=== PATIENT | female | born 1945 | race Caucasian/White ===

== ENCOUNTER 2018-08-03 12:54 | Inpatient (IN) | payer OTHER ==
[2018-08-03] MEDS ORDERED: ACETAMINOPHEN TAB 650MG DOSE (2X325MG) PO (14:30)
[2018-08-03] MEDS ORDERED: VANCOMYCIN HCL 1,000 MG, VIAL MATE ADAPTER 1 EACH in D5W 250 ML IV (14:45)
[2018-08-03] MEDS: PIPERACILLIN/TAZOBACTAM SOD 2.25 GM in D5W MINI-BAG PLUS 50 ML IV ×2 (15:19→20:50)
[2018-08-03] MEDS: methylPREDNISolone INJ 125 MG/2 ML VIAL (J2930) IV (15:19)
[2018-08-03] MEDS: DIGOXIN 0.125 MG TAB PO (15:19)
[2018-08-03 15:32] LABS: BASO % 0.4 % (0.0-1.0); EOS # 0.3 10^3/uL (0.0-0.50); EOS % 2.3 % (0.0-3.0); HEMATOCRIT 28.8 % (36.0-47.0); HEMOGLOBIN 9.1 g/dl (12.0-15.5); IMMATURE GRANULOCYTE % 0.5 % (0-3.0); LYMPH # 1.5 10^3/uL (1.5-4.5); LYMPH % 13.3 % (24.0-44.0); MEAN CORPUSCULAR HEMOGLOBIN 29.9 pg (27.0-33.0); MEAN CORPUSCULAR HGB CONC 31.6 g/dl (32.0-36.5); MEAN CORPUSCULAR VOLUME 94.7 fl (80.0-96.0); MONO # 0.6 10^3/uL (0.0-0.8); MONO % 5.2 % (0.0-5.0); NEUTROPHILS # 8.7 10^3/uL (1.8-7.7); NEUTROPHILS % 78.3 % (36.0-66.0); PLATELET COUNT, AUTOMATED 370 10^3/uL (150-450); RED BLOOD COUNT 3.04 10^6/uL (4.00-5.40); RED CELL DISTRIBUTION WIDTH 16.2 % (11.5-14.5); WHITE BLOOD COUNT 11.1 10^3/uL (4.0-10.0)
[2018-08-03 16:10] LABS: LACTIC ACID SEPSIS PROTOCOL 1.1 MMOL/L (0.4-2.0)
[2018-08-03 16:21] LABS: ANION GAP 7 MEQ/L (8-16); BLOOD UREA NITROGEN 12 MG/DL (7-18); CALCIUM LEVEL 8.3 MG/DL (8.8-10.2); CARBON DIOXIDE LEVEL 24 MEQ/L (21-32); CHLORIDE LEVEL 112 MEQ/L (98-107); CHOLESTEROL LEVEL 218 MG/DL (<200); CPK CREATINE PHOSPHOKINASE 45 U/L (26-192); CREATININE FOR GFR 1.26 MG/DL (0.55-1.30); DIGOXIN LEVEL 0.4 NG/ML (0.5-2.0); GLOMERULAR FILTRATION RATE 44.1 (>39); GLUCOSE, FASTING 100 MG/DL (70-100); HDL CHOLESTEROL 63 MG/DL (>40); LDL CHOLESTEROL 132 MG/DL (<100); MAGNESIUM LEVEL 2.1 MG/DL (1.8-2.4); MB/CK RELATIVE INDEX 8.89 (< OR =4); NON-HDL-C 155 MG/DL; POTASSIUM SERUM 4.7 MEQ/L (3.5-5.1); SODIUM LEVEL 143 MEQ/L (136-145); TRIGLYCERIDES LEVEL 114 MG/DL (<150); TROPONIN I 0.16 NG/ML (< 0.10)
[2018-08-03] MEDS: LEVALBUTEROL 1.25 MG/0.5 ML CONCENTRATE NEB INH ×3 (16:45→20:00)
[2018-08-03 16:59] LABS: ERYTHROCYTE SEDIMENTATION RATE 85 mm/hr (0-30)
[2018-08-03] MEDS: VANCOMYCIN HCL 750 MG, VIAL MATE ADAPTER 1 EACH in D5W 250 ML IV (17:12)
[2018-08-03] MEDS: LACTOBACILLUS ACIDOPHILUS CAP (BACID) PO (18:00)
[2018-08-03] MEDS: FUROSEMIDE 40 MG/4 ML VIAL (J1940) IV (18:04)
[2018-08-03 18:20] LABS: NT-PRO BNP 2499 PG/ML (<450)
[2018-08-03 18:30] LABS: ABG BASE EXCESS -7.6 (-2.0-2.0); ABG HCO3 19.5 MEQ/L (22.0-26.0); ABG O2 SATURATION 99.2 % (95.0-99.0); ABG PARTIAL PRESSURE CO2 45.9 mmHg (35.0-45.0); ABG PARTIAL PRESSURE O2 160.3 mmHg (75.0-100.0); ABG STANDARD HCO3 18.3 MEQ/L (22.0-26.0); ABG TOTAL CO2 20.9 MEQ/L (23.0-31.0)
[2018-08-03 18:34] LABS: ABG pH (ARTERIAL) 7.245 UNITS (7.350-7.450)
[2018-08-03] MEDS ORDERED: diltiaZEM 125 MG in NS 100 ML IV (19:00)
[2018-08-03] MEDS: VANCOMYCIN HCL 500 MG in D5W MINI-BAG PLUS 100 ML IV (19:33)
[2018-08-03] MEDS: ADVAIR HFA 230/21MCG INHALER INH (20:00)
[2018-08-03] MEDS: APIXABAN 5 MG TAB (ELIQUIS) PO (20:50)
[2018-08-03] MEDS: SENNA 8.6 MG TAB (SENOKOT) PO (20:58)
[2018-08-03] MEDS: guaiFENesin ER 600 MG TAB PO (20:58)
[2018-08-03] MEDS: AMIODARONE 200 MG TAB (PACERONE) PO (20:58)
[2018-08-03] MEDS: SERTRALINE HCL 25 MG TABLET PO (21:06)
[2018-08-03 23:28] LABS: AMORPHOUS SEDIMENT RFX SMALL (NEGATIVE); KETONE, URINE AUTO RFX NEGATIVE (NEGATIVE); LEUKOCYTE ESTERASE UR AUTO RFX TRACE (NEGATIVE); MUCUS, URINE RFX SMALL (NEGATIVE); NITRITE, URINE AUTO RFX NEGATIVE (NEGATIVE); RBC, URINE AUTO RFX 99 /HPF (0-3); SPECIFIC GRAVITY UR AUTO RFX 1.006 (1.002-1.035); SQUAM EPITHELIAL CELL UR AURFX 0 /HPF (0-6); TRANSITIONAL EPITHELIAL AU RFX <1 /HPF; WBC, URINE AUTO RFX 5 /HPF (0-3)
[2018-08-04] MEDS ORDERED: FUROSEMIDE 40 MG/4 ML VIAL (J1940) IV
[2018-08-04] MEDS: methylPREDNISolone INJ 125 MG/2 ML VIAL (J2930) IV ×4 (00:53→21:56)
[2018-08-04] MEDS: LEVALBUTEROL 1.25 MG/0.5 ML CONCENTRATE NEB INH ×4 (02:24→20:00)
[2018-08-04] MEDS: PIPERACILLIN/TAZOBACTAM SOD 2.25 GM in D5W MINI-BAG PLUS 50 ML IV ×4 (03:56→21:15)
[2018-08-04 04:25] LABS: HEMATOCRIT 27.4 % (36.0-47.0); HEMOGLOBIN 8.9 g/dl (12.0-15.5); MEAN CORPUSCULAR HEMOGLOBIN 29.9 pg (27.0-33.0); MEAN CORPUSCULAR HGB CONC 32.5 g/dl (32.0-36.5); MEAN CORPUSCULAR VOLUME 91.9 fl (80.0-96.0); PLATELET COUNT, AUTOMATED 375 10^3/uL (150-450); RED BLOOD COUNT 2.98 10^6/uL (4.00-5.40); RED CELL DISTRIBUTION WIDTH 15.9 % (11.5-14.5)
[2018-08-04 04:50] LABS: ANION GAP 9 MEQ/L (8-16); BLOOD UREA NITROGEN 13 MG/DL (7-18); CALCIUM LEVEL 8.3 MG/DL (8.8-10.2); CARBON DIOXIDE LEVEL 23 MEQ/L (21-32); CHLORIDE LEVEL 109 MEQ/L (98-107); CREATININE FOR GFR 1.35 MG/DL (0.55-1.30); GLOMERULAR FILTRATION RATE 40.7 (>39); GLUCOSE, FASTING 173 MG/DL (70-100); MAGNESIUM LEVEL 1.6 MG/DL (1.8-2.4); POTASSIUM SERUM 4.3 MEQ/L (3.5-5.1); SODIUM LEVEL 141 MEQ/L (136-145)
[2018-08-04] MEDS: ADVAIR HFA 230/21MCG INHALER INH ×2 (08:28→20:58)
[2018-08-04] MEDS: CHLORTHALIDONE 25 MG TAB PO (08:33)
[2018-08-04] MEDS: LACTOBACILLUS ACIDOPHILUS CAP (BACID) PO ×3 (08:33→17:21)
[2018-08-04] MEDS: APIXABAN 5 MG TAB (ELIQUIS) PO ×2 (08:33→21:15)
[2018-08-04] MEDS: guaiFENesin ER 600 MG TAB PO ×2 (08:33→21:15)
[2018-08-04] MEDS: AMIODARONE 200 MG TAB (PACERONE) PO ×3 (08:33→21:15)
[2018-08-04] MEDS: ASPIRIN 81 MG ENTERIC TAB PO (08:33)
[2018-08-04] MEDS ORDERED: PILL CRUSHER/CUTTER 1 EACH XX (08:45)
[2018-08-04] MEDS ORDERED: FUROSEMIDE 40 MG TAB PO (09:00)
[2018-08-04] MEDS: DOCUSATE SODIUM 100 MG CAP PO (09:00)
[2018-08-04] MEDS: PANTOPRAZOLE 40MG TAB (PROTONIX) PO (10:03)
[2018-08-04] MEDS: MAGNESIUM GLUCONATE 500 MG TAB PO ×2 (10:03→21:16)
[2018-08-04] MEDS: VANCOMYCIN HCL 750 MG, VIAL MATE ADAPTER 1 EACH in D5W 250 ML IV (15:32)
[2018-08-04] MEDS: SENNA 8.6 MG TAB (SENOKOT) PO ×2 (21:00→21:15)
[2018-08-04] MEDS ORDERED: DIGOXIN 0.125 MG TAB PO (21:00)
[2018-08-04] MEDS: SERTRALINE HCL 25 MG TABLET PO (21:15)
[2018-08-05] MEDS: LEVALBUTEROL 1.25 MG/0.5 ML CONCENTRATE NEB INH ×5 (01:32→20:44)
[2018-08-05] MEDS ORDERED: SLF 3 ML SYR IV (03:00)
[2018-08-05] MEDS: PIPERACILLIN/TAZOBACTAM SOD 2.25 GM in D5W MINI-BAG PLUS 50 ML IV ×2 (03:20→08:00)
[2018-08-05] MEDS: SLF 3 ML SYR IV ×3 (05:33→22:00)
[2018-08-05 06:01] LABS: HEMATOCRIT 24.9 % (36.0-47.0); HEMOGLOBIN 7.9 g/dl (12.0-15.5); MEAN CORPUSCULAR HEMOGLOBIN 29.4 pg (27.0-33.0); MEAN CORPUSCULAR HGB CONC 31.7 g/dl (32.0-36.5); MEAN CORPUSCULAR VOLUME 92.6 fl (80.0-96.0); PLATELET COUNT, AUTOMATED 348 10^3/uL (150-450); RED BLOOD COUNT 2.69 10^6/uL (4.00-5.40); RED CELL DISTRIBUTION WIDTH 16.2 % (11.5-14.5); WHITE BLOOD COUNT 16.3 10^3/uL (4.0-10.0)
[2018-08-05] MEDS: methylPREDNISolone INJ 125 MG/2 ML VIAL (J2930) IV ×2 (06:03→18:45)
[2018-08-05 06:38] LABS: ANION GAP 8 MEQ/L (8-16); BLOOD UREA NITROGEN 20 MG/DL (7-18); CALCIUM LEVEL 8.6 MG/DL (8.8-10.2); CARBON DIOXIDE LEVEL 26 MEQ/L (21-32); CHLORIDE LEVEL 106 MEQ/L (98-107); CREATININE FOR GFR 1.46 MG/DL (0.55-1.30); GLOMERULAR FILTRATION RATE 37.2 (>39); GLUCOSE, FASTING 175 MG/DL (70-100); IRON (FE) 16 UG/DL (50-170); MAGNESIUM LEVEL 1.9 MG/DL (1.8-2.4); PERCENT SATURATION 5.4 % (13.2-45.0); POTASSIUM SERUM 4.2 MEQ/L (3.5-5.1); SODIUM LEVEL 140 MEQ/L (136-145); TOTAL IRON BINDING CAPACITY 297 UG/DL (250-450)
[2018-08-05] MEDS: ADVAIR HFA 230/21MCG INHALER INH ×2 (07:20→20:41)
[2018-08-05] MEDS: LACTOBACILLUS ACIDOPHILUS CAP (BACID) PO ×3 (07:56→18:45)
[2018-08-05] MEDS: guaiFENesin ER 600 MG TAB PO ×2 (07:56→20:48)
[2018-08-05] MEDS: ASPIRIN 81 MG ENTERIC TAB PO (07:56)
[2018-08-05] MEDS: PANTOPRAZOLE 40MG TAB (PROTONIX) PO (07:56)
[2018-08-05] MEDS: MAGNESIUM GLUCONATE 500 MG TAB PO ×2 (07:56→20:49)
[2018-08-05] MEDS: CHLORTHALIDONE 25 MG TAB PO (07:57)
[2018-08-05] MEDS: APIXABAN 5 MG TAB (ELIQUIS) PO ×2 (07:57→20:48)
[2018-08-05] MEDS: DOCUSATE SODIUM 100 MG CAP PO (07:57)
[2018-08-05] MEDS: AMIODARONE 200 MG TAB (PACERONE) PO ×3 (08:00→20:48)
[2018-08-05 09:13] LABS: HEMATOCRIT 25.3 % (36.0-47.0); HEMOGLOBIN 8.2 g/dl (12.0-15.5)
[2018-08-05 09:14] LABS: RETIC HEMOGLOBIN EQUIVALENT 29.1 pg (24-36); RETICULOCYTE % 2.8 % (0.5-1.5)
[2018-08-05 09:18] LABS: REASON FOR REVIEW RBC MORPHOLOGY; SLIDE REVIEW Report; SOURCE PERIPHERAL SMEAR
[2018-08-05] MEDS: IRON POLYSAC (NIFEREX) 150 MG CAP PO ×2 (09:31→20:48)
[2018-08-05 09:36] LABS: IRON (FE) 16 UG/DL (50-170); TOTAL IRON BINDING CAPACITY 319 UG/DL (250-450)
[2018-08-05 09:42] LABS: CPK CREATINE PHOSPHOKINASE 32 U/L (26-192); NT-PRO BNP 3619 PG/ML (<450); TROPONIN I 0.08 NG/ML (< 0.10)
[2018-08-05 12:39] LABS: ANION GAP 13 MEQ/L (8-16); BLOOD UREA NITROGEN 21 MG/DL (7-18); CALCIUM LEVEL 8.4 MG/DL (8.8-10.2); CARBON DIOXIDE LEVEL 24 MEQ/L (21-32); CHLORIDE LEVEL 104 MEQ/L (98-107); CREATININE FOR GFR 1.74 MG/DL (0.55-1.30); GLOMERULAR FILTRATION RATE 30.4 (>39); GLUCOSE, FASTING 133 MG/DL (70-100); POTASSIUM SERUM 3.8 MEQ/L (3.5-5.1); SODIUM LEVEL 141 MEQ/L (136-145)
[2018-08-05] MEDS: PREVNAR 13 VACCINE SYRINGE (CPT CODE:90670) IM (16:11)
[2018-08-05] MEDS: SERTRALINE HCL 25 MG TABLET PO (20:48)
[2018-08-05] MEDS: SENNA 8.6 MG TAB (SENOKOT) PO (20:49)
[2018-08-06] MEDS: LEVALBUTEROL 1.25 MG/0.5 ML CONCENTRATE NEB INH ×4 (01:52→20:00)
[2018-08-06 05:37] LABS: HEMOGLOBIN 7.7 g/dl (12.0-15.5); MEAN CORPUSCULAR HGB CONC 32.1 g/dl (32.0-36.5); MEAN CORPUSCULAR VOLUME 93.4 fl (80.0-96.0); PLATELET COUNT, AUTOMATED 345 10^3/uL (150-450); RED BLOOD COUNT 2.57 10^6/uL (4.00-5.40); RED CELL DISTRIBUTION WIDTH 16.5 % (11.5-14.5)
[2018-08-06 05:56] LABS: ANION GAP 8 MEQ/L (8-16); BLOOD UREA NITROGEN 28 MG/DL (7-18); CALCIUM LEVEL 8.4 MG/DL (8.8-10.2); CARBON DIOXIDE LEVEL 27 MEQ/L (21-32); CHLORIDE LEVEL 107 MEQ/L (98-107); CREATININE FOR GFR 1.45 MG/DL (0.55-1.30); GLOMERULAR FILTRATION RATE 37.5 (>39); GLUCOSE, FASTING 168 MG/DL (70-100); POTASSIUM SERUM 3.6 MEQ/L (3.5-5.1); SODIUM LEVEL 142 MEQ/L (136-145)
[2018-08-06] MEDS: SLF 3 ML SYR IV ×3 (06:11→21:19)
[2018-08-06] MEDS: methylPREDNISolone INJ 125 MG/2 ML VIAL (J2930) IV ×2 (06:11→17:27)
[2018-08-06] MEDS: ADVAIR HFA 230/21MCG INHALER INH ×2 (07:22→20:57)
[2018-08-06] MEDS: IRON POLYSAC (NIFEREX) 150 MG CAP PO ×2 (08:45→21:16)
[2018-08-06] MEDS: PANTOPRAZOLE 40MG TAB (PROTONIX) PO (08:45)
[2018-08-06] MEDS: MAGNESIUM GLUCONATE 500 MG TAB PO ×2 (08:45→21:17)
[2018-08-06] MEDS: guaiFENesin ER 600 MG TAB PO ×2 (08:45→21:17)
[2018-08-06] MEDS: AMIODARONE 200 MG TAB (PACERONE) PO ×3 (08:45→21:17)
[2018-08-06] MEDS: LACTOBACILLUS ACIDOPHILUS CAP (BACID) PO ×3 (08:46→16:56)
[2018-08-06] MEDS: ASCORBIC ACID 500 MG TAB PO ×2 (08:46→16:55)
[2018-08-06] MEDS: DOCUSATE SODIUM 100 MG CAP PO (08:48)
[2018-08-06 15:20] LABS: IMMEDIATE SPIN CROSSMATCH 1 2
[2018-08-06 18:07] LABS: HEMOGLOBIN 11.9 g/dl (12.0-15.5)
[2018-08-06] MEDS: SENNA 8.6 MG TAB (SENOKOT) PO ×2 (21:00→21:17)
[2018-08-06] MEDS: SERTRALINE HCL 25 MG TABLET PO (21:17)
[2018-08-07 00:31] LABS: HEMOGLOBIN 11.7 g/dl (12.0-15.5)
[2018-08-07] MEDS: LEVALBUTEROL 1.25 MG/0.5 ML CONCENTRATE NEB INH ×4 (00:31→20:00)
[2018-08-07 05:21] LABS: HEMATOCRIT 34.8 % (36.0-47.0); HEMOGLOBIN 11.3 g/dl (12.0-15.5); MEAN CORPUSCULAR HEMOGLOBIN 29.4 pg (27.0-33.0); MEAN CORPUSCULAR HGB CONC 32.5 g/dl (32.0-36.5); MEAN CORPUSCULAR VOLUME 90.6 fl (80.0-96.0); PLATELET COUNT, AUTOMATED 318 10^3/uL (150-450); RED BLOOD COUNT 3.84 10^6/uL (4.00-5.40); RED CELL DISTRIBUTION WIDTH 16.6 % (11.5-14.5); WHITE BLOOD COUNT 12.5 10^3/uL (4.0-10.0)
[2018-08-07 05:42] LABS: ANION GAP 12 MEQ/L (8-16); BLOOD UREA NITROGEN 29 MG/DL (7-18); CALCIUM LEVEL 8.4 MG/DL (8.8-10.2); CARBON DIOXIDE LEVEL 25 MEQ/L (21-32); CHLORIDE LEVEL 104 MEQ/L (98-107); GLOMERULAR FILTRATION RATE 33.5 (>39); GLUCOSE, FASTING 241 MG/DL (70-100); MAGNESIUM LEVEL 1.9 MG/DL (1.8-2.4); POTASSIUM SERUM 3.5 MEQ/L (3.5-5.1); SODIUM LEVEL 141 MEQ/L (136-145)
[2018-08-07] MEDS: SLF 3 ML SYR IV ×3 (06:00→21:04)
[2018-08-07] MEDS: methylPREDNISolone INJ 125 MG/2 ML VIAL (J2930) IV (06:17)
[2018-08-07] MEDS: ADVAIR HFA 230/21MCG INHALER INH ×2 (08:22→20:10)
[2018-08-07] MEDS: DOCUSATE SODIUM 100 MG CAP PO (08:32)
[2018-08-07] MEDS: ASCORBIC ACID 500 MG TAB PO ×2 (08:32→17:45)
[2018-08-07] MEDS: guaiFENesin ER 600 MG TAB PO ×2 (08:32→21:03)
[2018-08-07] MEDS: predniSONE 20 MG TAB PO (08:32)
[2018-08-07] MEDS: LACTOBACILLUS ACIDOPHILUS CAP (BACID) PO ×3 (08:32→17:45)
[2018-08-07] MEDS: PANTOPRAZOLE 40MG TAB (PROTONIX) PO (08:32)
[2018-08-07] MEDS: IRON POLYSAC (NIFEREX) 150 MG CAP PO ×2 (08:33→21:03)
[2018-08-07] MEDS: MAGNESIUM GLUCONATE 500 MG TAB PO ×2 (08:33→21:04)
[2018-08-07] MEDS: AMIODARONE 200 MG TAB (PACERONE) PO ×3 (08:33→21:03)
[2018-08-07 10:43] LABS: HEMATOCRIT 37.3 % (36.0-47.0); HEMOGLOBIN 12.1 g/dl (12.0-15.5)
[2018-08-07 17:13] LABS: HEMATOCRIT 35.5 % (36.0-47.0); HEMOGLOBIN 11.9 g/dl (12.0-15.5)
[2018-08-07] MEDS: SERTRALINE HCL 25 MG TABLET PO (21:03)
[2018-08-07] MEDS: SENNA 8.6 MG TAB (SENOKOT) PO (21:03)
[2018-08-07 23:12] LABS: HEMATOCRIT 33.6 % (36.0-47.0); HEMOGLOBIN 10.9 g/dl (12.0-15.5)
[2018-08-08] MEDS: LEVALBUTEROL 1.25 MG/0.5 ML CONCENTRATE NEB INH ×4 (03:58→20:00)
[2018-08-08] MEDS: SLF 3 ML SYR IV ×3 (05:16→22:00)
[2018-08-08 05:41] LABS: HEMATOCRIT 33.1 % (36.0-47.0); MEAN CORPUSCULAR HEMOGLOBIN 29.6 pg (27.0-33.0); MEAN CORPUSCULAR HGB CONC 33.2 g/dl (32.0-36.5); MEAN CORPUSCULAR VOLUME 89.2 fl (80.0-96.0); PLATELET COUNT, AUTOMATED 304 10^3/uL (150-450); RED BLOOD COUNT 3.71 10^6/uL (4.00-5.40); RED CELL DISTRIBUTION WIDTH 16.4 % (11.5-14.5); WHITE BLOOD COUNT 11.8 10^3/uL (4.0-10.0)
[2018-08-08 06:06] LABS: ANION GAP 10 MEQ/L (8-16); BLOOD UREA NITROGEN 35 MG/DL (7-18); CALCIUM LEVEL 8.5 MG/DL (8.8-10.2); CARBON DIOXIDE LEVEL 28 MEQ/L (21-32); CHLORIDE LEVEL 108 MEQ/L (98-107); CREATININE FOR GFR 1.43 MG/DL (0.55-1.30); GLOMERULAR FILTRATION RATE 38.1 (>39); GLUCOSE, FASTING 134 MG/DL (70-100); MAGNESIUM LEVEL 2.1 MG/DL (1.8-2.4); POTASSIUM SERUM 3.5 MEQ/L (3.5-5.1); SODIUM LEVEL 146 MEQ/L (136-145)
[2018-08-08] MEDS: ADVAIR HFA 230/21MCG INHALER INH ×2 (07:58→20:57)
[2018-08-08] MEDS: PANTOPRAZOLE 40MG TAB (PROTONIX) PO (09:35)
[2018-08-08] MEDS: FUROSEMIDE 100 MG/10 ML VIAL (J1940) IV (09:35)
[2018-08-08] MEDS: LACTOBACILLUS ACIDOPHILUS CAP (BACID) PO ×3 (09:36→17:55)
[2018-08-08] MEDS: POTASSIUM CHLORIDE 10 MEQ SR TABLET PO (09:36)
[2018-08-08] MEDS: ASPIRIN 81 MG ENTERIC TAB PO (09:36)
[2018-08-08] MEDS: guaiFENesin ER 600 MG TAB PO ×2 (09:36→20:11)
[2018-08-08] MEDS: DOCUSATE SODIUM 100 MG CAP PO (09:36)
[2018-08-08] MEDS: ASCORBIC ACID 500 MG TAB PO ×2 (09:36→17:55)
[2018-08-08] MEDS: AMIODARONE 200 MG TAB (PACERONE) PO ×3 (09:37→20:12)
[2018-08-08] MEDS: MAGNESIUM GLUCONATE 500 MG TAB PO ×2 (09:37→20:11)
[2018-08-08] MEDS: predniSONE 20 MG TAB PO (09:37)
[2018-08-08] MEDS: IRON POLYSAC (NIFEREX) 150 MG CAP PO ×2 (09:37→20:11)
[2018-08-08 15:13] LABS: HEMATOCRIT 37.3 % (36.0-47.0); HEMOGLOBIN 12.3 g/dl (12.0-15.5)
[2018-08-08] MEDS: MOM 30ML SUSPENSION UDC PO ×2 (17:54→20:09)
[2018-08-08] MEDS: MAGNESIUM CITRATE 300 ML BTL PO ×2 (17:54→20:10)
[2018-08-08] MEDS: SERTRALINE HCL 25 MG TABLET PO (20:10)
[2018-08-08] MEDS: SENNA 8.6 MG TAB (SENOKOT) PO (20:11)
[2018-08-09] MEDS: LEVALBUTEROL 1.25 MG/0.5 ML CONCENTRATE NEB INH ×3 (01:30→15:33)
[2018-08-09 05:55] LABS: HEMATOCRIT 33.5 % (36.0-47.0); HEMOGLOBIN 11.2 g/dl (12.0-15.5); MEAN CORPUSCULAR HEMOGLOBIN 29.9 pg (27.0-33.0); MEAN CORPUSCULAR HGB CONC 33.4 g/dl (32.0-36.5); MEAN CORPUSCULAR VOLUME 89.3 fl (80.0-96.0); PLATELET COUNT, AUTOMATED 306 10^3/uL (150-450); RED BLOOD COUNT 3.75 10^6/uL (4.00-5.40); RED CELL DISTRIBUTION WIDTH 16.3 % (11.5-14.5); WHITE BLOOD COUNT 13.7 10^3/uL (4.0-10.0)
[2018-08-09] MEDS: SLF 3 ML SYR IV ×3 (06:00→20:35)
[2018-08-09 06:27] LABS: ANION GAP 6 MEQ/L (8-16); BLOOD UREA NITROGEN 33 MG/DL (7-18); CALCIUM LEVEL 8.7 MG/DL (8.8-10.2); CARBON DIOXIDE LEVEL 34 MEQ/L (21-32); CHLORIDE LEVEL 107 MEQ/L (98-107); CREATININE FOR GFR 1.31 MG/DL (0.55-1.30); GLOMERULAR FILTRATION RATE 42.1 (>39); GLUCOSE, FASTING 112 MG/DL (70-100); MAGNESIUM LEVEL 2.4 MG/DL (1.8-2.4); POTASSIUM SERUM 3.7 MEQ/L (3.5-5.1); SODIUM LEVEL 147 MEQ/L (136-145)
[2018-08-09] MEDS: ADVAIR HFA 230/21MCG INHALER INH ×2 (07:13→20:25)
[2018-08-09] MEDS: DOCUSATE SODIUM 100 MG CAP PO (09:00)
[2018-08-09] MEDS: LACTOBACILLUS ACIDOPHILUS CAP (BACID) PO ×3 (09:03→16:34)
[2018-08-09] MEDS: predniSONE 20 MG TAB PO (09:03)
[2018-08-09] MEDS: PANTOPRAZOLE 40MG TAB (PROTONIX) PO (09:03)
[2018-08-09] MEDS: ASCORBIC ACID 500 MG TAB PO ×2 (09:03→16:34)
[2018-08-09] MEDS: AMIODARONE 200 MG TAB (PACERONE) PO ×3 (09:04→20:31)
[2018-08-09] MEDS: ASPIRIN 81 MG ENTERIC TAB PO (09:04)
[2018-08-09] MEDS: guaiFENesin ER 600 MG TAB PO ×2 (09:04→20:32)
[2018-08-09] MEDS: IRON POLYSAC (NIFEREX) 150 MG CAP PO ×2 (09:04→20:33)
[2018-08-09] MEDS: MAGNESIUM GLUCONATE 500 MG TAB PO ×2 (09:04→20:35)
[2018-08-09] MEDS ORDERED: PROPOFOL 200 MG/20 ML VIAL As Ordered ×3 (11:10→12:47)
[2018-08-09] MEDS: LR 1,000 ML IV (13:30)
[2018-08-09] MEDS ORDERED: ONDANSETRON 4MG/2ML VIAL (J2405) IV (13:30)
[2018-08-09] MEDS: BISOPROLOL FUM 2.5 MG PER 1/2TAB PO (18:11)
[2018-08-09] MEDS: TORSEMIDE 20 MG TAB PO (18:12)
[2018-08-09] MEDS: SPIRONOLACTONE 12.5MG PER 1/2 TABLET PO (18:12)
[2018-08-09] MEDS: POTASSIUM CHLORIDE 10 MEQ SR TABLET PO ×2 (18:13→20:33)
[2018-08-09] MEDS: IPRATROPIUM 0.5MG/ALBUTEROL 2.5MG INH SOL UD 3ML (DUONEB)(J7620) NEB ×2 (20:00→23:25)
[2018-08-09] MEDS: SENNA 8.6 MG TAB (SENOKOT) PO (20:32)
[2018-08-09] MEDS: SERTRALINE HCL 25 MG TABLET PO (20:32)
[2018-08-10] MEDS: BISOPROLOL FUM 2.5 MG PER 1/2TAB PO ×5 (00:12→23:32)
[2018-08-10] MEDS: IPRATROPIUM 0.5MG/ALBUTEROL 2.5MG INH SOL UD 3ML (DUONEB)(J7620) NEB ×6 (03:47→23:48)
[2018-08-10 05:39] LABS: HEMATOCRIT 36.1 % (36.0-47.0); HEMOGLOBIN 11.7 g/dl (12.0-15.5); MEAN CORPUSCULAR HEMOGLOBIN 29.6 pg (27.0-33.0); MEAN CORPUSCULAR HGB CONC 32.4 g/dl (32.0-36.5); MEAN CORPUSCULAR VOLUME 91.4 fl (80.0-96.0); PLATELET COUNT, AUTOMATED 293 10^3/uL (150-450); RED BLOOD COUNT 3.95 10^6/uL (4.00-5.40); RED CELL DISTRIBUTION WIDTH 15.9 % (11.5-14.5); WHITE BLOOD COUNT 12.4 10^3/uL (4.0-10.0)
[2018-08-10] MEDS: SLF 3 ML SYR IV ×3 (05:51→20:54)
[2018-08-10 06:02] LABS: MAGNESIUM LEVEL 2.1 MG/DL (1.8-2.4)
[2018-08-10] MEDS: ADVAIR HFA 230/21MCG INHALER INH ×2 (08:19→20:09)
[2018-08-10] MEDS: ASPIRIN 81 MG ENTERIC TAB PO (08:26)
[2018-08-10] MEDS: PANTOPRAZOLE 40MG TAB (PROTONIX) PO (08:26)
[2018-08-10] MEDS: guaiFENesin ER 600 MG TAB PO ×2 (08:26→20:52)
[2018-08-10] MEDS: AMIODARONE 200 MG TAB (PACERONE) PO ×4 (08:26→20:53)
[2018-08-10] MEDS: LACTOBACILLUS ACIDOPHILUS CAP (BACID) PO ×3 (08:26→17:00)
[2018-08-10] MEDS: ASCORBIC ACID 500 MG TAB PO ×2 (08:26→17:00)
[2018-08-10] MEDS: DOCUSATE SODIUM 100 MG CAP PO (08:26)
[2018-08-10] MEDS: IRON POLYSAC (NIFEREX) 150 MG CAP PO ×2 (08:27→20:53)
[2018-08-10] MEDS: predniSONE 20 MG TAB PO (08:27)
[2018-08-10] MEDS: MAGNESIUM GLUCONATE 500 MG TAB PO ×2 (08:27→20:53)
[2018-08-10] MEDS: SPIRONOLACTONE 12.5MG PER 1/2 TABLET PO (08:27)
[2018-08-10 09:50] LABS: ALBUMIN 2.7 GM/DL (3.2-5.2); ALKALINE PHOSPHATASE 102 U/L (45-117); ALT/SGPT 40 U/L (12-78); ANION GAP 4 MEQ/L (8-16); AST/SGOT 28 U/L (7-37); BILIRUBIN,TOTAL 0.3 MG/DL (0.2-1.0); BLOOD UREA NITROGEN 29 MG/DL (7-18); CALCIUM LEVEL 8.5 MG/DL (8.8-10.2); CARBON DIOXIDE LEVEL 39 MEQ/L (21-32); CHLORIDE LEVEL 102 MEQ/L (98-107); CREATININE FOR GFR 1.26 MG/DL (0.55-1.30); GLOMERULAR FILTRATION RATE 44.1 (>39); GLUCOSE, FASTING 94 MG/DL (70-100); POTASSIUM SERUM 3.5 MEQ/L (3.5-5.1); SODIUM LEVEL 145 MEQ/L (136-145); TOTAL PROTEIN 5.4 GM/DL (6.4-8.2)
[2018-08-10] MEDS: TORSEMIDE 20 MG TAB PO (19:30)
[2018-08-10] MEDS: POTASSIUM CHLORIDE 10 MEQ SR TABLET PO ×3 (19:31→23:32)
[2018-08-10] MEDS: SENNA 8.6 MG TAB (SENOKOT) PO (20:53)
[2018-08-10] MEDS: SERTRALINE HCL 25 MG TABLET PO (20:53)
[2018-08-11] MEDS: IPRATROPIUM 0.5MG/ALBUTEROL 2.5MG INH SOL UD 3ML (DUONEB)(J7620) NEB ×5 (04:23→20:00)
[2018-08-11] MEDS: SLF 3 ML SYR IV ×3 (06:00→21:01)
[2018-08-11] MEDS: BISOPROLOL FUM 2.5 MG PER 1/2TAB PO ×3 (06:00→17:39)
[2018-08-11 06:01] LABS: ALBUMIN 2.6 GM/DL (3.2-5.2); ANION GAP 4 MEQ/L (8-16); BLOOD UREA NITROGEN 31 MG/DL (7-18); CALCIUM LEVEL 8.4 MG/DL (8.8-10.2); CARBON DIOXIDE LEVEL 36 MEQ/L (21-32); CHLORIDE LEVEL 102 MEQ/L (98-107); GLUCOSE, FASTING 85 MG/DL (70-100); PHOSPHORUS LEVEL 2.3 MG/DL (2.5-4.9); POTASSIUM SERUM 4.5 MEQ/L (3.5-5.1); SODIUM LEVEL 142 MEQ/L (136-145)
[2018-08-11] MEDS: ADVAIR HFA 230/21MCG INHALER INH ×2 (08:16→21:08)
[2018-08-11] MEDS: PANTOPRAZOLE 40MG TAB (PROTONIX) PO (08:41)
[2018-08-11] MEDS: DOCUSATE SODIUM 100 MG CAP PO (08:41)
[2018-08-11] MEDS: guaiFENesin ER 600 MG TAB PO ×2 (08:41→21:00)
[2018-08-11] MEDS: predniSONE 20 MG TAB PO (08:42)
[2018-08-11] MEDS: ASCORBIC ACID 500 MG TAB PO ×2 (08:42→17:38)
[2018-08-11] MEDS: MAGNESIUM GLUCONATE 500 MG TAB PO ×2 (08:42→21:01)
[2018-08-11] MEDS: IRON POLYSAC (NIFEREX) 150 MG CAP PO ×2 (08:42→21:01)
[2018-08-11] MEDS: LACTOBACILLUS ACIDOPHILUS CAP (BACID) PO ×3 (08:42→17:38)
[2018-08-11] MEDS: ASPIRIN 81 MG ENTERIC TAB PO (08:42)
[2018-08-11] MEDS: AMIODARONE 200 MG TAB (PACERONE) PO ×4 (08:42→21:01)
[2018-08-11] MEDS: TORSEMIDE 10 MG TABLET PO (08:45)
[2018-08-11] MEDS: SPIRONOLACTONE 12.5MG PER 1/2 TABLET PO (08:45)
[2018-08-11] MEDS: SERTRALINE HCL 25 MG TABLET PO (21:01)
[2018-08-11] MEDS: SENNA 8.6 MG TAB (SENOKOT) PO (21:01)
[2018-08-12] MEDS: IPRATROPIUM 0.5MG/ALBUTEROL 2.5MG INH SOL UD 3ML (DUONEB)(J7620) NEB ×2 (00:48→04:00)
[2018-08-12] MEDS: SLF 3 ML SYR IV ×3 (06:00→20:46)
[2018-08-12] MEDS: BISOPROLOL FUM 2.5 MG PER 1/2TAB PO ×4 (06:00→17:42)
[2018-08-12 06:18] LABS: ALBUMIN 2.5 GM/DL (3.2-5.2); ANION GAP 6 MEQ/L (8-16); BLOOD UREA NITROGEN 34 MG/DL (7-18); CALCIUM LEVEL 8.6 MG/DL (8.8-10.2); CARBON DIOXIDE LEVEL 35 MEQ/L (21-32); CHLORIDE LEVEL 100 MEQ/L (98-107); CREATININE FOR GFR 1.31 MG/DL (0.55-1.30); GLOMERULAR FILTRATION RATE 42.1 (>39); GLUCOSE, FASTING 92 MG/DL (70-100); PHOSPHORUS LEVEL 3.1 MG/DL (2.5-4.9); POTASSIUM SERUM 3.7 MEQ/L (3.5-5.1); SODIUM LEVEL 141 MEQ/L (136-145)
[2018-08-12] MEDS: ALBUTEROL SULFATE 2.5 MG/0.5 ML INH NEB SOLN NEB ×2 (08:00→15:03)
[2018-08-12] MEDS: ADVAIR HFA 230/21MCG INHALER INH ×2 (08:46→20:48)
[2018-08-12] MEDS: TIOTROPIUM INHALER/CAPSULE (SPIRIVA) INH (08:46)
[2018-08-12] MEDS: IRON POLYSAC (NIFEREX) 150 MG CAP PO ×2 (08:59→21:38)
[2018-08-12] MEDS: AMIODARONE 200 MG TAB (PACERONE) PO ×4 (08:59→20:39)
[2018-08-12] MEDS: guaiFENesin ER 600 MG TAB PO ×2 (08:59→20:40)
[2018-08-12] MEDS: SPIRONOLACTONE 12.5MG PER 1/2 TABLET PO (08:59)
[2018-08-12] MEDS: LACTOBACILLUS ACIDOPHILUS CAP (BACID) PO ×3 (08:59→17:43)
[2018-08-12] MEDS: ASPIRIN 81 MG ENTERIC TAB PO (08:59)
[2018-08-12] MEDS: TORSEMIDE 10 MG TABLET PO (09:00)
[2018-08-12] MEDS: DOCUSATE SODIUM 100 MG CAP PO (09:00)
[2018-08-12] MEDS: ASCORBIC ACID 500 MG TAB PO ×2 (09:00→17:42)
[2018-08-12] MEDS: PANTOPRAZOLE 40MG TAB (PROTONIX) PO (09:00)
[2018-08-12] MEDS: predniSONE 20 MG TAB PO (09:00)
[2018-08-12] MEDS: MAGNESIUM GLUCONATE 500 MG TAB PO ×2 (09:00→21:40)
[2018-08-12] MEDS: SENNA 8.6 MG TAB (SENOKOT) PO (20:39)
[2018-08-12] MEDS: SERTRALINE HCL 25 MG TABLET PO (20:39)
[2018-08-13] MEDS: ALBUTEROL SULFATE 2.5 MG/0.5 ML INH NEB SOLN NEB ×3 (00:42→15:32)
[2018-08-13 06:18] LABS: ALBUMIN 2.7 GM/DL (3.2-5.2); ANION GAP 9 MEQ/L (8-16); BLOOD UREA NITROGEN 37 MG/DL (7-18); CALCIUM LEVEL 8.6 MG/DL (8.8-10.2); CARBON DIOXIDE LEVEL 35 MEQ/L (21-32); CHLORIDE LEVEL 99 MEQ/L (98-107); CREATININE FOR GFR 1.39 MG/DL (0.55-1.30); GLOMERULAR FILTRATION RATE 39.3 (>39); GLUCOSE, FASTING 102 MG/DL (70-100); PHOSPHORUS LEVEL 3.3 MG/DL (2.5-4.9); POTASSIUM SERUM 3.8 MEQ/L (3.5-5.1); SODIUM LEVEL 143 MEQ/L (136-145)
[2018-08-13 06:26] LABS: BASO # 0.1 10^3/uL (0.0-0.2); BASO % 0.4 % (0.0-1.0); EOS # 0.2 10^3/uL (0.0-0.50); EOS % 1.3 % (0.0-3.0); HEMATOCRIT 38.1 % (36.0-47.0); HEMOGLOBIN 12.2 g/dl (12.0-15.5); LYMPH % 24.6 % (24.0-44.0); MEAN CORPUSCULAR HEMOGLOBIN 29.8 pg (27.0-33.0); MEAN CORPUSCULAR VOLUME 93.2 fl (80.0-96.0); MONO # 0.9 10^3/uL (0.0-0.8); MONO % 7.2 % (0.0-5.0); NEUTROPHILS # 7.7 10^3/uL (1.8-7.7); NEUTROPHILS % 62.5 % (36.0-66.0); PLATELET COUNT, AUTOMATED 300 10^3/uL (150-450); RED BLOOD COUNT 4.09 10^6/uL (4.00-5.40); RED CELL DISTRIBUTION WIDTH 15.6 % (11.5-14.5); WHITE BLOOD COUNT 12.3 10^3/uL (4.0-10.0)
[2018-08-13] MEDS: BISOPROLOL FUM 2.5 MG PER 1/2TAB PO ×4 (06:56→17:18)
[2018-08-13] MEDS: SLF 3 ML SYR IV ×3 (06:57→21:27)
[2018-08-13] MEDS: ASCORBIC ACID 500 MG TAB PO ×2 (08:00→17:17)
[2018-08-13] MEDS: LACTOBACILLUS ACIDOPHILUS CAP (BACID) PO ×3 (08:00→17:19)
[2018-08-13] MEDS: ADVAIR HFA 230/21MCG INHALER INH ×2 (08:20→20:00)
[2018-08-13] MEDS: TIOTROPIUM INHALER/CAPSULE (SPIRIVA) INH (08:20)
[2018-08-13] MEDS: guaiFENesin ER 600 MG TAB PO ×2 (08:25→21:26)
[2018-08-13] MEDS: ASPIRIN 81 MG ENTERIC TAB PO (08:25)
[2018-08-13] MEDS: TORSEMIDE 10 MG TABLET PO (08:25)
[2018-08-13] MEDS: AMIODARONE 200 MG TAB (PACERONE) PO ×4 (08:26→21:26)
[2018-08-13] MEDS: predniSONE 20 MG TAB PO (08:26)
[2018-08-13] MEDS: PANTOPRAZOLE 40MG TAB (PROTONIX) PO (08:26)
[2018-08-13] MEDS: DOCUSATE SODIUM 100 MG CAP PO (08:26)
[2018-08-13] MEDS: MAGNESIUM GLUCONATE 500 MG TAB PO ×2 (08:27→21:26)
[2018-08-13] MEDS: IRON POLYSAC (NIFEREX) 150 MG CAP PO ×2 (08:27→21:26)
[2018-08-13] MEDS: SPIRONOLACTONE 12.5MG PER 1/2 TABLET PO (10:11)
[2018-08-13] MEDS: MAGNESIUM CITRATE 300 ML BTL PO (14:24)
[2018-08-13] MEDS: MOM 30ML SUSPENSION UDC PO (14:24)
[2018-08-13] MEDS: IPRATROPIUM 0.5MG/ALBUTEROL 2.5MG INH SOL UD 3ML (DUONEB)(J7620) NEB (15:32)
[2018-08-13] MEDS: SERTRALINE HCL 25 MG TABLET PO (21:26)
[2018-08-13] MEDS: SENNA 8.6 MG TAB (SENOKOT) PO (21:26)
[2018-08-14] MEDS: BISOPROLOL FUM 2.5 MG PER 1/2TAB PO ×3 (00:06→12:00)
[2018-08-14] MEDS: SLF 3 ML SYR IV ×3 (05:38→21:10)
[2018-08-14 06:36] LABS: BASO % 0.2 % (0.0-1.0); EOS # 0.2 10^3/uL (0.0-0.50); EOS % 1.6 % (0.0-3.0); HEMATOCRIT 37.6 % (36.0-47.0); HEMOGLOBIN 11.8 g/dl (12.0-15.5); IMMATURE GRANULOCYTE % 2.6 % (0-3.0); LYMPH % 24.8 % (24.0-44.0); MEAN CORPUSCULAR HEMOGLOBIN 28.9 pg (27.0-33.0); MEAN CORPUSCULAR HGB CONC 31.4 g/dl (32.0-36.5); MEAN CORPUSCULAR VOLUME 91.9 fl (80.0-96.0); MONO # 0.9 10^3/uL (0.0-0.8); MONO % 7.4 % (0.0-5.0); NEUTROPHILS # 7.6 10^3/uL (1.8-7.7); NEUTROPHILS % 63.4 % (36.0-66.0); PLATELET COUNT, AUTOMATED 283 10^3/uL (150-450); RED BLOOD COUNT 4.09 10^6/uL (4.00-5.40); RED CELL DISTRIBUTION WIDTH 15.6 % (11.5-14.5)
[2018-08-14 06:51] LABS: ANION GAP 6 MEQ/L (8-16); BLOOD UREA NITROGEN 35 MG/DL (7-18); CALCIUM LEVEL 8.3 MG/DL (8.8-10.2); CARBON DIOXIDE LEVEL 38 MEQ/L (21-32); CHLORIDE LEVEL 98 MEQ/L (98-107); CREATININE FOR GFR 1.36 MG/DL (0.55-1.30); GLOMERULAR FILTRATION RATE 40.4 (>39); GLUCOSE, FASTING 88 MG/DL (70-100); POTASSIUM SERUM 3.3 MEQ/L (3.5-5.1); SODIUM LEVEL 142 MEQ/L (136-145)
[2018-08-14] MEDS: ALBUTEROL SULFATE 2.5 MG/0.5 ML INH NEB SOLN NEB ×4 (08:00→23:23)
[2018-08-14] MEDS: DOCUSATE SODIUM 100 MG CAP PO (08:26)
[2018-08-14] MEDS: ADVAIR HFA 230/21MCG INHALER INH ×2 (08:46→20:26)
[2018-08-14] MEDS: TIOTROPIUM INHALER/CAPSULE (SPIRIVA) INH (08:47)
[2018-08-14] MEDS: MAGNESIUM GLUCONATE 500 MG TAB PO ×2 (08:52→21:09)
[2018-08-14] MEDS: ASCORBIC ACID 500 MG TAB PO ×2 (08:52→17:19)
[2018-08-14] MEDS: LACTOBACILLUS ACIDOPHILUS CAP (BACID) PO ×3 (08:52→17:19)
[2018-08-14] MEDS: IRON POLYSAC (NIFEREX) 150 MG CAP PO ×2 (08:53→21:09)
[2018-08-14] MEDS: PANTOPRAZOLE 40MG TAB (PROTONIX) PO (08:53)
[2018-08-14] MEDS: SPIRONOLACTONE 12.5MG PER 1/2 TABLET PO (08:53)
[2018-08-14] MEDS: guaiFENesin ER 600 MG TAB PO ×2 (08:53→21:09)
[2018-08-14] MEDS: predniSONE 20 MG TAB PO (08:53)
[2018-08-14] MEDS: ASPIRIN 81 MG ENTERIC TAB PO (08:53)
[2018-08-14] MEDS: TORSEMIDE 10 MG TABLET PO (08:53)
[2018-08-14] MEDS: AMIODARONE 200 MG TAB (PACERONE) PO ×2 (09:00→21:09)
[2018-08-14] MEDS: FLEET ENEMA PR (09:57)
[2018-08-14] MEDS ORDERED: LIDOCAINE 2% INJ 100 MG/5 ML SDV (FOR ANES.) As Ordered (14:06)
[2018-08-14] MEDS ORDERED: PROPOFOL 200 MG/20 ML VIAL As Ordered (14:06)
[2018-08-14] MEDS: NS 1,000 ML IV (15:04)
[2018-08-14] MEDS: SENNA 8.6 MG TAB (SENOKOT) PO (21:09)
[2018-08-14] MEDS: SERTRALINE HCL 25 MG TABLET PO (21:09)
[2018-08-15] MEDS: SLF 3 ML SYR IV (05:18)
[2018-08-15 06:31] LABS: BASO % 0.3 % (0.0-1.0); EOS # 0.2 10^3/uL (0.0-0.50); EOS % 1.2 % (0.0-3.0); HEMATOCRIT 35.9 % (36.0-47.0); HEMOGLOBIN 11.3 g/dl (12.0-15.5); IMMATURE GRANULOCYTE % 2.9 % (0-3.0); LYMPH # 2.4 10^3/uL (1.5-4.5); LYMPH % 19.8 % (24.0-44.0); MEAN CORPUSCULAR HEMOGLOBIN 29.5 pg (27.0-33.0); MEAN CORPUSCULAR HGB CONC 31.5 g/dl (32.0-36.5); MEAN CORPUSCULAR VOLUME 93.7 fl (80.0-96.0); MONO # 0.9 10^3/uL (0.0-0.8); MONO % 7.1 % (0.0-5.0); NEUTROPHILS # 8.4 10^3/uL (1.8-7.7); NEUTROPHILS % 68.7 % (36.0-66.0); PLATELET COUNT, AUTOMATED 237 10^3/uL (150-450); RED BLOOD COUNT 3.83 10^6/uL (4.00-5.40); RED CELL DISTRIBUTION WIDTH 15.6 % (11.5-14.5); WHITE BLOOD COUNT 12.2 10^3/uL (4.0-10.0)
[2018-08-15 06:45] LABS: ANION GAP 7 MEQ/L (8-16); BLOOD UREA NITROGEN 36 MG/DL (7-18); CALCIUM LEVEL 8.3 MG/DL (8.8-10.2); CARBON DIOXIDE LEVEL 36 MEQ/L (21-32); CHLORIDE LEVEL 101 MEQ/L (98-107); CREATININE FOR GFR 1.65 MG/DL (0.55-1.30); GLOMERULAR FILTRATION RATE 32.3 (>39); GLUCOSE, FASTING 97 MG/DL (70-100); POTASSIUM SERUM 3.1 MEQ/L (3.5-5.1); SODIUM LEVEL 144 MEQ/L (136-145)
[2018-08-15] MEDS: ALBUTEROL SULFATE 2.5 MG/0.5 ML INH NEB SOLN NEB ×2 (08:00→15:43)
[2018-08-15] MEDS: TIOTROPIUM INHALER/CAPSULE (SPIRIVA) INH (08:28)
[2018-08-15] MEDS: ADVAIR HFA 230/21MCG INHALER INH ×2 (08:29→20:31)
[2018-08-15] MEDS: AMIODARONE 200 MG TAB (PACERONE) PO ×2 (08:49→20:34)
[2018-08-15] MEDS: LACTOBACILLUS ACIDOPHILUS CAP (BACID) PO ×3 (08:49→17:44)
[2018-08-15] MEDS: ASCORBIC ACID 500 MG TAB PO ×2 (08:49→17:44)
[2018-08-15] MEDS: ASPIRIN 81 MG ENTERIC TAB PO (08:49)
[2018-08-15] MEDS: POTASSIUM CHLORIDE 10 MEQ SR TABLET PO (08:49)
[2018-08-15] MEDS: DOCUSATE SODIUM 100 MG CAP PO (08:49)
[2018-08-15] MEDS: guaiFENesin ER 600 MG TAB PO ×2 (08:49→20:34)
[2018-08-15] MEDS: SPIRONOLACTONE 12.5MG PER 1/2 TABLET PO (08:50)
[2018-08-15] MEDS: MAGNESIUM GLUCONATE 500 MG TAB PO ×2 (08:50→20:34)
[2018-08-15] MEDS: PANTOPRAZOLE 40MG TAB (PROTONIX) PO (08:50)
[2018-08-15] MEDS: IRON POLYSAC (NIFEREX) 150 MG CAP PO ×2 (08:50→20:34)
[2018-08-15] MEDS: predniSONE 20 MG TAB PO (08:50)
[2018-08-15] MEDS: SENNA 8.6 MG TAB (SENOKOT) PO (20:34)
[2018-08-15] MEDS: SERTRALINE HCL 25 MG TABLET PO (20:34)
[2018-08-16] MEDS: ALBUTEROL SULFATE 2.5 MG/0.5 ML INH NEB SOLN NEB
[2018-08-16 06:19] LABS: BASO % 0.1 % (0.0-1.0); EOS # 0.2 10^3/uL (0.0-0.50); EOS % 1.1 % (0.0-3.0); HEMATOCRIT 34.1 % (36.0-47.0); IMMATURE GRANULOCYTE % 2.5 % (0-3.0); LYMPH # 3.1 10^3/uL (1.5-4.5); LYMPH % 21.8 % (24.0-44.0); MEAN CORPUSCULAR HEMOGLOBIN 30.3 pg (27.0-33.0); MEAN CORPUSCULAR HGB CONC 32.3 g/dl (32.0-36.5); MEAN CORPUSCULAR VOLUME 93.9 fl (80.0-96.0); MONO # 0.9 10^3/uL (0.0-0.8); MONO % 5.9 % (0.0-5.0); NEUTROPHILS # 9.9 10^3/uL (1.8-7.7); NEUTROPHILS % 68.6 % (36.0-66.0); PLATELET COUNT, AUTOMATED 228 10^3/uL (150-450); RED BLOOD COUNT 3.63 10^6/uL (4.00-5.40); RED CELL DISTRIBUTION WIDTH 15.9 % (11.5-14.5); WHITE BLOOD COUNT 14.4 10^3/uL (4.0-10.0)
[2018-08-16 06:55] LABS: ANION GAP 5 MEQ/L (8-16); BLOOD UREA NITROGEN 32 MG/DL (7-18); CALCIUM LEVEL 8.3 MG/DL (8.8-10.2); CARBON DIOXIDE LEVEL 33 MEQ/L (21-32); CHLORIDE LEVEL 105 MEQ/L (98-107); CREATININE FOR GFR 1.36 MG/DL (0.55-1.30); GLOMERULAR FILTRATION RATE 40.4 (>39); GLUCOSE, FASTING 87 MG/DL (70-100); POTASSIUM SERUM 4.1 MEQ/L (3.5-5.1); SODIUM LEVEL 143 MEQ/L (136-145)
[2018-08-16] MEDS: ADVAIR HFA 230/21MCG INHALER INH (07:34)
[2018-08-16] MEDS: guaiFENesin ER 600 MG TAB PO (08:38)
[2018-08-16] MEDS: LACTOBACILLUS ACIDOPHILUS CAP (BACID) PO (08:38)
[2018-08-16] MEDS: AMIODARONE 200 MG TAB (PACERONE) PO (08:38)
[2018-08-16] MEDS: SPIRONOLACTONE 12.5MG PER 1/2 TABLET PO (08:38)
[2018-08-16] MEDS: DOCUSATE SODIUM 100 MG CAP PO (08:38)
[2018-08-16] MEDS: PANTOPRAZOLE 40MG TAB (PROTONIX) PO (08:38)
[2018-08-16] MEDS: predniSONE 5 MG TAB PO (08:38)
[2018-08-16] MEDS: ASCORBIC ACID 500 MG TAB PO (08:39)
[2018-08-16] MEDS: ASPIRIN 81 MG ENTERIC TAB PO (08:39)
[2018-08-16] MEDS: IRON POLYSAC (NIFEREX) 150 MG CAP PO (08:39)
[2018-08-16] MEDS: MAGNESIUM GLUCONATE 500 MG TAB PO (08:39)
== END 2018-08-16 11:55 | disposition home or self-care (01) | DRG 308 ==
LOC: M MSPAV 08-12 16:50 → M PCU 12:54 → M ICU 18:30 → M PCU 08-04 19:22
PROVIDERS: Internal Medicine
PROC: 0DBC8ZX Excision of Ileocecal Valve, Via Natural or Artificial Opening Endoscopic, Diagnostic (ICD-10-PCS; principal; 2018-08-09 10:30)
PROC: 0DJD8ZZ Inspection of Lower Intestinal Tract, Via Natural or Artificial Opening Endoscopic (ICD-10-PCS; 2018-08-09 11:57)
PROC: 30233N1 Transfusion of Nonautologous Red Blood Cells into Peripheral Vein, Percutaneous Approach (ICD-10-PCS; 2018-08-09 11:57)
DX: I48.0 Paroxysmal atrial fibrillation (principal); I50.33 Acute on chronic diastolic (congestive) heart failure; N17.9 Acute kidney failure, unspecified; D62 Acute posthemorrhagic anemia; K62.5 Hemorrhage of anus and rectum; D68.32 Hemorrhagic disorder due to extrinsic circulating anticoagulants; J96.11 Chronic respiratory failure with hypoxia; J44.1 Chronic obstructive pulmonary disease with (acute) exacerbation; I13.0 Hypertensive heart and chronic kidney disease with heart failure and stage 1 through stage 4 chronic kidney disease, or unspecified chronic kidney disease; N18.9 Chronic kidney disease, unspecified; K64.8 Other hemorrhoids; K57.30 Diverticulosis of large intestine without perforation or abscess without bleeding; J00 Acute nasopharyngitis [common cold]; D12.2 Benign neoplasm of ascending colon; I25.10 Atherosclerotic heart disease of native coronary artery without angina pectoris; E78.5 Hyperlipidemia, unspecified; K64.4 Residual hemorrhoidal skin tags; I25.5 Ischemic cardiomyopathy; I73.9 Peripheral vascular disease, unspecified; Z95.9 Presence of cardiac and vascular implant and graft, unspecified; Z87.891 Personal history of nicotine dependence; Z79.51 Long term (current) use of inhaled steroids; Z79.01 Long term (current) use of anticoagulants; Z99.81 Dependence on supplemental oxygen; Z88.8 Allergy status to other drugs, medicaments and biological substances; I25.2 Old myocardial infarction; Z79.899 Other long term (current) drug therapy

== ENCOUNTER 2019-03-25 10:25 | Day surgery (SDC) | payer MEDICARE ==
[~2019-03-25] VITALS: Ht 154.9 cm; Wt 1043.3 kg
[~2019-03-25 10:25] MED LIST: ACET1TAB55 PO; ACETAMINOPHEN 325 MG TAB PO PRN; ADV500INH INH; ALDA25TA2 PO; AMIO200T PO; ANOR1AER INH; ASCO500T PO; ASPI81TA85 PO; ASPI81TAEC PO; AUGM875T27 PO; BACITAB PO; BACT400T PO; BISO5TAB5 PO; BSS with VANC/TOB/EPI for EYE CASES IR ONE; BUDE0.5S6 INH; BUPR100T6 PO; CARD120C3 PO; COLA50CA3 PO; CYCLOPENTOLATE 2% OPHTH SOLN 2ML BTL OS ONE; DIGO0.12 PO; DILT30TA PO; DOCU100C16 PO; DOCU5LIQ PO; ELIQ5TAB PO; EQ M1TAB4 PO; EZET10TA21 PO; FURO10IN17 IM; FURO40TA2 PO; HEALON DUET PRO(HEALON 10MG/ML 0.55ML & HEALON ENDOCOAT 30MG/ML 0.85ML) As Ordered ONE; IPRA0.00 INH; IPRA2IN INH; IPRASOL12 INH; K-TA10TA PO; LEVA12INH INH; LIDOCAINE 1% SDV 5 ML VIAL As Ordered ONE; LIDOCAINE 3.5 % 1ML OPHTH TOPICAL GEL OU ONE; LISI5TAB PO; LORA0.5T11 PO; MAGN50TA PO; METO1TAB33 PO; MIDAZOLAM INJ 2 MG/2 ML VIAL (J2250) As Ordered ONE; MOXIFLOXACIN IN BSS 0.25MG/0.25ML INTRACAMERAL INJ (OR EYE ONLY)(J2280) As Ordered ONE; MULTTAB4 PO; MYLA1SUS PO; NIFE1TAB62 PO; OMEG10006 PO; PHENYLEPHRINE 2.5% OPHTH SOL 2ML OS ONE; PHENYLEPHRINE HCL 10 % OPHTH. SOL 5ML OS PRN; POVIDONE-IODINE 5% OPHTH PREP SOL 30ML As Ordered ONE; PRED10TA2 PO; PRED20TA PO; PRED5PAK PO; PROC2.5C PR; SENN8.6T28 PO; SERT25TA88 PO; TORS20TA2 PO; TRIAMCINOLONE PRES FR 40 MG/ML 1ML(TRIESENCE)(OR EYE ONLY)(J3300 PER 1MG) As Ordered ONE; TROPICAMIDE 1% OPHTH SOLN 2ML OS ONE; VALI2TAB PO; VENTAER INH; VITA500T PO; ZOCO20TA PO; fentaNYL 100 MCG/2 ML INJECTION (J3010) As Ordered ONE; plavix PO
[2019-03-25] MEDS ORDERED: OFLOXACIN 0.3 % (OCUFLOX) OPTH SOL 5ML OS ONE (11:30)
[2019-03-25] MEDS ORDERED: AcetaZOLAMIDE 500 MG ER CAP As Ordered ONE (13:20)
[2019-03-25 13:35] VITALS: BP 102/51
[2019-03-25] MEDS ORDERED: TRIMETHOBENZAMIDE 300 MG CAP PO PRN (14:00)
[2019-03-25] MEDS ORDERED: AcetaZOLAMIDE 500 MG ER CAP PO ONE (14:00)
--- NOTE | 2019-03-26 15:04 | RO ---
DATE OF PROCEDURE: 03/25/2019 PREPROCEDURE DIAGNOSIS: Cataract of left eye. POSTPROCEDURE DIAGNOSIS: Cataract of left eye. PROCEDURE: Femtosecond laser and phacoemulsification of the intraocular lens with lens implantation left eye. Intraocular lens power used was [id number], 19.5 diopter with Optiwave refractory analysis (ORA). SURGEON: Betina Edwards MD PAPER INSERTER: None. ANESTHESIA: Local IV standby. FINDINGS: Cataract of left eye. COMPLICATIONS: None. DESCRIPTION OF PROCEDURE: The patient was brought to the operating room and laid in supine position. A lid speculum was placed, and patient was brought under the femtosecond laser. After the satisfactory placement of the patient interface, primary incision, secondary incision, and arcuate incisions with lens fragmentation was done without any complication per plan. The patients interface was then removed and lid speculum removed. Patient was placed under the microscope. The eye was prepped and draped in a sterile fashion for ophthalmic surgery. Lid speculum was placed. The secondary incision was opened, and EndoCoat was injected into the anterior chamber. The temporal clear corneal incision was then opened and capsulorrhexis removed, followed by hydrodissection. This was followed by phacoemulsification of the lens within the capsular bag. Cortical material was then aspirated. After the cortical cleanup Healon was placed in capsular bag anterior chamber. Intraocular pressure (IOP) was checked and was noted to be adequate. Multiple ORA calculations were taken before choosing the lens power. Intraocular lens was then placed. Excess Healon was aspirated. Wound was hydrated. The lid speculum was removed, and patient was returned to the recovery room in stable condition.
== END 2019-03-25 13:45 | disposition home or self-care (01) ==
LOC: M SDC 10:25
PROVIDERS: ATTEND Ophthalmology
DX: H26.9 Unspecified cataract (principal); I25.10 Atherosclerotic heart disease of native coronary artery without angina pectoris; I25.2 Old myocardial infarction; I50.22 Chronic systolic (congestive) heart failure; I10 Essential (primary) hypertension; E78.00 Pure hypercholesterolemia, unspecified; K62.5 Hemorrhage of anus and rectum; M12.9 Arthropathy, unspecified; F41.9 Anxiety disorder, unspecified; J45.909 Unspecified asthma, uncomplicated; J44.9 Chronic obstructive pulmonary disease, unspecified; R06.02 Shortness of breath; R05 Cough; Z88.8 Allergy status to other drugs, medicaments and biological substances; Z79.899 Other long term (current) drug therapy; Z79.01 Long term (current) use of anticoagulants; Z78.0 Asymptomatic menopausal state; Z87.891 Personal history of nicotine dependence; Z99.81 Dependence on supplemental oxygen
CPT/HCPCS: 66984; 92015; J2250; J2280; J3010; J3300; V2632

== ENCOUNTER 2019-04-01 10:12 | Day surgery (SDC) | payer MEDICARE ==
[~2019-04-01] VITALS: Ht 154.9 cm; Wt 56.4 kg
[~2019-04-01 10:12] MED LIST changes: +CYCLOPENTOLATE 2% OPHTH SOLN 2ML BTL OD ONE; -CYCLOPENTOLATE 2% OPHTH SOLN 2ML BTL OS ONE; -MOXIFLOXACIN IN BSS 0.25MG/0.25ML INTRACAMERAL INJ (OR EYE ONLY)(J2280) As Ordered ONE; +OFLOXACIN 0.3 % (OCUFLOX) OPTH SOL 5ML OD ONE; +PHENYLEPHRINE 2.5% OPHTH SOL 2ML OD ONE; -PHENYLEPHRINE 2.5% OPHTH SOL 2ML OS ONE; +PHENYLEPHRINE HCL 10 % OPHTH. SOL 5ML OD PRN; -PHENYLEPHRINE HCL 10 % OPHTH. SOL 5ML OS PRN; +TROPICAMIDE 1% OPHTH SOLN 2ML OD ONE; -TROPICAMIDE 1% OPHTH SOLN 2ML OS ONE
[2019-04-01] MEDS ORDERED: CEFUROXIME 1MG/0.1ML INTRACAMERAL INJ As Ordered ONE (12:25)
[2019-04-01] MEDS ORDERED: TRIMETHOBENZAMIDE 300 MG CAP PO PRN (13:45)
[2019-04-01] MEDS ORDERED: AcetaZOLAMIDE 500 MG ER CAP PO ONE (13:45)
[2019-04-01 14:00] VITALS: BP 101/53
== END 2019-04-01 14:05 | disposition home or self-care (01) ==
LOC: M SDC 10:12
PROVIDERS: ATTEND Ophthalmology
DX: H25.9 Unspecified age-related cataract (principal); I25.10 Atherosclerotic heart disease of native coronary artery without angina pectoris; I25.2 Old myocardial infarction; I10 Essential (primary) hypertension; E78.5 Hyperlipidemia, unspecified; J44.9 Chronic obstructive pulmonary disease, unspecified; F41.9 Anxiety disorder, unspecified; Z79.51 Long term (current) use of inhaled steroids; Z79.899 Other long term (current) drug therapy
CPT/HCPCS: 66984; 92015; J2250; J3010; J3300; V2632

== ENCOUNTER → 2019-10-22 | Outpatient (REF) | payer MEDICARE ==
[~2019-10-22] MED LIST changes: -ACETAMINOPHEN 325 MG TAB PO PRN; +BISO5TAB14 PO; -BISO5TAB5 PO; -BSS with VANC/TOB/EPI for EYE CASES IR ONE; -CYCLOPENTOLATE 2% OPHTH SOLN 2ML BTL OD ONE; -DIGO0.12 PO; +DIGO0.123 PO; +FAMO1TAB11 PO; -HEALON DUET PRO(HEALON 10MG/ML 0.55ML & HEALON ENDOCOAT 30MG/ML 0.85ML) As Ordered ONE; -LIDOCAINE 1% SDV 5 ML VIAL As Ordered ONE; -LIDOCAINE 3.5 % 1ML OPHTH TOPICAL GEL OU ONE; -LORA0.5T11 PO; +LORA0.5T5 PO; -MIDAZOLAM INJ 2 MG/2 ML VIAL (J2250) As Ordered ONE; +MIDO10TA14 PO; -OFLOXACIN 0.3 % (OCUFLOX) OPTH SOL 5ML OD ONE; +PACE200T PO; -PHENYLEPHRINE 2.5% OPHTH SOL 2ML OD ONE; -PHENYLEPHRINE HCL 10 % OPHTH. SOL 5ML OD PRN; -POVIDONE-IODINE 5% OPHTH PREP SOL 30ML As Ordered ONE; +SERT25TA21 PO; -SERT25TA88 PO; -TRIAMCINOLONE PRES FR 40 MG/ML 1ML(TRIESENCE)(OR EYE ONLY)(J3300 PER 1MG) As Ordered ONE; -TROPICAMIDE 1% OPHTH SOLN 2ML OD ONE; +VITA500C24 PO; -fentaNYL 100 MCG/2 ML INJECTION (J3010) As Ordered ONE
[2019-10-22 13:24] LABS: HEMATOCRIT 33.3 % (36.0-47.0); HEMOGLOBIN 10.8 g/dl (12.0-15.5); MEAN CORPUSCULAR HEMOGLOBIN 30.8 pg (27.0-33.0); MEAN CORPUSCULAR HGB CONC 32.4 g/dl (32.0-36.5); MEAN CORPUSCULAR VOLUME 94.9 fl (80.0-96.0); PLATELET COUNT, AUTOMATED 545 10^3/uL (150-450); RED BLOOD COUNT 3.51 10^6/uL (4.00-5.40)
[2019-10-22 13:58] LABS: CALCIUM LEVEL 8.7 MG/DL (8.8-10.2); CREATININE FOR GFR 3.11 MG/DL (0.55-1.30); GLOMERULAR FILTRATION RATE 15.5 (>39); POTASSIUM SERUM 4.8 MEQ/L (3.5-5.1)
== END ==
LOC: M SHH 12:50
PROVIDERS: ATTEND Internal Medicine Cardiovascular Disease
DX: I10 Essential (primary) hypertension (principal); I25.10 Atherosclerotic heart disease of native coronary artery without angina pectoris; K92.2 Gastrointestinal hemorrhage, unspecified

== ENCOUNTER 2019-10-23 12:47 | Inpatient (IN) | payer MEDICARE ==
[2019-10-23] VITALS (18 sets, daily range): BP systolic 80–125; BP diastolic 44–62
[~2019-10-23] VITALS: Ht 154.9 cm; Wt 54.1 kg
[~2019-10-23 12:47] MED LIST changes: -FAMO1TAB11 PO; -MIDO10TA14 PO; -PACE200T PO; -VITA500C24 PO
[2019-10-23 13:35] LABS: BASO # 0.1 10^3/uL (0.0-0.2); BASO % 0.4 % (0.0-1.0); EOS # 0.1 10^3/uL (0.0-0.5); EOS % 0.4 % (0.0-3.0); HEMATOCRIT 34.2 % (36.0-47.0); HEMOGLOBIN 10.5 g/dl (12.0-15.5); LYMPH # 1.6 10^3/uL (1.5-5.0); LYMPH % 12.3 % (24.0-44.0); MEAN CORPUSCULAR HEMOGLOBIN 29.1 pg (27.0-33.0); MEAN CORPUSCULAR HGB CONC 30.7 g/dl (32.0-36.5); MEAN CORPUSCULAR VOLUME 94.7 fl (80.0-96.0); MONO # 1.6 10^3/uL (0.0-0.8); MONO % 11.6 % (0.0-5.0); NEUTROPHILS # 9.9 10^3/uL (1.5-8.5); PLATELET COUNT, AUTOMATED 547 10^3/uL (150-450); RED BLOOD COUNT 3.61 10^6/uL (4.00-5.40); WHITE BLOOD COUNT 13.4 10^3/uL (4.0-10.0)
[2019-10-23] MEDS ORDERED: TORS20TA2 PO (13:36)
[2019-10-23] MEDS ORDERED: FAMO1TAB11 PO (13:36)
[2019-10-23] MEDS ORDERED: EQ M1TAB4 PO (13:36)
[2019-10-23] MEDS ORDERED: MIDO10TA14 PO (13:36)
[2019-10-23] MEDS ORDERED: PACE200T PO (13:39)
--- NOTE | 2019-10-23 13:48 | REP ---
PORTABLE CHEST X-RAY: Sitting AP view. HISTORY: Dyspnea and cough. COMPARISON CHEST X-RAY: August 10, 2018. FINDINGS: The lungs are somewhat hyperinflated. Interstitial markings are slightly prominent in the bases unchanged. These findings are compatible with COPD. There is an infiltrate in the left lower lobe however overlying the left hemidiaphragm suggesting pneumonia. This appears to be a new finding. Pulmonary vasculature is cephalized. Heart size is not felt to be increased. Monitoring electrodes are seen. No bony abnormalities seen. IMPRESSION: Subtle infiltrate left lower lobe overlying the left hemidiaphragm suggesting pneumonia. COPD changes. Electronically Signed by iJn Mcdermott MD 10/23/2019 08:47 P
[2019-10-23 14:02] LABS: CALCIUM LEVEL 9.3 MG/DL (8.8-10.2); CREATININE FOR GFR 3.03 MG/DL (0.55-1.30); POTASSIUM SERUM 4.6 MEQ/L (3.5-5.1)
[2019-10-23] MEDS ORDERED: NS 500 ML IV ONE (14:15)
--- NOTE | 2019-10-23 15:07 | REP ---
CT CHEST WITHOUT IV CONTRAST: CT chest performed without IV contrast. Bilateral lower lobe infiltrates are present, left more so than right. In the superior segment of the left lower lobe, there is a 1 cm nodular density. Recommend followup. There is mild subcarinal adenopathy, which may be reactive in nature. No axillary adenopathy is seen. The heart is not enlarged. No pleural or pericardial effusion is seen. There are a couple of small calcifications in the liver. Diffuse moderate atherosclerotic calcifications are seen of the thoracic and abdominal aorta. On the most inferior image, there is evidence of dilatation of the abdominal aorta, aneurysmal at 3.4 cm in AP dimension at that level. This is incompletely seen. IMPRESSION: Bilateral lower lobe infiltrates left greater than right. Followup recommended. Mild subcarinal adenopathy 1.3 cm in short access may be reactive. Abdominal aortic aneurysm is partially seen on most inferior image, 3.4 cm in AP dimension. Electronically Signed by Jimmy Mack MD 10/28/2019 09:44 A
[2019-10-23] MEDS ORDERED: DIGOXIN INJ 0.5 MG/2 ML AMP (J1160) IV STA (15:19)
[2019-10-23] MEDS ORDERED: NS 1,000 ML IV ONE (15:30)
[2019-10-23] MEDS ORDERED: PIPERACILLIN/TAZOBACTAM SOD 3.375 GM in D5W MINI-BAG PLUS 50 ML IV ONE (15:30)
[2019-10-23] MEDS ORDERED: VITA500C24 PO (16:30)
[2019-10-23 16:38] LABS: ALBUMIN 2.6 GM/DL (3.2-5.2); BILIRUBIN,DIRECT 0.3 MG/DL (0.0-0.2); BILIRUBIN,TOTAL 0.6 MG/DL (0.2-1.0)
[2019-10-23] MEDS ORDERED: AMIODARONE HCL 150 MG in IV 1 EA IV STA (17:16)
[2019-10-23] MEDS ORDERED: LEVALBUTEROL 1.25 MG/0.5 ML CONCENTRATE NEB INH PRN (18:15)
[2019-10-23] MEDS ORDERED: IPRATROPIUM 0.02% SOLN 0.5MG/2.5 ML NEB INH PRN (18:15)
--- NOTE | 2019-10-23 18:53 | HPEPDOC ---
General Date of Admission Oct 23, 2019 at 18:01 Date of Service: Oct 23, 2019 Chief Complaint The patient is a 74-year-old female admitted with a reason for visit of Niko;Afib W/Rvr;Pneumonia. 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 Upon discharge as per son she was all swollen and her breathing was still bad so they resumed their home diuretics and she lost her fluids her breathing improved a little but for the past 3 days she has been feeling bad again with increased cough and phlegm, increased SOB , poor appetite, extreme weakness and unable to even stand up. Yesterday she had blood work prior to her visit with Dr Villa today. She was seen by Dr Villa and was sent to the ED for NIKO. Her creatinine had gone up from a 1.5 baseline to 3.0. In ED on arrival she was in sinus rhythm normotensive No fevers. She was started on fluids for her NIKO. She then went into Afib with RVR with drop in blood pressure. ED physician spoke with Dr Soto and she was give digoxin for rate control along with fluids. She was then given amiodarone 150 mg IVP to further control the heart rate. A CT scan was done and showed Bilateral lower lobe infiltrates left greater than right. Followup recommended . Mild subcarinal adenopathy 1.3 cm in short access may be reactive. Abdominal aortic aneurysm is partially seen on most inferior image, 3.4 cm in AP dimension. Patient normally has orthopnea and uses about 4 pillows to sleep. She sits in the recliner most of the day. Minimal exertion makes her extremely SOB even at baseline. At baseline she has chronic cough with thick sputum production. She was admitted for Pneumonia possible sepsis, NIKO on ckd and Afib with RVR. Home Medications Scheduled Amiodarone Hcl (Pacerone) 200 Mg Tablet, 200 MG PO 2XW, (Reported) MONDAYS AND THURSDAYS Apixaban (Eliquis) 5 Mg Tablet, 5 MG PO BID, (Reported) Ascorbic Acid (Vitamin C) 500 Mg Capsule, 500 MG PO DAILY, (Reported) Bisoprolol Fumarate (Bisoprolol Fumarate) 5 Mg Tablet, 2.5 MG PO DAILY, (Reported) Docusate Sodium (Docusate Sodium) 100 Mg Cap, 100 MG PO DAILY, (Reported) Ezetimibe (Ezetimibe) 10 Mg Tablet, 10 MG PO DAILY, (Reported) Famotidine (Famotidine) 20 Mg Tablet, 20 MG PO BID, (Reported) Midodrine HCl (Midodrine HCl) 10 Mg Tablet, 10 MG PO BID, (Reported) Salmeterol/Fluticasone (Advair 500-50 Diskus) 28 Puff/Inhaler Aerp, 1 PUFF INH BID, (Reported) Umeclidinium Brm/Vilanterol Tr (Anoro Ellipta 62.5-25 Mcg INH) 1 Aer Aer, 1 PUFF INH DAILY, (Reported) Scheduled PRN Acetaminophen (Acetaminophen) 325 Mg Tab, 650 MG PO Q4H PRN for PAIN, (Reported) Albuterol Sulfate (Ventolin Hfa) 108 Mcg/Act Aer, 2 PUFFS INH Q4H PRN for SHORTNESS OF BREATH, (Reported) Guaifenesin (Mucus ER) 600 Mg Tab.er.12h, 600 MG PO BID PRN for CONGESTION, (Reported) Hydrocortisone (Proctosol-Hc) 2.5 % Cre, 1 DOSE TN QID PRN for HEMORRHOIDS, (Reported) APPLY AFTER EACH BOWEL MOVEMENT Ipratropium/Albuterol Sulfate (Iprat-Albut 0.5-3(2.5) mg/3 ml) 1 Santy Santy, 1 SANTY INH QID PRN for SHORTNESS OF BREATH, (Reported) Allergies Coded Allergies: Quinolones (Verified Adverse Reaction, Severe, palpitations, 03/25/19) Llamith-Sqq-Zwk Reductase Inhibitor (Verified Adverse Reaction, Intermediate, upset stomach, 03/25/19) varenicline (Verified Adverse Reaction, Intermediate, hallucinations, 03/25/19) Past Medical History Medical History 1. Paroxysmal afib with rvr 2. H/o intermittent lower GIB due to hemorrhoids stopped spontaneously 3. COPD with emphysema and chronic bronchitis 4. chronic hypoxic respiratory failure 5, Diastolic CHF 6. CAD with h/o stents. 7. PAD 8.CKD stage 3 9.Dyslipidemia 10.Rheumatoid arthiritis, osteoarthritis 11. Chronic hypotension on Midodrine Surgical History c section bilateral cataract surgery cardiac stents. Family History Significant Family History: Cancer (sister), Heart disease (in father and 2 brothers all ) Social History * Smoker: former Smoker (quit 9 years ago) Alcohol: Denies Drugs: denies A-FIB/CHADSVASC A-FIB History Current/History of A-Fib/PAF?: Yes Current PO Anticoag Therapy: Yes Review of Systems Constitutional: Reports: Weakness, Fatigue; Denies: Chills, Fever, Night Sweats Eyes: Denies: Pain, Vision change ENT: Denies: Head Aches, Ear Pain, Dysphagia Skin: Denies: Rash, Lesions, Breakdown Pulmonary: Reports: Dyspnea, Cough Cardiovascular: Reports: Palpitations, Orthopnea Gastrointestinal: Denies: Nausea, Vomiting, Abdominal Pain, Diarrhea Genitourinary: Denies: Dysuria, Frequency, Incontinence, Retention Musculoskeletal: Reports: Back Pain, Joint Pain, Muscle Pain; Denies: Neck Pain, Spasms Neurological: Denies: Weakness, Numbness, Change in speech, Confusion Physical Examination General Exam: Positive: Alert, Moderate Distress Eye Exam: Positive: PERRLA, Conjunctiva & lids normal, EOMI; Negative: Sclera icteric ENT Exam: Positive: Atraumatic, Mucous membr. moist/pink, Pharynx Normal Neck Exam: Positive: Supple; Negative: JVD, thyromegaly Chest Exam: Positive: Rales, Diminished, Other (bilateral crackles coarse more on the left with accesory muscle use.) Heart Exam: Positive: Tachycardic, Irregular Rhythm, Normal S1, Normal S2; Negative: Murmurs, Rubs Telemetry: Positive: Atrial fibrillation Abdomen Exam: Positive: Normal bowel sounds, Soft; Negative: Tenderness, Hepatospenomegaly Extremity Exam: Negative: Clubbing, Cyanosis, Edema Skin Exam: Positive: Nl turgor and temperature, Breakdown (sacral area); Negative: Lesion Neuro Exam: Positive: Normal Speech, Strength at 5/5 X4 ext, Normal Tone Psych Exam: Positive: Anxiety Vital Signs Vital Signs Date Time Temp Pulse Resp B/P (MAP) Pulse Ox O2 Delivery O2 Flow Rate FiO2 10/23/19 17:03 150 95 10/23/19 17:00 36 87/46 (60) Nasal Cannula 5.0 10/23/19 12:48 97.2 Laboratory Data Labs 24H Laboratory Tests 2 10/23/19 13:16: Immature Granulocyte % (Auto) 1.3, Neutrophils (%) (Auto) 74.0H, Lymphocytes (%) (Auto) 12.3L, Monocytes (%) (Auto) 11.6H, Eosinophils (%) (Auto) 0.4, Basophils (%) (Auto) 0.4, Neutrophils # (Auto) 9.9H, Lymphocytes # (Auto) 1.6, Monocytes # (Auto) 1.6H, Eosinophils # (Auto) 0.1, Basophils # (Auto) 0.1, Nucleated Red Blood Cells % (auto) 0.0, Anion Gap 16, Glomerular Filtration Rate 16.0L, Calcium Level 9.3, Total Bilirubin 0.6, Direct Bilirubin 0.3H, Aspartate Amino Transf (AST/SGOT) 21, Alanine Aminotransferase (ALT/SGPT) 13, Alkaline Phosphatase 160H, Total Protein 7.0, Albumin 2.6L, Albumin/Globulin Ratio 0.59L 10/23/19 16:59: POC pH (Misc Panel) 7.294L, POC Base Excess (Misc Panel) -7.0L, POC Saturated Percent O2 (Misc) 93L, POC pO2 (Misc Panel) 76.0L, POC pCO2 (Misc Panel) 39.4, POC HCO3 (Misc Panel) 19.1L, POC Total CO2 (Misc Panel) 20.0L CBC/BMP Laboratory Tests 10/23/19 13:16 Microbiology Microbiology 10/23/19 Blood Culture, Received Pending 10/23/19 Blood Culture, Received Pending 10/23/19 Gram Stain, Received Pending 10/23/19 Sputum Culture, Received Pending Assessment/Plan Hypotension Seems like patient has chronic hypotension. She is on midodrine at home Now lower due to dehydration, with intravascular volume depletion and Afib with RVR. Improving with fluids and heart rate control. will get lactate and procalcitonin in view of her pneumonia and elevated WBC to evaluate for sepsis. NIKO on CKD 3 probably due to overdiuresis with poor oral intake received 1.5 liters of fluid in ED, Had about 200 cc urine output will place holder renal US. Hold all diuretics for Now Multifocal pneumonia with possible sepsis. aspiration pneumonia/ HCAP I am not sure if this is the residual from the recent pneumonia last month or a new one. will need to rule out chronic aspiration will get swallow evaluation on saturday will give Meropenem Her MRSA sceen from other hospital was negative in september. send procalcitonin and if low will deescalate antibiotics. sent sputum and blood cultures. Acapella. Paroxysmal atrial fibrillation with rapid ventricular response rate better controlled now with digoxin and received 1 dose of amiodarone. will give another dose of dig if needed will continue with amiodarone daily for now. Her betablocker is held due to hypotension continue Eliquis Lacticacidosis due to hypotension, hypovolemia, chronic hypoxia with increased work of brathing underlying sepsis. End-stage chronic obstructive pulmonary disease (COPD) exacerbation with chronic hypoxic respiratory failure. Emphysema and chronic bronchitis used 3 to 4 liters of oxygen at home. Patient is currently on Xopenex nebulizer, advair, spiriva, Patient stopped seeing her needle maker, Dr. Tejeda, as no other intervention or medications will be able to get her endstage lung disease better. Recent Viral Respiratory tract infection , COPD exacerbation and Multifocal pneumonia this probably caused her copd exacerbation treated in [facility] from 09/07/19 to 10/08/19 Diastolic congestive heart failure hypovolemic will hold all diuretics for now Peripheral artery disease. on ASA, Eliquis CAD s/p stents in the past. continue statin, eliquis will hold betablocker at present Abdominal Aortic aneusysm. stable. Plan / VTE VTE Prophylaxis Ordered?: Yes SANIYA DE JESUS MD Oct 23, 2019 18:53
[2019-10-23] MEDS ORDERED: DIGOXIN INJ 0.5 MG/2 ML AMP (J1160) IV ONE (19:00)
[2019-10-23] MEDS: LEVALBUTEROL 1.25 MG/0.5 ML CONCENTRATE NEB INH SCH (20:00)
[2019-10-23] MEDS: ADVAIR HFA 230/21MCG INHALER INH SCH (21:00)
[2019-10-23] MEDS: FAMOTIDINE 20 MG TAB PO SCH (21:39)
[2019-10-23] MEDS: guaiFENesin ER 600 MG TAB PO SCH (21:40)
[2019-10-23] MEDS: APIXABAN 5 MG TAB (ELIQUIS) PO SCH (21:40)
--- NOTE | 2019-10-23 21:56 | ROOPDOC ---
[facility] Report Of Operation Report of Operation DATE OF PROCEDURE: 10/23/2019 PREPROCEDURE DIAGNOSES: Hypotension and poor peripheral access POSTPROCEDURE DIAGNOSES: Hypotension and poor peripheral access PROCEDURE: Right IJ central line placement Performed by: Dr. Ernestina Dorado Attending: Dr. Karol Mosquera ANESTHESIA: Local ESTIMATED BLOOD LOSS: <2 ml COMPLICATIONS: None PROCEDURE NOTE: Consent was obtained prior to the procedure. Indications, risks and benefits were explained to the patient. Procedure was performed at beside in the ER. DESCRIPTION OF PROCEDURE: The patient was placed in the supine position, was placed in Trendelenburg. The right chest region and neck was prepped with chlorhexidine scrub. The patient was draped in the typical sterile fashion using a full drape. Ultrasonography was employed at bedside. A sterile probe cover was placed over the ultrasound. The medial and lateral head of the sternocleidomastoid were identified, as was the carotid pulse. The internal jugular vein was identified using ultrasound. Anesthesia was achieved over the internal jugular vein on the right using a 1% lidocaine solution. Once anesthetized, an introducer needle was inserted into the internal jugular vein under direct ultrasound visualization. Venous blood was withdrawn, syringe was removed and a guidewire was advanced on to the introducer needle. The guidewire was visualized in the internal jugular vein by ultrasound. A small incision was made in the skin surface with a scalpel, and the introducer needle was exchanged for a dilator over the guidewire. After appropriate dilation was obtained, the dilator was exchanged over the wire for a central venous catheter. The wire was removed, and the catheter was sutured in place. A sterile bandage was placed over the catheter site. The patient tolerated the procedure well without any hemodynamic compromise. At the time of procedure completion, all ports were aspirated and flushed properly. Post-procedure x-ray was performed, which demonstrated adequate positioning of the central venous catheter in the right superior vena cava. ERNESTINA DORADO DO Oct 23, 2019 21:56 KAROL MOSQUERA MD Oct 24, 2019 12:57
[2019-10-23] MEDS: AZITHROMYCIN INJ 500 MG, VIAL MATE ADAPTER 1 EACH in D5W 250 ML IV SCH (22:10)
[2019-10-23] MEDS: NOREPINEPHRINE BITARTRATE 8 MG in D5W 492 ML IV SCH (22:34)
--- NOTE | 2019-10-23 22:54 | REPVR ---
PROCEDURE INFORMATION: Exam: US Retroperitoneal Limited, Kidneys Exam date and time: 10/23/2019 8:42 PM Age: 74 years old Clinical indication: Abnormal findings; Abnormal lab test; Abnormal kidney function lab tests; Additional info: Ryan TECHNIQUE: Imaging protocol: Real-time ultrasound of the retroperitoneum with image documentation. Examination was focused on the kidneys. COMPARISON: No relevant prior studies available. FINDINGS: Right kidney: Mild atrophy. No stones. No hydronephrosis. Left kidney: Mild atrophy. No stones. No hydronephrosis. Bladder: Urinary bladder is unremarkable. IMPRESSION: Mild renal atrophy. No acute findings. Electronically signed by: Alan Schmid On 10/23/2019 22:54:31 PM
[2019-10-23] MEDS: MEROPENEM INJ 500 MG in IV 1 EA IV SCH (23:37)
[2019-10-24] VITALS (63 sets, daily range): BP systolic 75–135; BP diastolic 40–61
[2019-10-24] MEDS: LEVALBUTEROL 1.25 MG/0.5 ML CONCENTRATE NEB INH SCH ×4 (01:55→19:36)
[2019-10-24 05:50] LABS: BASO % 0.4 % (0.0-1.0); EOS # 0.3 10^3/uL (0.0-0.5); EOS % 2.4 % (0.0-3.0); HEMATOCRIT 26.7 % (36.0-47.0); MEAN CORPUSCULAR HEMOGLOBIN 28.5 pg (27.0-33.0); MEAN CORPUSCULAR HGB CONC 30.3 g/dl (32.0-36.5); MONO # 1.6 10^3/uL (0.0-0.8); MONO % 13.8 % (0.0-5.0); NEUTROPHILS # 7.2 10^3/uL (1.5-8.5); PLATELET COUNT, AUTOMATED 484 10^3/uL (150-450); RED BLOOD COUNT 2.84 10^6/uL (4.00-5.40); WHITE BLOOD COUNT 11.2 10^3/uL (4.0-10.0)
[2019-10-24 06:05] LABS: HEMOGLOBIN 8.1 g/dl (12.0-15.5)
[2019-10-24 06:22] LABS: ABG BASE EXCESS -2.7 (-2.0-2.0); ABG O2 SATURATION 96.5 % (95.0-99.0); ABG PARTIAL PRESSURE CO2 37.2 mmHg (35.0-45.0); ABG PARTIAL PRESSURE O2 92.1 mmHg (75.0-100.0); ABG STANDARD HCO3 22.2 MEQ/L (22.0-26.0); ABG TOTAL CO2 23.1 MEQ/L (23.0-31.0); ABG pH (ARTERIAL) 7.389 UNITS (7.350-7.450)
[2019-10-24 06:25] LABS: CALCIUM LEVEL 8.2 MG/DL (8.8-10.2); CREATININE FOR GFR 2.44 MG/DL (0.55-1.30); GLOMERULAR FILTRATION RATE 20.5 (>39); MAGNESIUM LEVEL 2.3 MG/DL (1.8-2.4); POTASSIUM SERUM 3.9 MEQ/L (3.5-5.1)
[2019-10-24] MEDS: ADVAIR HFA 230/21MCG INHALER INH SCH ×2 (07:37→19:36)
[2019-10-24] MEDS: TIOTROPIUM INHALER/CAPSULE (SPIRIVA) INH SCH (07:37)
[2019-10-24] MEDS: MIDODRINE 5 MG TAB PO SCH ×3 (07:54→15:53)
[2019-10-24] MEDS: DOCUSATE SODIUM 100 MG CAP PO SCH (08:25)
[2019-10-24] MEDS: FAMOTIDINE 20 MG TAB PO SCH ×2 (08:25→21:30)
[2019-10-24] MEDS: AMIODARONE 200 MG TAB (PACERONE) PO SCH (08:26)
[2019-10-24] MEDS: guaiFENesin ER 600 MG TAB PO SCH ×2 (08:26→21:30)
[2019-10-24] MEDS: APIXABAN 5 MG TAB (ELIQUIS) PO SCH ×2 (08:26→21:30)
[2019-10-24] MEDS: EZETIMIBE 10 MG TAB (ZETIA) PO SCH (08:26)
--- NOTE | 2019-10-24 09:56 | ECGEPIP ---
[facility] - ED Test Date: 2019-10-23 Pat Name: JONN KIMBALL Department: Room: - Gender: Female Handbag Frames Inspector: : 1945 Requested By: VIKY Barrios Order Number: [id number] Reading MD: Adia Shore Measurements Intervals [place] Rate: 92 P: 80 VA: 163 QRS: 88 QRSD: 95 T: 81 QT: 364 QTc: 452 Interpretive Statements SINUS RHYTHM WITH OCCASIONAL SUPRAVENTRICULAR PREMATURE COMPLEXES INDETERMINATE AXIS PATTERN CONSISTENT WITH PULMONARY DISEASE PROBABLE INFERIOR MYOCARDIAL INFARCTION, OF INDETERMINATE AGE WITH POSTERIOR E EXTENSION INCREASED RATE 08/11/18 Electronically Signed on 10-24-2019 9:55:56 EST by Adia Shore
--- NOTE | 2019-10-24 10:00 | ECGEPIP ---
[facility] - ED Test Date: 2019-10-23 Pat Name: JONN KIMBALL Department: Room: - Gender: Female Provider Network Analyst: : 1945 Requested By: VIKY Barrios Order Number: [id number] Reading MD: Adia Shore Measurements Intervals [place] Rate: 155 P: IA: 0 QRS: 160 QRSD: 110 T: 74 QT: 306 QTc: 491 Interpretive Statements ATRIAL FIBRILLATION WITH RAPID VENTRICULAR RESPONSE MARKED RIGHT AXIS DEVIATION LOW QRS VOLTAGE IN EXTREMITY LEADS LATERAL MYOCARDIAL INFARCTION, PROBABLY OLD INFERIOR MYOCARDIAL INFARCTION, PROBABLY OLD ST DEPRESSION, CONSIDER SUBENDOCARDIAL INJURY, NEW RHYTHM CHANGE 10/23/19 13:06 Electronically Signed on 10-24-2019 10:00:05 EST by Adia Shore
[2019-10-24] MEDS: NOREPINEPHRINE BITARTRATE 8 MG in D5W 492 ML IV SCH ×2 (10:20→23:40)
[2019-10-24] MEDS: MEROPENEM INJ 500 MG in IV 1 EA IV SCH ×2 (10:31→22:55)
--- NOTE | 2019-10-24 10:52 | REP ---
Portable chest x-ray: Single view. History: Central line placement. Comparison study: October 23, 2019. Findings: Oxygen delivery tubing and EKG monitoring electrodes are seen. A right internal jugular central venous line has been inserted with its tip projecting in the expected location of the superior vena cava. The lungs are hyperinflated. There is no evidence of pneumothorax. Interstitial markings are prominent in the bases left more so than right. Heart is mildly prominent. Electronically Signed by Jin Mcdermott MD 10/24/2019 08:14 A
--- NOTE | 2019-10-24 11:32 | IPNPDOC ---
Subjective Date Seen The patient was seen on 10/24/19. Subjective Chief Complaint/HPI feels a little better this morning. however evening turning from side to side in bed is making her extremely short of breath. Continues to have hacking cough . No fever or chills. Objective Physical Examination General Exam: Positive: Alert, Moderate Distress Eye Exam: Positive: PERRLA, Conjunctiva & lids normal, EOMI; Negative: Sclera icteric ENT Exam: Positive: Atraumatic, Mucous membr. moist/pink, Pharynx Normal Neck Exam: Positive: Supple; Negative: JVD, thyromegaly Chest Exam: Positive: Rales, Diminished, Other (bilateral crackles coarse more on the left with accesory muscle use.) Heart Exam: Positive: Rate Normal, Regular Rhythm, Normal S1, Normal S2; Negative: Murmurs, Rubs Telemetry: Positive: Atrial fibrillation Abdomen Exam: Positive: Normal bowel sounds, Soft; Negative: Tenderness, Hepatospenomegaly Extremity Exam: Negative: Clubbing, Cyanosis, Edema Skin Exam: Positive: Nl turgor and temperature, Breakdown (sacral area); Negative: Lesion Neuro Exam: Positive: Normal Speech, Strength at 5/5 X4 ext, Normal Tone Psych Exam: Positive: Anxiety Assessment /Plan Assessment 74 year old female with PMH of 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 Upon discharge as per son she was all swollen and her breathing was still bad so they resumed their home diuretics and she lost her fluids her breathing improved a little but for the past 3 days she has been feeling bad again with increased cough and phlegm, increased SOB , poor appetite, extreme weakness and unable to even stand up. Yesterday she had blood work prior to her visit with Dr Villa today. She was seen by Dr Villa and was sent to the ED for NIKO. Her creatinine had gone up from a 1.5 baseline to 3.0. In ED She then went into Afib with RVR with drop in blood pressure. A CT scan was done and showed Bilateral lower lobe infiltrates left greater than right. Mild subcarinal adenopathy 1.3 cm in short access may be reactive. She was admitted for Pneumonia possible sepsis, NIKO on ckd and Afib with RVR. Shock hypovolemic vs septic Seems she has chronic hypotension at baseline. She is on midodrine at home Now lower due to dehydration, with intravascular volume depletion and Afib with RVR and infection started on Levophed overnight remains on 1 mcg. NIKO on CKD 3 improving probably due to overdiuresis with poor oral intake Will give IVF if CVP is low. renal US. Hold all diuretics for Now Multifocal pneumonia with possible sepsis. aspiration pneumonia/ HCAP I am not sure if this is the residual from the recent pneumonia last month or a new one. will need to rule out chronic aspiration will get swallow evaluation on saturday On Meropenem and azithromycin Her MRSA screen from other hospital was negative in september. send procalcitonin and if low will deescalate antibiotics. sent sputum and blood cultures. Acapella. Recent Viral Respiratory tract infection , COPD exacerbation and Multifocal pneumonia treated in [facility] from 09/07/19 to 10/08/19 received meropenem and levofloxacin. Paroxysmal atrial fibrillation with rapid ventricular response Now in sinus rhythm. rate better controlled now with digoxin and received 1 dose of amiodarone. will continue with amiodarone daily for now. Her betablocker is held due to hypotension continue Eliqucasey Lacticacidosis improved due to hypotension, hypovolemia, chronic hypoxia with increased work of brathing underlying sepsis. End-stage chronic obstructive pulmonary disease (COPD) exacerbation with chronic hypoxic respiratory failure. Emphysema and chronic bronchitis used 3 to 4 liters of oxygen at home. Patient is currently on Xopenex nebulizer, advair, spiriva, Patient stopped seeing her clip riveter, Dr. Tejeda, as no other intervention or medications will be able to get her endstage lung disease better. Diastolic congestive heart failure Euvolemic will hold all diuretics for now Anemia Has diverticulosis and internal and ext hemorrhoids in flex sigmoidoscopy from 2018 normocytic will get iron profile probably from chronic sickness and recent prolong hospitalization. Will transfuse if HH below 8.0 She does have intermittent hemorroidal bleeds . Did have a bleeding for 2 days earlier this week Currently no overt bleeding. Peripheral artery disease. on ASA, Eliquis CAD s/p stents in the past. continue statin, pj will hold betablocker at present Abdominal Aortic aneurysm 3.4 cm. stable. Plan/VTE VTE Prophylaxis Ordered?: Yes VS, I&O, 24H, Fishbone Vital Signs/I&O Vital Signs Date Time Temp Pulse Resp B/P (MAP) Pulse Ox O2 Delivery O2 Flow Rate FiO2 10/24/19 09:05 69 75/40 (52) 94 High Flow Cannula 4.0 10/24/19 08:01 98.2 20 I&O- Last 24 Hours up to 6 AM 10/24/19 06:00 Intake Total 2175 ml Output Total 410 ml Balance 1765 ml Laboratory Data 24H LABS Laboratory Tests 2 10/23/19 13:16: Immature Granulocyte % (Auto) 1.3, Neutrophils (%) (Auto) 74.0H, Lymphocytes (%) (Auto) 12.3L, Monocytes (%) (Auto) 11.6H, Eosinophils (%) (Auto) 0.4, Basophils (%) (Auto) 0.4, Neutrophils # (Auto) 9.9H, Lymphocytes # (Auto) 1.6, Monocytes # (Auto) 1.6H, Eosinophils # (Auto) 0.1, Basophils # (Auto) 0.1, Nucleated Red Blood Cells % (auto) 0.0, Anion Gap 16, Glomerular Filtration Rate 16.0L, Lactic Acid Level 4.3*H, Calcium Level 9.3, Total Bilirubin 0.6, Direct Bilirubin 0.3H, Aspartate Amino Transf (AST/SGOT) 21, Alanine Aminotransferase (ALT/SGPT) 13, Alkaline Phosphatase 160H, Total Protein 7.0, Albumin 2.6L, Albumin/Globulin Ratio 0.59L 10/23/19 16:59: POC pH (Misc Panel) 7.294L, POC Base Excess (Misc Panel) -7.0L, POC Saturated P ercent O2 (Misc) 93L, POC pO2 (Misc Panel) 76.0L, POC pCO2 (Misc Panel) 39.4, POC HCO3 (Misc Panel) 19.1L, POC Total CO2 (Misc Panel) 20.0L 10/23/19 23:41: Lactic Acid Followup at 4 Hours 1.1 10/24/19 05:21: Immature Granulocyte % (Auto) 1.4, Neutrophils (%) (Auto) 64.0, Lymphocytes (%) (Auto) 18.0L, Monocytes (%) (Auto) 13.8H, Eosinophils (%) (Auto) 2.4, Basophils (%) (Auto) 0.4, Neutrophils # (Auto) 7.2, Lymphocytes # (Auto) 2.0, Monocytes # (Auto) 1.6H, Eosinophils # (Auto) 0.3, Basophils # (Auto) 0.0, Nucleated Red Blood Cells % (auto) 0.0, Anion Gap 11, Glomerular Filtration Rate 20.5L, Calcium Level 8.2L, Magnesium Level 2.3 10/24/19 06:08: Blood Gas Bicarbonate Standard 22.2, Arterial Blood pH 7.389, Arterial Blood Partial Pressure CO2 37.2, Arterial Blood Partial Pressure O2 92.1, Arterial Blood Total CO2 23.1, Arterial Blood HCO3 22.0, Arterial Blood Base Excess - 2.7L, Arterial Blood Oxygen Saturation 96.5 CBC/BMP Laboratory Tests 10/23/19 13:16 10/24/19 05:21 Microbiology Microbiology 10/23/19 Blood Culture, Received Pending 10/23/19 Blood Culture, Received Pending 10/23/19 Gram Stain - Final, Resulted 10/23/19 Sputum Culture, Resulted Pending SANIYA DE JESUS MD Oct 24, 2019 11:25
[2019-10-24 13:18] LABS: PERCENT SATURATION 11.4 % (13.2-45.0)
[2019-10-24] MEDS ORDERED: NS 250 ML IV ONE (21:00)
[2019-10-24] MEDS: AZITHROMYCIN INJ 500 MG, VIAL MATE ADAPTER 1 EACH in D5W 250 ML IV SCH (21:31)
[2019-10-25] VITALS (38 sets, daily range): BP systolic 100–156; BP diastolic 50–71
[2019-10-25] MEDS ORDERED: NS 250 ML IV ONE (02:00)
[2019-10-25] MEDS: LEVALBUTEROL 1.25 MG/0.5 ML CONCENTRATE NEB INH SCH ×4 (02:08→21:25)
[2019-10-25 06:00] LABS: BASO % 0.3 % (0.0-1.0); EOS # 0.3 10^3/uL (0.0-0.5); EOS % 2.8 % (0.0-3.0); HEMATOCRIT 27.9 % (36.0-47.0); HEMOGLOBIN 8.6 g/dl (12.0-15.5); LYMPH # 0.9 10^3/uL (1.5-5.0); LYMPH % 9.3 % (24.0-44.0); MEAN CORPUSCULAR HGB CONC 30.8 g/dl (32.0-36.5); MEAN CORPUSCULAR VOLUME 93.9 fl (80.0-96.0); MONO # 0.9 10^3/uL (0.0-0.8); MONO % 9.2 % (0.0-5.0); NEUTROPHILS # 7.7 10^3/uL (1.5-8.5); NEUTROPHILS % 76.9 % (36.0-66.0); PLATELET COUNT, AUTOMATED 499 10^3/uL (150-450); RED BLOOD COUNT 2.97 10^6/uL (4.00-5.40)
[2019-10-25 06:16] LABS: CALCIUM LEVEL 7.7 MG/DL (8.8-10.2); CREATININE FOR GFR 1.7 MG/DL (0.55-1.30); GLOMERULAR FILTRATION RATE 31.1 (>39); MAGNESIUM LEVEL 2.2 MG/DL (1.8-2.4)
[2019-10-25] MEDS: ADVAIR HFA 230/21MCG INHALER INH SCH ×2 (07:36→21:00)
[2019-10-25] MEDS: TIOTROPIUM INHALER/CAPSULE (SPIRIVA) INH SCH (07:36)
[2019-10-25] MEDS: MIDODRINE 5 MG TAB PO SCH ×3 (07:41→16:18)
[2019-10-25] MEDS: EZETIMIBE 10 MG TAB (ZETIA) PO SCH (08:24)
[2019-10-25] MEDS: FAMOTIDINE 20 MG TAB PO SCH ×2 (08:24→20:01)
[2019-10-25] MEDS: guaiFENesin ER 600 MG TAB PO SCH ×2 (08:24→20:01)
[2019-10-25] MEDS: APIXABAN 5 MG TAB (ELIQUIS) PO SCH ×2 (08:24→20:01)
[2019-10-25] MEDS: AMIODARONE 200 MG TAB (PACERONE) PO SCH (08:24)
[2019-10-25] MEDS: DOCUSATE SODIUM 100 MG CAP PO SCH (08:24)
[2019-10-25] MEDS: MEROPENEM INJ 1 GM in IV 1 EA IV SCH ×2 (09:09→20:01)
[2019-10-25] MEDS: LevoFLOXacin IV 250 MG in IV 1 EA IV SCH (11:02)
[2019-10-25] MEDS: LORazepam 0.5 MG TAB PO PRN ×2 (11:53→20:01)
[2019-10-25] MEDS: NOREPINEPHRINE BITARTRATE 8 MG in D5W 492 ML IV SCH (12:20)
--- NOTE | 2019-10-25 14:15 | IPNPDOC ---
Subjective Date Seen The patient was seen on 10/25/19. Subjective Chief Complaint/HPI continues to be extremely short of breath. Even sitting up in bed is making her short of breath. Coughing up good amounts of phlegm. Very anxious, says has not slept for several days. Objective Physical Examination General Exam: Positive: Alert, Moderate Distress Eye Exam: Positive: PERRLA, Conjunctiva & lids normal, EOMI; Negative: Sclera icteric ENT Exam: Positive: Atraumatic, Mucous membr. moist/pink, Pharynx Normal Neck Exam: Positive: Supple; Negative: JVD, thyromegaly Chest Exam: Positive: Rales, Diminished, Other (bilateral crackles coarse more on the left with accesory muscle use.) Heart Exam: Positive: Rate Normal, Regular Rhythm, Normal S1, Normal S2; Negative: Murmurs, Rubs Telemetry: Positive: Atrial fibrillation Abdomen Exam: Positive: Normal bowel sounds, Soft; Negative: Tenderness, Hepatospenomegaly Extremity Exam: Negative: Clubbing, Cyanosis, Edema Skin Exam: Positive: Nl turgor and temperature, Breakdown (sacral area); Negative: Lesion Neuro Exam: Positive: Normal Speech, Strength at 5/5 X4 ext, Normal Tone Psych Exam: Positive: Anxiety Assessment /Plan Assessment 74 year old female with PMH of 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 Upon discharge as per son she was all swollen and her breathing was still bad so they resumed their home diuretics and she lost her fluids her breathing improved a little but for the past 3 days she has been feeling bad again with increased cough and phlegm, increased SOB , poor appetite, extreme weakness and unable to even stand up. Yesterday she had blood work prior to her visit with Dr Villa today. She was seen by Dr Villa and was sent to the ED for NIKO. Her creatinine had gone up from a 1.5 baseline to 3.0. In ED She then went into Afib with RVR with drop in blood pressure. A CT scan was done and showed Bilateral lower lobe infiltrates left greater than right. Mild subcarinal adenopathy 1.3 cm in short access may be reactive. She was admitted for Pneumonia possible sepsis, NIKO on ckd and Afib with RVR. Shock hypovolemic vs septic Seems she has chronic hypotension at baseline. She is on midodrine at home Now lower due to dehydration, with intravascular volume depletion and Afib with RVR and infection started on Levophed overnight remains on 1 mcg. NIKO on CKD 3 improved. Creatinine to baseline. probably due to overdiuresis with poor oral intake renal US no obs. Hold all diuretics for Now Multifocal pneumonia with sepsis. aspiration pneumonia/ HCAP I am not sure if this is the residual from the recent pneumonia last month or a new one. will need to rule out chronic aspiration will get swallow evaluation on saturday On Meropenem and azithromycin Her MRSA screen from other hospital was negative in september. send procalcitonin and if low will deescalate antibiotics. sent sputum and blood cultures. Acapella. Recent Viral Respiratory tract infection , COPD exacerbation and Multifocal pneumonia treated in [facility] from 09/07/19 to 10/08/19 received meropenem and levofloxacin. Paroxysmal atrial fibrillation with rapid ventricular response Now in sinus rhythm. rate better controlled now with digoxin and received 1 dose of amiodarone. will continue with amiodarone daily for now. Her betablocker is held due to hypotension continue Eliquis Lacticacidosis improved due to hypotension, hypovolemia, chronic hypoxia with increased work of brathing underlying sepsis. End-stage chronic obstructive pulmonary disease (COPD) exacerbation with chronic hypoxic respiratory failure. Emphysema and chronic bronchitis used 3 to 4 liters of oxygen at home. Patient is currently on Xopenex nebulizer, advair, spiriva, Patient stopped seeing her field secretary, Dr. Tejeda, as no other intervention or medications will be able to get her endstage lung disease better. extremely anxious . Will give some ativan prn. Diastolic congestive heart failure Euvolemic will hold all diuretics for now Anemia Has diverticulosis and internal and ext hemorrhoids in flex sigmoidoscopy from 2018 normocytic will get iron profile probably from chronic sickness and recent prolong hospitalization. Will transfuse if HH below 8.0 She does have intermittent hemorroidal bleeds . Did have a bleeding for 2 days earlier this week Currently no overt bleeding. Peripheral artery disease. on ASA, Eliquis CAD s/p stents in the past. continue statin, eliquis will hold betablocker at present Abdominal Aortic aneurysm 3.4 cm. stable. Plan/VTE VTE Prophylaxis Ordered?: Yes VS, I&O, 24H, Fishbone Vital Signs/I&O Vital Signs Date Time Temp Pulse Resp B/P (MAP) Pulse Ox O2 Delivery O2 Flow Rate FiO2 10/25/19 12:00 5.0 10/25/19 12:00 99.4 98 24 128/59 (82) 91 High Flow Cannula I&O- Last 24 Hours up to 6 AM 10/25/19 06:00 Intake Total 1282.2 ml Output Total 775 ml Balance 507.2 ml Laboratory Data 24H LABS Laboratory Tests 2 10/25/19 05:36: Immature Granulocyte % (Auto) 1.5, Neutrophils (%) (Auto) 76.9H, Lymphocytes (%) (Auto) 9.3L, Monocytes (%) (Auto) 9.2H, Eosinophils (%) (Auto) 2.8, Basophils (%) (Auto) 0.3, Neutrophils # (Auto) 7.7, Lymphocytes # (Auto) 0.9L, Monocytes # (Auto) 0.9H, Eosinophils # (Auto) 0.3, Basophils # (Auto) 0.0, Nucleated Red Blood Cells % (auto) 0.0, Anion Gap 7L, Glomerular Filtration Rate 31.1L, Calcium Level 7.7L, Magnesium Level 2.2 CBC/BMP Laboratory Tests 10/25/19 05:36 Microbiology Microbiology 10/23/19 Blood Culture - Preliminary, Resulted No growth after 24 hours . All specim... 10/23/19 Blood Culture - Preliminary, Resulted No growth after 24 hours . All specim... 10/23/19 Gram Stain - Final, Complete 10/23/19 Sputum Culture - Final, Complete Pseudomonas Aeruginosa SANIYA DE JESUS MD Oct 25, 2019 14:15
[2019-10-26] VITALS (24 sets, daily range): BP systolic 100–176; BP diastolic 51–81
[2019-10-26] MEDS: LORazepam 0.5 MG TAB PO PRN (03:09)
[2019-10-26] MEDS: LEVALBUTEROL 1.25 MG/0.5 ML CONCENTRATE NEB INH SCH ×4 (03:10→18:23)
[2019-10-26 05:33] LABS: BASO # 0.1 10^3/uL (0.0-0.2); BASO % 0.4 % (0.0-1.0); EOS # 0.2 10^3/uL (0.0-0.5); EOS % 1.7 % (0.0-3.0); HEMATOCRIT 29.3 % (36.0-47.0); HEMOGLOBIN 8.9 g/dl (12.0-15.5); LYMPH % 8.3 % (24.0-44.0); MEAN CORPUSCULAR HEMOGLOBIN 29.1 pg (27.0-33.0); MEAN CORPUSCULAR HGB CONC 30.4 g/dl (32.0-36.5); MEAN CORPUSCULAR VOLUME 95.8 fl (80.0-96.0); MONO # 1.2 10^3/uL (0.0-0.8); NEUTROPHILS # 9.3 10^3/uL (1.5-8.5); NEUTROPHILS % 76.9 % (36.0-66.0); PLATELET COUNT, AUTOMATED 481 10^3/uL (150-450); RED BLOOD COUNT 3.06 10^6/uL (4.00-5.40); WHITE BLOOD COUNT 12.1 10^3/uL (4.0-10.0)
[2019-10-26 06:07] LABS: CALCIUM LEVEL 8.1 MG/DL (8.8-10.2); CREATININE FOR GFR 1.54 MG/DL (0.55-1.30); GLOMERULAR FILTRATION RATE 34.9 (>39); MAGNESIUM LEVEL 2.3 MG/DL (1.8-2.4); POTASSIUM SERUM 4.3 MEQ/L (3.5-5.1)
[2019-10-26] MEDS: TIOTROPIUM INHALER/CAPSULE (SPIRIVA) INH SCH (07:20)
[2019-10-26] MEDS: ADVAIR HFA 230/21MCG INHALER INH SCH ×2 (07:20→18:23)
[2019-10-26] MEDS: SPIRONOLACTONE 25 MG TAB PO SCH (08:16)
[2019-10-26] MEDS: MIDODRINE 5 MG TAB PO SCH ×3 (08:16→16:00)
[2019-10-26] MEDS: FAMOTIDINE 20 MG TAB PO SCH ×2 (08:16→20:11)
[2019-10-26] MEDS: MEROPENEM INJ 1 GM in IV 1 EA IV SCH ×2 (08:17→20:12)
[2019-10-26] MEDS: DOCUSATE SODIUM 100 MG CAP PO SCH (08:17)
[2019-10-26] MEDS: guaiFENesin ER 600 MG TAB PO SCH ×2 (08:17→20:11)
[2019-10-26] MEDS: AMIODARONE 200 MG TAB (PACERONE) PO SCH (08:17)
[2019-10-26] MEDS: APIXABAN 5 MG TAB (ELIQUIS) PO SCH ×2 (08:17→20:12)
[2019-10-26] MEDS: EZETIMIBE 10 MG TAB (ZETIA) PO SCH (08:17)
[2019-10-26] MEDS: bisoproloL fumarate 5 MG TAB PO SCH (08:18)
[2019-10-26] MEDS: LevoFLOXacin IV 250 MG in IV 1 EA IV SCH (10:01)
[2019-10-26 10:40] LABS: FOLATE 14.5 NG/ML (>5.4)
--- NOTE | 2019-10-26 11:02 | IPNPDOC ---
Subjective Date Seen The patient was seen on 10/26/19. Subjective Chief Complaint/HPI Remains extremely weak and SOB, minor movements in the bed are making her very SOB. Ativan did not help. No fever no chills, continues to have a bad cough. Objective Physical Examination General Exam: Positive: Alert, Moderate Distress Eye Exam: Positive: PERRLA, Conjunctiva & lids normal, EOMI; Negative: Sclera icteric ENT Exam: Positive: Atraumatic, Mucous membr. moist/pink, Pharynx Normal Neck Exam: Positive: Supple; Negative: JVD, thyromegaly Chest Exam: Positive: Rales, Diminished, Other (bilateral crackles coarse more on the left with accesory muscle use.) Heart Exam: Positive: Rate Normal, Regular Rhythm, Normal S1, Normal S2; Negative: Murmurs, Rubs Telemetry: Positive: Atrial fibrillation Abdomen Exam: Positive: Normal bowel sounds, Soft; Negative: Tenderness, Hepatospenomegaly Extremity Exam: Negative: Clubbing, Cyanosis, Edema Skin Exam: Positive: Nl turgor and temperature, Breakdown (sacral area); Negative: Lesion Neuro Exam: Positive: Normal Speech, Strength at 5/5 X4 ext, Normal Tone Psych Exam: Positive: Anxiety Assessment /Plan Assessment 74 year old female with PMH of 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 Upon discharge as per son she was all swollen and her breathing was still bad so they resumed their home diuretics and she lost her fluids her breathing improved a little but for the past 3 days she has been feeling bad again with increased cough and phlegm, increased SOB , poor appetite, extreme weakness and unable to even stand up. Yesterday she had blood work prior to her visit with Dr Villa today. She was seen by Dr Villa and was sent to the ED for NIKO. Her creatinine had gone up from a 1.5 baseline to 3.0. In ED She then went into Afib with RVR with drop in blood pressure. A CT scan was done and showed Bilateral lower lobe infiltrates left greater than right. Mild subcarinal adenopathy 1.3 cm in short access may be reactive. She was admitted for Pneumonia possible sepsis, NIKO on ckd and Afib with RVR. Shock combination of hypovolemic and septic Seems she has chronic hypotension at baseline. She is on midodrine at home Was lower due to dehydration, with intravascular volume depletion and Afib with RVR and infection Now off levophed. NIKO on CKD 3 improved. Creatinine to baseline. probably due to overdiuresis with poor oral intake renal US no obs. Hold all diuretics for Now Multifocal pneumonia with sepsis. aspiration pneumonia/ HCAP Psedomonas pneumonia I am not sure if this is the residual from the recent pneumonia last month or a new one. will need to rule out chronic aspiration will get swallow evaluation on saturday On Meropenem and azithromycin Her MRSA screen from other hospital was negative in September. send procalcitonin and if low will deescalate antibiotics. sent sputum and blood cultures. Acapella. will consult Pulmonary. Recent Viral Respiratory tract infection , COPD exacerbation and Multifocal pneumonia treated in [facility] from 09/07/19 to 10/08/19 received meropenem and levofloxacin. Paroxysmal atrial fibrillation with rapid ventricular response Now in sinus rhythm. rate better controlled now with digoxin and received 1 dose of amiodarone. will continue with amiodarone daily for now then reduce to home dose on discharge jarad restart bisoprolol continue Eliquis Lacticacidosis improved due to hypotension, hypovolemia, chronic hypoxia with increased work of brathing underlying sepsis. End-stage chronic obstructive pulmonary disease (COPD) exacerbation with chronic hypoxic respiratory failure. Emphysema and chronic bronchitis uses 3 to 4 liters of oxygen at home. Patient is currently on Xopenex nebulizer, advair, spiriva, Patient stopped seeing her railroad mechanic, Dr. Tejeda, as no other intervention or medications will be able to get her endstage lung disease better. Last seen her in 2012 extremely anxious. tried ativan did not help will discontinues. Making her too sleepy. Diastolic congestive heart failure Euvolemic will restart spironolactone. Anemia Has diverticulosis and internal and ext hemorrhoids in flex sigmoidoscopy from 2018 normocytic will get iron profile probably from chronic sickness and recent prolong hospitalization. Will transfuse if HH below 8.0 She does have intermittent hemorroidal bleeds . Did have a bleeding for 2 days earlier this week Currently no overt bleeding. Peripheral artery disease. on ASA, Eliquis CAD s/p stents in the past. continue statin, eliquis will hold betablocker at present Abdominal Aortic aneurysm 3.4 cm. stable. Plan/VTE VTE Prophylaxis Ordered?: Yes VS, I&O, 24H, Fishbone Vital Signs/I&O Vital Signs Date Time Temp Pulse Resp B/P (MAP) Pulse Ox O2 Delivery O2 Flow Rate FiO2 10/26/19 08:18 88 116/60 10/26/19 08:00 5.0 10/26/19 08:00 98.3 30 96 High Flow Cannula I&O- Last 24 Hours up to 6 AM 10/26/19 06:00 Intake Total 920 ml Output Total 695 ml Balance 225 ml Laboratory Data 24H LABS Laboratory Tests 2 10/26/19 05:17: Immature Granulocyte % (Auto) 2.7, Neutrophils (%) (Auto) 76.9H, Lymphocytes (%) (Auto) 8.3L, Monocytes (%) (Auto) 10.0H, Eosinophils (%) (Auto) 1.7, Basophils (%) (Auto) 0.4, Neutrophils # (Auto) 9.3H, Lymphocytes # (Auto) 1.0L, Monocytes # (Auto) 1.2H, Eosinophils # (Auto) 0.2, Basophils # (Auto) 0.1, Nucleated Red Blood Cells % (auto) 0.0, Anion Gap 5L, Glomerular Filtration Rate 34.9L, Calcium Level 8.1L, Magnesium Level 2.3 CBC/BMP Laboratory Tests 10/26/19 05:17 Microbiology Microbiology 10/23/19 Blood Culture - Preliminary, Resulted No Growth after 48 hours. All Specime... 10/23/19 Blood Culture - Preliminary, Resulted No Growth after 48 hours. All Specime... 10/23/19 Gram Stain - Final, Complete 10/23/19 Sputum Culture - Final, Complete Pseudomonas Aeruginosa SANIYA DE JESUS MD Oct 26, 2019 11:02
[2019-10-26 11:25] LABS: ABG BASE EXCESS -2.9 (-2.0-2.0); ABG O2 SATURATION 96.7 % (95.0-99.0); ABG PARTIAL PRESSURE CO2 44.7 mmHg (35.0-45.0); ABG TOTAL CO2 24.4 MEQ/L (23.0-31.0); ABG pH (ARTERIAL) 7.329 UNITS (7.350-7.450)
[2019-10-26] MEDS: methylPREDNISolone INJ 40 MG/1 ML VIAL (J2920) IV SCH ×2 (11:37→20:11)
--- NOTE | 2019-10-26 11:58 | CR ---
DATE OF CONSULTATION: 10/26/2019 I was asked by Dr. Murcia to evaluate Christine Evans. Patient has been examined and chart reviewed and I have spoken at length with the nurse at the bedside as well. In essence, this is a 74-year-old female with advanced obstructive lung disease who had an FEV1 last checked in 2012 of 29% of predicted or less than 1.5 liters. She quite smoking about 9 years ago. She is known to have advanced obstructive lung disease, emphysema, chronic hypoxic respiratory failure oxygen requiring, kidney disease, stage III significant coronary artery disease with stents in place. She recently was hospitalized at [facility] for several weeks for chronic obstructive pulmonary disease (COPD) exacerbation due to pneumonia and rhinovirus. There is some question in there I believe regarding pseudomonas. She was sent here from the [facility] office for admission due to worsening creatinine from 1.5 to 3.0. She was initially treated with IV fluids and went into atrial fibrillation with rapid ventricular response (RVR) and became hypotensive. She has remained quite weak and debilitated. Short of breath with even moving in bed and I am asked to evaluate her further. ALLERGIES: Listed as QUINOLONES, STATINS AND VARENICLINE. CURRENT MEDICATIONS HERE IN THE HOSPITAL: - Tylenol - Zetia - Pepcid - Advair HFA 230/21 - Spiriva - milrinone - Xopenex Nebs - Eliquis - Colace - amiodarone - briefly was on Levophed, now that has been weaned. - currently on meropenem with Levofloxacin - Zebeta - aldactone - guaifenesin PAST MEDICAL HISTORY: Significant for Atrial fibrillation. Advanced obstructive lung disease Emphysema. Chronic hypoxic respiratory failure, oxygen requiring. Diastolic congestive heart failure. Coronary artery disease with stents. Peripheral artery disease. Chronic kidney disease stage III. Underlying osteoarthritis/rheumatoid arthritis. Significant difficulties with intermittent hypotension at home on milrinone. SOCIAL HISTORY: Reformed tobacco abuser quit 9 or 10 years ago. No alcohol. Lives with family nearby. FAMILY HISTORY: Noncontributory to her pulmonary status. REVIEW OF SYSTEMS: As per the history of present illness (HPI). Otherwise Constitution: Negative for any recent fever or chills. HEENT: Unremarkable. HEENT: Unremarkable for blurred or double vision. Pulmonary: As per HPI. Cardiac: As per the HPI. Gastrointestinal (GI): Significant for some decreased appetite but no nausea or vomiting. Genitourinary (): Unremarkable for any dysuria or urgency. Neurological: Unremarkable for seizures or strokes. Endocrine: Unremarkable for diabetes or thyroid disease. Hematological: Significant for chronic anticoagulation. Psychiatric: Unremarkable. PHYSICAL EXAMINATION: Currently reveals a weak frail elderly female who appears at least her stated age. Temperature 98.3, blood pressure 122 systolic, respiratory rate 22-24 without obvious accessory muscle use, heart rate 94 and irregular. Pulse oximetry currently 96% on 5 liters nasal cannula. HEENT: Is otherwise normocephalic, atraumatic. Pupils are reactive. Neck with some diminished mobility. Mucous membranes are moist. Nasal cannula oxygen in place. Chest: Shows a kyphosis with globally decreased breath sound intensity. There is moist inspiratory squeak with crackles and rhonchi much greater at the left base than the right. No convincing rub. Cardiac examination: Distant generally irregular. Peripheral pulses diminished but palpable. Trace edema. Abdomen: Soft, nontender with active bowel sounds. No convincing organomegaly or masses. Extremities: No cyanosis or clubbing. Neurologic: She s awake, alert, and appropriate. Psychiatric: Normal mood and affect. Sputum culture from 10/23/2019 does show moderate pseudomonas sensitive to her current antimicrobials. White blood cell count this morning 12.1, hemoglobin 8.9, platelet count 481,000, 76.9% segs, no bands. Sodium 141, potassium 4.3, chloride 108, CO2 20, BUN 25, creatinine 1.54. No recent blood gas other than 10/24/2019 done on an unknown oxygen flow which is a pH 7.389, pCO2 37.2, pO2 92. CT scan done on 10/23/2019 shows a 1 cm nodule in the superior segment of the left lower lobe new from her scan in 2018 and a significant left lower lobe infiltrate. IMPRESSION: 1. Pneumonia likely pseudomonas currently on appropriate antibiotics. 2. Advanced obstructive lung disease. 3. Mal clearance of secretions. 4. Chronic hypoxic respiratory failure. 5. Lung nodule. 6. Chronic kidney disease. 7. Atrial fibrillation with RVR. 8. Chronic anticoagulation. RECOMMENDATION: At this point, we will add IV steroids. We will increase her regimen to aid with secretion clearance. Currently, she wishes to be in full code. I would agree with her current antimicrobials. Certainly, my hopes is that her lung nodule is related to her infectious etiology but given its appearance I find it much more concerning and this will need to be followed. At this point, we will continue the above interventions. Ulcer and deep venous thrombosis (DVT) prophylaxis in place. We will continue as outlined above. Further recommendations will be made in the progress record as new information becomes available. VALERIO
[2019-10-26] MEDS: NOREPINEPHRINE BITARTRATE 8 MG in D5W 492 ML IV SCH (15:40)
[2019-10-26] MEDS ORDERED: NS 500 ML IV ONE (17:45)
[2019-10-26] MEDS ORDERED: NS 1,000 ML IV SCH (21:30)
[2019-10-26] MEDS ORDERED: CEPACOL LOZENGE PO PRN (21:30)
[2019-10-27] VITALS (13 sets, daily range): BP systolic 110–147; BP diastolic 53–68
[2019-10-27] MEDS: CEPACOL LOZENGE PO PRN ×3 (00:09→20:33)
[2019-10-27] MEDS: LEVALBUTEROL 1.25 MG/0.5 ML CONCENTRATE NEB INH SCH ×4 (02:10→18:18)
[2019-10-27] MEDS: methylPREDNISolone INJ 40 MG/1 ML VIAL (J2920) IV SCH ×3 (04:08→21:26)
[2019-10-27 04:49] LABS: BASO % 0.2 % (0.0-1.0); HEMATOCRIT 28.9 % (36.0-47.0); HEMOGLOBIN 8.7 g/dl (12.0-15.5); LYMPH # 0.7 10^3/uL (1.5-5.0); LYMPH % 8.4 % (24.0-44.0); MEAN CORPUSCULAR HEMOGLOBIN 28.8 pg (27.0-33.0); MEAN CORPUSCULAR HGB CONC 30.1 g/dl (32.0-36.5); MEAN CORPUSCULAR VOLUME 95.7 fl (80.0-96.0); MONO # 0.2 10^3/uL (0.0-0.8); MONO % 2.1 % (0.0-5.0); NEUTROPHILS # 7.5 10^3/uL (1.5-8.5); NEUTROPHILS % 85.8 % (36.0-66.0); PLATELET COUNT, AUTOMATED 460 10^3/uL (150-450); RED BLOOD COUNT 3.02 10^6/uL (4.00-5.40); WHITE BLOOD COUNT 8.8 10^3/uL (4.0-10.0)
[2019-10-27 05:24] LABS: CALCIUM LEVEL 8.2 MG/DL (8.8-10.2); CREATININE FOR GFR 1.32 MG/DL (0.55-1.30); GLOMERULAR FILTRATION RATE 41.7 (>39); MAGNESIUM LEVEL 2.1 MG/DL (1.8-2.4); POTASSIUM SERUM 4.9 MEQ/L (3.5-5.1)
[2019-10-27] MEDS: ADVAIR HFA 230/21MCG INHALER INH SCH ×2 (07:38→18:18)
[2019-10-27] MEDS: TIOTROPIUM INHALER/CAPSULE (SPIRIVA) INH SCH (07:38)
[2019-10-27] MEDS: bisoproloL fumarate 5 MG TAB PO SCH (08:31)
[2019-10-27] MEDS: MEROPENEM INJ 1 GM in IV 1 EA IV SCH ×2 (08:32→21:25)
[2019-10-27] MEDS: AMIODARONE 200 MG TAB (PACERONE) PO SCH (08:32)
[2019-10-27] MEDS: EZETIMIBE 10 MG TAB (ZETIA) PO SCH (08:32)
[2019-10-27] MEDS: SPIRONOLACTONE 25 MG TAB PO SCH (08:32)
[2019-10-27] MEDS: MIDODRINE 5 MG TAB PO SCH ×3 (08:32→16:00)
[2019-10-27] MEDS: APIXABAN 5 MG TAB (ELIQUIS) PO SCH ×2 (08:32→21:25)
[2019-10-27] MEDS: DOCUSATE SODIUM 100 MG CAP PO SCH (08:32)
[2019-10-27] MEDS: FAMOTIDINE 20 MG TAB PO SCH ×2 (08:32→21:25)
[2019-10-27] MEDS: guaiFENesin ER 600 MG TAB PO SCH ×2 (08:32→21:25)
--- NOTE | 2019-10-27 10:01 | IPN ---
DATE: 10/27/2019 I again attended Christine Evans here in the intensive care unit. Patient examined and chart reviewed. I spoke with the primary service as well as the bedside nurse. The patient is feeling better today. T-max overnight 97.4, blood pressure 110-140 systolic, heart rate 70s-80s, respiratory rate generally in the 20s without accessory muscle use. Intake and output midnight to midnight 1180 mL in with 550 mL out. On exam, she is in the bedside chair. She is awake, alert and appropriate. Says she is breathing more comfortably today. HEENT otherwise normocephalic, atraumatic. Pupils are reactive, sclera clear. Trachea is midline. Chest shows diminished but symmetric expansion. Better air entry today. There is only some minimal crackles bilaterally, left mildly greater than right. No wheeze or rhonchus today. Cardiac examination is distant. No gallop or rub. Peripheral pulses palpable. Trace edema. Abdomen soft, nontender with active bowel sounds. No convincing organomegaly or masses. Extremities no cyanosis or clubbing. Neurologically, she is awake, alert, and appropriate. No new imaging today. White blood cell count 8.8, hemoglobin 8.7, platelet count 460,000, 85.8% segs, no bands. Sodium 142, K 4.9, chloride 109, CO2 27, BUN 27, creatinine 1.32. IMPRESSION: Obstructive lung disease with exacerbation. Sputum with Pseudomonas on meropenem and Levaquin. Exacerbation of lung disease requiring steroids. Chronic hypoxic respiratory failure. At this point, we will slowly taper steroids. Will increase out of bed. I would continue her current double coverage for Pseudomonas in view of her recent issues and her hospitalization as well as her debilitated state and steroids. I have spoken at length with Dr. Murcia who is in charge of her care. At this point, will proceed as outlined above. Further recommendations will be made in the progress record as new information becomes available.
--- NOTE | 2019-10-27 11:00 | IPNPDOC ---
Subjective Date Seen The patient was seen on 10/27/19. Subjective Chief Complaint/HPI Looking much better today. Pateint says she feels much better and able to breathe much easier. Slept comfortably overnight as epr the nurses. Having poor output probably due to poor intake. Started on gentel hydration. Off levophed now. No fever, continues to have cough with malclearance of secretions. Got out of bed to commode today. Objective Physical Examination General Exam: Positive: Alert, Cooperative, No Acute Distress Eye Exam: Positive: PERRLA, Conjunctiva & lids normal, EOMI; Negative: Sclera icteric ENT Exam: Positive: Atraumatic, Mucous membr. moist/pink, Pharynx Normal Neck Exam: Positive: Supple; Negative: JVD, thyromegaly Chest Exam: Positive: Rales, Diminished, Other (bilateral crackles coarse more on the left with accesory muscle use.) Heart Exam: Positive: Rate Normal, Regular Rhythm, Normal S1, Normal S2; Negative: Murmurs, Rubs Telemetry: Positive: Atrial fibrillation Abdomen Exam: Positive: Normal bowel sounds, Soft; Negative: Tenderness, Hepatospenomegaly Extremity Exam: Negative: Clubbing, Cyanosis, Edema Skin Exam: Positive: Nl turgor and temperature, Breakdown (sacral area.); Negative: Lesion Neuro Exam: Positive: Normal Speech, Strength at 5/5 X4 ext, Normal Tone Psych Exam: Positive: Anxiety Assessment /Plan Assessment 74 year old female with PMH of End stage COPD on home oxygen, Chronic bronchitis and emphysema, Paroxysmal Afib, CKD stage 3, CAD s/p stents, PAD , diastolic CHF was admitted to [facility] from 09/07/19 to 10/08/19 treated there for COPD exacerbation due to human rhinovirus infection and multifocal pneumonia. Upon discharge as per son she was all swollen and her breathing was still bad so they resumed their home diuretics and she lost her fluids her breathing improved a little but for the past 3 days she has been feeling bad again with increased cough and phlegm, increased SOB , poor appetite, extreme weakness and unable to even stand up. Yesterday she had blood work prior to her visit with Dr Villa today. She was seen by Dr Villa and was sent to the ED for NIKO. Her creatinine had gone up from a 1.5 baseline to 3.0. In ED She then went into Afib with RVR with drop in blood pressure. A CT scan was done and showed Bilateral lower lobe infiltrates left greater than right. Mild subcarinal adenopathy 1.3 cm in short access may be reactive. She was admitted for Pneumonia possible sepsis, NIKO on ckd and Afib with RVR. Shock combination of hypovolemic and septic Seems she has chronic hypotension at baseline. She is on midodrine at home Was lower due to dehydration, with intravascular volume depletion and Afib with RVR and infection Now off levophed. NIKO on CKD 3 improved. Creatinine to baseline. probably due to overdiuresis with poor oral intake renal US no obs. Hold all diuretics for Now Multifocal pneumonia with sepsis. aspiration pneumonia/ HCAP Psedomonas pneumonia I am not sure if this is the residual from the recent pneumonia last month or a new one. will need to rule out chronic aspiration will get swallow evaluation On Meropenem and Levofloxacin Her MRSA screen from other hospital was negative in September. Procalcitonin 6.8 Acapella. consulted Pulmonary. Recent Viral Respiratory tract infection , COPD exacerbation and Multifocal pneumonia treated in [facility] from 09/07/19 to 10/08/19 received meropenem and levofloxacin. Paroxysmal atrial fibrillation with rapid ventricular response on admission Now in sinus rhythm. rate better controlled now with digoxin and received 1 dose of amiodarone. will continue with amiodarone daily for now then reduce to home dose on discharge on bisoprolol continue Eliquis Lacticacidosis improved due to hypotension, hypovolemia, chronic hypoxia with increased work of brathing underlying sepsis. End-stage chronic obstructive pulmonary disease (COPD) exacerbation with chronic hypoxic respiratory failure. Emphysema and chronic bronchitis Now in exacerbation. uses 3 to 4 liters of oxygen at home. 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 Appreciate pulmonary evaluation. Malclearance of secretions EZ pap added and acapella Diastolic congestive heart failure Euvolemic to hypovolemic, poor oral intake will hold off on diuretics. Anemia Has diverticulosis and internal and ext hemorrhoids in flex sigmoidoscopy from 2017 normocytic will get iron profile probably from chronic sickness and recent prolong hospitalization. Will transfuse if HH below 8.0 She does have intermittent hemorroidal bleeds . Did have a bleeding for 2 days earlier this week Currently no overt bleeding. Peripheral artery disease. on ASA, Eliquis CAD s/p stents in the past. continue statin, eliquis will hold betablocker at present Abdominal Aortic aneurysm 3.4 cm. stable. Plan/VTE VTE Prophylaxis Ordered?: Yes VS, I&O, 24H, Fishbone Vital Signs/I&O Vital Signs Date Time Temp Pulse Resp B/P (MAP) Pulse Ox O2 Delivery O2 Flow Rate FiO2 10/27/19 05:00 74 22 127/63 (84) 98 High Flow Cannula 5.0 10/27/19 04:00 97.4 I&O- Last 24 Hours up to 6 AM 10/27/19 06:00 Intake Total 1460 ml Output Total 405 ml Balance 1055 ml Laboratory Data 24H LABS Laboratory Tests 2 10/26/19 11:16: Blood Gas Bicarbonate Standard 22.0, Arterial Blood pH 7.329L, Arterial Blood Partial Pressure CO2 44.7, Arterial Blood Partial Pressure O2 96.0, Arterial Blood Total CO2 24.4, Arterial Blood HCO3 23.0, Arterial Blood Base Excess - 2.9L, Arterial Blood Oxygen Saturation 96.7 10/27/19 04:36: Immature Granulocyte % (Auto) 3.5H, Neutrophils (%) (Auto) 85.8H, Lymphocytes (%) (Auto) 8.4L, Monocytes (%) (Auto) 2.1, Eosinophils (%) (Auto) 0.0, Basophils (%) (Auto) 0.2, Neutrophils # (Auto) 7.5, Lymphocytes # (Auto) 0.7L, Monocytes # (Auto) 0.2, Eosinophils # (Auto) 0.0, Basophils # (Auto) 0.0, Nucleated Red Blood Cells % (auto) 0.0, Anion Gap 6L, Glomerular Filtration Rate 41.7, Calcium Level 8.2L, Magnesium Level 2.1 CBC/BMP Laboratory Tests 10/27/19 04:36 Microbiology Microbiology 10/23/19 Blood Culture - Preliminary, Resulted No Growth after 72 hours. All specime... 10/23/19 Blood Culture - Preliminary, Resulted No Growth after 72 hours. All specime... 10/23/19 Gram Stain - Final, Complete 10/23/19 Sputum Culture - Final, Complete Pseudomonas Aeruginosa SANIYA DE JESUS MD Oct 27, 2019 05:47
[2019-10-27] MEDS: LevoFLOXacin IV 250 MG in IV 1 EA IV SCH (12:04)
[2019-10-28] VITALS (15 sets, daily range): BP systolic 138–156; BP diastolic 64–69; O2SAT 88–99
[2019-10-28] MEDS: CEPACOL LOZENGE PO PRN ×2 (00:44→01:43)
[2019-10-28] MEDS: LEVALBUTEROL 1.25 MG/0.5 ML CONCENTRATE NEB INH SCH ×4 (03:24→21:04)
[2019-10-28] MEDS: methylPREDNISolone INJ 40 MG/1 ML VIAL (J2920) IV SCH (05:08)
[2019-10-28 05:17] LABS: BASO % 0.1 % (0.0-1.0); HEMATOCRIT 28.9 % (36.0-47.0); HEMOGLOBIN 8.6 g/dl (12.0-15.5); LYMPH % 6.6 % (24.0-44.0); MEAN CORPUSCULAR HEMOGLOBIN 28.5 pg (27.0-33.0); MEAN CORPUSCULAR HGB CONC 29.8 g/dl (32.0-36.5); MEAN CORPUSCULAR VOLUME 95.7 fl (80.0-96.0); MONO # 0.4 10^3/uL (0.0-0.8); MONO % 2.4 % (0.0-5.0); NEUTROPHILS # 12.9 10^3/uL (1.5-8.5); NEUTROPHILS % 88.3 % (36.0-66.0); PLATELET COUNT, AUTOMATED 495 10^3/uL (150-450); RED BLOOD COUNT 3.02 10^6/uL (4.00-5.40); WHITE BLOOD COUNT 14.6 10^3/uL (4.0-10.0)
[2019-10-28 05:42] LABS: CREATININE FOR GFR 1.43 MG/DL (0.55-1.30); MAGNESIUM LEVEL 2.4 MG/DL (1.8-2.4); POTASSIUM SERUM 4.9 MEQ/L (3.5-5.1)
[2019-10-28] MEDS: TIOTROPIUM INHALER/CAPSULE (SPIRIVA) INH SCH (08:23)
[2019-10-28] MEDS: ADVAIR HFA 230/21MCG INHALER INH SCH ×2 (08:23→21:04)
[2019-10-28] MEDS: MEROPENEM INJ 1 GM in IV 1 EA IV SCH ×2 (08:58→19:56)
[2019-10-28] MEDS: NYSTATIN 500,000 U/5 ML SUSP UDC SS SCH ×3 (08:58→18:34)
[2019-10-28] MEDS: bisoproloL fumarate 5 MG TAB PO SCH (08:58)
[2019-10-28] MEDS: MIDODRINE 5 MG TAB PO SCH ×3 (08:58→16:00)
--- NOTE | 2019-10-28 08:58 | IPNPDOC ---
Subjective Date Seen The patient was seen on 10/28/19. Subjective Chief Complaint/HPI Complains of sore throat . Says breathing remains ok. She is able to take in more air. However still has a hacking cough. No fever or chills. Says producing quite a bit of phlegm Objective Physical Examination General Exam: Positive: Alert, Cooperative, No Acute Distress Eye Exam: Positive: PERRLA, Conjunctiva & lids normal, EOMI; Negative: Sclera icteric ENT Exam: Positive: Atraumatic, Mucous membr. moist/pink, Pharynx Normal Neck Exam: Positive: Supple; Negative: JVD, thyromegaly Chest Exam: Positive: Rales, Diminished, Other (bilateral crackles coarse more on the left with accesory muscle use.) Heart Exam: Positive: Rate Normal, Regular Rhythm, Normal S1, Normal S2; Negative: Murmurs, Rubs Telemetry: Positive: Atrial fibrillation Abdomen Exam: Positive: Normal bowel sounds, Soft; Negative: Tenderness, Hepatospenomegaly Extremity Exam: Negative: Clubbing, Cyanosis, Edema Skin Exam: Positive: Nl turgor and temperature, Breakdown (sacral area.); Negative: Lesion Neuro Exam: Positive: Normal Speech, Strength at 5/5 X4 ext, Normal Tone Psych Exam: Positive: Anxiety Assessment /Plan Assessment 74 year old female with PMH of End stage COPD on home oxygen, Chronic bronchitis and emphysema, Paroxysmal Afib, CKD stage 3, CAD s/p stents, PAD , diastolic CHF was admitted to [facility] from 09/07/19 to 10/08/19 treated there for COPD exacerbation due to human rhinovirus infection and multifocal pneumonia. Upon discharge as per son she was all swollen and her breathing was still bad so they resumed their home diuretics and she lost her fluids her breathing improved a little but for the past 3 days she has been feeling bad again with increased cough and phlegm, increased SOB , poor appetite, extreme weakness and unable to even stand up. Yesterday she had blood work prior to her visit with Dr Villa today. She was seen by Dr Villa and was sent to the ED for NIKO. Her creatinine had gone up from a 1.5 baseline to 3.0. In ED She then went into Afib with RVR with drop in blood pressure. A CT scan was done and showed Bilateral lower lobe infiltrates left greater than right. Mild subcarinal adenopathy 1.3 cm in short access may be reactive. She was admitted for Pneumonia possible sepsis, NIKO on ckd and Afib with RVR. Shock combination of hypovolemic and septic Seems she has chronic hypotension at baseline. She is on midodrine at home Was lower due to dehydration, with intravascular volume depletion and Afib with RVR and infection Now off levophed. End-stage chronic obstructive pulmonary disease (COPD) exacerbation with chronic hypoxic respiratory failure. Emphysema and chronic bronchitis Now in exacerbation. uses 3 to 4 liters of oxygen at home. 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 Appreciate pulmonary evaluation. Multifocal pneumonia with sepsis. aspiration pneumonia/ HCAP Psedomonas pneumonia I am not sure if this is the residual from the recent pneumonia last month or a new one. will need to rule out chronic aspiration will get swallow evaluation On Meropenem and Levofloxacin Her MRSA screen from other hospital was negative in September. Procalcitonin 6.8 Acapella. consulted Pulmonary. NIKO on CKD 3 improved. Creatinine to baseline. probably due to overdiuresis with poor oral intake renal US no obs. Hold all diuretics for Now Oral thrush nystatin swish and swallow Paroxysmal atrial fibrillation with rapid ventricular response on admission Now in sinus rhythm. rate better controlled now with digoxin and received 1 dose of amiodarone. will continue with amiodarone daily for now then reduce to home dose on discharge on bisoprolol continue Eliquis Recent Viral Respiratory tract infection , COPD exacerbation and Multifocal pneumonia treated in [facility] from 09/07/19 to 10/08/19 received meropenem and levofloxacin. Lacticacidosis improved due to hypotension, hypovolemia, chronic hypoxia with increased work of brathing underlying sepsis. Malclearance of secretions EZ pap added and acapella Diastolic congestive heart failure Euvolemic to hypovolemic, poor oral intake will hold off on diuretics. Anemia Has diverticulosis and internal and ext hemorrhoids in flex sigmoidoscopy from 2017 normocytic will get iron profile probably from chronic sickness and recent prolong hospitalization. Will transfuse if HH below 8.0 She does have intermittent hemorroidal bleeds . Did have a bleeding for 2 days earlier this week Currently no overt bleeding. Peripheral artery disease. on ASA, Eliquis CAD s/p stents in the past. continue statin, eliquis will hold betablocker at present Abdominal Aortic aneurysm 3.4 cm. stable. Plan/VTE VTE Prophylaxis Ordered?: Yes VS, I&O, 24H, Fishbone Vital Signs/I&O Vital Signs Date Time Temp Pulse Resp B/P (MAP) Pulse Ox O2 Delivery O2 Flow Rate FiO2 10/28/19 08:24 82 10/28/19 08:05 22 90 Nasal Cannula 4.0 10/28/19 07:41 149/67 (94) 10/28/19 04:30 97.9 I&O- Last 24 Hours up to 6 AM 10/28/19 06:00 Intake Total 770 ml Output Total 405 ml Balance 365 ml Laboratory Data 24H LABS Laboratory Tests 2 10/28/19 05:09: Immature Granulocyte % (Auto) 2.6, Neutrophils (%) (Auto) 88.3H, Lymphocytes (%) (Auto) 6.6L, Monocytes (%) (Auto) 2.4, Eosinophils (%) (Auto) 0.0, Basophils (%) (Auto) 0.1, Neutrophils # (Auto) 12.9H, Lymphocytes # (Auto) 1.0L, Monocytes # (Auto) 0.4, Eosinophils # (Auto) 0.0, Basophils # (Auto) 0.0, Nucleated Red Blood Cells % (auto) 0.3H, Anion Gap 5L, Glomerular Filtration Rate 38.0L, Calcium Level 9.0, Magnesium Level 2.4 CBC/BMP Laboratory Tests 10/28/19 05:09 Microbiology Microbiology 10/23/19 Blood Culture - Preliminary, Resulted No Growth after 72 hours. All specime... 10/23/19 Blood Culture - Preliminary, Resulted No Growth after 72 hours. All specime... 10/23/19 Gram Stain - Final, Complete 10/23/19 Sputum Culture - Final, Complete Pseudomonas Aeruginosa SANIYA DE JESUS MD Oct 28, 2019 08:58
[2019-10-28] MEDS: APIXABAN 5 MG TAB (ELIQUIS) PO SCH ×2 (08:59→19:55)
[2019-10-28] MEDS: EZETIMIBE 10 MG TAB (ZETIA) PO SCH (08:59)
[2019-10-28] MEDS: FAMOTIDINE 20 MG TAB PO SCH ×2 (08:59→19:55)
[2019-10-28] MEDS: DOCUSATE SODIUM 100 MG CAP PO SCH (08:59)
[2019-10-28] MEDS: AMIODARONE 200 MG TAB (PACERONE) PO SCH (08:59)
[2019-10-28] MEDS: guaiFENesin ER 600 MG TAB PO SCH ×2 (08:59→19:55)
[2019-10-28] MEDS: SPIRONOLACTONE 25 MG TAB PO SCH (09:03)
[2019-10-28] MEDS ORDERED: PILL CUTTER 1 EACH XX PRN (09:15)
--- NOTE | 2019-10-28 10:11 | IPN ---
PULMONARY CRITICAL CARE PROGRESS NOTE: DATE OF VISIT: 10/28/2019 I again attended Christine Evans here in the intensive care unit. The patient has been examined and chart reviewed. A little stronger today. Oxygen requirement is between 2-4 liters nasal cannula depending. Maximum temperature (Tmax) overnight 98 degrees, blood pressure 130-150 with occasional ectopy. Respiratory rate 18-24 without accessory muscle use. Intake and output midnight to midnight 1190 mL in with 465 mL out. White blood cell count 14.6, hemoglobin 8.6, platelet count 495,000, 80% segs, no bands. Sodium 144, potassium 4.9, chloride 112, CO2 27, BUN 33, and creatinine 1.43. On exam, she is awake, alert and appropriate, generally weak appearing. Seated at the bedside. HEENT otherwise, generally normocephalic, atraumatic. Pupils reactive. Neck is reasonably supple. Trachea is in the midline. Chest shows diminished but symmetric expansion. There is a kyphosis. Globally decreased breath sound intensity. There are some crackles at the bases. No focal adventitious breath sounds. Cardiac exam is distant, generally regular. Peripheral pulses palpable. No obvious edema. Abdomen soft, nontender with active bowel sounds. No convincing organomegaly or masses. Extremities without cyanosis or clubbing. Neurologically, she is awake, alert and appropriate. Psychiatric shows normal mood and affect. IMPRESSION: 1. Chronic obstructive lung disease with exacerbation. 2. Chronic emphysema with respiratory failure. 3. Global deconditioning. 4. Mal clearance of secretions. At this point, we will continue to wean her steroids. Physical therapy is working with her and will increase her mobility as best we can. We should discontinue her central venous access and her [place]. She certainly can be moved out of the ICU from a pulmonary standpoint. Her baseline state is one of significant debilitation and will do the best we can about trying to rally her back from that, but my optimism is guarded at best in that regard. We will proceed as outlined above. Further recommendations will be made in the progress record as new information becomes available.
[2019-10-28] MEDS: ACETAMINOPHEN 325 MG TAB PO PRN (10:47)
[2019-10-28] MEDS: LevoFLOXacin IV 250 MG in IV 1 EA IV SCH (10:47)
[2019-10-29] VITALS (11 sets, daily range): BP systolic 131–187; BP diastolic 58–83; O2SAT 96–100
[2019-10-29] MEDS: NYSTATIN 500,000 U/5 ML SUSP UDC SS SCH ×5 (00:41→23:44)
[2019-10-29] MEDS: CEPACOL LOZENGE PO PRN (03:02)
[2019-10-29] MEDS ORDERED: hydrOXYzine 25 MG TAB PO ONE (03:30)
[2019-10-29] MEDS: LEVALBUTEROL 1.25 MG/0.5 ML CONCENTRATE NEB INH SCH ×4 (03:41→19:36)
[2019-10-29 05:13] LABS: HEMATOCRIT 30.3 % (36.0-47.0); HEMOGLOBIN 9.1 g/dl (12.0-15.5); MEAN CORPUSCULAR HEMOGLOBIN 28.8 pg (27.0-33.0); MEAN CORPUSCULAR VOLUME 95.9 fl (80.0-96.0); PLATELET COUNT, AUTOMATED 513 10^3/uL (150-450); RED BLOOD COUNT 3.16 10^6/uL (4.00-5.40); WHITE BLOOD COUNT 12.8 10^3/uL (4.0-10.0)
[2019-10-29 05:35] LABS: CALCIUM LEVEL 8.5 MG/DL (8.8-10.2); CREATININE FOR GFR 1.54 MG/DL (0.55-1.30); GLOMERULAR FILTRATION RATE 34.9 (>39); MAGNESIUM LEVEL 2.6 MG/DL (1.8-2.4); POTASSIUM SERUM 4.9 MEQ/L (3.5-5.1)
[2019-10-29 05:48] LABS: LYMPHOCYTES 7 % (16-44); METAMYELOCYTES 1 % (0-0); MONOCYTES 6 % (0-5); NEUTROPHILS 86 % (28-66); PLATELET ESTIMATE INCREASED (NORMAL)
[2019-10-29 05:49] LABS: ANISOCYTOSIS 1+; HYPOCHROMASIA 1+
[2019-10-29] MEDS: bisoproloL fumarate 5 MG TAB PO SCH (08:08)
[2019-10-29] MEDS: guaiFENesin ER 600 MG TAB PO SCH ×2 (08:08→20:06)
[2019-10-29] MEDS: SPIRONOLACTONE 25 MG TAB PO SCH (08:08)
[2019-10-29] MEDS: APIXABAN 5 MG TAB (ELIQUIS) PO SCH ×2 (08:09→20:06)
[2019-10-29] MEDS: MEROPENEM INJ 1 GM in IV 1 EA IV SCH (08:09)
[2019-10-29] MEDS: FAMOTIDINE 20 MG TAB PO SCH ×2 (08:09→20:06)
[2019-10-29] MEDS: AMIODARONE 200 MG TAB (PACERONE) PO SCH (08:09)
[2019-10-29] MEDS: EZETIMIBE 10 MG TAB (ZETIA) PO SCH (08:09)
[2019-10-29] MEDS: DOCUSATE SODIUM 100 MG CAP PO SCH (08:09)
[2019-10-29] MEDS: predniSONE 20 MG TAB PO SCH (08:09)
--- NOTE | 2019-10-29 11:02 | IPN ---
PULMONARY CRITICAL CARE PROGRESS NOTE: DATE OF VISIT: 10/29/2019 I again attended Christine Evans. The patient has been examined, chart reviewed, and I spoke at length with the primary service. The patient reports a difficult night. Said she did not sleep well. On and off maybe a little short of breath, intermittent cough. Denies pleuritic pain. Maximum temperature (Tmax) 97.4, blood pressure 140-150 systolic, respiratory rate 18-22, heart rate 70-90s, and she has required anywhere from 2-5 liters nasal cannula flow. White blood cell count 12.8, hemoglobin 9.1, and platelet count 513,000. Sodium 145, potassium 4.9, chloride 114, CO2 26, BUN 36, creatinine 1.54. On exam, she is weak appearing, arms on the bedside table. HEENT otherwise normocephalic, atraumatic. Pupils do react. Neck with diminished mobility consistent with age. Chest shows diminished but symmetric expansion. There is some moist inspiratory squeaks. I cannot rule out the faintest of a pleural based rub posteriorly on the left. There is some occasional rhonchi that do not clear completely with cough. No other focal adventitious breath sounds are identified. Cardiac exam distant, generally regular. Peripheral pulses palpable. No edema. Abdomen soft with active bowel sounds. Extremities without cyanosis or clubbing. Neurologically, she is awake, alert and appropriate. IMPRESSION: 1. Obstructive lung disease with exacerbation. 2. Sputum with ongoing pseudomonas, currently on meropenem and Levaquin. 3. Chronic hypoxemic respiratory failure. She is oxygen required. 5. Mal clearance of secretions. At this point, she is on oral steroids. She remains dual coverage antimicrobials for her pseudomonas. I have spoken at length with Dr. Murcia and would agree with involving infectious disease given the difficulties with pseudomonas as this is the predominant organisms that she grew from more than a month at [facility]. We will continue to try to help her mobilize secretions as best we can. Given her advanced obstructive lung disease, chronic debilitated state, and quite likely underlying bronchiectasis this may be a difficult problem. We will proceed as outlined above. Further recommendations will be made in the progress record as new information becomes available.
--- NOTE | 2019-10-29 11:32 | IPNPDOC ---
Subjective Date Seen The patient was seen on 10/29/19. Subjective Chief Complaint/HPI Feeling better, SOB is at baseline. continues to have hacking cough, no fever or chills, becomes sob on minimal exertion but ok when at rest. Tc could not sleep last night feeling very antsy and could not settle down feeling anxious. I explained that this is probably due to the high dose of steroids that she is getting. Objective Physical Examination General Exam: Positive: Alert, Cooperative, No Acute Distress Eye Exam: Positive: PERRLA, Conjunctiva & lids normal, EOMI; Negative: Sclera icteric ENT Exam: Positive: Atraumatic, Mucous membr. moist/pink, Pharynx Normal Neck Exam: Positive: Supple; Negative: JVD, thyromegaly Chest Exam: Positive: Rales, Diminished, Other (bilateral crackles coarse more on the left with accesory muscle use.) Heart Exam: Positive: Rate Normal, Regular Rhythm, Normal S1, Normal S2; Negative: Murmurs, Rubs Telemetry: Positive: Atrial fibrillation Abdomen Exam: Positive: Normal bowel sounds, Soft; Negative: Tenderness, Hepatospenomegaly Extremity Exam: Negative: Clubbing, Cyanosis, Edema Skin Exam: Positive: Nl turgor and temperature, Breakdown (sacral area.); Negative: Lesion Neuro Exam: Positive: Normal Speech, Strength at 5/5 X4 ext, Normal Tone Psych Exam: Positive: Anxiety Assessment /Plan Assessment 74 year old female with PMH of 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 Upon discharge as per son she was all swollen and her breathing was still bad so they resumed their home diuretics and she lost her fluids her breathing improved a little but for the past 3 days she has been feeling bad again with increased cough and phlegm, increased SOB , poor appetite, extreme weakness and unable to even stand up. Yesterday she had blood work prior to her visit with Dr Villa today. She was seen by Dr Villa and was sent to the ED for NIKO. Her creatinine had gone up from a 1.5 baseline to 3.0. In ED She then went into Afib with RVR with drop in blood pressure. A CT scan was done and showed Bilateral lower lobe infiltrates left greater than right. Mild subcarinal adenopathy 1.3 cm in short access may be reactive. She was admitted for Pneumonia possible sepsis, NIKO on ckd and Afib with RVR. Shock combination of hypovolemic and septic Seems she has chronic hypotension at baseline. She is on midodrine at home Was lower due to dehydration, with intravascular volume depletion and Afib with RVR and infection Now off levophed. End-stage chronic obstructive pulmonary disease (COPD) exacerbation with chronic hypoxic respiratory failure. Emphysema and chronic bronchitis Now in exacerbation. uses 3 to 4 liters of oxygen at home. 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 Appreciate pulmonary evaluation. Multifocal pneumonia with sepsis. aspiration pneumonia/ HCAP Psedomonas pneumonia I am not sure if this is the residual from the recent pneumonia last month or a new one. On Meropenem and Levofloxacin Her MRSA screen from other hospital was negative in September. Procalcitonin 6.8 Acapella. consulted Pulmonary. will consult ID. Malclearance of secretions EZ pap added and acapella Global deconditioning PT and OT. NIKO on CKD 3 improved. Creatinine to baseline. probably due to overdiuresis with poor oral intake renal US no obs. Hold all diuretics for Now very poor oral intake Oral thrush nystatin swish and swallow Paroxysmal atrial fibrillation with rapid ventricular response on admission Now in sinus rhythm. rate better controlled now with digoxin and received 1 dose of amiodarone. will continue with amiodarone daily for now then reduce to home dose on discharge on bisoprolol continue Eliquis Recent Viral Respiratory tract infection , COPD exacerbation and Multifocal pneumonia treated in [facility] from 09/07/19 to 10/08/19 received meropenem and levofloxacin. Lacticacidosis improved due to hypotension, hypovolemia, chronic hypoxia with increased work of brathing underlying sepsis. Diastolic congestive heart failure Euvolemic to hypovolemic, poor oral intake will hold off on diuretics. Anemia Has diverticulosis and internal and ext hemorrhoids in flex sigmoidoscopy from 2018 normocytic No iron deficiency or vit b12 or folate def. probably from chronic sickness and recent prolong hospitalization. Will transfuse if HH below 8.0 She does have intermittent hemorroidal bleeds . Did have a bleeding just prior to admission Currently no overt bleeding. Peripheral artery disease. on ASA, Eliquis CAD s/p stents in the past. continue statin, eliquis will hold betablocker at present Abdominal Aortic aneurysm 3.4 cm. stable. Plan/VTE VTE Prophylaxis Ordered?: Yes VS, I&O, 24H, Fishbone Vital Signs/I&O Vital Signs Date Time Temp Pulse Resp B/P (MAP) Pulse Ox O2 Delivery O2 Flow Rate FiO2 10/29/19 04:00 96.7 73 20 157/71 (99) 96 Nasal Cannula 2.0 I&O- Last 24 Hours up to 6 AM 10/29/19 05:59 Intake Total 580 ml Output Total 650 ml Balance -70 ml Laboratory Data 24H LABS Laboratory Tests 2 10/29/19 04:58: Immature Granulocyte % (Auto) , Nucleated Red Blood Cells % (auto) 0.5H, Neutrophils 86H, Lymphocytes (Manual) 7L, Monocytes (Manual) 6H, Metamyelocytes 1H, Hypochromasia 1+, Anisocytosis 1+, Platelet Estimate INCREASED, Anion Gap 5L, Glomerular Filtration Rate 34.9L, Calcium Level 8.5L, Magnesium Level 2.6H CBC/BMP Laboratory Tests 10/29/19 04:58 Microbiology Microbiology 10/23/19 Blood Culture - Final, Complete NO GROWTH AFTER 5 DAYS 10/23/19 Blood Culture - Final, Complete NO GROWTH AFTER 5 DAYS 10/23/19 Gram Stain - Final, Complete 10/23/19 Sputum Culture - Final, Complete Pseudomonas Aeruginosa SANIYA DE JESUS MD Oct 29, 2019 07:01
[2019-10-29] MEDS: TIOTROPIUM INHALER/CAPSULE (SPIRIVA) INH SCH (12:19)
[2019-10-29] MEDS: ADVAIR HFA 230/21MCG INHALER INH SCH ×2 (12:19→19:31)
[2019-10-29] MEDS: LevoFLOXacin IV 250 MG in IV 1 EA IV SCH (13:29)
--- NOTE | 2019-10-29 15:34 | CR.PDOC ---
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 Patient was recently hospitalized at [facility] for several weeks secondary to COPD exacerbation attributed to Pseudomonas pneumonia and rhinovirus. Patient's son reported that following discharge on 10/07/19, patient continued to have dyspnea, which improved once reinitiating her outpatient home diuretics. She reports improvement for a total of 3 days. After which, she reports returning malaise, productive cough, decreased appetite and SOB. In the ED, patient was initially treated with IV fluid resuscitation and subsequently developed atrial fibrillation with RVR and hypotension. A CT scan was performed and demonstrate bilateral lower lobe infiltrates, left greater than the right. Some subcarinal adenopathy thought to be reactive. Patient has now received meropenem and levofloxacin since admission. PAST MEDICAL HISTORY: Advanced COPD with emphysema and chronic bronchitis Chronic hypoxic respiratory failure, requiring oxygen CKD stage III Diastolic CHF Peripheral arterial disease Significant coronary artery disease, status post stent placement Paroxysmal fibrillation with RVR History of intermittent lower GI bleed secondary to hemorrhoids Dyslipidemia Rheumatoid and osteoarthritis Chronic hypotension, on midodrine PAST SURGICAL HISTORY: Bilateral cataract surgery Cardiac stents FAMILY HISTORY: Patient reports unknown cancer in sister Patient's father and 2 brothers, all secondary to unknown heart disease. SOCIAL HISTORY: Employment: Retired Tobacco use: Patient is a former smoker, she states that she quit approximately 9 years ago ETOH: Any alcohol use or recent intoxication Illicit drug use: Patient denies any illicit drug use IV drug use: No IV drug use REVIEW OF SYSTEMS: CONSTITUTIONAL: Patient reports general malaise, decreased decreased appetite. denies any recent fever, chills, night sweats, changes in weight HEENT: No headaches, ear pain, trouble swallowing, changes in vision, changes in hearing CARDIOVASCULAR: Denies any chest pain, palpitations, dyspnea or lightheadedness. RESPIRATORY: No recent cough or trouble breathing GENITOURINARY: No dysuria, increased urinary frequency, hesitancy, urgency. No i ncontinence or retention MUSCULOSKELETAL: Patient is reporting chronic right knee pain, denies any neck pain, back pain, myalgias or muscle spasms GASTROINTESTINAL: Denies any nausea or vomiting. No abdominal pain or diarrhea/constipation SKIN: No new rashes or skin lesions NEUROLOGICAL: Denies weakness, numbness, changes in speech changes in mentation PSYCHIATRIC: Denies any depression or changes in her mood. HEMATOLOGIC/LYMPHATIC: No easy or unexplained bruising PHYSICAL EXAMINATION: VITAL SIGNS: Please see below. GENERAL APPEARANCE: Patient is interviewed and examined in her hospital room. She was found to be alert and oriented and in no acute distress. Patient is able to answer questions regarding her medical history adequate pressures. Her care. HEENT: Normocephalic, atraumatic, EOMI, sclera nonicteric, mucous membranes moist. No appreciable JVD. Central line catheter noted on the right. RESPIRATORY: Bilateral crackles noted at lung bases, left greater than right. Fair air movement. CARDIOVASCULAR: Irregular rate and rhythm, no murmurs auscultated. ABDOMEN: Soft, nontender, nondistended, no hepatosplenomegaly. EXTREMITIES: Trace pitting edema in lower extremities. NEUROLOGICAL: No focal deficits noted. Alert and oriented 3 LABORATORY DATA: Please see below. ASSESSMENT/PLAN: # Pseudomonas pneumonia -Pro-calcitonin found to be 6.8 on 10/23/19. -Sputum stain positive for Pseudomonas with broad sensitivity. Unclear as to whether this is related to previous infection at [place] or a separate instance altogether. -Aspiration versus HCAP. -Patient initially treated with meropenem 1 g every 12 hours and levofloxacin 250 g every 24 hours. -Discontinue meropenem, continue levofloxacin and start tobramycin 300 mg INH BID nebulizers. Vital Signs/I&O Vital Signs Date Time Temp Pulse Resp B/P (MAP) Pulse Ox O2 Delivery O2 Flow Rate FiO2 10/29/19 11:16 97.3 72 22 187/83 (117) 91 Nasal Cannula 3.0 I&O- Last 24 Hours up to 6 AM 10/29/19 06:00 Intake Total 580 ml Output Total 625 ml Balance -45 ml Laboratory Data Labs 24H Laboratory Tests 2 10/29/19 04:58: Immature Granulocyte % (Auto) , Nucleated Red Blood Cells % (auto) 0.5H, Neutrophils 86H, Lymphocytes (Manual) 7L, Monocytes (Manual) 6H, Metamyelocytes 1H, Hypochromasia 1+, Anisocytosis 1+, Platelet Estimate INCREASED, Anion Gap 5L, Glomerular Filtration Rate 34.9L, Calcium Level 8.5L, Magnesium Level 2.6H CBC/BMP Laboratory Tests 10/29/19 04:58 Microbiology Microbiology 10/23/19 Blood Culture - Final, Complete NO GROWTH AFTER 5 DAYS 10/23/19 Blood Culture - Final, Complete NO GROWTH AFTER 5 DAYS 10/23/19 Gram Stain - Final, Complete 10/23/19 Sputum Culture - Final, Complete Pseudomonas Aeruginosa Allergies Coded Allergies: Vrpjxfu-Dqr-Smf Reductase Inhibitor (Verified Adverse Reaction, Intermediate, upset stomach, 03/25/19) varenicline (Verified Adverse Reaction, Intermediate, hallucinations, 03/25/19) Quinolones (Verified Adverse Reaction, Mild, palpitations, 10/29/19) patient tolerated levaquin in oct 2019 admission. Home Medications Scheduled Amiodarone Hcl (Pacerone) 200 Mg Tablet, 200 MG PO 2XW, (Reported) MONDAYS AND THURSDAYS Apixaban (Eliquis) 5 Mg Tablet, 5 MG PO BID, (Reported) Ascorbic Acid (Vitamin C) 500 Mg Capsule, 500 MG PO DAILY, (Reported) Bisoprolol Fumarate (Bisoprolol Fumarate) 5 Mg Tablet, 2.5 MG PO DAILY, (Reported) Docusate Sodium (Docusate Sodium) 100 Mg Cap, 100 MG PO DAILY, (Reported) Ezetimibe (Ezetimibe) 10 Mg Tablet, 10 MG PO DAILY, (Reported) Famotidine (Famotidine) 20 Mg Tablet, 20 MG PO BID, (Reported) Midodrine HCl (Midodrine HCl) 10 Mg Tablet, 10 MG PO BID, (Reported) Salmeterol/Fluticasone (Advair 500-50 Diskus) 28 Puff/Inhaler Aerp, 1 PUFF INH BID, (Reported) Umeclidinium Brm/Vilanterol Tr (Anoro Ellipta 62.5-25 Mcg INH) 1 Aer Aer, 1 PUFF INH DAILY, (Reported) Scheduled PRN Acetaminophen (Acetaminophen) 325 Mg Tab, 650 MG PO Q4H PRN for PAIN, (Reported) Albuterol Sulfate (Ventolin Hfa) 108 Mcg/Act Aer, 2 PUFFS INH Q4H PRN for SHORTNESS OF BREATH, (Reported) Guaifenesin (Mucus ER) 600 Mg Tab.er.12h, 600 MG PO BID PRN for CONGESTION, (Reported) Hydrocortisone (Proctosol-Hc) 2.5 % Cre, 1 DOSE UT QID PRN for HEMORRHOIDS, (Reported) APPLY AFTER EACH BOWEL MOVEMENT Ipratropium/Albuterol Sulfate (Iprat-Albut 0.5-3(2.5) mg/3 ml) 1 Anne Anne, 1 ANNE INH QID PRN for SHORTNESS OF BREATH, (Reported) MELINDA ROSS DO Oct 29, 2019 13:34
[2019-10-29] MEDS: TOBRAMYCIN INHAL 300 MG/5 ML SOLN INH SCH (19:31)
[2019-10-30] VITALS (12 sets, daily range): BP systolic 127–164; BP diastolic 65–95; O2SAT 91–96
[2019-10-30] MEDS: LEVALBUTEROL 1.25 MG/0.5 ML CONCENTRATE NEB INH SCH ×4 (01:36→20:00)
[2019-10-30 04:43] LABS: HEMATOCRIT 31.2 % (36.0-47.0); HEMOGLOBIN 9.3 g/dl (12.0-15.5); MEAN CORPUSCULAR HGB CONC 29.8 g/dl (32.0-36.5); MEAN CORPUSCULAR VOLUME 97.2 fl (80.0-96.0); PLATELET COUNT, AUTOMATED 461 10^3/uL (150-450); RED BLOOD COUNT 3.21 10^6/uL (4.00-5.40); WHITE BLOOD COUNT 11.9 10^3/uL (4.0-10.0)
[2019-10-30 05:00] LABS: CALCIUM LEVEL 8.9 MG/DL (8.8-10.2); CREATININE FOR GFR 1.49 MG/DL (0.55-1.30); GLOMERULAR FILTRATION RATE 36.2 (>39); MAGNESIUM LEVEL 2.5 MG/DL (1.8-2.4); POTASSIUM SERUM 5.1 MEQ/L (3.5-5.1)
[2019-10-30 05:45] LABS: LYMPHOCYTES 11 % (16-44); METAMYELOCYTES 1 % (0-0); MONOCYTES 8 % (0-5); MYELOCYTES 1 % (0-0); NEUTROPHILS 78 % (28-66)
[2019-10-30 05:46] LABS: ANISOCYTOSIS 1+; HYPOCHROMASIA 1+; PLATELET ESTIMATE INCREASED (NORMAL)
[2019-10-30] MEDS: NYSTATIN 500,000 U/5 ML SUSP UDC SS SCH ×4 (06:00→23:41)
[2019-10-30] MEDS: TOBRAMYCIN INHAL 300 MG/5 ML SOLN INH SCH ×2 (07:10→20:00)
[2019-10-30] MEDS: TIOTROPIUM INHALER/CAPSULE (SPIRIVA) INH SCH (07:10)
[2019-10-30] MEDS: ADVAIR HFA 230/21MCG INHALER INH SCH ×2 (07:10→19:55)
--- NOTE | 2019-10-30 09:18 | REP ---
Portable chest x-ray: Single view. History: Pneumonia. Comparison chest x-ray: October 23, 2019. Findings: Oxygen delivery tubing and monitoring electrodes are seen. There is a right internal jugular central venous line with its tip in the expected location of the superior vena cava. Mild cardiomegaly is observed. There are some increased markings in the left base. No new infiltrate is seen. Impression: Increased markings left base just above the left hemidiaphragm unchanged. No new infiltrate seen. Mild cardiomegaly. Electronically Signed by Jin Mcdermott MD 10/30/2019 09:11 A
[2019-10-30] MEDS: DOCUSATE SODIUM 100 MG CAP PO SCH (09:29)
[2019-10-30] MEDS: predniSONE 20 MG TAB PO SCH (09:30)
[2019-10-30] MEDS: APIXABAN 5 MG TAB (ELIQUIS) PO SCH ×2 (09:30→21:10)
[2019-10-30] MEDS: EZETIMIBE 10 MG TAB (ZETIA) PO SCH (09:30)
[2019-10-30] MEDS: ALPRAZolam 0.25 MG TAB PO PRN ×2 (09:30→21:10)
[2019-10-30] MEDS: FAMOTIDINE 20 MG TAB PO SCH ×2 (09:30→21:10)
[2019-10-30] MEDS: AMIODARONE 200 MG TAB (PACERONE) PO SCH (09:30)
[2019-10-30] MEDS: guaiFENesin ER 600 MG TAB PO SCH ×2 (09:30→21:10)
[2019-10-30] MEDS: SPIRONOLACTONE 25 MG TAB PO SCH (09:31)
[2019-10-30] MEDS: bisoproloL fumarate 5 MG TAB PO SCH (09:31)
[2019-10-30] MEDS ORDERED: SODIUM CHLORIDE 0.9% INJ 10 ML SYR IV PRN (10:15)
--- NOTE | 2019-10-30 10:54 | IPNPDOC ---
Subjective Date Seen The patient was seen on 10/30/19. Subjective Chief Complaint/HPI No new complaints. Feeling ok. Gets very anxious when she gets up and starts moving and that increases her SOB. will try some xanax. Objective Physical Examination General Exam: Positive: Alert, Cooperative, No Acute Distress Eye Exam: Positive: PERRLA, Conjunctiva & lids normal, EOMI; Negative: Sclera icteric ENT Exam: Positive: Atraumatic, Mucous membr. moist/pink, Pharynx Normal Neck Exam: Positive: Supple; Negative: JVD, thyromegaly Chest Exam: Positive: Rales, Diminished, Other (bilateral crackles coarse more on the left with accesory muscle use.) Heart Exam: Positive: Rate Normal, Regular Rhythm, Normal S1, Normal S2; Negative: Murmurs, Rubs Telemetry: Positive: Atrial fibrillation Abdomen Exam: Positive: Normal bowel sounds, Soft; Negative: Tenderness, Hepatospenomegaly Extremity Exam: Negative: Clubbing, Cyanosis, Edema Skin Exam: Positive: Nl turgor and temperature, Breakdown (sacral area.); Negative: Lesion Neuro Exam: Positive: Normal Speech, Strength at 5/5 X4 ext, Normal Tone Psych Exam: Positive: Anxiety Assessment /Plan Assessment 74 year old female with PMH of 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 from 09/07/19 to 10/08/19 treated there for COPD exacerbation due to human rhinovirus infection and multifocal pneumonia. Upon discharge as per son she was all swollen and her breathing was still bad so they resumed their home diuretics and she lost her fluids her breathing improved a little but for the past 3 days she has been feeling bad again with increased cough and phlegm, increased SOB , poor appetite, extreme weakness and unable to even stand up. Yesterday she had blood work prior to her visit with Dr Villa today. She was seen by Dr Villa and was sent to the ED for NIKO. Her creatinine had gone up from a 1.5 baseline to 3.0. In ED She then went into Afib with RVR with drop in blood pressure. A CT scan was done and showed Bilateral lower lobe infiltrates left greater than right. Mild subcarinal adenopathy 1.3 cm in short access may be reactive. She was admitted for Pneumonia possible sepsis, NIKO on ckd and Afib with RVR. Shock combination of hypovolemic and septic now resolved. Bp on higher side Midodrine which was her home medication was stopped. End-stage chronic obstructive pulmonary disease (COPD) exacerbation with chronic hypoxic respiratory failure. Emphysema and chronic bronchitis Now in exacerbation. uses 3 to 4 liters of oxygen at home. 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 Appreciate pulmonary evaluation. Multifocal pneumonia with sepsis. aspiration pneumonia/ HCAP Psedomonas pneumonia I am not sure if this is the residual from the recent pneumonia last month or a new one. On Meropenem and Levofloxacin Her MRSA screen from other hospital was negative in September. Procalcitonin 6.8 Acapella. Appreciate ID evaluation. Malclearance of secretions EZ pap added and acapella Global deconditioning PT and OT. NIKO on CKD 3 improved. Creatinine to baseline. probably due to overdiuresis with poor oral intake renal US no obs. Hold all diuretics for Now very poor oral intake Oral thrush nystatin swish and swallow Paroxysmal atrial fibrillation with rapid ventricular response on admission Now in sinus rhythm. rate better controlled now with digoxin and received 1 dose of amiodarone. will continue with amiodarone daily for now then reduce to home dose on discharge on bisoprolol continue Eliquis Recent Viral Respiratory tract infection , COPD exacerbation and Multifocal pneumonia treated in [facility] from 09/07/19 to 10/08/19 received meropenem and levofloxacin. Currently only on Lvofloxacin and tobramycin NEbs. Lacticacidosis improved due to hypotension, hypovolemia, chronic hypoxia with increased work of breathing underlying sepsis. Diastolic congestive heart failure Euvolemic to hypovolemic, poor oral intake continue only aldactone. Anemia Has diverticulosis and internal and ext hemorrhoids in flex sigmoidoscopy from 2018 normocytic No iron deficiency or vit b12 or folate def. probably from chronic sickness and recent prolong hospitalization. Will transfuse if HH below 8.0 She does have intermittent hemorroidal bleeds . Did have a bleeding just prior to admission Currently no overt bleeding. Peripheral artery disease. on ASA, Eliquis CAD s/p stents in the past. continue statin, eliquis , bisoprolol Abdominal Aortic aneurysm 3.4 cm. stable. Plan/VTE VTE Prophylaxis Ordered?: Yes VS, I&O, 24H, Fishbone Vital Signs/I&O Vital Signs Date Time Temp Pulse Resp B/P (MAP) Pulse Ox O2 Delivery O2 Flow Rate FiO2 10/30/19 08:18 92 Nasal Cannula 2.5 10/30/19 08:00 96.4 77 22 127/95 (106) I&O- Last 24 Hours up to 6 AM 10/30/19 06:00 Intake Total 590 ml Output Total 901 ml Balance -311 ml Laboratory Data 24H LABS Laboratory Tests 2 10/30/19 04:27: Immature Granulocyte % (Auto) , Nucleated Red Blood Cells % (auto) 0.4H, Neutrophils 78H, Band Neutrophils 1, Lymphocytes (Manual) 11L, Monocytes (Manual) 8H, Metamyelocytes 1H, Myelocytes 1H, Hypochromasia 1+, Anisocytosis 1+, Platelet Estimate INCREASED, Anion Gap 4L, Glomerular Filtration Rate 36.2L, Calcium Level 8.9, Magnesium Level 2.5H CBC/BMP Laboratory Tests 10/30/19 04:27 Microbiology Microbiology 10/23/19 Blood Culture - Final, Complete NO GROWTH AFTER 5 DAYS 10/23/19 Blood Culture - Final, Complete NO GROWTH AFTER 5 DAYS 10/23/19 Gram Stain - Final, Complete 10/23/19 Sputum Culture - Final, Complete Pseudomonas Aeruginosa SANIYA DE JESUS MD Oct 30, 2019 10:46
--- NOTE | 2019-10-30 12:32 | IPN ---
DATE: 10/30/2019 Christine seems to be doing better today. She states she tolerated well her Jim nebs, and she thinks it is making a difference with decreasing her cough and shortness of breath. She denies any nausea, vomiting, or diarrhea. No fever or chills. 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 On physical exam; Heart: Normal S1, S2, no murmurs appreciated. Lungs: Diminished breath sounds bilaterally at the bases, but fair air entry. No crackles appreciated. Temperature is 96.4, pulse 77, respirations 22, blood pressure 127/95, oxygen sat 95% on 2.5 liters nasal cannula. Abdomen: Soft, nontender. No hepatosplenomegaly. Extremities: +1 ankle edema bilaterally. No rashes, clubbing, or cyanosis. She has had a chest x-ray, showed increased markings left base just above the left hemidiaphragm, unchanged. No new infiltrates. Sputum culture on 10/23/2019 had moderate growth of Pseudomonas aeruginosa. IMPRESSION: 1. Pseudomonas pneumonia. Doing better with Jim nebs and intravenous (IV) Levaquin. Patient's meropenem was discontinued. 2. History of advanced obstructive lung disease on chronic oxygen. PLAN: Patient tolerating oral medication well. Since quinolones are 95% available, will switch to by mouth Levaquin 250 mg every 24 hours. Continue Jim nebs 300 mg twice a day. Try to obtain prior authorization from insurance to see if we can get her the medication at home.
[2019-10-30] MEDS: ACETAMINOPHEN 325 MG TAB PO PRN (12:42)
--- NOTE | 2019-10-30 12:49 | IPN ---
DATE: 10/30/2019 SUBJECTIVE: The patient reports that she is not feeling quite well today. She is frustrated as she is not quite back to her baseline in terms of her breathing. She is coughing a lot and having trouble producing sputum, as she is having trouble clearing her secretions. She is unable to get out of the bed to the chair without getting significantly short of breath and reportedly before she was hospitalized she was able to climb one flight of stairs and she was able to get around her house and walk a block or two without getting any shortness of breath. At this time, she feels the need to lean forward as she is having trouble catching her breath and when she coughs she completely becomes air hungry. There were no changes overnight. She did not have any fevers, chills, nausea, vomiting, diarrhea. OBJECTIVE: Vital signs: Temperature 96.4, pulse 77 and regular, respiratory rate of 22, blood pressure 127/95, pulse oximetry 95% on 3 liters nasal cannula. GENERAL: She is sitting up in a chair by her bedside. She is leaning forward. She is using accessory muscles of respiration. She appears uncomfortable, very pale but cooperative and calm. HEENT: Extraocular movements are intact. Her pupils are equal, round and reactive to light. Mucous membranes are somewhat dry. NECK: Soft, supple with no lymphadenopathy and no thyromegaly. RESPIRATORY: She has decreased breath sounds bilaterally, worse in her left lower and left middle lobe. She has some rhonchi in her left lower and middle lobe. Otherwise, no adventitious breath sounds. She is using some accessory muscles, and she is frequently coughing but not producing any sputum. CARDIAC: Regular rate and rhythm with no murmurs, rubs or gallops. Her jugular venous distention (JVD) is not elevated. ABDOMEN: Soft, nontender. Positive bowel sounds with no organomegaly. No lymphadenopathy. No masses. EXTREMITIES: Lower extremities with trace edema bilaterally. Otherwise, no clubbing or cyanosis noted. LYMPHATICS: She has no inflamed lymph nodes in her cervical region or inguinal region. SKIN: She has no new rashes. PSYCHIATRIC: She is awake, alert, oriented times three. Her affect is somewhat flat. Otherwise, her moods are stable. LABORATORY DATA: Today: CBC: White blood cell count is 11.9, down from 12.8 yesterday. Hemoglobin is 9.3, hematocrit 31.2, platelet count 461. Metabolic panel: Sodium 146, potassium 5.1, chloride 115, BUN 35, creatinine 1.49. GFR is measured at 36.2%. Magnesium is 2.5 and calcium 8.9. Her most recent blood gas, her last one that was done was on 10/26/2019 at 11:00 a.m. and it showed a pH of 7.329, pO2 of 44.7, O2 of 96, with a base excess of -2.9. She did have a chest x-ray done this morning, which demonstrated increased markings in the left base just above the left hemidiaphragm, unchanged. No new infiltrates were seen. There was mild cardiomegaly. ASSESSMENT AND PLAN: 1. Obstructive lung disease with acute exacerbation. 2. Acute Pseudomonal infection in right lower and middle lobe pneumonia. 3. Chronic hypoxemic respiratory failure with oxygen requirement. 4. Malclearance of secretions. This patient was seen by infectious disease yesterday for her Pseudomonas infection and was put on inhaled tobramycin 300 mg twice a day. We agree with this plan as it has better penetration for her Pseudomonas pneumonia. We will continue to treat her with prednisone and different pulmonary toilet measures to clear her secretions. She currently has an Acapella and we encourage her to use it every 30 to 40 minutes or so to clear her secretions. In addition, she has been given Mucinex. She is on Xopenex nebulizers every 6 hours and as needed. She will likely improve with the antibiotics and has already been on steroids. She most ultimately will need to clear her secretions in order to recover from this pneumonia. In terms of her deconditioning, she will need to work with physical therapy (PT) to get back to her normal state of activity. We will continue her Advair inhaler, as well as her ipratropium for her chronic obstructive disease. We will continue to follow how she does in terms of her mucolytics. The patient continues to improve and will likely improve with the current regimen. I (Dr. Flynn) have evaluated the patient and participated in the schwartz components of the history, physical and decision making. She is very debilitated and will be slow to recover. Pulmonary toilet is a challenge as she is very weak, mucolytics will continue. The pseudomonas may be collinization. MTDD
[2019-10-30] MEDS: SODIUM CHLORIDE 0.9% INJ 10 ML SYR IV SCH ×2 (16:53→21:10)
[2019-10-30] MEDS: LevoFLOXacin 250 MG TABLET PO SCH (16:53)
[2019-10-31] VITALS (24 sets, daily range): BP systolic 134–160; BP diastolic 62–82; O2SAT 86–100
[2019-10-31] MEDS: LEVALBUTEROL 1.25 MG/0.5 ML CONCENTRATE NEB INH SCH ×4 (01:57→20:36)
[2019-10-31] MEDS: LevoFLOXacin 250 MG TABLET PO SCH ×2 (05:47→06:18)
[2019-10-31] MEDS: NYSTATIN 500,000 U/5 ML SUSP UDC SS SCH ×5 (05:47→23:17)
[2019-10-31] MEDS: SODIUM CHLORIDE 0.9% INJ 10 ML SYR IV SCH ×3 (06:19→21:37)
[2019-10-31] MEDS: TIOTROPIUM INHALER/CAPSULE (SPIRIVA) INH SCH (07:58)
[2019-10-31] MEDS: ADVAIR HFA 230/21MCG INHALER INH SCH ×2 (07:58→20:36)
[2019-10-31] MEDS: TOBRAMYCIN INHAL 300 MG/5 ML SOLN INH SCH ×2 (07:58→20:35)
[2019-10-31 08:22] LABS: CALCIUM LEVEL 8.4 MG/DL (8.8-10.2); CREATININE FOR GFR 1.22 MG/DL (0.55-1.30); GLOMERULAR FILTRATION RATE 45.6 (>39); POTASSIUM SERUM 5.8 MEQ/L (3.5-5.1)
[2019-10-31] MEDS: bisoproloL fumarate 5 MG TAB PO SCH (09:53)
[2019-10-31] MEDS: predniSONE 20 MG TAB PO SCH (09:53)
[2019-10-31] MEDS: APIXABAN 5 MG TAB (ELIQUIS) PO SCH ×2 (09:53→21:37)
[2019-10-31] MEDS: FAMOTIDINE 20 MG TAB PO SCH ×2 (09:53→21:37)
[2019-10-31] MEDS: DOCUSATE SODIUM 100 MG CAP PO SCH (09:54)
[2019-10-31] MEDS: guaiFENesin ER 600 MG TAB PO SCH ×2 (09:54→21:37)
[2019-10-31] MEDS: EZETIMIBE 10 MG TAB (ZETIA) PO SCH (09:54)
--- NOTE | 2019-10-31 10:05 | IPNPDOC ---
Subjective Date Seen The patient was seen on 10/31/19. Subjective Chief Complaint/HPI Very weak. Says she slept better last night and has been able to lay down almost flat which she hasnt peyton able to do in a long while. COntinues to have cough but difficult to bring up an phlegm. No fever or chills, Working with PT. Objective Physical Examination General Exam: Positive: Alert, Cooperative, No Acute Distress Eye Exam: Positive: PERRLA, Conjunctiva & lids normal, EOMI; Negative: Sclera icteric ENT Exam: Positive: Atraumatic, Mucous membr. moist/pink, Pharynx Normal Neck Exam: Positive: Supple; Negative: JVD, thyromegaly Chest Exam: Positive: Rales, Diminished, Other (bilateral crackles coarse more on the left with accesory muscle use.) Heart Exam: Positive: Rate Normal, Regular Rhythm, Normal S1, Normal S2; Negative: Murmurs, Rubs Telemetry: Positive: Atrial fibrillation Abdomen Exam: Positive: Normal bowel sounds, Soft; Negative: Tenderness, Hepatospenomegaly Extremity Exam: Negative: Clubbing, Cyanosis, Edema Skin Exam: Positive: Nl turgor and temperature, Breakdown (sacral area.); Negative: Lesion Neuro Exam: Positive: Normal Speech, Strength at 5/5 X4 ext, Normal Tone Psych Exam: Positive: Anxiety Assessment /Plan Assessment 74 year old female with PMH of 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 Upon discharge as per son she was all swollen and her breathing was still bad so they resumed their home diuretics and she lost her fluids her breathing improved a little but for the past 3 days she has been feeling bad again with increased cough and phlegm, increased SOB , poor appetite, extreme weakness and unable to even stand up. Yesterday she had blood work prior to her visit with Dr Villa today. She was seen by Dr Villa and was sent to the ED for NIKO. Her creatinine had gone up from a 1.5 baseline to 3.0. In ED She then went into Afib with RVR with drop in blood pressure. A CT scan was done and showed Bilateral lower lobe infiltrates left greater than right. Mild subcarinal adenopathy 1.3 cm in short access may be reactive. She was admitted for Pneumonia possible sepsis, NIKO on ckd and Afib with RVR. Multifocal pneumonia with sepsis. aspiration pneumonia/ HCAP Psedomonas pneumonia could be colonization. On Meropenem and Levofloxacin Her MRSA screen from other hospital was negative in September. Acapella. Appreciate ID evaluation. On levofloxacin and tobramycin nebs. PFS has to work on getting authorisations. Shock combination of hypovolemic and septic now resolved. Bp on higher side Midodrine which was her home medication was stopped. End-stage chronic obstructive pulmonary disease (COPD) exacerbation with chronic hypoxic respiratory failure. Emphysema and chronic bronchitis Now in exacerbation. uses 3 to 4 liters of oxygen at home. Patient is currently on Xopenex nebulizer, advair, spiriva, Patient stopped seeing her clinical trial head in 2012 started on steroids seems to be working patient feeling much better, SOb much less today. Appreciate pulmonary evaluation. Malclearance of secretions EZ pap added and acapella Global deconditioning PT and OT. NIOK on CKD 3 improved. Creatinine to baseline. probably due to overdiuresis with poor oral intake renal US no obs. Hold all diuretics for Now very poor oral intake Hyperkalemia will stop aldactone Hypernatremia very poor oral intake and pateintin negative balance will dc aldactone. encourage oral free water intake. Oral thrush nystatin swish and swallow Paroxysmal atrial fibrillation with rapid ventricular response on admission Now in sinus rhythm. on bisoprolol continue Eliquis will decrease Amiodarone to home dosage of twice a week. Recent Viral Respiratory tract infection , COPD exacerbation and Multifocal pneu monia treated in [facility] from 09/07/19 to 10/08/19 received meropenem and levofloxacin. Lacticacidosis improved due to hypotension, hypovolemia, chronic hypoxia with increased work of breathin g underlying sepsis. Diastolic congestive heart failure hypovolemic, poor oral intake, mild pedal edema probably due to hypoalbuminemia. stop diuretics. Anemia Has diverticulosis and internal and ext hemorrhoids in flex sigmoidoscopy from 2018 normocytic No iron deficiency or vit b12 or folate def. probably from chronic sickness and recent prolong hospitalization. Will transfuse if HH below 8.0 She does have intermittent hemorroidal bleeds . Did have a bleeding just prior to admission Currently no overt bleeding. Peripheral artery disease. on ASA, Eliquis CAD s/p stents in the past. continue statin, eliquis , bisoprolol Abdominal Aortic aneurysm 3.4 cm. stable. Dispo: PT/ OT reccomendations Plan/VTE VTE Prophylaxis Ordered?: Yes VS, I&O, 24H, Fishbone Vital Signs/I&O Vital Signs Date Time Temp Pulse Resp B/P (MAP) Pulse Ox O2 Delivery O2 Flow Rate FiO2 10/31/19 08:00 95 Nasal Cannula 3.0 10/31/19 08:00 96.3 80 18 143/68 (93) I&O- Last 24 Hours up to 6 AM 10/31/19 06:00 Intake Total 600 ml Output Total 800 ml Balance -200 ml Laboratory Data 24H LABS Laboratory Tests 2 10/31/19 05:09: Anion Gap 5L, Glomerular Filtration Rate 45.6, Calcium Level 8.4L 10/31/19 05:13: C-Reactive Protein, Quantitative 1.06H CBC/BMP Laboratory Tests 10/31/19 05:09 Microbiology Microbiology 10/23/19 Blood Culture - Final, Complete NO GROWTH AFTER 5 DAYS 10/23/19 Blood Culture - Final, Complete NO GROWTH AFTER 5 DAYS 10/23/19 Gram Stain - Final, Complete 10/23/19 Sputum Culture - Final, Complete Pseudomonas Aeruginosa SANIYA DE JESUS MD Oct 31, 2019 10:05
--- NOTE | 2019-10-31 18:23 | IPN ---
DATE: 10/31/2019 PULMONARY CRITICAL CARE SERVICE: The patient is seen in the progressive care unit. This is hospital day number eight. Her vital signs are temperature 97.2, pulse rate 77, respirations 20, blood pressure 134/82. Intake and output for the past 24 hours: 600 in and 1100 out. At bedside, she is ill-appearing and cachectic. Oral mucosa is pink. Dentition is fair. Neck is supple. There is no obvious jugular venous distension. Heart sounds are irregularly irregular. Breath sounds are diminished. I hear no focal adventitial breath sounds appreciated. Abdomen is soft and sunken. Extremities show muscle wasting. DIAGNOSTIC STUDIES: Sodium is 148, potassium 5.8, chloride 116, CO2 of 27, BUN 37, creatinine 1.2. This is day number one of levofloxacin, day number two of Jim nebulized treatments, and she is on prednisone 40 mg a day. Inhaled therapy includes Advair 230/21 HFA twice a day, Spiriva 18 mcg once a day and Xopenex scheduled every six hours and every two hours as needed. IMPRESSION: 1. Exacerbation of chronic obstructive pulmonary disease (COPD). I will change her Xopenex to as-needed dosing. 2. Mal clearance of secretions. The patient is responding to nebulized Jim. 3. Pseudomonas. I would expect her to be more ill if this were an overt Pseudomonas pneumonia. It is possible that this Pseudomonas is a colonization based on structural lung disease. 4. Hyperkaliemia. We will recheck the laboratory value in the morning. 5. Nutritional support. I have encouraged increased intake. The nurse does indicate that she is taking most of her meals.
[2019-10-31] MEDS: ALPRAZolam 0.25 MG TAB PO PRN (21:36)
[2019-11-01] VITALS (13 sets, daily range): BP systolic 112–155; BP diastolic 57–84; O2SAT 92–99
[2019-11-01] MEDS: LEVALBUTEROL 1.25 MG/0.5 ML CONCENTRATE NEB INH SCH ×4 (02:44→21:26)
[2019-11-01] MEDS: NYSTATIN 500,000 U/5 ML SUSP UDC SS SCH ×3 (05:14→17:21)
[2019-11-01] MEDS: LevoFLOXacin 250 MG TABLET PO SCH (05:55)
[2019-11-01] MEDS: SODIUM CHLORIDE 0.9% INJ 10 ML SYR IV SCH ×3 (05:57→22:01)
[2019-11-01 07:08] LABS: ALBUMIN 2.4 GM/DL (3.2-5.2); BILIRUBIN,TOTAL 0.2 MG/DL (0.2-1.0); CALCIUM LEVEL 8.5 MG/DL (8.8-10.2); CREATININE FOR GFR 1.21 MG/DL (0.55-1.30); GLOMERULAR FILTRATION RATE 46.1 (>39); POTASSIUM SERUM 5.6 MEQ/L (3.5-5.1); TOTAL PROTEIN 5.4 GM/DL (6.4-8.2)
[2019-11-01] MEDS: TIOTROPIUM INHALER/CAPSULE (SPIRIVA) INH SCH (07:32)
[2019-11-01] MEDS: TOBRAMYCIN INHAL 300 MG/5 ML SOLN INH SCH ×2 (07:33→21:26)
[2019-11-01] MEDS: ADVAIR HFA 230/21MCG INHALER INH SCH ×2 (07:33→21:50)
[2019-11-01] MEDS: FAMOTIDINE 20 MG TAB PO SCH ×2 (08:23→22:01)
[2019-11-01] MEDS: DOCUSATE SODIUM 100 MG CAP PO SCH (08:23)
[2019-11-01] MEDS: bisoproloL fumarate 5 MG TAB PO SCH (08:23)
[2019-11-01] MEDS: EZETIMIBE 10 MG TAB (ZETIA) PO SCH (08:24)
[2019-11-01] MEDS: APIXABAN 5 MG TAB (ELIQUIS) PO SCH ×2 (08:24→22:01)
[2019-11-01] MEDS: guaiFENesin ER 600 MG TAB PO SCH ×2 (08:24→22:01)
[2019-11-01] MEDS ORDERED: predniSONE 20 MG TAB PO SCH (09:00)
--- NOTE | 2019-11-01 22:00 | IPNPDOC ---
Text Note Date of Service The patient was seen on 11/01/19. NOTE Subjective: No any acute events overnight, patient states that she feels better, her breathing improved Objective: VITAL SIGNS: Please see below. GENERAL APPEARANCE: not in apparent distress HEENT: Normocephalic, atraumatic. Mucous members moist and pink CARDIOVASCULAR: S1-S2, irregularly irregular LUNGS: Bilateral mild crackles with mild coarse lung sounds ABDOMEN: Abdomen is soft and nontender. MUSCULOSKELETAL: Range of motion is intact in all 4 extremities NEUROLOGICAL: Cranial nerves II-12 are grossly intact. Speech is not dysarthric Assessment and plan: Patient is 74 years old female with past history of COPD on home oxygen, emphysema, atrial fibrillation, CKD, diastolic CHF presented hospital with multifocal pneumonia. Patient was found to have sepsis secondary to multifocal pneumonia due to Pseudomonas aeruginosa infection. Sepsis Resolved Secondary to multifocal pneumonia due to Pseudomonas aeruginosa infection Patient received treatment with meropenem and levofloxacin Currently she received levofloxacin by mouth and tobramycin inhalation Continue Acapella Septic shock Resolved COPD Patient was diagnosed with emphysema and chronic bronchitis Oxygen dependent, baseline 3-4 L at home Continue inhalers Deconditioning PT/OT NIKO Improved Oral thrush nystatin swish and swallow Paroxysmal atrial fibrillation with rapid ventricular response on admission Rate is under control Continue oral targeted anticoagulation Continue home meds Anemia Most likely secondary to chronic diseases Hemoglobin is stable Abdominal aortic aneurysm 3.4 cm Follow-up with ultrasound every 6 months in the outpatient settings VS,Bonita, I+O VS, Bonita, I+O Laboratory Tests 11/01/19 06:17 Vital Signs Date Time Temp Pulse Resp B/P (MAP) Pulse Ox O2 Delivery O2 Flow Rate FiO2 11/01/19 21:26 79 20 11/01/19 20:00 96.6 155/80 (105) 94 Nasal Cannula 3.0 10/31/19 20:35 32 I&O- Last 24 Hours up to 6 AM 11/01/19 06:00 Intake Total 480 ml Output Total 1200 ml Balance -720 ml TRAVON HERMOSILLO DO Nov 01, 2019 22:00
[2019-11-02] VITALS (24 sets, daily range): BP systolic 118–168; BP diastolic 58–77; O2SAT 91–100
[2019-11-02] MEDS: NYSTATIN 500,000 U/5 ML SUSP UDC SS SCH ×4 (00:08→18:01)
[2019-11-02] MEDS: LEVALBUTEROL 1.25 MG/0.5 ML CONCENTRATE NEB INH SCH ×4 (02:26→20:00)
[2019-11-02] MEDS: SODIUM CHLORIDE 0.9% INJ 10 ML SYR IV SCH ×3 (05:35→21:02)
[2019-11-02] MEDS: LevoFLOXacin 250 MG TABLET PO SCH (05:35)
[2019-11-02 05:51] LABS: HEMATOCRIT 30.8 % (36.0-47.0); HEMOGLOBIN 9.3 g/dl (12.0-15.5); MEAN CORPUSCULAR HEMOGLOBIN 29.2 pg (27.0-33.0); MEAN CORPUSCULAR HGB CONC 30.2 g/dl (32.0-36.5); MEAN CORPUSCULAR VOLUME 96.9 fl (80.0-96.0); PLATELET COUNT, AUTOMATED 381 10^3/uL (150-450); RED BLOOD COUNT 3.18 10^6/uL (4.00-5.40); WHITE BLOOD COUNT 17.7 10^3/uL (4.0-10.0)
[2019-11-02 06:29] LABS: CALCIUM LEVEL 8.3 MG/DL (8.8-10.2); CREATININE FOR GFR 1.24 MG/DL (0.55-1.30); GLOMERULAR FILTRATION RATE 44.8 (>39); POTASSIUM SERUM 5.4 MEQ/L (3.5-5.1)
[2019-11-02] MEDS: TOBRAMYCIN INHAL 300 MG/5 ML SOLN INH SCH ×2 (08:00→20:30)
--- NOTE | 2019-11-02 08:04 | REP ---
Portable chest, 07:41 a.m., single AP view with the patient upright: Comparisons are 06/20/2012, 10/23/2019 and 10/30/2019. There is chronic interstitial coarsening compatible with chronic lung disease. The inferior left lung is obscured by superimposed monitor wires. The remainder the lung ashton are clear. Mild cardiomegaly is again identified, unchanged. There is a right IJ central venous catheter with the tip at the confluence of the superior vena cava and innominate vein, unchanged from 10/23/2019 and 10/30/2019. Impression: No acute cardiopulmonary findings. The inferior left lung is obscured by superimposed monitor wires. Electronically Signed by Jimmy Melendez MD 11/02/2019 07:55 A
[2019-11-02] MEDS: ADVAIR HFA 230/21MCG INHALER INH SCH ×2 (08:06→20:31)
[2019-11-02] MEDS: TIOTROPIUM INHALER/CAPSULE (SPIRIVA) INH SCH (08:06)
[2019-11-02] MEDS: FAMOTIDINE 20 MG TAB PO SCH ×2 (09:39→21:01)
[2019-11-02] MEDS: EZETIMIBE 10 MG TAB (ZETIA) PO SCH (09:40)
[2019-11-02] MEDS: guaiFENesin ER 600 MG TAB PO SCH ×2 (09:40→21:02)
[2019-11-02] MEDS: APIXABAN 5 MG TAB (ELIQUIS) PO SCH ×2 (09:41→21:02)
[2019-11-02] MEDS: ACETAMINOPHEN 325 MG TAB PO PRN (09:41)
[2019-11-02] MEDS: bisoproloL fumarate 5 MG TAB PO SCH (09:41)
[2019-11-02] MEDS: DOCUSATE SODIUM 100 MG CAP PO SCH (09:42)
[2019-11-02] MEDS: AMIODARONE 200 MG TAB (PACERONE) PO SCH (09:42)
[2019-11-02] MEDS: predniSONE 10 MG TAB PO SCH (09:42)
--- NOTE | 2019-11-02 13:58 | IPNPDOC ---
Text Note Date of Service The patient was seen on 11/02/19. NOTE Subjective: No any acute events overnight. No no fever, no chills, no palpita tions, no chest pain Objective: VITAL SIGNS: Please see below. GENERAL APPEARANCE: not in apparent distress HEENT: Normocephalic, atraumatic. Mucous members moist and pink CARDIOVASCULAR: S1-S2, irregularly irregular LUNGS: Bilateral mild crackles with mild coarse lung sounds ABDOMEN: Abdomen is soft and nontender. MUSCULOSKELETAL: Range of motion is intact in all 4 extremities NEUROLOGICAL: Cranial nerves II-12 are grossly intact. Speech is not dysarthric Assessment and plan: Patient is 74 years old female with past history of COPD on home oxygen, emphysema, atrial fibrillation, CKD, diastolic CHF presented hospital with multifocal pneumonia. Patient was found to have sepsis secondary to multifocal pneumonia due to Pseudomonas aeruginosa infection. Sepsis Resolved Secondary to multifocal pneumonia due to Pseudomonas aeruginosa infection Patient received treatment with meropenem and levofloxacin Currently she received levofloxacin by mouth and tobramycin inhalation Continue Acapella Leukocytosis Today patient has increased leukocytosis, patient does not have fever, chills, patient is normotensive Continue current antibiotic regimen Septic shock Resolved COPD Patient was diagnosed with emphysema and chronic bronchitis Oxygen dependent, baseline 3-4 L at home Continue inhalers Deconditioning PT/OT NIKO Improved Oral thrush nystatin swish and swallow Paroxysmal atrial fibrillation with rapid ventricular response on admission Rate is under control Continue oral targeted anticoagulation Continue home meds Anemia Most likely secondary to chronic diseases Hemoglobin is stable Abdominal aortic aneurysm 3.4 cm Follow-up with ultrasound every 6 months in the outpatient settings Hyperkalemia Mild Kayexalate Will check EKG Calcium gluconate VS,Fishbone, I+O VS, Fishbone, I+O Laboratory Tests 11/02/19 05:35 Vital Signs Date Time Temp Pulse Resp B/P (MAP) Pulse Ox O2 Delivery O2 Flow Rate FiO2 11/02/19 12:00 97 Nasal Cannula 3.0 11/02/19 11:28 97.2 66 18 118/58 (78) 10/31/19 20:35 32 I&O- Last 24 Hours up to 6 AM 11/02/19 05:59 Intake Total 500 ml Output Total 625 ml Balance -125 ml TRAVON HERMOSILLO DO Nov 02, 2019 13:58
[2019-11-02] MEDS ORDERED: SOD POLYSTYRENE SULFONATE SUSP 15 GM/60 ML UD PO ONE (14:00)
[2019-11-02] MEDS ORDERED: CALCIUM GLUCONATE 1,000 MG in D5W MINI-BAG PLUS 100 ML IV ONE (14:00)
[2019-11-02] MEDS ORDERED: TOBR1NEB INH (17:04)
[2019-11-02] MEDS ORDERED: PREPARATION H OINTMENT (HEMORRHOID) PR PRN (17:30)
--- NOTE | 2019-11-02 19:03 | CCN ---
DATE: 11/01/2019 PULMONARY CRITICAL CARE PROGRESS NOTE: The patient is seen in the progressive care unit. This is hospital day #6. She is resting well, less dyspneic, still very weak. Temperature is 97, pulse rate 85, respirations 18, blood pressure 152/84, oxygen saturation 97% on 3 liters. Intake and output for the past 24 hours: 480 in 1000 out. At bedside, she is ill-appearing and cachectic. Oral and nasal mucosa are pink. Dentures are in place. Oral mucosa is dry. Neck is supple. No meningismus. Heart sounds are regular. Breath sounds diminished bilaterally. Expiratory phase is prolonged. There are some scattered rhonchi. Abdomen is soft, sunken with intact bowel sounds. Extremities are weak. DIAGNOSTIC STUDIES: Sodium is 141, potassium 5.6, chloride 115, CO2 28, BUN 34, creatinine 1.21, glucose 89, white cell count is down to 11.9, hemoglobin 93, hematocrit 31.2, platelet count 461,000, AST 49, ALT 44, albumin 2.4. Sputum studies on 10/23/2019 showed Pseudomonas with normal td. IMPRESSION: 1. Acute exacerbation of obstructive lung disease. I will reduce her dose of steroids. She is currently receiving prednisone 20 mg a day. 2. Mal clearance of secretions. She is responding to nebulized therapy. 3. Pseudomonas infection. She is not displaying a toxic picture and this could be colonization. Nonetheless, she is responding to nebulized Jim. 4. Deconditioning. I anticipate slow progress.
--- NOTE | 2019-11-02 19:53 | IPNPDOC ---
Date Seen The patient was seen on 11/02/19. Progress Note SUBJECTIVE: Patient is a 74 yo F with a past history of COPD on home oxygen, emphysema, atrial fibrillation, CKD, diastolic CHF who presented to the hospital with cough, shortness of breath, and weakness. Patient was found to have sepsis secondary to multifocal pneumonia due to Pseudomonas aeruginosa infection. Overnight patient did not have any acute physical complaints. She did state that she did not receive her morning dose of Tobramycin inhaled. Pt denies fever, nausea, vomiting, abdominal pain, hematuria, and any problems defecating. OBJECTIVE PHYSICAL EXAMINATION: VITAL SIGNS: Please see below. Heart: Normal S1, S2, no murmurs appreciated. Lungs: Diminished breath sounds bilaterally at the bases, but fair air entry. No crackles appreciated. Abdomen: Soft, nontender. No hepatosplenomegaly. Extremities: +1 ankle edema bilaterally. No rashes, clubbing, or cyanosis. LABORATORY DATA, IMAGING STUDIES, MICROBIOLOGY: Please see below. ASSESSMENT: This is a 74 yo F with a past history of COPD on home oxygen, emphysema, atrial fibrillation, CKD, diastolic CHF who presented to the hospital with cough, shortness of breath, and weakness. PLAN: 1. Pseudomonas pneumonia: Continue Tobramycin inhaled 300 mg twice a day and Levaquin 250 mg once daily for Pseudomonas infection. Continue encouraging Acapella usage. Responded well to Tobramycin inhaled. Follow up with pharmacy to ensure that Tobramycin is available, pt did not receive two scheduled doses within the past four days. DISPOSITION: Try to obtain prior authorization from insurance for continuing Tobramycin and other medications at home. Patient was seen and discussed with Dr Breanne Craig, infectious disease preceptor. Patient seen AND EXAMINED AGREE WITH ABOVE NOTE VS, I&O, 24H, Fishbone Vital Signs/I&O Vital Signs Date Time Temp Pulse Resp B/P (MAP) Pulse Ox O2 Delivery O2 Flow Rate FiO2 11/02/19 16:00 3.0 11/02/19 16:00 93 Nasal Cannula 11/02/19 15:57 97.3 74 18 128/68 (88) 10/31/19 20:35 32 I&O- Last 24 Hours up to 6 AM 11/02/19 05:59 Intake Total 500 ml Output Total 625 ml Balance -125 ml Laboratory Data 24H LABS Laboratory Tests 2 11/02/19 05:35: Nucleated Red Blood Cells % (auto) 0.0, Anion Gap 5L, Glomerular Filtration Rate 44.8, Calcium Level 8.3L CBC/BMP Laboratory Tests 11/02/19 05:35 Microbiology Microbiology 10/23/19 Blood Culture - Final, Complete NO GROWTH AFTER 5 DAYS 10/23/19 Blood Culture - Final, Complete NO GROWTH AFTER 5 DAYS 10/23/19 Gram Stain - Final, Complete 10/23/19 Sputum Culture - Final, Complete Pseudomonas Aeruginosa SARA MARION S-IV Nov 02, 2019 19:53 Breanne Craig MD Nov 02, 2019 20:10
[2019-11-03] VITALS (11 sets, daily range): BP systolic 118–154; BP diastolic 57–72; O2SAT 97–100
[2019-11-03] MEDS: NYSTATIN 500,000 U/5 ML SUSP UDC SS SCH ×4 (00:08→17:45)
[2019-11-03] MEDS: LEVALBUTEROL 1.25 MG/0.5 ML CONCENTRATE NEB INH SCH ×4 (02:42→20:00)
[2019-11-03] MEDS: SODIUM CHLORIDE 0.9% INJ 10 ML SYR IV SCH ×2 (05:48→14:43)
[2019-11-03] MEDS: LevoFLOXacin 250 MG TABLET PO SCH (05:48)
[2019-11-03] MEDS: TIOTROPIUM INHALER/CAPSULE (SPIRIVA) INH SCH (07:28)
[2019-11-03] MEDS: ADVAIR HFA 230/21MCG INHALER INH SCH ×2 (07:28→20:25)
[2019-11-03] MEDS: TOBRAMYCIN INHAL 300 MG/5 ML SOLN INH SCH ×2 (07:28→20:25)
[2019-11-03 09:30] LABS: BASO # 0.1 10^3/uL (0.0-0.2); BASO % 0.3 % (0.0-1.0); EOS # 0.1 10^3/uL (0.0-0.5); EOS % 0.6 % (0.0-3.0); HEMATOCRIT 31.9 % (36.0-47.0); HEMOGLOBIN 9.3 g/dl (12.0-15.5); LYMPH # 2.6 10^3/uL (1.5-5.0); LYMPH % 16.4 % (24.0-44.0); MEAN CORPUSCULAR HEMOGLOBIN 29.1 pg (27.0-33.0); MEAN CORPUSCULAR HGB CONC 29.2 g/dl (32.0-36.5); MEAN CORPUSCULAR VOLUME 99.7 fl (80.0-96.0); MONO # 0.9 10^3/uL (0.0-0.8); MONO % 5.7 % (0.0-5.0); NEUTROPHILS # 11.7 10^3/uL (1.5-8.5); NEUTROPHILS % 73.8 % (36.0-66.0); PLATELET COUNT, AUTOMATED 331 10^3/uL (150-450); WHITE BLOOD COUNT 15.8 10^3/uL (4.0-10.0)
[2019-11-03] MEDS: guaiFENesin ER 600 MG TAB PO SCH ×2 (09:41→20:06)
[2019-11-03] MEDS: DOCUSATE SODIUM 100 MG CAP PO SCH (09:41)
[2019-11-03] MEDS: EZETIMIBE 10 MG TAB (ZETIA) PO SCH (09:41)
[2019-11-03] MEDS: FAMOTIDINE 20 MG TAB PO SCH ×2 (09:41→20:06)
[2019-11-03] MEDS: predniSONE 10 MG TAB PO SCH (09:41)
[2019-11-03] MEDS: ACETAMINOPHEN 325 MG TAB PO PRN ×2 (09:42→18:01)
[2019-11-03] MEDS: APIXABAN 5 MG TAB (ELIQUIS) PO SCH ×2 (09:42→20:06)
[2019-11-03] MEDS: bisoproloL fumarate 5 MG TAB PO SCH (09:43)
[2019-11-03 09:46] LABS: CALCIUM LEVEL 8.2 MG/DL (8.8-10.2); CREATININE FOR GFR 1.29 MG/DL (0.55-1.30); GLOMERULAR FILTRATION RATE 42.8 (>39)
--- NOTE | 2019-11-03 10:26 | IPN ---
DATE: 11/02/2019 Today, the patient reports she is feeling much better than she was last week. She was able to get out of bed twice to go to the bathroom with very minimal shortness of breath. She also feels better sitting up and is less short of breath. She is still coughing and unable to clear secretions as well as she would like to. Otherwise, she denies any worsening shortness of breath or dyspnea at this time. OBJECTIVE: Her vitals are temperature 97.2, pulse 66, respiratory rate of 18, blood pressure 118/58, pulse oximetry 97% on 3 liters nasal cannula. She has a net negative balance 380 mL. PHYSICAL EXAMINATION: Generally she is calm, cooperative, pleasant. Looks comfortable in a chair. No acute distress. HEENT: Extraocular movements are intact. Her pupils equally round and reactive to light. Mucous membranes are somewhat dry. NECK: Soft and supple with no lymphadenopathy and no thyromegaly. RESPIRATORY: She has somewhat decreased breath sounds bilaterally although she is clear to auscultation otherwise, with no adventitious breath sounds. She is not using accessory muscles for respirations. She is speaking in full sentences. She is coughing but unable to produce any sputum. She has upper airway congestion. CARDIAC EXAM: Regular rate and rhythm with no murmurs, rubs or gallops. Her jugular venous distention (JVD) is not elevated. ABDOMEN: Soft and nontender. Positive bowel sounds and no organomegaly. No lymphadenopathy. No masses. EXTREMITIES: Lower extremities with trace edema bilaterally. Otherwise, no clubbing or cyanosis noted. LYMPHATICS: She has no inflamed lymph nodes in her cervical region or inguinal region. SKIN: She has no new rashes. PSYCH: She is awake, alert, and oriented times three. Normal mood and normal affect. LABS: White blood cell count 17.7, hemoglobin 9.3, hematocrit 30.8, platelet count of 381. Chemistries: Sodium 147, potassium 5.4, chloride 113, BUN 33 and creatinine of 1.24. She has not got any other recent blood gases. She got a chest x-ray the morning of 11/02/2019 and was reviewed by me and includes no major findings with some mild cardiomegaly. The internal jugular (IJ) central venous catheter tip at the very edge of the superior vena cava. Otherwise, there is chronic interstitial coarsening compatible with chronic lung disease. ASSESSMENT: This is a 74-year-old female with: 1. Chronic obstructive lung disease with acute exacerbation. 2. Acute pseudomonal infection of the right lower and middle lobe pneumonia. 3. Chronic hypoxemic respiratory failure with an oxygen requirement. 4. Mal clearance of secretions. PLAN: The patient appears to be doing well today much better than she was last week. She is continuing to use acapella and other means of airway clearance as well. She is still on 3 liters of oxygen; I believer her home dose is 2.5. We will continue her Mucinex and inhaled tobramycin as well as Xopenex treatments and inhaled Spiriva and her oral prednisone 10 mg daily. She appears to be doing well from the pulmonology standpoint so at this point, we will sign off unless there is any untoward event in which case, we would not mind being called. She will need to followup outpatient with pulmonology for her chronic obstructive pulmonary disease (COPD) but at this time, I think she would benefit most from mucous clearance and working with physical therapy (PT) for her deconditioning. ADDENDUM: I, Dr. Marshall Tejeda, have conducted an independent examination and history of the patient and agree with the documentation. I discussed the assessment and plan with the resident and agree with the above documentation. VALERIO
--- NOTE | 2019-11-03 12:35 | IPNPDOC ---
Text Note Date of Service The patient was seen on 11/03/19. NOTE Subjective: No any acute events overnight. Patient continues doing physical t herapy. Patient noticed yesterday small hemorrhage in her right eye, no any visual changes No no fever, no chills, no palpitations, no chest pain Objective: VITAL SIGNS: Please see below. GENERAL APPEARANCE: not in apparent distress HEENT: Normocephalic, atraumatic. Mucous members moist and pink, small hemorrhage of the right eye CARDIOVASCULAR: S1-S2, irregularly irregular LUNGS: Bilateral mild crackles with mild coarse lung sounds ABDOMEN: Abdomen is soft and nontender. MUSCULOSKELETAL: Range of motion is intact in all 4 extremities NEUROLOGICAL: Cranial nerves II-12 are grossly intact. Speech is not dysarthric Assessment and plan: Patient is 74 years old female with past history of COPD on home oxygen, emphysema, atrial fibrillation, CKD, diastolic CHF presented hospital with mult ifocal pneumonia. Patient was found to have sepsis secondary to multifocal pneumonia due to Pseudomonas aeruginosa infection. Sepsis Resolved Secondary to multifocal pneumonia due to Pseudomonas aeruginosa infection Patient received treatment with meropenem and levofloxacin Currently she received levofloxacin by mouth and tobramycin inhalation Continue Acapella Leukocytosis Improved Today patient has leukocytosis, patient does not have fever, chills, patient is normotensive Continue current antibiotic regimen Septic shock Resolved COPD Patient was diagnosed with emphysema and chronic bronchitis Oxygen dependent, baseline 3-4 L at home Continue inhalers Deconditioning PT/OT NIKO Improved Oral thrush nystatin swish and swallow Paroxysmal atrial fibrillation with rapid ventricular response on admission Rate is under control Continue oral targeted anticoagulation Continue home meds Anemia Most likely secondary to chronic diseases Hemoglobin is stable Abdominal aortic aneurysm 3.4 cm Follow-up with ultrasound every 6 months in the outpatient settings Hyperkalemia Resolved Hemorrhage in the right eye Most likely secondary to oral anticoagulation therapy No any visual changes No any acute bleeding currently VS,Fishbone, I+O VS, Fishbone, I+O Laboratory Tests 11/03/19 08:45 Vital Signs Date Time Temp Pulse Resp B/P (MAP) Pulse Ox O2 Delivery O2 Flow Rate FiO2 11/03/19 11:41 96.9 62 18 132/59 (83) 98 Nasal Cannula 3.0 10/31/19 20:35 32 I&O- Last 24 Hours up to 6 AM 11/03/19 05:59 Intake Total 720 ml Output Total 900 ml Balance -180 ml TRAVON HERMOSILLO DO Nov 03, 2019 12:35
[2019-11-04] MEDS: NYSTATIN 500,000 U/5 ML SUSP UDC SS SCH ×4 (00:06→18:39)
[2019-11-04 00:17] VITALS: BP 140/57
[2019-11-04] MEDS: LEVALBUTEROL 1.25 MG/0.5 ML CONCENTRATE NEB INH SCH ×4 (01:22→20:00)
[2019-11-04 06:00] VITALS: BP 138/57
[2019-11-04] MEDS: LevoFLOXacin 250 MG TABLET PO SCH (06:02)
[2019-11-04] MEDS: TIOTROPIUM INHALER/CAPSULE (SPIRIVA) INH SCH (07:39)
[2019-11-04] MEDS: ADVAIR HFA 230/21MCG INHALER INH SCH ×2 (07:39→20:00)
[2019-11-04] MEDS: TOBRAMYCIN INHAL 300 MG/5 ML SOLN INH SCH ×2 (07:40→20:00)
[2019-11-04 08:37] LABS: HEMATOCRIT 32.9 % (36.0-47.0); HEMOGLOBIN 9.6 g/dl (12.0-15.5); MEAN CORPUSCULAR HEMOGLOBIN 28.7 pg (27.0-33.0); MEAN CORPUSCULAR HGB CONC 29.2 g/dl (32.0-36.5); MEAN CORPUSCULAR VOLUME 98.5 fl (80.0-96.0); PLATELET COUNT, AUTOMATED 293 10^3/uL (150-450); RED BLOOD COUNT 3.34 10^6/uL (4.00-5.40); WHITE BLOOD COUNT 12.8 10^3/uL (4.0-10.0)
[2019-11-04] MEDS: EZETIMIBE 10 MG TAB (ZETIA) PO SCH (08:44)
[2019-11-04] MEDS: APIXABAN 5 MG TAB (ELIQUIS) PO SCH ×2 (08:44→20:35)
[2019-11-04] MEDS: ALPRAZolam 0.25 MG TAB PO PRN (08:44)
[2019-11-04] MEDS: guaiFENesin ER 600 MG TAB PO SCH ×2 (08:44→20:35)
[2019-11-04] MEDS: DOCUSATE SODIUM 100 MG CAP PO SCH (08:44)
[2019-11-04] MEDS: FAMOTIDINE 20 MG TAB PO SCH ×2 (08:45→20:35)
[2019-11-04] MEDS: predniSONE 10 MG TAB PO SCH (08:46)
[2019-11-04] MEDS: bisoproloL fumarate 5 MG TAB PO SCH (08:46)
[2019-11-04 08:59] LABS: CALCIUM LEVEL 8.1 MG/DL (8.8-10.2); CREATININE FOR GFR 1.3 MG/DL (0.55-1.30); GLOMERULAR FILTRATION RATE 42.4 (>39); MAGNESIUM LEVEL 2.1 MG/DL (1.8-2.4); POTASSIUM SERUM 4.5 MEQ/L (3.5-5.1)
--- NOTE | 2019-11-04 13:11 | IPNPDOC ---
Text Note Date of Service The patient was seen on 11/04/19. NOTE Subjective: No any acute events overnight. Patient continues doing physical t herapy. No no fever, no chills, no palpitations, no chest pain Objective: VITAL SIGNS: Please see below. GENERAL APPEARANCE: not in apparent distress HEENT: Normocephalic, atraumatic. Mucous members moist and pink CARDIOVASCULAR: S1-S2, irregularly irregular LUNGS: Bilateral mild crackles with mild coarse lung sounds ABDOMEN: Abdomen is soft and nontender. MUSCULOSKELETAL: Range of motion is intact in all 4 extremities NEUROLOGICAL: Cranial nerves II-12 are grossly intact. Speech is not dysarthric Assessment and plan: Patient is 74 years old female with past history of COPD on home oxygen, emphysema, atrial fibrillation, CKD, diastolic CHF presented hospital with multifocal pneumonia. Patient was found to have sepsis secondary to multifocal pneumonia due to Pseudomonas aeruginosa infection. Sepsis Resolved Secondary to multifocal pneumonia due to Pseudomonas aeruginosa infection Patient received treatment with meropenem and levofloxacin Currently she received levofloxacin by mouth and tobramycin inhalation Continue Acapella Leukocytosis Improved Today patient has leukocytosis, patient does not have fever, chills, patient is normotensive Continue current antibiotic regimen Septic shock Resolved COPD Patient was diagnosed with emphysema and chronic bronchitis Oxygen dependent, baseline 3-4 L at home Continue inhalers Deconditioning PT/OT NIKO Improved Oral thrush nystatin swish and swallow Paroxysmal atrial fibrillation with rapid ventricular response on admission Rate is under control Continue oral targeted anticoagulation Continue home meds Anemia Most likely secondary to chronic diseases Hemoglobin is stable Abdominal aortic aneurysm 3.4 cm Follow-up with ultrasound every 6 months in the outpatient settings Hyperkalemia Resolved Hemorrhage in the right eye Resolved Most likely secondary to oral anticoagulation therapy No any visual changes No any acute bleeding currently VS,Fishbone, I+O VS, Fishbone, I+O Laboratory Tests 11/04/19 08:19 Vital Signs Date Time Temp Pulse Resp B/P (MAP) Pulse Ox O2 Delivery O2 Flow Rate FiO2 11/04/19 09:00 3.0 11/04/19 08:46 89 138/57 11/04/19 06:00 98.6 19 90 Nasal Cannula 10/31/19 20:35 32 I&O- Last 24 Hours up to 6 AM 11/04/19 06:00 Intake Total 1500 ml Output Total 600 ml Balance 900 ml TRAVON HERMOSILLO DO Nov 04, 2019 13:11
[2019-11-04 15:55] VITALS: BP 141/77
[2019-11-04 20:45] VITALS: BP 129/76
[2019-11-05] MEDS: NYSTATIN 500,000 U/5 ML SUSP UDC SS SCH ×5 (00:04→23:12)
[2019-11-05] MEDS: LEVALBUTEROL 1.25 MG/0.5 ML CONCENTRATE NEB INH SCH ×4 (02:51→19:58)
[2019-11-05] MEDS: LevoFLOXacin 250 MG TABLET PO SCH (05:36)
[2019-11-05 06:15] VITALS: BP 126/65
[2019-11-05 06:45] LABS: HEMATOCRIT 32.9 % (36.0-47.0); HEMOGLOBIN 9.7 g/dl (12.0-15.5); MEAN CORPUSCULAR HGB CONC 29.5 g/dl (32.0-36.5); MEAN CORPUSCULAR VOLUME 98.2 fl (80.0-96.0); PLATELET COUNT, AUTOMATED 288 10^3/uL (150-450); RED BLOOD COUNT 3.35 10^6/uL (4.00-5.40); WHITE BLOOD COUNT 13.5 10^3/uL (4.0-10.0)
[2019-11-05 07:14] LABS: CALCIUM LEVEL 8.4 MG/DL (8.8-10.2); CREATININE FOR GFR 1.22 MG/DL (0.55-1.30); GLOMERULAR FILTRATION RATE 45.6 (>39); MAGNESIUM LEVEL 2.2 MG/DL (1.8-2.4); POTASSIUM SERUM 4.5 MEQ/L (3.5-5.1)
[2019-11-05] MEDS: ADVAIR HFA 230/21MCG INHALER INH SCH ×2 (07:27→19:58)
[2019-11-05] MEDS: TIOTROPIUM INHALER/CAPSULE (SPIRIVA) INH SCH (07:27)
[2019-11-05] MEDS: TOBRAMYCIN INHAL 300 MG/5 ML SOLN INH SCH ×2 (07:29→19:58)
[2019-11-05] MEDS: FAMOTIDINE 20 MG TAB PO SCH ×2 (08:48→20:12)
[2019-11-05] MEDS: guaiFENesin ER 600 MG TAB PO SCH ×2 (08:49→20:12)
[2019-11-05] MEDS: bisoproloL fumarate 5 MG TAB PO SCH (08:50)
[2019-11-05] MEDS: DOCUSATE SODIUM 100 MG CAP PO SCH (08:51)
[2019-11-05] MEDS: EZETIMIBE 10 MG TAB (ZETIA) PO SCH (08:51)
[2019-11-05] MEDS: predniSONE 10 MG TAB PO SCH (08:52)
[2019-11-05] MEDS: AMIODARONE 200 MG TAB (PACERONE) PO SCH (08:52)
[2019-11-05] MEDS: APIXABAN 5 MG TAB (ELIQUIS) PO SCH ×2 (08:52→20:12)
[2019-11-05] MEDS ORDERED: LEVO250T12 PO (12:02)
[2019-11-05 14:00] VITALS: BP 147/80
[2019-11-05] MEDS ORDERED: VENLAFAXINE 37.5 MG TAB PO ONE (15:30)
--- NOTE | 2019-11-05 15:30 | IPNPDOC ---
Text Note Date of Service The patient was seen on 11/05/19. NOTE Subjective: No any acute events overnight. Patient complains of anxiety. No no fever, no chills, no palpitations, no chest pain Objective: VITAL SIGNS: Please see below. GENERAL APPEARANCE: not in apparent distress HEENT: Normocephalic, atraumatic. Mucous members moist and pink CARDIOVASCULAR: S1-S2, irregularly irregular LUNGS: Bilateral mild crackles with mild coarse lung sounds ABDOMEN: Abdomen is soft and nontender. MUSCULOSKELETAL: Range of motion is intact in all 4 extremities NEUROLOGICAL: Cranial nerves II-12 are grossly intact. Speech is not dysarthric Assessment and plan: Patient is 74 years old female with past history of COPD on home oxygen, emphysema, atrial fibrillation, CKD, diastolic CHF presented hospital with multifocal pneumonia. Patient was found to have sepsis secondary to multifocal pneumonia due to Pseudomonas aeruginosa infection. Sepsis Resolved Secondary to multifocal pneumonia due to Pseudomonas aeruginosa infection Patient received treatment with meropenem and levofloxacin Currently she received levofloxacin by mouth and tobramycin inhalation Continue Acapella Leukocytosis Improved patient does not have fever, chills, patient is normotensive Continue current antibiotic regimen Septic shock Resolved COPD Patient was diagnosed with emphysema and chronic bronchitis Oxygen dependent, baseline 3-4 L at home Continue inhalers Deconditioning PT/OT NIKO Improved Oral thrush nystatin swish and swallow Paroxysmal atrial fibrillation with rapid ventricular response on admission Rate is under control Continue oral targeted anticoagulation Continue home meds Anemia Most likely secondary to chronic diseases Hemoglobin is stable Abdominal aortic aneurysm 3.4 cm Follow-up with ultrasound every 6 months in the outpatient settings Hyperkalemia Resolved Hemorrhage in the right eye Resolved Most likely secondary to oral anticoagulation therapy No any visual changes No any acute bleeding currently Anxiety Venlafaxine VS,Fishbone, I+O VS, Fishbone, I+O Laboratory Tests 11/05/19 06:02 Vital Signs Date Time Temp Pulse Resp B/P (MAP) Pulse Ox O2 Delivery O2 Flow Rate FiO2 11/05/19 14:00 98.2 88 19 147/80 (102) 96 Nasal Cannula 3.0 10/31/19 20:35 32 I&O- Last 24 Hours up to 6 AM 11/05/19 06:00 Intake Total 1250 ml Output Total 150 ml Balance 1100 ml TRAVON HERMOSILLO DO Nov 05, 2019 15:30
--- NOTE | 2019-11-05 17:32 | IPNPDOC ---
Date Seen The patient was seen on 11/05/19. Progress Note SUBJECTIVE: Patient is a 74 yo F with a past history of COPD on home oxygen, emphysema, atrial fibrillation, CKD, diastolic CHF who presented to the hospital with cough, shortness of breath, and weakness. Patient was found to have sepsis secondary to multifocal pneumonia due to Pseudomonas aeruginosa infection. Overnight patient did not have any acute physical complaints. Pt is anxious about returning home tomorrow but was assured when she discussed her sons being home to take care of her. Pt denies fever, nausea, vomiting, abdominal pain, hematuria, and any problems defecating. OBJECTIVE PHYSICAL EXAMINATION: VITAL SIGNS: Please see below. General: No acute distress, anxious, AAOx3 Heart: Normal S1, S2, no murmurs appreciated. Lungs: Diminished breath sounds bilaterally at the bases, but fair air entry. No crackles appreciated. Abdomen: Soft, nontender. No hepatosplenomegaly. Extremities: +1 ankle edema bilaterally. No rashes, clubbing, or cyanosis. LABORATORY DATA, IMAGING STUDIES, MICROBIOLOGY: Please see below. ASSESSMENT: This is a 74 yo F with a past history of COPD on home oxygen, emphysema, atrial fibrillation, CKD, diastolic CHF who presented to the hospital with cough, shortness of breath, and weakness. PLAN: 1. Pseudomonas pneumonia: Continue Tobramycin inhaled 300 mg twice a day and Levaquin 250 mg once daily for Pseudomonas infection. Continue encouraging Acapella usage. Responded well to Tobramycin inhaled. DISPOSITION: Try to obtain prior authorization from insurance for continuing Tobramycin and other medications at home. Patient is ready for discharge, she can continue antibiotic regimen at home. Patient was seen and discussed with Dr Breanne Craig, infectious disease preceptor. GME ATTESTATION My faculty preceptor for this patient encounter was physically present during the encounter and was fully available. All aspects of the patient interview, examination, medical decision making process, and medical care plan development were reviewed and approved by the faculty preceptor. The faculty preceptor is aware and concurs with the plan as stated in the body of this note and will attest to such by his/her cosignature. VS, I&O, 24H, Fishbone Vital Signs/I&O Vital Signs Date Time Temp Pulse Resp B/P (MAP) Pulse Ox O2 Delivery O2 Flow Rate FiO2 11/05/19 08:54 3.0 11/05/19 08:50 73 126/65 11/05/19 06:15 97.2 19 97 Nasal Cannula 10/31/19 20:35 32 I&O- Last 24 Hours up to 6 AM 11/05/19 06:00 Intake Total 1250 ml Output Total 150 ml Balance 1100 ml Laboratory Data 24H LABS Laboratory Tests 2 11/05/19 06:02: Nucleated Red Blood Cells % (auto) 0.0, Anion Gap 5L, Glomerular Filtration Rate 45.6, Calcium Level 8.4L, Magnesium Level 2.2 CBC/BMP Laboratory Tests 11/05/19 06:02 FADUMOKATESARA OMS-IV Nov 05, 2019 14:05
[2019-11-05 21:13] VITALS: BP 145/71
[2019-11-06] MEDS: LEVALBUTEROL 1.25 MG/0.5 ML CONCENTRATE NEB INH SCH ×2 (02:00→08:21)
[2019-11-06] MEDS: LevoFLOXacin 250 MG TABLET PO SCH (05:37)
[2019-11-06] MEDS: NYSTATIN 500,000 U/5 ML SUSP UDC SS SCH ×2 (05:37→12:00)
[2019-11-06 05:40] VITALS: BP 143/70
[2019-11-06 06:13] LABS: HEMATOCRIT 29.7 % (36.0-47.0); HEMOGLOBIN 9.2 g/dl (12.0-15.5); MEAN CORPUSCULAR HEMOGLOBIN 29.9 pg (27.0-33.0); MEAN CORPUSCULAR VOLUME 96.4 fl (80.0-96.0); PLATELET COUNT, AUTOMATED 252 10^3/uL (150-450); RED BLOOD COUNT 3.08 10^6/uL (4.00-5.40); WHITE BLOOD COUNT 12.9 10^3/uL (4.0-10.0)
[2019-11-06 06:33] LABS: CALCIUM LEVEL 8.6 MG/DL (8.8-10.2); CREATININE FOR GFR 1.2 MG/DL (0.55-1.30); GLOMERULAR FILTRATION RATE 46.5 (>39); MAGNESIUM LEVEL 2.3 MG/DL (1.8-2.4); POTASSIUM SERUM 4.5 MEQ/L (3.5-5.1)
[2019-11-06 08:12] VITALS: BP 143/70
[2019-11-06] MEDS: FAMOTIDINE 20 MG TAB PO SCH (08:12)
[2019-11-06] MEDS: bisoproloL fumarate 5 MG TAB PO SCH (08:12)
[2019-11-06] MEDS: APIXABAN 5 MG TAB (ELIQUIS) PO SCH (08:13)
[2019-11-06] MEDS: predniSONE 10 MG TAB PO SCH (08:13)
[2019-11-06] MEDS: guaiFENesin ER 600 MG TAB PO SCH (08:13)
[2019-11-06] MEDS: DOCUSATE SODIUM 100 MG CAP PO SCH (08:13)
[2019-11-06] MEDS: EZETIMIBE 10 MG TAB (ZETIA) PO SCH (08:13)
[2019-11-06] MEDS: TOBRAMYCIN INHAL 300 MG/5 ML SOLN INH SCH (08:21)
[2019-11-06] MEDS: TIOTROPIUM INHALER/CAPSULE (SPIRIVA) INH SCH (08:21)
[2019-11-06] MEDS: ADVAIR HFA 230/21MCG INHALER INH SCH (08:21)
[2019-11-06] MEDS ORDERED: VENLAFAXINE 37.5 MG TAB PO SCH (09:00)
--- NOTE | 2019-11-06 15:57 | DS.PDOC ---
Discharge Summary General Date of Admission Oct 23, 2019 at 18:01 Date of Discharge 11/06/19 Discharge Summary PROCEDURES PERFORMED DURING STAY: [None]. ADMITTING DIAGNOSES: Sepsis Leukocytosis Septic shock COPD Deconditioning NIKO Oral thrush Paroxysmal atrial fibrillation with rapid ventricular response on admission Anemia Hyperkalemia Abdominal aortic aneurysm Hemorrhage in the right eye Anxiety DISCHARGE DIAGNOSES: Sepsis Leukocytosis Septic shock COPD Deconditioning NIKO Oral thrush Paroxysmal atrial fibrillation with rapid ventricular response on admission Anemia Hyperkalemia Abdominal aortic aneurysm Hemorrhage in the right eye Anxiety COMPLICATIONS/CHIEF COMPLAINT: Niko;Afib W/Rvr;Pneumonia. HISTORY OF PRESENT ILLNESS: Patient is a 74-year-old female with a history of advanced COPD who initially presented to emergency department at the behest of her winterizer due to worsening creatinine from 1.5-3.0. Patient was recently hospitalized at [facility] for several weeks secondary to COPD exacerbation attributed to Pseudomonas pneumonia and rhinovirus. Patient's son reported that following discharge on 10/07/19, patient continued to have dyspnea, which improved once reinitiating her outpatient home diuretics. She reports improvement for a total of 3 days. After which, she reports returning malaise, productive cough, decreased appetite and SOB. In the ED, patient was initially treated with IV fluid resuscitation and subsequently developed atrial fibrillation with RVR and hypotension. A CT scan was performed and demonstrate bilateral lower lobe infiltrates, left greater than the right. Some subcarinal adenopathy thought to be reactive. Patient has now received meropenem and levofloxacin since admission. HOSPITAL COURSE: During hospital stay following issues addressed Sepsis Resolved Secondary to multifocal pneumonia due to Pseudomonas aeruginosa infection Patient received treatment with meropenem and levofloxacin Currently she received levofloxacin by mouth and tobramycin inhalation Septic shock Resolved COPD Patient was diagnosed with emphysema and chronic bronchitis Oxygen dependent, baseline 3-4 L at home Continue inhalers Deconditioning PT/OT DISCHARGE MEDICATIONS: Please see below. ALLERGIES: Please see below. PHYSICAL EXAMINATION ON DISCHARGE: VITAL SIGNS: Please see below. GENERAL APPEARANCE: not in apparent distress HEENT: Normocephalic, atraumatic. Mucous members moist and pink CARDIOVASCULAR: S1-S2, irregularly irregular LUNGS: Bilateral mild crackles with mild coarse lung sounds ABDOMEN: Abdomen is soft and nontender. MUSCULOSKELETAL: Range of motion is intact in all 4 extremities NEUROLOGICAL: Cranial nerves II-12 are grossly intact. Speech is not dysarthric LABORATORY DATA: Please see below. IMAGING:Portable chest, 07:41 a.m., single AP view with the patient upright: Comparisons are 06/20/2012, 10/23/2019 and 10/30/2019. There is chronic interstitial coarsening compatible with chronic lung disease. The inferior left lung is obscured by superimposed monitor wires. The remainder the lung [place] are clear. Mild cardiomegaly is again identified, unchanged. There is a right IJ central venous catheter with the tip at the confluence of the superior vena cava and innominate vein, unchanged from 10/23/2019 and 10/30/2019. Impression: No acute cardiopulmonary findings. The inferior left lung is obscured by superimposed monitor wires. PROGNOSIS: Favorable ACTIVITY: [As tolerated]. DIET: Cardiac DISCHARGE PLAN: Home with home health DISPOSITION: Home Health Service. DISCHARGE INSTRUCTIONS: Take prescribed medications ITEMS TO FOLLOWUP ON ON OUTPATIENT: With ID specialist and PCP DISCHARGE CONDITION: [Stable]. TIME SPENT ON DISCHARGE: Greater than 20 minutes. Vital Signs/I&Os Vital Signs Date Time Temp Pulse Resp B/P (MAP) Pulse Ox O2 Delivery O2 Flow Rate FiO2 11/06/19 08:12 77 143/70 11/06/19 08:00 3.0 11/06/19 05:40 98.2 18 94 Nasal Cannula 10/31/19 20:35 32 I&O- Last 24 Hours up to 6 AM 11/06/19 06:00 Intake Total 900 ml Output Total 0 ml Balance 900 ml Laboratory Data Labs 24H Laboratory Tests 2 11/06/19 05:47: Nucleated Red Blood Cells % (auto) 0.0, Anion Gap 3L, Glomerular Filtration Rate 46.5, Calcium Level 8.6L, Magnesium Level 2.3 CBC/BMP Laboratory Tests 11/06/19 05:47 Discharge Medications Scheduled Amiodarone Hcl (Pacerone) 200 Mg Tablet, 200 MG PO 2XW, (Reported) MONDAYS AND THURSDAYS Apixaban (Eliquis) 5 Mg Tablet, 5 MG PO BID, (Reported) Ascorbic Acid (Vitamin C) 500 Mg Capsule, 500 MG PO DAILY, (Reported) Bisoprolol Fumarate (Bisoprolol Fumarate) 5 Mg Tablet, 2.5 MG PO DAILY, (Reported) Docusate Sodium (Docusate Sodium) 100 Mg Cap, 100 MG PO DAILY, (Reported) Ezetimibe (Ezetimibe) 10 Mg Tablet, 10 MG PO DAILY, (Reported) Famotidine (Famotidine) 20 Mg Tablet, 20 MG PO BID, (Reported) Levofloxacin (Levofloxacin) 250 Mg Tablet, 250 MG PO DAILY@06 Midodrine HCl (Midodrine HCl) 10 Mg Tablet, 10 MG PO BID, (Reported) Salmeterol/Fluticasone (Advair 500-50 Diskus) 28 Puff/Inhaler Aerp, 1 PUFF INH BID, (Reported) Tobramycin in 0.225% Sod Chlor (Tobramycin 300 mg/5 ml Ampule) 300 Mg/5 Ml Ampul.neb, 300 MG INH RBID Umeclidinium Brm/Vilanterol Tr (Anoro Ellipta 62.5-25 Mcg INH) 1 Aer Aer, 1 PUFF INH DAILY, (Reported) Scheduled PRN Acetaminophen (Acetaminophen) 325 Mg Tab, 650 MG PO Q4H PRN for PAIN, (Reported) Albuterol Sulfate (Ventolin Hfa) 108 Mcg/Act Aer, 2 PUFFS INH Q4H PRN for SHORTNESS OF BREATH, (Reported) Guaifenesin (Mucus ER) 600 Mg Tab.er.12h, 600 MG PO BID PRN for CONGESTION, (Reported) Hydrocortisone (Proctosol-Hc) 2.5 % Cre, 1 DOSE NM QID PRN for HEMORRHOIDS, (Reported) APPLY AFTER EACH BOWEL MOVEMENT Ipratropium/Albuterol Sulfate (Iprat-Albut 0.5-3(2.5) mg/3 ml) 1 Santy Santy, 1 SANTY INH QID PRN for SHORTNESS OF BREATH, (Reported) Allergies Coded Allergies: Wiymaqo-Jig-Ffh Reductase Inhibitor (Verified Adverse Reaction, Intermediate, upset stomach, 03/25/19) varenicline (Verified Adverse Reaction, Intermediate, hallucinations, 03/25/19) Quinolones (Verified Adverse Reaction, Mild, palpitations, 10/29/19) patient tolerated levaquin in oct 2019 admission. TRAVON HERMOSILLO DO Nov 06, 2019 15:57
--- NOTE | 2019-11-09 23:56 | IPN ---
DATE: 11/06/2019 Christine is a little anxious and worried that she is going to bounce back in the hospital. She thinks it is her anxiety. She went for a walk with her nurse, and her oxygen saturation was 94% on 3 liters; and when she walked around, even though she was short of breath, her oxygen saturation was 96-97%. She has no nausea, vomiting, or diarrhea. She has some cough, but it is less productive and the color is bellman captain yellow. LABS: White count 12.9, hemoglobin 9.2, hematocrit 29.7, platelets 252. Sodium 145, potassium 4.5, chloride 111, bicarbonate 31, BUN 25, creatinine 1.2, glucose 78, calcium 8.6, magnesium 2.3. PHYSICAL EXAMINATION: Temperature is 98.2, pulse 77, respirations 18, blood pressure 143/70. Heart: Normal S1, S2. No murmurs appreciated. Lungs: Diminished airway entry bilaterally with few expiratory rhonchi. Fine crackles at the right base. Abdomen: Soft, nontender. Extremities: Trace ankle edema. IMPRESSION: Pseudomonas pneumonia. Has been on antibiotic for 2 weeks, a combination initially of levofloxacin and meropenem for 2 weeks, followed by a combination of tobramycin, nebulizers, and levofloxacin. We tried to obtain Jim nebulizers for her to go home on discharge, but they have been denied by her insurance and, therefore, that could not be obtained. PLAN She will go home on levofloxacin for another week for chronic Pseudomonas pneumonia. A lot of her shortness of breath is related more to her anxiety, and patient has been started on Effexor. I have discussed with her the fact that that will take 2-3 weeks to start working. She needs to discuss the change of her dose if need be with her primary care provider and possibly increase to 75 mg. MTDD
== END 2019-11-06 13:31 | disposition home health service (06) | DRG 871 ==
LOC: M ED 12:47 → EDBEDREQSVC 15:56 → M ED INP 18:01 → ENRESERVDT 18:51 → ENRESERVTM 18:51 → M ICU 20:05 → M PCU 10-28 15:35 → M MS5PR 11-04 00:15
PROVIDERS: ADMIT Internal Medicine Nephrology; ATTEND Internal Medicine
PROC: 02HV33Z Insertion of Infusion Device into Superior Vena Cava, Percutaneous Approach (ICD-10-PCS; principal; 2019-10-23)
DX: A41.9 Sepsis, unspecified organism (principal); R65.21 Severe sepsis with septic shock; J15.1 Pneumonia due to Pseudomonas; J18.9 Pneumonia, unspecified organism; R57.1 Hypovolemic shock; N17.9 Acute kidney failure, unspecified; B37.0 Candidal stomatitis; J44.0 Chronic obstructive pulmonary disease with (acute) lower respiratory infection; I50.30 Unspecified diastolic (congestive) heart failure; J96.11 Chronic respiratory failure with hypoxia; E87.2 Acidosis; J44.1 Chronic obstructive pulmonary disease with (acute) exacerbation; I25.10 Atherosclerotic heart disease of native coronary artery without angina pectoris; D72.829 Elevated white blood cell count, unspecified; Z72.3 Lack of physical exercise; I48.0 Paroxysmal atrial fibrillation; D64.9 Anemia, unspecified; E87.5 Hyperkalemia; I71.4 Abdominal aortic aneurysm, without rupture; H57.89 Other specified disorders of eye and adnexa; F41.9 Anxiety disorder, unspecified; Z99.81 Dependence on supplemental oxygen; K64.9 Unspecified hemorrhoids; Z79.899 Other long term (current) drug therapy; Z88.8 Allergy status to other drugs, medicaments and biological substances; Z95.1 Presence of aortocoronary bypass graft; I73.9 Peripheral vascular disease, unspecified; N18.3 Chronic kidney disease, stage 3 (moderate); E78.5 Hyperlipidemia, unspecified; I95.9 Hypotension, unspecified; M06.9 Rheumatoid arthritis, unspecified; M18.9 Osteoarthritis of first carpometacarpal joint, unspecified; Z98.41 Cataract extraction status, right eye; Z98.42 Cataract extraction status, left eye; Z87.891 Personal history of nicotine dependence

== ENCOUNTER 2019-11-10 09:06 | Inpatient (IN) | payer MEDICARE ==
[~2019-11-10] VITALS: Ht 154.9 cm; Wt 53.3 kg
[2019-11-10] MEDS: APIXABAN 2.5 MG TAB (ELIQUIS) PO SCH ×4 (09:00→20:05)
[~2019-11-10 09:06] MED LIST changes: +FAMO1TAB11 PO; +LEVO250T12 PO; +MIDO10TA14 PO; +PACE200T PO; +TOBR1NEB INH; +VITA500C24 PO
[2019-11-10 10:25] VITALS: BP 98/47
[2019-11-10 10:45] LABS: BASO % 0.1 % (0.0-1.0); EOS # 0.3 10^3/uL (0.0-0.5); HEMATOCRIT 33.2 % (36.0-47.0); LYMPH # 1.1 10^3/uL (1.5-5.0); LYMPH % 6.7 % (24.0-44.0); MEAN CORPUSCULAR HGB CONC 30.1 g/dl (32.0-36.5); MEAN CORPUSCULAR VOLUME 96.2 fl (80.0-96.0); NEUTROPHILS # 14.2 10^3/uL (1.5-8.5); NEUTROPHILS % 84.3 % (36.0-66.0); PLATELET COUNT, AUTOMATED 252 10^3/uL (150-450); RED BLOOD COUNT 3.45 10^6/uL (4.00-5.40); WHITE BLOOD COUNT 16.8 10^3/uL (4.0-10.0)
[2019-11-10 11:03] LABS: ERYTHROCYTE SEDIMENTATION RATE 68 mm/hr (0-30)
[2019-11-10 11:07] LABS: ALBUMIN 2.8 GM/DL (3.2-5.2); BILIRUBIN,TOTAL 0.5 MG/DL (0.2-1.0); C REACTIVE PROTEIN QUANTITATIV 9.98 MG/DL (0.00-0.30); CALCIUM LEVEL 8.8 MG/DL (8.8-10.2); CK-MB VALUE MASS 1.9 NG/ML (<3.6); CREATININE FOR GFR 2.02 MG/DL (0.55-1.30); GLOMERULAR FILTRATION RATE 25.5 (>39); MB/CK RELATIVE INDEX 7.04 (< OR =4); POTASSIUM SERUM 3.9 MEQ/L (3.5-5.1); TOTAL PROTEIN 6.5 GM/DL (6.4-8.2); TROPONIN I 0.02 NG/ML (< 0.10)
[2019-11-10] MEDS ORDERED: VITMTA PO (11:22)
[2019-11-10] MEDS ORDERED: TOBR1NEB INH (11:24)
[2019-11-10 12:00] VITALS: BP 114/55
--- NOTE | 2019-11-10 12:00 | REP ---
Chest x-ray: Two views. History: Shortness of breath. Comparison chest x-ray: November 02, 2019. Findings: The lungs are hyperinflated consistent with some degree of COPD. No focal infiltrate is seen. On the lateral radiograph however there is a nodular opacity projecting at the posterior base of the heart. This is visible in retrospect on recent comparison chest CTs dated October 23, 2019 and August 03, 2018. This is apparently a myocardial or epicardial calcification. There is slight blunting of the posterior pleural angles. Nipple silhouettes at the bases. Heart size is unchanged. There is less pleural fluid at the left base than was present November 02, 2019. Impression: No new infiltrate. COPD. Small left effusion somewhat improved. Electronically Signed by Jin Mcdermott MD 11/10/2019 06:52 P
[2019-11-10] MEDS ORDERED: ACETAMINOPHEN TAB 650MG DOSE (2X325MG) PO PRN (12:45)
[2019-11-10] MEDS ORDERED: guaiFENesin ER 600 MG TAB PO PRN (12:45)
[2019-11-10] MEDS ORDERED: ANUSOL HC CREAM 30GM PR PRN (13:00)
--- NOTE | 2019-11-10 13:28 | HPEPDOC ---
[facility] Medical History & Physical Date of Admission Nov 10, 2019 Date of Service: Nov 10, 2019 Attending Physician: KAROL MOSQUERA MD History and Physical CHIEF COMPLAINT: Sent from Dr. Craig's office for fatigue and hypotension HISTORY OF PRESENT ILLNESS: 74-year-old female with past medical history of atrial fibrillation, diastolic CHF, asthma, COPD (oxygen dependent), coronary artery disease, [place], status post cardiac stent and hypertension is sent from Dr. Craig's office for hypotension and fatigue. Patient was recently admitted for 2 weeks due to acute kidney injury and pneumonia. Patient was discharged 4 days ago, reports feeling fatigued at the time of discharge, which is continued to worsen since then. She went to follow-up with Dr. Craig today and sent to the hospital. Patient was treated with meropenem and Levaquin. During hospitalization, was sent home on Levaquin to complete her antibiotic regimen. Patient denies any worsening in her cough or dyspnea, has not been mobile at home for the past few days due to the significant fatigue. She does have bilateral lower extremity swelling, worsened over the past few days. She has no additional complaints, denies any chest pain, nausea, vomiting, abdominal pain or diarrhea. 10 point review of system is negative except for above PAST MEDICAL HISTORY: 1. Atrial fibrillation. 2. Coronary artery disease. 3. COPD. 4. KS. 5. Diastolic congestive heart failure. 6. Hypertension 7. Asthma PAST SURGICAL HISTORY: 1. Coronary stent placement. 2. Carotid endarterectomy. SOCIAL HISTORY: Smoking 1.5 packs per day for 50 years Denies alcohol use. Denies drug use FAMILY HISTORY: Family history positive for heart disease ALLERGIES: Please see below. HOME MEDICATIONS: Please see below. PHYSICAL EXAMINATION: VITAL SIGNS: Please see below. GENERAL: Frail HEENT: Normocephalic, atraumatic, moist mucous membranes NECK: Supple CARDIOVASCULAR EXAMINATION: S1, S2, no murmurs RESPIRATORY EXAMINATION: Diminished and distant breath sounds, scattered rhonchi, no wheezing ABDOMINAL EXAMINATION: Soft, nontender, nondistended, positive bowel sounds EXTREMITIES: Profile. Bilateral lower extremity pitting edema SKIN: No rash NEUROLOGICAL EXAMINATION: Alert and oriented 3, no focal deficits PSYCHIATRIC EXAMINATION: Calm and cooperative LABORATORY DATA: See below. IMAGING: Chest x-ray without acute pathology, left pleural effusion improved from prior MICROBIOLOGY: Please see below. ASSESSMENT: 74-year-old female with multiple medical comorbidities who was recently admitted for pneumonia, acute kidney injury presents from Dr. Craig's office with hypotension and worsening fatigue. PLAN: 1. Acute kidney injury. Creatinine 2.0, was 1.2 four days ago, likely due to poor oral intake and diuretics, previous echocardiogram with normal EF, less likely to be cardiorenal syndrome, renal ultrasound and urine studies ordered, gentle IV hydration with normal saline. 2. Hypotension. BP low-normal, likely intravascularly volume depleted, will monitor with IV hydration, continue midodrine 10 mg twice a day. 3. Diastolic congestive heart failure. Repeat echo, hold diuretics for now. 4. Atrial fibrillation. Continue Eliquis, decrease dose to 2.5 mg twice a day. Continue amiodarone 5. Coronary artery disease. History of [place], status post coronary stent, continue Zetia and beta lexi. 6. COPD On home oxygen, 2-3 L, continue home regimen, supplemental oxygen as needed to maintain O2 sats between 88-92%. DVT prophylaxis: on Eliquis GI prophylaxis: Not needed Laboratory Data Labs 24H Laboratory Tests 2 11/10/19 10:30: Immature Granulocyte % (Auto) 0.9, Neutrophils (%) (Auto) 84.3H, Lymphocytes (%) (Auto) 6.7L, Monocytes (%) (Auto) 6.0H, Eosinophils (%) (Auto) 2.0, Basophils (%) (Auto) 0.1, Neutrophils # (Auto) 14.2H, Lymphocytes # (Auto) 1.1L, Monocytes # (Auto) 1.0H, Eosinophils # (Auto) 0.3, Basophils # (Auto) 0.0, Nucleated Red Blood Cells % (auto) 0.0, Erythrocyte Sedimentation Rate 68H, Anion Gap 9, Glomerular Filtration Rate 25.5L, Lactic Acid Level 2.1*H, Calcium Level 8.8, Total Bilirubin 0.5, Aspartate Amino Transf (AST/SGOT) 19, Alanine Ami notransferase (ALT/SGPT) 22, Alkaline Phosphatase 137H, Total Creatine Kinase 27, Creatine Kinase MB 1.9, Creatine Kinase MB Relative Index 7.04H, Troponin I 0.02, C-Reactive Protein, Quantitative 9.98H, Total Protein 6.5, Albumin 2.8L, Albumin/Globulin Ratio 0.76L 11/10/19 10:53: Methicillin-Resist S.aureus DNA PCR NOT DETECTED CBC/BMP Laboratory Tests 11/10/19 10:30 Microbiology Microbiology 11/10/19 Respiratory Virus Panel (PCR) ([facility]) - Final, Complete Human Rhinovirus/Enterovirus 11/10/19 Blood Culture, Received Pending Home Medications Scheduled Amiodarone Hcl (Pacerone) 200 Mg Tablet, 200 MG PO 2XW MONDAYS AND THURSDAYS Apixaban (Eliquis) 5 Mg Tablet, 5 MG PO BID Bisoprolol Fumarate (Bisoprolol Fumarate) 5 Mg Tablet, 2.5 MG PO DAILY Docusate Sodium (Docusate Sodium) 100 Mg Cap, 100 MG PO DAILY Ezetimibe (Ezetimibe) 10 Mg Tablet, 10 MG PO DAILY Midodrine HCl (Midodrine HCl) 10 Mg Tablet, 10 MG PO BID Multivitamins (Thera M Plus Tablet) 1 Each Tablet, 1 TAB PO DAILY Salmeterol/Fluticasone (Advair 500-50 Diskus) 28 Puff/Inhaler Aerp, 1 PUFF INH BID Tobramycin in 0.225% Sod Chlor (Tobramycin 300 mg/5 ml Ampule) 300 Mg/5 Ml Ampul.neb, 300 MG INH BID NEW MED STARTING 11/21/19 2 WEEKS ON, 2 WEEKS OFF Umeclidinium Brm/Vilanterol Tr (Anoro Ellipta 62.5-25 Mcg INH) 1 Aer Aer, 1 PUFF INH DAILY Scheduled PRN Acetaminophen (Acetaminophen) 325 Mg Tab, 650 MG PO Q4H PRN for PAIN Albuterol Sulfate (Ventolin Hfa) 108 Mcg/Act Aer, 2 PUFFS INH Q4H PRN for SHORTNESS OF BREATH Guaifenesin (Mucus ER) 600 Mg Tab.er.12h, 600 MG PO BID PRN for CONGESTION Hydrocortisone (Proctosol-Hc) 2.5 % Cre, 1 DOSE MI QID PRN for HEMORRHOIDS APPLY AFTER EACH BOWEL MOVEMENT Ipratropium/Albuterol Sulfate (Iprat-Albut 0.5-3(2.5) mg/3 ml) 1 Anne Anne, 1 NEB INH QID PRN for SHORTNESS OF BREATH Allergies Coded Allergies: Qvyxjag-Mgi-Siv Reductase Inhibitor (Verified Adverse Reaction, Intermedia te, upset stomach, 03/25/19) varenicline (Verified Adverse Reaction, Intermediate, hallucinations, 03/25/19) Quinolones (Verified Adverse Reaction, Mild, palpitations, 10/29/19) patient tolerated levaquin in oct 2019 admission. A-FIB/CHADSVASC A-FIB History Current/History of A-Fib/PAF?: Yes Current PO Anticoag Therapy: Yes KAROL MOSQUERA MD Nov 10, 2019 13:28
--- NOTE | 2019-11-10 13:37 | REP ---
Ultrasound: Comparison is 10/23/2019. The right kidney measures 7.8 x 3.6 x 4.1 cm. Left kidney measures 7.6 x 3.4 by 4.0 cm. The kidneys are atrophic. Renal cortical echogenicity is normal bilaterally. There is no hydronephrosis on the right on the left. There are no renal calculi. There are no solid or cystic renal masses. Bladder: The bladder is incompletely distended and cannot be further evaluated. Impression: Bilateral atrophic kidneys. No hydronephrosis, calculus, mass or cyst. Renal cortical echogenicity is normal bilaterally. Electronically Signed by Jimmy Melendez MD 11/10/2019 01:29 P
[2019-11-10] MEDS: predniSONE 50 MG TAB PO SCH (14:17)
[2019-11-10] MEDS: NS 1,000 ML IV SCH (14:18)
[2019-11-10 16:00] VITALS: BP 121/59
[2019-11-10 17:07] VITALS: BP 144/65
[2019-11-10] MEDS: MIDODRINE 5 MG TAB PO SCH (17:59)
--- NOTE | 2019-11-10 18:36 | ECGEPIP ---
[facility] Test Date: 2019-11-10 Pat Name: JONN KIMBALL Department: Room: [place] [address] Gender: Female [employer] Specialist: SYBIL : 1945 Requested By: TAHMINA Zaragoza Order Number: [id number] Reading MD: Cindy Villa Measurements Intervals [place] Rate: 79 P: 82 ME: 155 QRS: 63 QRSD: 91 T: 75 QT: 325 QTc: 373 Interpretive Statements SINUS RHYTHM INDETERMINATE AXIS PROBABLE INFERIOR MYOCARDIAL INFARCTION, PROBABLY OLD COMPARED TO 10/23/19 SINUS RHYTHM REPLACED ATRIAL FIBRILLATION AND ST SEGMENT DEPRESSIONS ARE NO LONGER PRESENT Electronically Signed on 11-10-2019 18:35:56 EST by Cindy Villa
[2019-11-10] MEDS: ADVAIR HFA 230/21MCG INHALER INH SCH (19:56)
[2019-11-10 20:00] VITALS: BP 135/63
[2019-11-10] MEDS ORDERED: TOBRAMYCIN INHAL 300 MG/5 ML SOLN INH SCH (20:00)
[2019-11-11] VITALS (21 sets, daily range): BP systolic 119–159; BP diastolic 57–63; O2SAT 87–97
[2019-11-11] MEDS: NS 1,000 ML IV SCH (01:56)
[2019-11-11 05:20] LABS: HEMATOCRIT 28.9 % (36.0-47.0); HEMOGLOBIN 8.8 g/dl (12.0-15.5); MEAN CORPUSCULAR HEMOGLOBIN 29.4 pg (27.0-33.0); MEAN CORPUSCULAR HGB CONC 30.4 g/dl (32.0-36.5); MEAN CORPUSCULAR VOLUME 96.7 fl (80.0-96.0); PLATELET COUNT, AUTOMATED 214 10^3/uL (150-450); RED BLOOD COUNT 2.99 10^6/uL (4.00-5.40); WHITE BLOOD COUNT 7.5 10^3/uL (4.0-10.0)
[2019-11-11 05:49] LABS: ALBUMIN 2.4 GM/DL (3.2-5.2); BILIRUBIN,TOTAL 0.4 MG/DL (0.2-1.0); CREATININE FOR GFR 1.88 MG/DL (0.55-1.30); GLOMERULAR FILTRATION RATE 27.7 (>39); MAGNESIUM LEVEL 2.2 MG/DL (1.8-2.4); POTASSIUM SERUM 4.4 MEQ/L (3.5-5.1); TOTAL PROTEIN 5.5 GM/DL (6.4-8.2)
[2019-11-11] MEDS: ADVAIR HFA 230/21MCG INHALER INH SCH ×2 (08:00→20:29)
[2019-11-11] MEDS: DOCUSATE SODIUM 100 MG CAP PO SCH (09:33)
[2019-11-11] MEDS: MULTIVITAMINS/MINERALS THERAP 1 TAB PO SCH (09:33)
[2019-11-11] MEDS: bisoproloL fumarate 5 MG TAB PO SCH (09:34)
[2019-11-11] MEDS: APIXABAN 2.5 MG TAB (ELIQUIS) PO SCH ×2 (09:34→19:55)
[2019-11-11] MEDS: EZETIMIBE 10 MG TAB (ZETIA) PO SCH (09:34)
[2019-11-11] MEDS: predniSONE 50 MG TAB PO SCH (09:34)
[2019-11-11] MEDS: MIDODRINE 5 MG TAB PO SCH ×2 (09:34→16:42)
[2019-11-11] MEDS ORDERED: SLF 3 ML SYR IV PRN (12:15)
--- NOTE | 2019-11-11 13:13 | CR ---
DATE OF CONSULTATION: 11/11/2019 NEPHROLOGY CONSULTATION FOR: Dr. Callejas REASON FOR CONSULTATION: Acute and chronic kidney disease in this lady with shortness of breath. HISTORY OF PRESENT ILLNESS: Mrs. Evans is a 74-year-old female with multiple chronic medical problems including a history of coronary artery disease, diastolic congestive heart failure, atrial fibrillation, chronic obstructive pulmonary artery disease (COPD) and home oxygen dependent, recent history of pneumonia for which she was admitted to hospital and discharged last week. She was admitted yesterday due to hypotension and also noticed to have acute renal failure with creatinine up to 2.0. She does have some leg edema and was given IV fluid due to hypotension and acute renal failure. Nephrology consultation was requested today and the patient is seen this morning on her bedside. PAST MEDICAL AND SURGICAL HISTORY: Significant for: 1. History of chronic atrial fibrillation. 2. Coronary artery disease with prior angioplasty and stents. 3. History of COPD home oxygen dependent. 4. History of diastolic congestive heart failure. 5. History of chronic kidney disease. 6. History of carotid artery disease, status post carotid endarterectomy. 7. Recent history of pneumonia. MEDICATIONS: Her home medications included: amiodarone 200 mg twice a week, Eliquis 5 mg twice a day, bisoprolol 2.5 mg daily, Colace 100 mg daily, Zetia 10 mg daily, midodrine 10 mg twice a day, multivitamin one tablet daily, Advair Diskus 500/50 one puff twice a day, tobramycin inhalation 300 mg per 5 mL ampoule twice a day, Anoro Ellipta inhaler once a day, albuterol inhaler as needed for dyspnea, hydrocortisone ointment for hemorrhoids as needed and Tylenol as needed. ALLERGIES: She has intolerance to STATINS, allergy to QUINOLONES and also VARENICLINE. PERSONAL AND SOCIAL HISTORY: Patient has long history of heavy smoking of 1.5 pack of cigarettes daily for the last 50 years. She has no history of alcohol or drug use. FAMILY HISTORY: Is significant for coronary artery disease. REVIEW OF SYSTEMS: The patient is quite short of breath and has recurrent cough. She denies any fever or chills at present. Ears, nose and throat are unremarkable. She denies any nosebleed or sore throat. Cardiovascular system is significant for diastolic congestive heart failure and shortness of breath. Respiratory system is significant for cough, oxygen-dependent COPD and recent history of pneumonia. GI system is significant for gastroesophageal reflux disease. She denies any vomiting or diarrhea. system is negative for dysuria or hematuria. Endocrine system is negative for diabetes. She has no known history of thyroid problems. Hematological system is significant for chronic anticoagulation with Eliquis. She denies any excessive bleeding or bruising. Psychosocial system is negative for depression or anxiety. Musculoskeletal system is significant for leg edema and degenerative arthritis. PHYSICAL EXAMINATION: Elderly frail lady sitting at the edge of bed. She is quite tachypneic with respiratory rate about 24 per minute. Temperature is 97 degrees Fahrenheit, heart rate 80 per minute and blood pressure 133/63 mmHg. Oxygen saturation is 96% on 4-6 liters oxygen. Her head is atraumatic. Pupils are equal and reactive to light and sclera is anicteric. There is no oral thrush or ulcers. Neck is supple and jugular venous distention (JVD) is mildly elevated. Heart sounds are irregular in rhythm and lungs have bilateral rhonchi and expiratory wheezing. Abdomen soft and nontender and bowel sounds are normal. Extremities without any cyanosis or clubbing. Lower extremity edema is 2+ and limited to up to mid calf area. Neurologically she is awake, alert and without a focal deficit. LABORATORY DATA: On admission her WBC count was 16.8, hemoglobin 10.0, hematocrit 33.2. Today her WBC count is 7.5, hemoglobin 8.8 and hematocrit 28.9. Platelets 214. Sodium was 142 yesterday and potassium 3.9. BUN 41 and creatinine 2.02. Lactic acid level 2.1. Today her sodium is 145, potassium 4.4, CO2 31, BUN 41 and creatinine 1.88. Glucose is 127 and calcium 8.0. Total protein 5.5 and albumin 2.4. A renal ultrasound has already been done and it was reviewed independently. Her right kidney is only 7.8 cm in size and left kidney 7.6 cm without any hydronephrosis or mass. Chest x-ray showed slight blunting of left costophrenic angle but no effusion or infiltrate. PROBLEMS: 1. Acute renal failure superimposed on chronic kidney disease. The patient was discharged from [facility] just recently and her creatinine was 1.20 on November 06. At the time of last admission her creatinine was 3.0 and improved with IV fluids. She has small kidneys bilaterally and seems to have at least stage 3 of chronic kidney disease even at baseline. Acute kidney injury is likely related to recent pneumonia and possible antibiotic use. I do not feel that clinically she is volume depleted. She does have leg edema and requiring 4-5 liters of oxygen. Her IV fluid is being stopped for now and we will monitor her kidney function closely. I am going to hold off on diuretic and see how she does during next 12-24 hours. Her edema seems to be limited to lower extremities and does not have any significant neck vein distension. Her chest x-ray also did not show any compelling evidence for volume overload. A urinalysis is being ordered as she could likely have acute interstitial nephritis due to antibiotics or nephrotoxicity. 2. Diastolic congestive heart. She does carry a diagnosis of diastolic congestive heart failure but she was not on any diuretic at home. I will hold off on diuretic for today and reevaluate her tomorrow. Because her blood pressure was low. I will not try to diurese her aggressively at this point. 3. Hypotension. She has been chronically on midodrine. Her blood pressure seems to be reasonably stable today. I do not feel that at this point any other intervention is indicated. Thank you for involving me in the care of Mrs. Evans. I will follow her along with you.
[2019-11-11] MEDS: SLF 3 ML SYR IV SCH ×2 (16:42→19:56)
--- NOTE | 2019-11-11 17:30 | IPNPDOC ---
Date Seen The patient was seen on 11/11/19. Progress Note HISTORY OF PRESENT ILLNESS: 74-year-old female with past medical history of atrial fibrillation, diastolic CHF, asthma, COPD (oxygen dependent), coronary artery disease, [place], status post cardiac stent and hypertension is sent from Dr. Craig's office for hypotension and fatigue. Patient was recently admitted for 2 weeks due to acute kidney injury and pneumonia. Patient was discharged 4 days ago, reports feeling fatigued at the time of discharge, which is continued to worsen since then. She went to follow-up with Dr. Craig today and sent to the hospital. Patient was treated with meropenem and Levaquin. During hospitalization, was sent home on Levaquin to complete her antibiotic regimen. Patient denies any worsening in her cough or dyspnea, has not been mobile at home for the past few days due to the significant fatigue. She does have bilateral lower extremity swelling, worsened over the past few days. She has no additional complaints, denies any chest pain, nausea, vomiting, abdominal pain or diarrhea. 11/11/19 Patient seen in the morning, slightly worsening dyspnea today, reports impro vement in weakness today, no other changes. She denies any chest pain, nausea, vomiting, abdominal pain or diarrhea. 10 point review of system is negative except for above PHYSICAL EXAMINATION: VITAL SIGNS: Please see below. GENERAL: Frail HEENT: Normocephalic, atraumatic, moist mucous membranes NECK: Supple CARDIOVASCULAR EXAMINATION: S1, S2, no murmurs RESPIRATORY EXAMINATION: Diminished and distant breath sounds, scattered rhonchi, no wheezing ABDOMINAL EXAMINATION: Soft, nontender, nondistended, positive bowel sounds EXTREMITIES: Bilateral lower extremity pitting edema SKIN: No rash NEUROLOGICAL EXAMINATION: Alert and oriented 3, no focal deficits PSYCHIATRIC EXAMINATION: Calm and cooperative LABORATORY DATA: See below. IMAGING: Chest x-ray without acute pathology, left pleural effusion improved from prior MICROBIOLOGY: Please see below. ASSESSMENT: 74-year-old female with multiple medical comorbidities who was recently admitted for pneumonia, acute kidney injury presents from Dr. Craig's office with hypotension and worsening fatigue. PLAN: 1. Acute kidney injury. Possibly due to decreased oral intake versus diuretics versus acute interstitial nephritis from antibiotics, minimal change with IV hydration, urinalysis pending to assess for AIN, nephrology consulted 2. Hypotension. Improved with IV hydration, continue midodrine 10 mg twice a day. 3. Diastolic congestive heart failure. TTE pending, hold diuretics for now. 4. Atrial fibrillation. Continue Eliquis at 2.5 mg twice a day. Continue amiodarone 5. Coronary artery disease. History of [place], status post coronary stent, continue Zetia and beta lexi. 6. COPD On home oxygen, 2-3 L, continue home regimen, supplemental oxygen as needed to maintain O2 sats between 88-92%. DVT prophylaxis: on Eliquis GI prophylaxis: Not needed VS, I&O, 24H, Fishbone Vital Signs/I&O Vital Signs Date Time Temp Pulse Resp B/P (MAP) Pulse Ox O2 Delivery O2 Flow Rate FiO2 11/11/19 15:38 97.7 83 20 159/63 (95) 96 Nasal Cannula 4.0 I&O- Last 24 Hours up to 6 AM 11/11/19 06:00 Intake Total 1160 ml Output Total 875 ml Balance 285 ml Laboratory Data 24H LABS Laboratory Tests 2 11/11/19 05:01: Nucleated Red Blood Cells % (auto) 0.0, Anion Gap 5L, Glomerular Filtration Rate 27.7L, Calcium Level 8.0L, Magnesium Level 2.2, Total Bilirubin 0.4, Aspartate Amino Transf (AST/SGOT) 17, Alanine Aminotransferase (ALT/SGPT) 17, Alkaline Phosphatase 120H, Total Protein 5.5L, Albumin 2.4L, Albumin/Globulin Ratio 0.77L 11/11/19 08:36: Urine Random Creatinine 113.0, Urine Random Sodium 41, Urine Random Urea Nitrogen 695 CBC/BMP Laboratory Tests 11/11/19 05:01 Microbiology Microbiology 11/10/19 Respiratory Virus Panel (PCR) ([facility]) - Final, Complete Human Rhinovirus/Enterovirus 11/10/19 Blood Culture - Preliminary, Resulted No growth after 24 hours . All specim... KAROL MOSQUERA MD Nov 11, 2019 17:30
--- NOTE | 2019-11-11 22:15 | ECHO ---
DATE OF PROCEDURE: 11/10/2019 Date of : 1945 Age: 74 REFERRING PHYSICIAN: Hardik Callejas MD PATIENT LOCATION: Room 3206 REASON FOR EXAM: Congestive heart failure. 2D MEASUREMENTS: IVS: 1.1 cm LV: 3.9 cm LVPW: 0.9 cm LA: 2.6 cm Aorta: 2.4 cm IVC: 1.2 cm DOPPLER MEASUREMENTS: Peak velocity across the aortic valve: 1.7 m/s Peak gradient across the aortic valve: 12.0 mmHg Mitral E: 0.7, Mitral A: 1.4 with a ratio of 0.5 Maximum tricuspid valve velocity: 2.0 m/s 2D COMMENTS: 1. Normal left ventricular size, wall thickness, and normal global left ventricular systolic function. The estimated left ventricular systolic ejection fraction is 60-65%. 2. Normal left atrium. Normal right atrium and right ventricle. 3. The atrial septum appeared to be normal without evidence of defect or shunt. 4. Normal aortic root. 5. A small pericardial effusion was noted, no evidence of cardiac tamponade. 6. Mildly calcified aortic valve with normal leaflet excursion. Mildly calcified mitral annulus with normal anterior mitral valve leaflet motion. Normal tricuspid valve and pulmonic valve. The proximal pulmonary artery branches were not well visualized. 7. The inferior vena cava was normal in size, central venous pressure is most likely normal. DOPPLER: Doppler detects mild mitral regurgitation, trace tricuspid regurgitation, and trace pulmonic regurgitation. The calculated pulmonary artery systolic pressure was normal. Assessment of the left ventricular diastolic function revealed abnormal relaxation across the mitral valve leaflets consistent with features of grade 1 left ventricular diastolic dysfunction. IMPRESSION 1. Normal global left ventricular systolic function. There are some features of left ventricular diastolic dysfunction manifested by abnormal relaxation. 2. Aortic valve sclerosis with trivial aortic stenosis. There was no aortic regurgitation. 3. Mitral annulus calcification with mild mitral regurgitation. 4. Trace tricuspid regurgitation with a normal calculated pulmonary artery systolic pressure. 5. A small pericardial effusion, no evidence of cardiac tamponade. 6. Not mentioned above, calcified papillary muscle was noted. MTDD
[2019-11-12] VITALS (22 sets, daily range): BP systolic 112–144; BP diastolic 60–67; O2SAT 84–99
[2019-11-12 03:33] LABS: APPEARANCE, URINE HAZY (CLEAR); BACTERIA, URINE AUTO NEGATIVE (NEGATIVE); BILIRUBIN, URINE AUTO NEGATIVE (NEGATIVE); BLOOD, URINE BLOOD NEGATIVE (NEGATIVE); COLOR, URINE YELLOW (YELLOW); GLUCOSE, URINE (UA) AUTO NEGATIVE (NEGATIVE); KETONE, URINE AUTO NEGATIVE (NEGATIVE); LEUKOCYTE ESTERASE, URINE AUTO NEGATIVE (NEGATIVE); MUCUS, URINE SMALL (NEGATIVE); NITRITE, URINE AUTO NEGATIVE (NEGATIVE); PROTEIN, URINE AUTO NEGATIVE (NEGATIVE); RBC, URINE AUTO 1 /HPF (0-3); SPECIFIC GRAVITY URINE AUTO 1.017 (1.002-1.035); SQUAMOUS EPITHELIAL CELL UR AU 1 /HPF (0-6); UROBILINOGEN, URINE AUTO 0.2 mg/dL (0.0-2.0); WBC, URINE AUTO 2 /HPF (0-3)
[2019-11-12 05:46] LABS: HEMATOCRIT 27.8 % (36.0-47.0); HEMOGLOBIN 8.4 g/dl (12.0-15.5); MEAN CORPUSCULAR HEMOGLOBIN 29.1 pg (27.0-33.0); MEAN CORPUSCULAR HGB CONC 30.2 g/dl (32.0-36.5); MEAN CORPUSCULAR VOLUME 96.2 fl (80.0-96.0); PLATELET COUNT, AUTOMATED 248 10^3/uL (150-450); RED BLOOD COUNT 2.89 10^6/uL (4.00-5.40)
[2019-11-12] MEDS: SLF 3 ML SYR IV SCH ×3 (06:00→21:00)
[2019-11-12 06:15] LABS: CALCIUM LEVEL 8.4 MG/DL (8.8-10.2); CREATININE FOR GFR 1.77 MG/DL (0.55-1.30); GLOMERULAR FILTRATION RATE 29.7 (>39); POTASSIUM SERUM 3.9 MEQ/L (3.5-5.1)
[2019-11-12] MEDS: ADVAIR HFA 230/21MCG INHALER INH SCH ×2 (07:46→19:33)
[2019-11-12] MEDS ORDERED: AMIODARONE 200 MG TAB (PACERONE) PO SCH (09:00)
[2019-11-12] MEDS: DOCUSATE SODIUM 100 MG CAP PO SCH (10:07)
[2019-11-12] MEDS: MIDODRINE 5 MG TAB PO SCH ×2 (10:09→17:30)
[2019-11-12] MEDS: EZETIMIBE 10 MG TAB (ZETIA) PO SCH (10:09)
[2019-11-12] MEDS: MULTIVITAMINS/MINERALS THERAP 1 TAB PO SCH (10:09)
[2019-11-12] MEDS: APIXABAN 2.5 MG TAB (ELIQUIS) PO SCH ×2 (10:10→21:00)
[2019-11-12] MEDS: predniSONE 50 MG TAB PO SCH (10:10)
[2019-11-12] MEDS: bisoproloL fumarate 5 MG TAB PO SCH (10:11)
[2019-11-12] MEDS ORDERED: FUROSEMIDE 40 MG TAB PO ONE (11:00)
--- NOTE | 2019-11-12 11:18 | IPN ---
DATE: 11/12/2019 Dr. Blanco Mrs. Evans is seen this morning on her bedside. She is feeling better and reports that her dyspnea is improving. She denies any nausea or vomiting. She still on 4 liters oxygen. PHYSICAL EXAMINATION: Temperature 97.6 degrees Fahrenheit, heart rate 80 per minute and respiratory rate 18 per minute. Blood pressure 112/60 mmHg and oxygen saturation 98% on 4 liters oxygen. Her head is atraumatic. Neck: Supple and jugular venous distention (JVD) difficult to be assessed sitting upright in the chair. Lungs: Diminished breath sounds at bases bilaterally. Heart: Sounds are regular. Abdomen soft and benign. Extremities have 1+ edema on lower legs but no cyanosis or clubbing. Neurologically she is awake, alert and oriented times three. Today's labs show WBC count 12.0, hemoglobin 8.4 and hematocrit 27.8. Sodium 144, potassium 3.9, CO2 29, BUN 43 and creatinine 1.77. Glucose 125 and calcium 8.4. PROBLEMS: 1. Acute on chronic kidney disease: She has slight improvement in her kidney function since yesterday. Her IV fluid was stopped yesterday due to hypoxemia and volume overload. 2. Shortness of breath: She does have some edema and slight volume overload. Most likely her shortness of breath is multifactorial. She has been diagnosed with rhinovirus in her respiratory system and I am going to give her one dose of Lasix 40 mg today. 3. Anemia: Her anemia is also slightly worse and will need to be monitor closely. No urgent intervention is needed at present.
--- NOTE | 2019-11-12 17:32 | IPNPDOC ---
Date Seen The patient was seen on 11/12/19. Progress Note HISTORY OF PRESENT ILLNESS: 74-year-old female with past medical history of atrial fibrillation, diastolic CHF, asthma, COPD (oxygen dependent), coronary artery disease, [place], status post cardiac stent and hypertension is sent from Dr. Craig's office for hypotension and fatigue. Patient was recently admitted for 2 weeks due to acute kidney injury and pneumonia. Patient was discharged 4 days ago, reports feeling fatigued at the time of discharge, which is continued to worsen since then. She went to follow-up with Dr. Craig today and sent to the hospital. Patient was treated with meropenem and Levaquin. During hospitalization, was sent home on Levaquin to complete her antibiotic regimen. Patient denies any worsening in her cough or dyspnea, has not been mobile at home for the past few days due to the significant fatigue. She does have bilateral lower extremity swelling, worsened over the past few days. She has no additional complaints, denies any chest pain, nausea, vomiting, abdominal pain or diarrhea. 11/11/19 Patient seen in the morning, slightly worsening dyspnea today, reports impro vement in weakness today, no other changes. She denies any chest pain, nausea, vomiting, abdominal pain or diarrhea. 11/12/19 Patient comfortable in bed, continues to have dyspnea and cough, unchanged from yesterday, no other complaints at this time. 10 point review of system is negative except for above PHYSICAL EXAMINATION: VITAL SIGNS: Please see below. GENERAL: Frail HEENT: Normocephalic, atraumatic, moist mucous membranes NECK: Supple CARDIOVASCULAR EXAMINATION: S1, S2, no murmurs RESPIRATORY EXAMINATION: Diminished and distant breath sounds, scattered rhonchi, no wheezing ABDOMINAL EXAMINATION: Soft, nontender, nondistended, positive bowel sounds EXTREMITIES: Bilateral lower extremity pitting edema SKIN: No rash NEUROLOGICAL EXAMINATION: Alert and oriented 3, no focal deficits PSYCHIATRIC EXAMINATION: Calm and cooperative LABORATORY DATA: See below. IMAGING: Chest x-ray without acute pathology, left pleural effusion improved from prior MICROBIOLOGY: Please see below. ASSESSMENT: 74-year-old female with multiple medical comorbidities who was recently admitted for pneumonia, acute kidney injury presents from Dr. Craig's office with hypotension and worsening fatigue. PLAN: 1. Acute on chronic kidney disease Possibly due to decreased oral intake versus diuretics, slight improvement from yesterday, received oral Lasix today, will monitor, nephrology following 2. Hypotension. Resolved with IV hydration, continue midodrine 3. Diastolic congestive heart failure. TTE reviewed, normal EF, diastolic dysfunction, small pericardial effusion, received 40 mg of Lasix today. 4. Atrial fibrillation. Continue Eliquis at 2.5 mg twice a day. Continue amiodarone 5. Coronary artery disease. History of [place], status post coronary stent, continue Zetia and beta lexi. 6. COPD On home oxygen, 2-3 L, continue home regimen, supplemental oxygen as needed to maintain O2 sats between 88-92%. DVT prophylaxis: on Eliquis GI prophylaxis: Not needed VS, I&O, 24H, Fishbone Vital Signs/I&O Vital Signs Date Time Temp Pulse Resp B/P (MAP) Pulse Ox O2 Delivery O2 Flow Rate FiO2 11/12/19 16:21 93 Nasal Cannula 3.0 11/12/19 15:31 97.6 66 20 137/63 (87) I&O- Last 24 Hours up to 6 AM0 11/12/19 06:00 Intake Total 540 ml Output Total 800 ml Balance -260 ml Laboratory Data 24H LABS Laboratory Tests 2 11/12/19 03:15: Urine Color YELLOW, Urine Appearance HAZY, Urine pH 5.0, Urine Specific Hamill 1.017, Urine Protein NEGATIVE, Urine Glucose (Auto)(UA) NEGATIVE, Urine Ketones (Auto) NEGATIVE, Urine Blood NEGATIVE, Urine Nitrite NEGATIVE, Urine Bilirubin NEGATIVE, Urine Urobilinogen 0.2, Urine Leukocyte Esterase (Auto) NEGATIVE, Urine WBC (Auto) 2, Urine RBC (Auto) 1, Urine Hyaline Casts (Auto) 3, Urine B acteria (Auto) NEGATIVE, Urine Squamous Epithelial Cells 1, Urine Mucus (Auto) SMALL, Urine Sperm (Auto) 11/12/19 05:20: Nucleated Red Blood Cells % (auto) 0.0, Anion Gap 5L, Glomerular Filtration Rate 29.7L, Calcium Level 8.4L CBC/BMP Laboratory Tests 11/12/19 05:20 Microbiology Microbiology 11/10/19 Respiratory Virus Panel (PCR) ([facility]) - Final, Complete Human Rhinovirus/Enterovirus 11/10/19 Blood Culture - Preliminary, Resulted No Growth after 48 hours. All Specime... KAROL MOSQUERA MD Nov 12, 2019 17:32
[2019-11-13] VITALS (28 sets, daily range): BP systolic 137–166; BP diastolic 60–78; O2SAT 90–100
[2019-11-13] MEDS: IPRATROPIUM 0.5MG/ALBUTEROL 2.5MG INH SOL UD 3ML (DUONEB)(J7620) INH PRN ×2 (03:53→22:01)
[2019-11-13 06:04] LABS: HEMOGLOBIN 8.5 g/dl (12.0-15.5); MEAN CORPUSCULAR HEMOGLOBIN 29.1 pg (27.0-33.0); MEAN CORPUSCULAR HGB CONC 30.4 g/dl (32.0-36.5); MEAN CORPUSCULAR VOLUME 95.9 fl (80.0-96.0); PLATELET COUNT, AUTOMATED 248 10^3/uL (150-450); RED BLOOD COUNT 2.92 10^6/uL (4.00-5.40)
[2019-11-13 06:27] LABS: CALCIUM LEVEL 8.8 MG/DL (8.8-10.2); CREATININE FOR GFR 2.17 MG/DL (0.55-1.30); GLOMERULAR FILTRATION RATE 23.5 (>39); POTASSIUM SERUM 4.1 MEQ/L (3.5-5.1)
[2019-11-13] MEDS: SLF 3 ML SYR IV SCH ×3 (06:40→21:22)
[2019-11-13] MEDS: ADVAIR HFA 230/21MCG INHALER INH SCH ×2 (07:33→19:35)
[2019-11-13] MEDS: DOCUSATE SODIUM 100 MG CAP PO SCH (09:30)
[2019-11-13] MEDS: predniSONE 20 MG TAB PO SCH (09:30)
[2019-11-13] MEDS: APIXABAN 2.5 MG TAB (ELIQUIS) PO SCH ×2 (09:30→21:21)
[2019-11-13] MEDS: MULTIVITAMINS/MINERALS THERAP 1 TAB PO SCH (09:31)
[2019-11-13] MEDS: MIDODRINE 5 MG TAB PO SCH ×2 (09:31→17:21)
[2019-11-13] MEDS: bisoproloL fumarate 5 MG TAB PO SCH (09:31)
[2019-11-13] MEDS: EZETIMIBE 10 MG TAB (ZETIA) PO SCH (09:31)
[2019-11-13 16:05] LABS: PERCENT SATURATION 5.9 % (13.2-45.0)
--- NOTE | 2019-11-13 16:22 | IPN ---
DATE: 11/13/2019 Mrs. Evans is seen this morning on her bedside. She is feeling much better today and reports that her leg edema has resolved. Her dyspnea is improving and about at baseline now. She has chronic hypoxemia and has been on home oxygen. She tested positive for human rhinovirus since admission. PHYSICAL EXAMINATION Temperature 98 degrees Fahrenheit, heart rate 64 per minute and respiratory rate 22 per minute. Blood pressure 138/64 mmHg and oxygen saturation 95% on 4 liters oxygen. Head is atraumatic. Neck veins are only visible just above the sternum. There is no oral thrush or ulcers. Heart: Sounds are regular and lungs with chronic rhonchi bilaterally. Abdomen: Soft and nontender and bowel sounds are normal. Extremities: Without any cyanosis or clubbing. Neurologically she is awake, alert and at her baseline mentation. Today's labs show WBC count 12.0, hemoglobin 8.5 and hematocrit 28.0. Platelets 248. Sodium 144, potassium 4.1, CO2 29, BUN 47 and creatinine 2.17. Glucose 116 and calcium 8.8. PROBLEMS 1. Acute on chronic kidney disease most likely related to diuretic use. She has slight increase in the BUN and creatinine since yesterday. She has small kidneys bilaterally and I feel that she has significant underlying chronic kidney disease. At present, her volume status is reasonably well-compensated and I will not favor giving her any IV fluid. 2. Anemia. Her anemia is stable and moderate in severity. I will add iron studies and consider giving her a dose of Aranesp if her iron stores are adequate. 3. Chronic hypoxemia and congestive heart failure. Her volume status is now well compensated and hypoxemia seems to be mostly chronic. She has been on home oxygen.
--- NOTE | 2019-11-13 19:28 | IPNPDOC ---
Date Seen The patient was seen on 11/13/19. Progress Note HISTORY OF PRESENT ILLNESS: 74-year-old female with past medical history of atrial fibrillation, diastolic CHF, asthma, COPD (oxygen dependent), coronary artery disease, [place], status post cardiac stent and hypertension is sent from Dr. Craig's office for hypotension and fatigue. Patient was recently admitted for 2 weeks due to acute kidney injury and pneumonia. Patient was discharged 4 days ago, reports feeling fatigued at the time of discharge, which is continued to worsen since then. She went to follow-up with Dr. Craig today and sent to the hospital. Patient was treated with meropenem and Levaquin. During hospitalization, was sent home on Levaquin to complete her antibiotic regimen. Patient denies any worsening in her cough or dyspnea, has not been mobile at home for the past few days due to the significant fatigue. She does have bilateral lower extremity swelling, worsened over the past few days. She has no additional complaints, denies any chest pain, nausea, vomiting, abdominal pain or diarrhea. 11/11/19 Patient seen in the morning, slightly worsening dyspnea today, reports impro vement in weakness today, no other changes. She denies any chest pain, nausea, vomiting, abdominal pain or diarrhea. 11/12/19 Patient comfortable in bed, continues to have dyspnea and cough, unchanged from yesterday, no other complaints at this time. 11/13/19 Patient seen in the morning, comfortable in chair, reports slight fatigue today, dyspnea and lower extremity swelling have improved, continues to have significant coughing. She has no other complaints at this time 10 point review of system is negative except for above PHYSICAL EXAMINATION: VITAL SIGNS: Please see below. GENERAL: Frail HEENT: Normocephalic, atraumatic, moist mucous membranes NECK: Supple CARDIOVASCULAR EXAMINATION: S1, S2, no murmurs RESPIRATORY EXAMINATION: Diminished and distant breath sounds, scattered rhonchi, no wheezing ABDOMINAL EXAMINATION: Soft, nontender, nondistended, positive bowel sounds EXTREMITIES: Bilateral lower extremity pitting edema, improving SKIN: No rash NEUROLOGICAL EXAMINATION: Alert and oriented 3, no focal deficits PSYCHIATRIC EXAMINATION: Calm and cooperative LABORATORY DATA: See below. MICROBIOLOGY: Please see below. ASSESSMENT: 74-year-old female with multiple medical comorbidities who was recently admitted for pneumonia, acute kidney injury presents from Dr. Craig's office with hypotension and worsening fatigue. PLAN: 1. Acute on chronic kidney disease Worsened with Lasix, will monitor without any diuresis, tentatively plan for discharge tomorrow if creatinine improves, nephrology following 2. Hypotension. Resolved with IV hydration, continue midodrine 3. Diastolic congestive heart failure. TTE reviewed, normal EF, diastolic dysfunction, small pericardial effusion, holding diuresis for now. 4. Atrial fibrillation. Continue Eliquis at 2.5 mg twice a day. Continue amiodarone 5. Coronary artery disease. History of CT, status post coronary stent, continue Zetia and beta lexi. 6. COPD exacerbation Secondary to human rhinovirus, prednisone decreased to 40 mg daily yesterday, will taper down as tolerated, continue supplemental oxygen as needed to maintain O2 sats between 88-92%, continue home regimen DVT prophylaxis: on Eliquis GI prophylaxis: Not needed VS, I&O, 24H, Fishbone Vital Signs/I&O Vital Signs Date Time Temp Pulse Resp B/P (MAP) Pulse Ox O2 Delivery O2 Flow Rate FiO2 11/13/19 19:01 97.5 80 22 137/62 (87) 91 Nasal Cannula 3.0 I&O- Last 24 Hours up to 6 AM 11/13/19 06:00 Intake Total 900 ml Output Total 1450 ml Balance -550 ml Laboratory Data 24H LABS Laboratory Tests 2 11/13/19 05:16: Nucleated Red Blood Cells % (auto) 0.0, Anion Gap 6L, Glomerular Filtration Rate 23.5L, Calcium Level 8.8, Iron Level 22L, Total Iron Binding Capacity 370, Transferrin % Saturation 5.9L CBC/BMP Laboratory Tests 11/13/19 05:16 Microbiology Microbiology 11/10/19 Respiratory Virus Panel (PCR) ([facility]) - Final, Complete Human Rhinovirus/Enterovirus 11/10/19 Blood Culture - Preliminary, Resulted No Growth after 72 hours. All specime... KAROL MOSQUERA MD Nov 13, 2019 19:28
[2019-11-14] VITALS (13 sets, daily range): BP systolic 149–159; BP diastolic 66–70; O2SAT 84–100
[2019-11-14] MEDS: IPRATROPIUM 0.5MG/ALBUTEROL 2.5MG INH SOL UD 3ML (DUONEB)(J7620) INH PRN (03:21)
[2019-11-14] MEDS: SLF 3 ML SYR IV SCH ×2 (04:39→14:22)
[2019-11-14 05:46] LABS: HEMATOCRIT 29.1 % (36.0-47.0); HEMOGLOBIN 8.6 g/dl (12.0-15.5); MEAN CORPUSCULAR HEMOGLOBIN 28.6 pg (27.0-33.0); MEAN CORPUSCULAR HGB CONC 29.6 g/dl (32.0-36.5); MEAN CORPUSCULAR VOLUME 96.7 fl (80.0-96.0); PLATELET COUNT, AUTOMATED 231 10^3/uL (150-450); RED BLOOD COUNT 3.01 10^6/uL (4.00-5.40); WHITE BLOOD COUNT 10.9 10^3/uL (4.0-10.0)
[2019-11-14 06:12] LABS: CALCIUM LEVEL 8.9 MG/DL (8.8-10.2); CREATININE FOR GFR 1.65 MG/DL (0.55-1.30); GLOMERULAR FILTRATION RATE 32.2 (>39); POTASSIUM SERUM 4.2 MEQ/L (3.5-5.1)
[2019-11-14] MEDS: EZETIMIBE 10 MG TAB (ZETIA) PO SCH (08:58)
[2019-11-14] MEDS: MULTIVITAMINS/MINERALS THERAP 1 TAB PO SCH (08:58)
[2019-11-14] MEDS: MIDODRINE 5 MG TAB PO SCH (08:58)
[2019-11-14] MEDS: APIXABAN 2.5 MG TAB (ELIQUIS) PO SCH (08:58)
[2019-11-14] MEDS: DOCUSATE SODIUM 100 MG CAP PO SCH (08:59)
[2019-11-14] MEDS: predniSONE 20 MG TAB PO SCH (08:59)
[2019-11-14] MEDS: bisoproloL fumarate 5 MG TAB PO SCH (08:59)
[2019-11-14] MEDS: ADVAIR HFA 230/21MCG INHALER INH SCH (10:26)
[2019-11-14] MEDS ORDERED: FERROUS GLUCONATE 324 MG TAB PO SCH (10:30)
[2019-11-14] MEDS ORDERED: PRED10TA2 PO (10:39)
[2019-11-14] MEDS ORDERED: FERR32TA PO (10:39)
[2019-11-14] MEDS ORDERED: ELIQ2.5T PO (10:39)
--- NOTE | 2019-11-14 11:36 | DS.PDOC ---
Discharge Summary General Date of Admission Nov 10, 2019 at 09:49 Date of Discharge 11/14/19 Attending Physician: KAROL MOSQUERA MD Discharge Summary PROCEDURES PERFORMED DURING STAY: None. ADMITTING DIAGNOSES: 1. Acute on chronic kidney disease, COPD exacerbation. DISCHARGE DIAGNOSES: 1. Acute on chronic kidney disease, COPD exacerbation. COMPLICATIONS/CHIEF COMPLAINT: CHF. HISTORY OF PRESENT ILLNESS: 74-year-old female with past medical history of chronic kidney disease, CHF and COPD, was admitted for acute on chronic kidney disease and COPD exacerbation. Respiratory viral panel was positive for human rhinovirus, as well to IV steroids and supportive care, O2 requirements are down to patient's baseline of 2-3 L via nasal cannula. Patient was advised by nephrology for acute kidney injury, received 1 dose of Lasix with significant rise in creatinine, creatinine back to patient's baseline today, no further diuresis. Patient will be discharged and advised to follow-up with nephrology within 1-2 weeks for further monitoring and treatment. Patient is clinically and hemodynamically stable for discharge and outpatient follow-up. Patient will be discharged on a prednisone taper for COPD exacerbation.. HOSPITAL COURSE: As above. DISCHARGE MEDICATIONS: Please see below. ALLERGIES: Please see below. PHYSICAL EXAMINATION: VITAL SIGNS: Please see below. GENERAL: Frail HEENT: Normocephalic, atraumatic, moist mucous membranes NECK: Supple CARDIOVASCULAR EXAMINATION: S1, S2, no murmurs RESPIRATORY EXAMINATION: Diminished and distant breath sounds, scattered rhonc hi, no wheezing ABDOMINAL EXAMINATION: Soft, nontender, nondistended, positive bowel sounds EXTREMITIES: Bilateral lower extremity pitting edema, improving SKIN: No rash NEUROLOGICAL EXAMINATION: Alert and oriented 3, no focal deficits PSYCHIATRIC EXAMINATION: Calm and cooperative LABORATORY DATA: Please see below. IMAGING: . Renal ultrasound with medical renal disease. Chest x-ray without acute pathology PROGNOSIS: Fair ACTIVITY: As tolerated. DIET: Cardiac DISCHARGE PLAN: Follow-up with pulmonary, nephrology and PCP within 1-2 weeks DISPOSITION: Home. DISCHARGE INSTRUCTIONS: 1. As above. DISCHARGE CONDITION: Stable. TIME SPENT ON DISCHARGE: Greater than 31 minutes. Vital Signs/I&Os Vital Signs Date Time Temp Pulse Resp B/P (MAP) Pulse Ox O2 Delivery O2 Flow Rate FiO2 11/14/19 10:00 96 Nasal Cannula 4.0 11/14/19 08:59 84 149/66 11/14/19 07:58 96.9 22 I&O- Last 24 Hours up to 6 AM 11/14/19 05:59 Intake Total 680 ml Output Total 850 ml Balance -170 ml Laboratory Data Labs 24H Laboratory Tests 2 11/14/19 05:23: Nucleated Red Blood Cells % (auto) 0.0, Anion Gap 4L, Glomerular Filtration Rate 32.2L, Calcium Level 8.9 CBC/BMP Laboratory Tests 11/14/19 05:23 Microbiology Microbiology 11/10/19 Respiratory Virus Panel (PCR) ([facility]) - Final, Complete Human Rhinovirus/Enterovirus 11/10/19 Blood Culture - Preliminary, Resulted No Growth after 72 hours. All specime... Discharge Medications Scheduled Amiodarone Hcl (Pacerone) 200 Mg Tablet, 200 MG PO 2XW, (Reported) MONDAYS AND THURSDAYS Apixaban (Eliquis) 2.5 Mg Tablet, 2.5 MG PO BID Bisoprolol Fumarate (Bisoprolol Fumarate) 5 Mg Tablet, 2.5 MG PO DAILY, (Reported) Docusate Sodium (Docusate Sodium) 100 Mg Cap, 100 MG PO DAILY, (Reported) Ezetimibe (Ezetimibe) 10 Mg Tablet, 10 MG PO DAILY, (Reported) Ferrous Gluconate (Ferrous Gluconate) 324 Mg Tablet, 324 MG PO DAILY Midodrine HCl (Midodrine HCl) 10 Mg Tablet, 10 MG PO BID, (Reported) Multivitamins (Thera M Plus Tablet) 1 Each Tablet, 1 TAB PO DAILY, (Reported) Prednisone (Prednisone) 10 Mg Tablet, 1 TAB PO BID Taper: 3 tabs daily x2 days followed by 2 tabs daily x2 days followed by 1 tab daily x2 days. Salmeterol/Fluticasone (Advair 500-50 Diskus) 28 Puff/Inhaler Aerp, 1 PUFF INH BID, (Reported) Tobramycin in 0.225% Sod Chlor (Tobramycin 300 mg/5 ml Ampule) 300 Mg/5 Ml Ampul.neb, 300 MG INH BID, (Reported) NEW MED STARTING 11/21/19 2 WEEKS ON, 2 WEEKS OFF Umeclidinium Brm/Vilanterol Tr (Anoro Ellipta 62.5-25 Mcg INH) 1 Aer Aer, 1 PUFF INH DAILY, (Reported) Scheduled PRN Acetaminophen (Acetaminophen) 325 Mg Tab, 650 MG PO Q4H PRN for PAIN, (Reported) Albuterol Sulfate (Ventolin Hfa) 108 Mcg/Act Aer, 2 PUFFS INH Q4H PRN for SHORTNESS OF BREATH, (Reported) Guaifenesin (Mucus ER) 600 Mg Tab.er.12h, 600 MG PO BID PRN for CONGESTION, (Reported) Hydrocortisone (Proctosol-Hc) 2.5 % Cre, 1 DOSE CA QID PRN for HEMORRHOIDS, (Reported) APPLY AFTER EACH BOWEL MOVEMENT Ipratropium/Albuterol Sulfate (Iprat-Albut 0.5-3(2.5) mg/3 ml) 1 Anne Anne, 1 NEB INH QID PRN for SHORTNESS OF BREATH, (Reported) Allergies Coded Allergies: Zwhliig-Gzy-Dqq Reductase Inhibitor (Verified Adverse Reaction, Intermediate, upset stomach, 03/25/19) varenicline (Verified Adverse Reaction, Intermediate, hallucinations, 03/25/19) Quinolones (Verified Adverse Reaction, Mild, palpitations, 10/29/19) patient tolerated levaquin in oct 2019 admission. KAROL MOSQUERA MD Nov 14, 2019 11:36
[2019-11-14] MEDS ORDERED: IRON SUCROSE 200 MG in NS 100 ML IV SCH (12:00)
--- NOTE | 2019-11-15 08:16 | IPN ---
DATE: 11/14/2019 SUBJECTIVE: The patient was seen and examined at the bedside today morning. She reports that she is feeling much better today. Her breathing is improving. Renal function is also improving, creatinine came down from 2.1 to 1.6. She denies any active complaints at this time. OBJECTIVE: Vital signs: Temperature is 96.9 degrees Fahrenheit, blood pressure 149/66, pulse is 84, respiratory rate of 22, saturating 84% on nasal cannula at 4 liters. Intake and output: Urine output recorded is 400 mL since overnight. Weight in the bed scale is stable at 53.3 kg. PHYSICAL EXAMINATION: General: The patient is awake, alert, oriented times three, sitting up on the sofa in no apparent distress. Head and neck exam: Extraocular muscles intact. Pupils equally round and reactive to light. Mucous membranes are moist. Neck is supple. There is no jugular venous distention (JVD). Cardiovascular: S1, S2, regular rate. No edema of the bilateral lower extremities. Respiratory: Chest is clear to auscultation bilaterally. Bilateral equal air entry. No rales or rhonchi. Abdomen: Soft, positive bowel sounds. Nontender. No organomegaly. Musculoskeletal: No clubbing or cyanosis. Pulses are 2+. Central nervous system (RN OFFICE): No focal deficit. Power is 5/5 in all extremities. LAB REVIEW: CBC showed a WBC of 10.9, hemoglobin 8.6, platelets are 231. BMP showed sodium 145, potassium 4.2, chloride 108, bicarbonate 33, BUN 46, creatinine is 1.6, it was 2.1 yesterday. Microbiology: No new cultures are positive so far. CURRENT INPATIENT MEDICATIONS: The patient's medications were all reviewed by me. I ordered Venofer 200 mg IV daily for the patient today morning. No other change in the medications today as compared with yesterday. ASSESSMENT/PLAN: 1. Acute kidney injury. Patient's renal function continues to improve. Diuretics were held. Creatinine has nicely improved to 1.6. Continue to encourage oral hydration. 2. Iron deficiency anemia. The patient has been started on Venofer 200 mg IV daily. She is going to get one dose today. If needed, she will be given IV iron as outpatient. She has been started on oral iron 324 mg by mouth daily as well. 3. Chronic diastolic congestive heart failure. Volume status is optimal. Diuretics are on hold because of acute kidney injury. She will need to follow up as outpatient for adjustment of diuretics. 4. Acute chronic obstructive pulmonary disease (COPD) exacerbation. It was secondary to rhinovirus infection. The patient is getting oxygen, nebulizations and prednisone. Management is as per primary team. DISPOSITION: The patient is optimized from a nephrology standpoint to be discharged from the hospital. She needs to follow up with nephrology within 2 weeks of discharge from the hospital.
== END 2019-11-14 15:30 | disposition home health service (06) | DRG 315 ==
LOC: M ICU 09:49 → M PCU 16:51
PROVIDERS: ADMIT General Practice; ATTEND Internal Medicine
DX: I95.9 Hypotension, unspecified (principal); N17.9 Acute kidney failure, unspecified; I50.32 Chronic diastolic (congestive) heart failure; J90 Pleural effusion, not elsewhere classified; J44.1 Chronic obstructive pulmonary disease with (acute) exacerbation; I48.91 Unspecified atrial fibrillation; I25.10 Atherosclerotic heart disease of native coronary artery without angina pectoris; Z79.01 Long term (current) use of anticoagulants; I25.2 Old myocardial infarction; Z95.5 Presence of coronary angioplasty implant and graft; Z99.81 Dependence on supplemental oxygen; F17.200 Nicotine dependence, unspecified, uncomplicated; Z79.899 Other long term (current) drug therapy; Z88.8 Allergy status to other drugs, medicaments and biological substances; N18.9 Chronic kidney disease, unspecified; R09.02 Hypoxemia; B34.8 Other viral infections of unspecified site; D64.9 Anemia, unspecified

== ENCOUNTER 2019-11-23 16:17 | Inpatient (IN) | payer MEDICARE ==
[~2019-11-23] VITALS: Ht 154.9 cm; Wt 48.8 kg
[~2019-11-23 16:17] MED LIST changes: +ELIQ2.5T PO; +FERR32TA PO; +VITMTA PO
[2019-11-23 16:51] LABS: BASO % 0.2 % (0.0-1.0); EOS # 0.4 10^3/uL (0.0-0.5); HEMATOCRIT 33.8 % (36.0-47.0); HEMOGLOBIN 10.4 g/dl (12.0-15.5); LYMPH # 0.9 10^3/uL (1.5-5.0); MEAN CORPUSCULAR HEMOGLOBIN 29.7 pg (27.0-33.0); MEAN CORPUSCULAR HGB CONC 30.8 g/dl (32.0-36.5); MEAN CORPUSCULAR VOLUME 96.6 fl (80.0-96.0); MONO # 0.6 10^3/uL (0.0-0.8); MONO % 4.4 % (0.0-5.0); NEUTROPHILS % 84.2 % (36.0-66.0); PLATELET COUNT, AUTOMATED 217 10^3/uL (150-450)
--- NOTE | 2019-11-23 16:59 | REP ---
Clinical: Cough and dyspnea. Comparison: 11/10/2019. Findings: Mediastinum and cardiac silhouette are stable. Lung ashton demonstrate diffuse chronic interstitial changes with small superimposed right lower lobe infiltrate/atelectasis. No effusion. No pneumothorax. Skeletal structures intact. Impression: Small right lower lobe atelectasis/infiltrate. Electronically Signed by Enrique Mullins MD 11/23/2019 04:49 P
[2019-11-23 17:02] LABS: INR 1.47; PROTHROMBIN TIME 17.6 SECONDS (11.8-14.0)
[2019-11-23 17:21] LABS: BLOOD UREA NITROGEN 25 MG/DL (7-18); CALCIUM LEVEL 8.5 MG/DL (8.8-10.2); CARBON DIOXIDE LEVEL 28 MEQ/L (21-32); CHLORIDE LEVEL 106 MEQ/L (98-107); CK-MB VALUE MASS 1.6 NG/ML (<3.6); CPK CREATINE PHOSPHOKINASE 48 U/L (26-192); CREATININE FOR GFR 1.53 MG/DL (0.55-1.30); GLOMERULAR FILTRATION RATE 35.1 (>39); GLUCOSE, FASTING 160 MG/DL (70-100); MB/CK RELATIVE INDEX 3.33 (< OR =4); SODIUM LEVEL 139 MEQ/L (136-145); TROPONIN I < 0.02 NG/ML (< 0.10)
[2019-11-23] MEDS: IPRATROPIUM 0.5MG/ALBUTEROL 2.5MG INH SOL UD 3ML (DUONEB)(J7620) NEB SCH ×3 (17:38→18:18)
[2019-11-23 17:54] LABS: NT-PRO BNP 6678 PG/ML (<450)
[2019-11-23 17:56] LABS: ABG BASE EXCESS 2.3 (-2.0-2.0); ABG HCO3 26.6 MEQ/L (22.0-26.0); ABG O2 SATURATION 92.1 % (95.0-99.0); ABG PARTIAL PRESSURE CO2 40.1 mmHg (35.0-45.0); ABG PARTIAL PRESSURE O2 61.3 mmHg (75.0-100.0); ABG STANDARD HCO3 26.4 MEQ/L (22.0-26.0); ABG TOTAL CO2 27.8 MEQ/L (23.0-31.0); ABG pH (ARTERIAL) 7.439 UNITS (7.350-7.450)
[2019-11-23] MEDS ORDERED: AZITHROMYCIN INJ 500 MG, VIAL MATE ADAPTER 1 EACH in D5W 250 ML IV ONE (18:00)
[2019-11-23] MEDS ORDERED: cefTRIAXone SOD 2 GM in D5W MINI-BAG PLUS 50 ML IV ONE (18:00)
[2019-11-23] MEDS ORDERED: FUROSEMIDE 20 MG/2 ML VIAL (J1940) IV ONE (18:15)
[2019-11-23] MEDS ORDERED: ELIQ2.5T PO (19:13)
[2019-11-23] MEDS ORDERED: FERR325T16 PO (19:13)
--- NOTE | 2019-11-23 19:48 | ECGEPIP ---
[facility] - ED Test Date: 2019-11-23 Pat Name: JONN KIMBALL Department: Room: - Gender: Female [employer]ing [employer]or: rachelle : 1945 Requested By: Riky Queen Order Number: [id number] Reading MD: Adia Shore Measurements Intervals [place] Rate: 67 P: 75 LA: 124 QRS: 61 QRSD: 90 T: 35 QT: 389 QTc: 412 Interpretive Statements SINUS RHYTHM POSSIBLE INFERIOR MYOCARDIAL INFARCTION, PROBABLY OLD LOW VOLTAGE LIMB DECREASED RATE 11/10/19 Electronically Signed on 11-23-2019 19:47:59 EST by Adia Shore
[2019-11-23] MEDS ORDERED: IPRATROPIUM 0.5MG/ALBUTEROL 2.5MG INH SOL UD 3ML (DUONEB)(J7620) INH PRN (21:15)
[2019-11-23] MEDS ORDERED: ANUSOL HC CREAM 30GM PR PRN (21:15)
[2019-11-23] MEDS ORDERED: guaiFENesin ER 600 MG TAB PO PRN (21:15)
[2019-11-23] MEDS ORDERED: ACETAMINOPHEN TAB 650MG DOSE (2X325MG) PO PRN (21:15)
--- NOTE | 2019-11-23 21:28 | HPEPDOC ---
General Date of Admission 11/23/19 Date of Service: Nov 23, 2019 Chief Complaint The patient is a 74-year-old female admitted with a reason for visit of SOB. Source: Patient, Family Exam Limitations: No limitations Timing/Duration: 24 hours Severity: Mild Associated Symptoms: Shortness of breath History of Present Illness Patient is 74 years old female with past history of atrial fibrillation, diastolic CHF, coronary artery diseases, COPD on home oxygen, baseline 3-4 L presented hospital with increased shortness of breath and leg swelling. Patient stated that today in the morning she was found to have low blood pressure 90/60, increased shortness of breath and increased leg swelling. Of note patient recently has been hospitalized for left lower lobe lung pneumonia due to pseudo monas aeruginosa infection.Patient was treated with meropenem and Levaquin. During hospitalization, was sent home on Levaquin to complete her antibiotic regimen. Patient denied any increased cough or sputum production. In emergency room patient was found to have increased BNP around 6600, white blood count 13, lactic acid 2.7. Chest x-ray shows left lower lobe small infiltrate, unchanged from previous x-ray. Patient denies any fever or chills Home Medications Scheduled Amiodarone Hcl (Pacerone) 200 Mg Tablet, 200 MG PO 2XW, (Reported) MONDAYS AND THURSDAYS Apixaban (Eliquis) 2.5 Mg Tablet, 2.5 MG PO BID, (Reported) Bisoprolol Fumarate (Bisoprolol Fumarate) 5 Mg Tablet, 2.5 MG PO DAILY, (Reported) Docusate Sodium (Docusate Sodium) 100 Mg Cap, 100 MG PO BID, (Reported) Ezetimibe (Ezetimibe) 10 Mg Tablet, 10 MG PO DAILY, (Reported) Ferrous Gluconate (Ferrous Gluconate) 324 Mg Tablet, 324 MG PO DAILY, (Reported) Midodrine HCl (Midodrine HCl) 10 Mg Tablet, 10 MG PO BID, (Reported) Multivitamins (Thera M Plus Tablet) 1 Each Tablet, 1 TAB PO DAILY, (Reported) Salmeterol/Fluticasone (Advair 500-50 Diskus) 28 Puff/Inhaler Aerp, 1 PUFF INH BID, (Reported) Umeclidinium Brm/Vilanterol Tr (Anoro Ellipta 62.5-25 Mcg INH) 1 Aer Aer, 1 PUFF INH DAILY, (Reported) Scheduled PRN Acetaminophen (Acetaminophen) 325 Mg Tab, 650 MG PO Q4H PRN for PAIN, (Reported) Albuterol Sulfate (Ventolin Hfa) 108 Mcg/Act Aer, 2 PUFFS INH Q4H PRN for SHORTNESS OF BREATH, (Reported) Guaifenesin (Mucus ER) 600 Mg Tab.er.12h, 600 MG PO BID PRN for CONGESTION, ( Reported) Hydrocortisone (Proctosol-Hc) 2.5 % Cre, 1 APPLIC ME QID PRN for HEMORRHOIDS, (Reported) APPLY AFTER EACH BOWEL MOVEMENT Ipratropium/Albuterol Sulfate (Iprat-Albut 0.5-3(2.5) mg/3 ml) 1 Anne Anne, 1 NEB INH QID PRN for SHORTNESS OF BREATH, (Reported) Allergies Coded Allergies: Qencmal-Oqn-Hwf Reductase Inhibitor (Verified Adverse Reaction, Intermediate, upset stomach, 03/25/19) varenicline (Verified Adverse Reaction, Intermediate, hallucinations, 03/25/19) Quinolones (Verified Adverse Reaction, Mild, palpitations, 10/29/19) patient tolerated levaquin in oct 2019 admission. Past Medical History Medical History 1. Atrial fibrillation. 2. Coronary artery disease. 3. COPD. 4. [place]. 5. Diastolic congestive heart failure. 6. Hypertension 7. Asthma Surgical History 1. Coronary stent placement. 2. Carotid endarterectomy. Family History Family history positive for heart disease Social History * Smoker: current smoker, greater than 1 pack/day Alcohol: Denies Drugs: denies A-FIB/CHADSVASC A-FIB History Current/History of A-Fib/PAF?: Yes Current PO Anticoag Therapy: Yes Review of Systems Constitutional: Denies: Chills, Fever Eyes: Denies: Pain, Vision change ENT: Denies: Head Aches Skin: Denies: Rash, Lesions Pulmonary: Reports: Dyspnea Cardiovascular: Reports: Edema (bilateral legs edema); Denies: Chest Pain, Palpitations Gastrointestinal: Denies: Nausea, Vomiting Genitourinary: Denies: Dysuria, Frequency Hematologic: Denies: Bruising, Bleeding Excessively Endocrine: Denies: Polydipsia, Polyphagia Musculoskeletal: Reports: Other Symptoms (leg swelling); Denies: Neck Pain Neurological: Denies: Weakness Psych: Reports: Mood Normal Physical Examination General Exam: Positive: Alert, Cooperative Eye Exam: Positive: PERRLA ENT Exam: Positive: Atraumatic Neck Exam: Positive: Supple, JVD Chest Exam: Positive: Clear to auscultation Heart Exam: Positive: Irregular Rhythm Telemetry: Positive: Atrial fibrillation Abdomen Exam: Positive: Normal bowel sounds Extremity Exam: Positive: Clubbing; Negative: Cyanosis Skin Exam: Positive: Nl turgor and temperature Neuro Exam: Positive: Strength at 5/5 X4 ext, Cranial Nerves 3-12 NL Psych Exam: Positive: Mental status NL, Mood NL Vital Signs Vital Signs Date Time Temp Pulse Resp B/P (MAP) Pulse Ox O2 Delivery O2 Flow Rate FiO2 11/23/19 20:30 65 128/62 (84) 95 11/23/19 18:15 20 Nasal Cannula 3.0 11/23/19 16:18 98.3 Laboratory Data Labs 24H Laboratory Tests 2 11/23/19 16:39: Immature Granulocyte % (Auto) 1.2, Neutrophils (%) (Auto) 84.2H, Lymphocytes (%) (Auto) 7.0L, Monocytes (%) (Auto) 4.4, Eosinophils (%) (Auto) 3.0, Basophils (%) (Auto) 0.2, Neutrophils # (Auto) 11.0H, Lymphocytes # (Auto) 0.9L, Monocytes # (Auto) 0.6, Eosinophils # (Auto) 0.4, Basophils # (Auto) 0.0, Nucleated Red Blood Cells % (auto) 0.0, Prothrombin Time 17.6H, Prothromb Time International Ratio 1.47, Anion Gap 5L, Glomerular Filtration Rate 35.1L, Lactic Acid Level 2.7*H, Calcium Level 8.5L, Total Creatine Kinase 48, Creatine Kinase MB 1.6, Creatine Kinase MB Relative Index 3.33, Troponin I < 0.02, GR-Hoj-F-Type Natriuretic Peptide 6678H 11/23/19 17:36: Blood Gas Bicarbonate Standard 26.4H, Arterial Blood pH 7.439, Arterial Blood Partial Pressure CO2 40.1, Arterial Blood Partial Pressure O2 61.3L, Arterial Blood Total CO2 27.8, Arterial Blood HCO3 26.6H, Arterial Blood Base Excess 2.3H, Arterial Blood Oxygen Saturation 92.1L CBC/BMP Laboratory Tests 11/23/19 16:39 Microbiology Microbiology 11/23/19 Blood Culture, Received Pending 11/23/19 Blood Culture, Received Pending Assessment/Plan Patient is 74 years old female with past history of atrial fibrillation, diastolic CHF, coronary artery diseases, COPD on home oxygen, baseline 3-4 L presented hospital with increased shortness of breath and leg swelling. Patient stated that today in the morning she was found to have low blood pressure 90/60, increased shortness of breath and increased leg swelling. Of note patient rece ntly has been hospitalized for left lower lobe lung pneumonia due to pseudomonas aeruginosa infection. Patient completed the course of antibiotics. Patient denied any increased cough or sputum production. In emergency room patient was found to have increased BNP around 6600, white blood count 13, lactic acid 2.7. Chest x-ray shows left lower lobe small infiltrate, unchanged from previous x- ray 2 weeks ago. Problems (1) Acute on chronic diastolic CHF (congestive heart failure) Status: Acute Problem Text: Patient has increased orthopnea, leg swelling and increased BNP I's and O's Lasix IV Cardiac diet (2) COPD (chronic obstructive pulmonary disease) Status: Chronic Problem Text: Patient has advanced COPD with 3 L oxygen requirements at baseline Patient does not have increased cough or sputum production Chest x-ray showed small left lobe infiltrate unchanged from the previous admission. Patient has been treated 2 weeks ago for multifocal pneumonia secondary to Pseudomonas aeruginosa Patient completed the course of antibiotics Patient does not have fever, chills, she is nontoxic. Continue inhalers, oxygen. (3) Atrial fibrillation Status: Chronic Problem Text: Rate is under control Continue oral targeted anticoagulation therapy (4) Coronary artery disease Status: Chronic Problem Text: Coronary artery disease. History of [place], status post coronary stent Continue home meds I added aspirin 81 Plan / VTE VTE Prophylaxis Ordered?: Yes TRAVON HERMOSILLO DO Nov 23, 2019 21:28
[2019-11-23] MEDS ORDERED: ASPIRIN 81 MG CHEW TABLET PO ONE (21:45)
[2019-11-23 22:50] VITALS: BP_SYST 103; BP_SYST 130; BP_DIAS 44
[2019-11-23] MEDS: FUROSEMIDE 40 MG/4 ML VIAL (J1940) IV SCH (23:20)
[2019-11-23] MEDS: APIXABAN 2.5 MG TAB (ELIQUIS) PO SCH (23:20)
[2019-11-24 03:26] VITALS: BP 102/51
[2019-11-24 05:53] VITALS: BP 86/46
[2019-11-24] MEDS: MIDODRINE 5 MG TAB PO SCH ×3 (06:05→17:36)
[2019-11-24 06:20] LABS: HEMATOCRIT 30.8 % (36.0-47.0); HEMOGLOBIN 9.5 g/dl (12.0-15.5); MEAN CORPUSCULAR HEMOGLOBIN 29.2 pg (27.0-33.0); MEAN CORPUSCULAR HGB CONC 30.8 g/dl (32.0-36.5); MEAN CORPUSCULAR VOLUME 94.8 fl (80.0-96.0); PLATELET COUNT, AUTOMATED 215 10^3/uL (150-450); RED BLOOD COUNT 3.25 10^6/uL (4.00-5.40); WHITE BLOOD COUNT 10.2 10^3/uL (4.0-10.0)
[2019-11-24 06:35] LABS: CALCIUM LEVEL 8.2 MG/DL (8.8-10.2); CREATININE FOR GFR 1.43 MG/DL (0.55-1.30); MAGNESIUM LEVEL 2.2 MG/DL (1.8-2.4); POTASSIUM SERUM 3.4 MEQ/L (3.5-5.1)
[2019-11-24] MEDS: ADVAIR HFA 230/21MCG INHALER INH SCH ×2 (08:27→20:38)
[2019-11-24] MEDS: EZETIMIBE 10 MG TAB (ZETIA) PO SCH (08:29)
[2019-11-24] MEDS: APIXABAN 2.5 MG TAB (ELIQUIS) PO SCH ×2 (08:29→20:58)
[2019-11-24] MEDS: FERROUS GLUCONATE 324 MG TAB PO SCH (08:29)
[2019-11-24] MEDS: MULTIVITAMINS/MINERALS THERAP 1 TAB PO SCH (08:29)
[2019-11-24] MEDS: OMEPRAZOLE 20 MG CAP PO SCH (08:30)
[2019-11-24] MEDS: DOCUSATE SODIUM 100 MG CAP PO SCH ×2 (08:31→20:58)
[2019-11-24] MEDS: BISOPROLOL FUM 2.5 MG PER 1/2TAB PO SCH (08:31)
[2019-11-24] MEDS ORDERED: POTASSIUM CHLORIDE 10 MEQ SR TABLET PO ONE (09:00)
[2019-11-24 09:44] LABS: C REACTIVE PROTEIN QUANTITATIV 15.8 MG/DL (0.00-0.30)
[2019-11-24] MEDS: FUROSEMIDE 40 MG/4 ML VIAL (J1940) IV SCH (12:54)
[2019-11-24] MEDS: PIPERACILLIN/TAZOBACTAM SOD 4.5 GM in D5W MINI-BAG PLUS 50 ML IV SCH ×2 (12:55→20:58)
[2019-11-24 14:00] VITALS: BP 99/46
--- NOTE | 2019-11-24 16:28 | IPNPDOC ---
Text Note Date of Service The patient was seen on 11/24/19. NOTE Subjective: Patient is a 74-year-old female who presents to the hospital with increased shortness of breath. Patient has a history of diastolic congestive heart failure and COPD on home oxygen. Patient presented with increased shortness of breath and leg swelling. Patient had been recently hospitalized with a left lower lobe pneumonia due to Pseudomonas and was treated with meropenem and Levaquin. Patient was sent home on Levaquin and completed her antibiotic course. Patient came into the emergency room with a BMP 6600, white blood cell count 13, lactic acid 2.7. Patient was admitted for his heart failure exacerbation. Patient appears to be breathing better at this time however, she does still complain of leg swelling. Patient has had difficulty breathing on exertion. At rest, she doesn't feel short of breath. Patient does not have any other complaints at this time. Review of systems General: Patient denies fevers HEENT: Patient denies headaches Cardiovascular: Patient denies chest pain Respiratory: Patient endorses shortness of breath with exertion. GI: Patient denies abdominal pain, nausea, vomiting, diarrhea : Patient denies pain or difficulty with urination Extremities: Patient endorses swelling in her bilateral lower extremities. Objective: Vitals: (see below) General: Alert and oriented elderly female who was sitting in the hospital bed when I walked in. Patient had nasal cannula oxygen place. Patient does not appear to be in any acute distress. HEENT: Normocephalic, atraumatic, moist mucous membranes. Neck: Jugular venous distention 3-4 cm above the sternal angle Cardiac: Regular rate and rhythm, no murmurs, normal S1, normal S2 Pulm: Diminished breath sounds bilaterally. No wheezes, rhonchi, or rales. Abd: Nondistended, nontender to palpation, normal bowel sounds Ext: 2+ pitting edema in bilateral lower extremities up to the level of the mid thigh Labs (see below) Images: Chest x-ray performed on 11/23/2019 was reported to show small right lower lobe atelectasis/infiltrate. Assessment: Patient is a 74-year-old female who presented to the emergency department with increasing shortness of breath was found to have a CHF exacerb ation. On further review the patient's laboratory studies and imaging findings, patient may also have a new infiltrate in her right lower lobe. Plan 1. Acute diastolic congestive heart failure. Patient has a cumulative balance of negative 890 mL. We will continue with diuretics as long as the patient's blood pressure is able to tolerate it. We will continue with patient's amiodarone, bisoprolol and IV furosemide 40 mg twice a day we will continue to monitor. 2. Possible pneumonia in the right lower lobe. Patient had an elevated white count, small new infiltrate on chest x-ray, and shortness of breath. Patient did not have a fever. Patient was given doses of ceftriaxone and azithromycin in the emergency department. Based on prior sputum cultures, patient had a pseudomonal pneumonia in the past. We have started IV Zosyn. We are waiting for sputum cultures come back, procalcitonin is also been ordered. If pro-calcitonin is negative, antibiotics can be stopped. 3. Atrial fibrillation. Rate is under control. Continued eliquis 2.5 mg twice a day 4. COPD. 6 chronic and patient does not appear to be in exacerbation. We'll continue with her inhalers and oxygen therapy. 5. Coronary artery disease. We will continue her home medications and continue aspirin 81 mg. DVT prophy: Eliquis 2.5 mg twice a day Dispo: Pending clinical improvement in the patient's fluid balance as well as workup for pneumonia. VS,Bonita, I+O VS, Bonita, I+O Laboratory Tests 11/23/19 16:39 11/24/19 05:56 Vital Signs Date Time Temp Pulse Resp B/P (MAP) Pulse Ox O2 Delivery O2 Flow Rate FiO2 11/24/19 14:00 98.6 68 20 99/46 (63) 95 11/24/19 10:57 2.0 11/24/19 03:26 Nasal Cannula I&O- Last 24 Hours up to 6 AM 11/24/19 06:00 Intake Total 360 ml Output Total 1850 ml Balance -1490 ml MARI TAVERAS DO Nov 24, 2019 16:28
[2019-11-24] MEDS: ALBUTEROL 90 MCG/ACT 8GM HFA INHALER INH PRN (20:34)
[2019-11-24 22:00] VITALS: BP 117/46
[2019-11-25] MEDS: FUROSEMIDE 40 MG/4 ML VIAL (J1940) IV SCH (00:05)
[2019-11-25] MEDS: PIPERACILLIN/TAZOBACTAM SOD 4.5 GM in D5W MINI-BAG PLUS 50 ML IV SCH ×3 (04:45→20:25)
[2019-11-25 06:00] VITALS: BP 111/41
[2019-11-25] MEDS: ADVAIR HFA 230/21MCG INHALER INH SCH ×2 (07:42→20:07)
[2019-11-25 07:49] LABS: HEMATOCRIT 29.3 % (36.0-47.0); HEMOGLOBIN 9.1 g/dl (12.0-15.5); MEAN CORPUSCULAR HEMOGLOBIN 29.5 pg (27.0-33.0); MEAN CORPUSCULAR HGB CONC 31.1 g/dl (32.0-36.5); MEAN CORPUSCULAR VOLUME 95.1 fl (80.0-96.0); PLATELET COUNT, AUTOMATED 227 10^3/uL (150-450); RED BLOOD COUNT 3.08 10^6/uL (4.00-5.40); WHITE BLOOD COUNT 9.4 10^3/uL (4.0-10.0)
[2019-11-25 08:16] LABS: C REACTIVE PROTEIN QUANTITATIV 13.9 MG/DL (0.00-0.30); CALCIUM LEVEL 8.4 MG/DL (8.8-10.2); CREATININE FOR GFR 2.09 MG/DL (0.55-1.30); GLOMERULAR FILTRATION RATE 24.5 (>39); POTASSIUM SERUM 3.7 MEQ/L (3.5-5.1)
[2019-11-25] MEDS ORDERED: FUROSEMIDE 100 MG/10 ML VIAL (J1940) IV SCH ×3 (09:00→21:00)
[2019-11-25] MEDS: OMEPRAZOLE 20 MG CAP PO SCH (09:10)
[2019-11-25] MEDS: DOCUSATE SODIUM 100 MG CAP PO SCH ×3 (09:10→20:33)
[2019-11-25] MEDS: EZETIMIBE 10 MG TAB (ZETIA) PO SCH (09:11)
[2019-11-25] MEDS: BISOPROLOL FUM 2.5 MG PER 1/2TAB PO SCH (09:11)
[2019-11-25] MEDS: MULTIVITAMINS/MINERALS THERAP 1 TAB PO SCH (09:11)
[2019-11-25] MEDS: APIXABAN 2.5 MG TAB (ELIQUIS) PO SCH ×2 (09:11→20:24)
[2019-11-25] MEDS: MIDODRINE 5 MG TAB PO SCH ×3 (09:11→16:22)
[2019-11-25] MEDS: FERROUS GLUCONATE 324 MG TAB PO SCH (09:11)
[2019-11-25] MEDS ORDERED: FUROSEMIDE 100 MG/10 ML VIAL (J1940) IV ONE ×2 (11:45→21:00)
--- NOTE | 2019-11-25 13:23 | IPNPDOC ---
Text Note Date of Service The patient was seen on 11/25/19. NOTE Subjective: Patient is a 74-year-old female presents to the hospital with [place] rtness of breath. Patient has a history of diastolic congestive heart failure and COPD oxygen dependent. Patient is currently being worked up for a right lower lobe pneumonia. Pro-calcitonin is still pending. Overnight, the patient did well. This morning when I went to see the patient, she just finished up washing herself in the bathroom and was quite short of breath. After short while, patient began to feel better. Patient says her legs are so swollen. Patient is comfortable at rest. Review of systems General: Patient denies fevers HEENT: Patient denies headaches Cardiovascular: Patient denies chest pain Respiratory: Patient denies shortness of breath at rest. Patient endorses shortness breath with exertion. GI: Patient denies abdominal pain, nausea, vomiting, diarrhea : Patient has had a Bethea cath in and this was just removed. Extremities: Patient endorses swelling in her bilateral lower extremities. Objective: Vitals: (see below) General: Alert and oriented female patient who was sitting in the bedside chair when I walked in. Patient was quite short of breath upon sitting in the chair after washing up in the bathroom. After a few minutes of resting, patient no longer had shortness of breath. Patient denies appear to be in acute distress. HEENT: Normocephalic, atraumatic, moist mucous membranes. Neck: Jugular venous distention 3-4 cm above the sternal angle. Cardiac: Regular rate and rhythm, no murmurs, normal S1, normal S2 Pulm: Inspiratory rhonchi in right lower lung field. Diminished breath sounds in all lung ashton. Abd: Nondistended, nontender to palpation, normal bowel sounds Ext: 3+ pitting edema in bilateral lower extremities up to the level of the mid thigh. Labs (see below) Images: New imaging has been performed. Assessment: Patient is a 74-year-old female presents to the emergency department with increased shortness of breath who was found to have a CHF exacerbation. On further review of patient's laboratory studies and imaging, patient may also have new right lower lobe infiltrate. Plan 1. Acute diastolic congestive heart failure. Patient will continue with diuresis. Patient's furosemide has been increased from 40-60 mg twice a day. Patient is net -1840 mL. We will continue to monitor the patient's renal function as well as her clinical fluid status. 2. Possible pneumonia in the right, low. Patient has an elevated white count, small new infiltrate on chest x-ray, and shortness of breath. Patient does not have a fever. Patient will continue on IV Zosyn as a way for pro-calcitonin to come back. Patient does have inspiratory rhonchi in the right lower lung field. 3. Atrial fibrillation. Rate is under control. Continue eliquis 2.5 mg twice a day for anticoagulation. 4. COPD. This is chronic and patient does not appear to be in exacerbation at this time. Continue with inhaler and oxygen therapy. 5. Coronary artery disease. Continue home medications. Aspirin was added by Dr. Kemp on admission. DVT prophy: Eliquis 2.5 mg twice a day Dispo: Pending clinical improvement in patient's fluid balance as well as workup for pneumonia. VS,Fishbone, I+O VS, Fishbone, I+O Laboratory Tests 11/25/19 07:17 Vital Signs Date Time Temp Pulse Resp B/P (MAP) Pulse Ox O2 Delivery O2 Flow Rate FiO2 11/25/19 09:11 71 113/67 11/25/19 06:00 97.6 20 93 Nasal Cannula 2.0 I&O- Last 24 Hours up to 6 AM 11/25/19 06:00 Intake Total 1200 ml Output Total 1950 ml Balance -750 ml MARI TAVERAS DO Nov 25, 2019 13:23
[2019-11-25 14:00] VITALS: BP 112/46
[2019-11-25 18:48] LABS: APPEARANCE, URINE CLEAR (CLEAR); BACTERIA, URINE AUTO NEGATIVE (NEGATIVE); BILIRUBIN, URINE AUTO NEGATIVE (NEGATIVE); BLOOD, URINE BLOOD 3+ (NEGATIVE); COLOR, URINE STRAW (YELLOW); GLUCOSE, URINE (UA) AUTO NEGATIVE (NEGATIVE); KETONE, URINE AUTO NEGATIVE (NEGATIVE); LEUKOCYTE ESTERASE, URINE AUTO NEGATIVE (NEGATIVE); MUCUS, URINE SMALL (NEGATIVE); NITRITE, URINE AUTO NEGATIVE (NEGATIVE); PROTEIN, URINE AUTO NEGATIVE (NEGATIVE); RBC, URINE AUTO TNTC /HPF (0-3); SPECIFIC GRAVITY URINE AUTO 1.006 (1.002-1.035); SQUAMOUS EPITHELIAL CELL UR AU 0 /HPF (0-6); UROBILINOGEN, URINE AUTO 0.2 mg/dL (0.0-2.0); WBC, URINE AUTO 3 /HPF (0-3)
[2019-11-25] MEDS: ALBUTEROL 90 MCG/ACT 8GM HFA INHALER INH PRN (20:06)
[2019-11-25 22:00] VITALS: BP 105/46
[2019-11-26] VITALS (8 sets, daily range): BP systolic 86–118; BP diastolic 32–80
[2019-11-26] MEDS: PIPERACILLIN/TAZOBACTAM SOD 4.5 GM in D5W MINI-BAG PLUS 50 ML IV SCH (04:07)
[2019-11-26 06:05] LABS: HEMATOCRIT 29.8 % (36.0-47.0); HEMOGLOBIN 9.3 g/dl (12.0-15.5); MEAN CORPUSCULAR HEMOGLOBIN 29.3 pg (27.0-33.0); MEAN CORPUSCULAR HGB CONC 31.2 g/dl (32.0-36.5); PLATELET COUNT, AUTOMATED 249 10^3/uL (150-450); RED BLOOD COUNT 3.17 10^6/uL (4.00-5.40); WHITE BLOOD COUNT 9.6 10^3/uL (4.0-10.0)
[2019-11-26 06:32] LABS: C REACTIVE PROTEIN QUANTITATIV 10.9 MG/DL (0.00-0.30); CALCIUM LEVEL 8.5 MG/DL (8.8-10.2); CREATININE FOR GFR 2.35 MG/DL (0.55-1.30); GLOMERULAR FILTRATION RATE 21.4 (>39); POTASSIUM SERUM 3.4 MEQ/L (3.5-5.1)
[2019-11-26] MEDS: ADVAIR HFA 230/21MCG INHALER INH SCH ×2 (08:10→19:46)
[2019-11-26] MEDS: BISOPROLOL FUM 2.5 MG PER 1/2TAB PO SCH (09:00)
[2019-11-26] MEDS ORDERED: AMIODARONE 200 MG TAB (PACERONE) PO SCH (09:00)
[2019-11-26] MEDS ORDERED: POTASSIUM CHLORIDE 10 MEQ SR TABLET PO ONE (09:00)
[2019-11-26] MEDS ORDERED: FUROSEMIDE 100 MG/10 ML VIAL (J1940) IV SCH (09:00)
[2019-11-26] MEDS: MIDODRINE 5 MG TAB PO SCH ×3 (09:25→16:35)
[2019-11-26] MEDS: FERROUS GLUCONATE 324 MG TAB PO SCH (09:27)
[2019-11-26] MEDS: OMEPRAZOLE 20 MG CAP PO SCH (09:27)
[2019-11-26] MEDS: MULTIVITAMINS/MINERALS THERAP 1 TAB PO SCH (09:27)
[2019-11-26] MEDS: APIXABAN 2.5 MG TAB (ELIQUIS) PO SCH (09:28)
[2019-11-26] MEDS: DOCUSATE SODIUM 100 MG CAP PO SCH ×2 (09:28→20:22)
[2019-11-26] MEDS: EZETIMIBE 10 MG TAB (ZETIA) PO SCH (09:35)
--- NOTE | 2019-11-26 10:12 | IPNPDOC ---
Text Note Date of Service The patient was seen on 11/26/19. NOTE Subjective: Patient is a 74-year-old female presented to the hospital with sh ortness of breath. Patient has a history of diastolic congestive heart failure and COPD which is oxygen dependent. Patient says she's feeling much better. Patient had low blood pressure overnight and her Lasix was held. Patient had no other acute events overnight. Review of systems General: Patient denies fevers HEENT: Patient denies headaches Cardiovascular: Patient denies chest pain Respiratory: Patient denies shortness of breath at rest. Patient endorses shortness breath and exertion. GI: Patient denies abdominal pain, nausea, vomiting, diarrhea : Patient denies pain or difficulty with urination Extremities: Patient says the swelling is better in her lower extremities. Objective: Vitals: (see below) General: Alert and oriented elderly female who was laying in bed with nasal cannula oxygen in place. Patient was in no acute distress. HEENT: Normocephalic, atraumatic, moist mucous membranes. Neck: No lymphadenopathy or thyromegaly Cardiac: Regular rate and rhythm, no murmurs, normal S1, normal S2 Pulm: Diminished breath sounds with bibasilar crackles Abd: Nondistended, nontender to palpation, normal bowel sounds Ext: No edema bilateral lower extremities Labs (see below) Images: No imaging has been performed. Assessment: Patient is a 74-year-old female presented to the emergency department with increasing shortness of breath was found have seasonal exacerbation. Pro-calcitonin has come back negative so it is less likely that the patient has a bacterial pneumonia. Plan 1. Acute diastolic congestive heart failure. Patient diuretics are on hold today as her blood pressures and low in her renal function has worsened. We will continue to monitor the patient. Patient has diuresed a net negative of 3090 mL during her hospitalization. Patient most likely does not have a pneumonia as her pro-calcitonin level came back at 0.24 which is low likelihood for lower respiratory bacterial infections. There was also mention at care rounds at the patient's home health aide has mentioned that she may has spoken about hospice or palliative care. A palliative care consult will be placed today. 2. Possible pneumonia and right lower lobe. Patient most likely does not have pneumonia based on pro-calcitonin level being negative. IV Zosyn has been discontinued. 3. Atrial fibrillation. Rate is under control. Hold eliquis 2.5 mg as patient has increased rectal bleeding. 4. COPD. This is chronic and patient does not appear to be in exacerbation at this time. Continue with inhaler and oxygen therapy. 5. Coronary artery disease. Continue home medications. Aspirin was added at time of admission. 6. Rectal bleeding. Patient has history of hemorrhoids. Eliquis is being held and we will monitor H&H. DVT prophy: Eliquis 2.5 mg twice a day Dispo: Pending continued improvement patient's fluid balance as well as physical therapy. VS,Fishbone, I+O VS, Fishbone, I+O Laboratory Tests 11/26/19 05:47 Vital Signs Date Time Temp Pulse Resp B/P (MAP) Pulse Ox O2 Delivery O2 Flow Rate FiO2 11/26/19 09:00 84/52 11/26/19 06:00 96.7 65 16 98 Nasal Cannula 2.0 I&O- Last 24 Hours up to 6 AM 11/26/19 06:00 Intake Total 1350 ml Output Total 2200 ml Balance -850 ml MARI TAVERAS DO Nov 26, 2019 10:12
[2019-11-26] MEDS ORDERED: NS 250 ML IV ONE (10:30)
[2019-11-26] MEDS ORDERED: NS 1,000 ML IV SCH (10:30)
[2019-11-27 06:00] VITALS: BP 122/65
[2019-11-27 06:32] LABS: HEMATOCRIT 29.8 % (36.0-47.0); HEMOGLOBIN 9.1 g/dl (12.0-15.5); MEAN CORPUSCULAR HEMOGLOBIN 29.2 pg (27.0-33.0); MEAN CORPUSCULAR HGB CONC 30.5 g/dl (32.0-36.5); MEAN CORPUSCULAR VOLUME 95.5 fl (80.0-96.0); PLATELET COUNT, AUTOMATED 260 10^3/uL (150-450); RED BLOOD COUNT 3.12 10^6/uL (4.00-5.40); WHITE BLOOD COUNT 9.7 10^3/uL (4.0-10.0)
[2019-11-27 06:48] LABS: C REACTIVE PROTEIN QUANTITATIV 7.9 MG/DL (0.00-0.30); CALCIUM LEVEL 8.6 MG/DL (8.8-10.2); CREATININE FOR GFR 2.07 MG/DL (0.55-1.30); GLOMERULAR FILTRATION RATE 24.8 (>39); POTASSIUM SERUM 3.9 MEQ/L (3.5-5.1)
[2019-11-27] MEDS: OMEPRAZOLE 20 MG CAP PO SCH (09:13)
[2019-11-27] MEDS: DOCUSATE SODIUM 100 MG CAP PO SCH ×2 (09:13→19:52)
[2019-11-27] MEDS: FERROUS GLUCONATE 324 MG TAB PO SCH (09:13)
[2019-11-27] MEDS: EZETIMIBE 10 MG TAB (ZETIA) PO SCH (09:13)
[2019-11-27] MEDS: BISOPROLOL FUM 2.5 MG PER 1/2TAB PO SCH (09:13)
[2019-11-27] MEDS: MULTIVITAMINS/MINERALS THERAP 1 TAB PO SCH (09:14)
[2019-11-27] MEDS: MIDODRINE 5 MG TAB PO SCH ×3 (09:14→16:00)
[2019-11-27] MEDS: ADVAIR HFA 230/21MCG INHALER INH SCH ×2 (09:32→19:31)
--- NOTE | 2019-11-27 11:54 | IPNPDOC ---
Text Note Date of Service The patient was seen on 11/27/19. NOTE Subjective: Patient is a 74-year-old female presented to the hospital shortness of breath. Patient has a history of diastolic congestive heart failure and COPD. Patient is oxygen dependent at home. Patient says she was doing well this morning while laying down however, when she sat up to eat her breakfast she became very short of breath. Patient has not received Lasix a day and a half secondary to hypotension and elevation of creatinine. Patient did well overnight but is not yet cleared physical therapy. Patient says she is doing well after sitting up and resting for a few minutes. Review of systems General: Patient denies fevers HEENT: Patient denies headaches Cardiovascular: Patient denies chest pain Respiratory: Patient endorses shortness of breath especially with exertion. GI: Patient denies abdominal pain, nausea, vomiting, diarrhea : Patient denies pain or difficulty with urination Extremities: Patient endorses that her swelling has improved greatly in her lower extremities. Objective: Vitals: (see below) General: Alert and oriented elderly female who was sitting up on the edge for bed with nasal cannula oxygen in place. Patient appeared to be breathing heavily initially however, after a few minutes, patient started to breathe normally. Patient did not appear to be in any acute distress by the time the encounter was over. HEENT: Normocephalic, atraumatic, moist mucous membranes. Neck: No evidence of jugular venous distention Cardiac: Regular rate and rhythm, no murmurs, normal S1, normal S2 Pulm: Diminished breath sounds in all lung ashton. No wheezes, rhonchi, or rales Abd: Nondistended, nontender to palpation, normal bowel sounds Ext: No edema bilateral lower extremities Labs (see below) Images: Imaging is been performed Assessment: Patient is a 74-year-old female presented to the emergency department with increased shortness of breath and was found to have a CHF exacerbation and possible pneumonia. Patient's pro calcitonin level came back negative so it is less likely patient has a bacterial pneumonia. Plan 1. Acute diastolic congestive heart failure. Patient diuretics on hold as her blood pressure was low and her renal function has worsened. We will continue to monitor the patient. Patient does not appear to be fluid overloaded at this time. We will continue to follow with fluid restriction. Patient most likely to still have a bacterial pneumonia as her pro calcitonin level was negative at 0.24. 2. Possible pneumonia in the right lower lobe. Patient's sputum culture grew an organism part of the normal td and Stentrophomonas Maltophilia. There have been research articles saying that this bacteria can cause pneumonia however, if the patient does not have systemic signs, patient may just be colonized with thi s especially their patient was frequently hospitalized such as this patient. Patient has not been on antibiotics for 2 days and continues to improve. 3. Atrial fibrillation. Rate is under control. Eliquis was held yesterday as the patient was experiencing increased rectal bleeding secondary to hemorrhoids. We will restart this today. 4. COPD. This is chronic and patient does not appear to be in exacerbation at this time. Continue with inhaler and oxygen therapy. 5. Coronary artery disease. Continue his home medications. Aspirin was added at time of admission. 6. Rectal bleeding. Patient has a history of hemorrhoids and the bleeding has slowed down. Eliquis can be restarted. 7. Acute kidney injury on top of chronic kidney disease. Patient's creatinine had peaked at 2.35 which is above the patient's baseline of 1.5 when she was admitted. Patient's diuresis has been held and we will continue to monitor. DVT prophy: Eliquis 2.5 mg twice a day Dispo: Pending physical therapy clearance. VS,Bonita, I+O VS, Bonita, I+O Laboratory Tests 11/27/19 06:06 Vital Signs Date Time Temp Pulse Resp B/P (MAP) Pulse Ox O2 Delivery O2 Flow Rate FiO2 11/27/19 09:13 62 124/79 11/27/19 06:00 98.0 19 92 Nasal Cannula 2.0 I&O- Last 24 Hours up to 6 AM 11/27/19 06:00 Intake Total 1050 ml Output Total 200 ml Balance 850 ml MARI TAVERAS DO Nov 27, 2019 11:54
[2019-11-27 14:00] VITALS: BP 119/55
[2019-11-27] MEDS: APIXABAN 2.5 MG TAB (ELIQUIS) PO SCH (20:09)
[2019-11-27 22:00] VITALS: BP 114/58
[2019-11-28 06:00] VITALS: BP 115/56
[2019-11-28] MEDS: ADVAIR HFA 230/21MCG INHALER INH SCH (06:24)
[2019-11-28 07:32] LABS: HEMATOCRIT 29.5 % (36.0-47.0); HEMOGLOBIN 9.1 g/dl (12.0-15.5); MEAN CORPUSCULAR HEMOGLOBIN 29.6 pg (27.0-33.0); MEAN CORPUSCULAR HGB CONC 30.8 g/dl (32.0-36.5); MEAN CORPUSCULAR VOLUME 96.1 fl (80.0-96.0); PLATELET COUNT, AUTOMATED 258 10^3/uL (150-450); RED BLOOD COUNT 3.07 10^6/uL (4.00-5.40); WHITE BLOOD COUNT 9.5 10^3/uL (4.0-10.0)
[2019-11-28 07:52] LABS: CREATININE FOR GFR 1.57 MG/DL (0.55-1.30); GLOMERULAR FILTRATION RATE 34.1 (>39)
[2019-11-28] MEDS: MIDODRINE 5 MG TAB PO SCH ×2 (08:00→12:00)
[2019-11-28 08:20] VITALS: BP 123/50
[2019-11-28] MEDS: BISOPROLOL FUM 2.5 MG PER 1/2TAB PO SCH (08:20)
[2019-11-28] MEDS: APIXABAN 2.5 MG TAB (ELIQUIS) PO SCH (08:24)
[2019-11-28] MEDS: MULTIVITAMINS/MINERALS THERAP 1 TAB PO SCH (08:24)
[2019-11-28] MEDS: DOCUSATE SODIUM 100 MG CAP PO SCH (08:24)
[2019-11-28] MEDS: EZETIMIBE 10 MG TAB (ZETIA) PO SCH (08:25)
[2019-11-28] MEDS: OMEPRAZOLE 20 MG CAP PO SCH (08:25)
[2019-11-28] MEDS: FERROUS GLUCONATE 324 MG TAB PO SCH (08:25)
--- NOTE | 2019-11-28 13:58 | DS.PDOC ---
Discharge Summary General Date of Admission Nov 25, 2019 at 09:16 Date of Discharge 11/28/2019 Attending Physician: NOEMI ARIZA MD Discharge Summary PROCEDURES PERFORMED DURING STAY: None. ADMITTING/DISCHARGE DIAGNOSES: 1. Acute on chronic diastolic congestive heart failure 2. Possible pneumonia and right lower lobe based on imaging, possible viral etiology 3. Atrial fibrillation 4. COPD 5. Coronary artery disease 6. Hemorrhoidal rectal bleeding 7. Acute kidney injury on chronic kidney disease COMPLICATIONS/CHIEF COMPLAINT: Increased shortness of breath HISTORY OF PRESENT ILLNESS/HOSPITAL COURSE: Patient is a 74-year-old female who presented to the hospital with increasing shortness of breath. Patient has a history of chronic diastolic congestive heart failure as well as COPD. Patient is home oxygen dependent. Patient was recently hospitalized prior to this with a pseudomonal pneumonia in the left lower lobe. It appeared that the patient had a new infiltrate on the right lower lobe on chest x-ray. Patient was initially started on IV Zosyn however, patient's pro-calcitonin came back negative so this had been stopped. Patient grew Stenotrophomonas Maltophilia on sputum culture. Research articles have shown that if the patient is not symptomatic and does not show systemic signs of infection, that this can be a normal colonizer of the lungs in immunocompromised and elderly patients who are frequently hospitalized. Patient did not show any signs of worsening infection once antibiotics were stopped. Patient did have low blood pressure and an acute kidney injury on top of chronic kidney disease from diuresis. Once diuresis was stopped, patient's blood pressure slowly came back up into the normal range and patient's creatinine decreased back to baseline. Patient did not show any signs of fluid overload. Patient passed both physical and occupational therapy and was discharged home with services on 11/28/2019. DISCHARGE MEDICATIONS: Please see below. ALLERGIES: Please see below. PHYSICAL EXAMINATION ON DISCHARGE: Vitals: (see below) General: Alert and oriented elderly female patient who was sitting in her bedside chair when I walked into the room. Patient had nasal cannula oxygen in place. Patient was in no acute distress. HEENT: Normocephalic, atraumatic, moist mucous membranes. Neck: No evidence of jugular venous distention Cardiac: Regular rate and rhythm, no murmurs, normal S1, normal S2 Pulm: Clear to auscultation bilaterally. No wheezes, rhonchi, rales Abd: Nondistended, nontender to palpation, normal bowel sounds Ext: No edema bilateral lower extremities LABORATORY DATA: Please see below. IMAGING: Patient had a chest x-ray performed on 11/23/2019 which was reported to show small right lower lobe atelectasis/infiltrate PROGNOSIS: Fair ACTIVITY: As tolerated. DIET: 2 g sodium diet with a 50 ounce fluid restriction DISCHARGE PLAN/DISPOSITION: Discharge home with services DISCHARGE INSTRUCTIONS: 1. Follow-up with primary care provider within 3-5 days of discharge. DISCHARGE CONDITION: Stable. TIME SPENT ON DISCHARGE: Greater than 30 minutes. Vital Signs/I&Os Vital Signs Date Time Temp Pulse Resp B/P (MAP) Pulse Ox O2 Delivery O2 Flow Rate FiO2 11/28/19 09:00 3.0 11/28/19 08:20 63 123/50 11/28/19 06:00 96.7 18 96 Nasal Cannula I&O- Last 24 Hours up to 6 AM 11/28/19 06:00 Intake Total 1290 ml Output Total 950 ml Balance 340 ml Laboratory Data Labs 24H Laboratory Tests 2 11/28/19 07:05: Nucleated Red Blood Cells % (auto) 0.0, Anion Gap 5L, Glomerular Filtration Rate 34.1L, Calcium Level 9.0 CBC/BMP Laboratory Tests 11/28/19 07:05 Microbiology Microbiology 11/24/19 Gram Stain - Final, Complete 11/24/19 Sputum Culture - Final, Complete Organism Part Of Normal Kenisha Stenotrophomonas Maltophilia 11/24/19 Respiratory Virus Panel (PCR) ([facility]) - Final, Complete Human Rhinovirus/Enterovirus 11/23/19 Blood Culture - Preliminary, Resulted No Growth after 72 hours. All specime... 11/23/19 Blood Culture - Preliminary, Resulted No Growth after 72 hours. All specime... Discharge Medications Scheduled Amiodarone Hcl (Pacerone) 200 Mg Tablet, 200 MG PO 2XW, (Reported) MONDAYS AND THURSDAYS Apixaban (Eliquis) 2.5 Mg Tablet, 2.5 MG PO BID, (Reported) Bisoprolol Fumarate (Bisoprolol Fumarate) 5 Mg Tablet, 2.5 MG PO DAILY, (Reported) Docusate Sodium (Docusate Sodium) 100 Mg Cap, 100 MG PO BID, (Reported) Ezetimibe (Ezetimibe) 10 Mg Tablet, 10 MG PO DAILY, (Reported) Ferrous Gluconate (Ferrous Gluconate) 324 Mg Tablet, 324 MG PO DAILY, (Reported) Midodrine HCl (Midodrine HCl) 10 Mg Tablet, 10 MG PO BID, (Reported) Multivitamins (Thera M Plus Tablet) 1 Each Tablet, 1 TAB PO DAILY, (Reported) Salmeterol/Fluticasone (Advair 500-50 Diskus) 28 Puff/Inhaler Aerp, 1 PUFF INH BID, (Reported) Umeclidinium Brm/Vilanterol Tr (Anoro Ellipta 62.5-25 Mcg INH) 1 Aer Aer, 1 PUFF INH DAILY, (Reported) Scheduled PRN Acetaminophen (Acetaminophen) 325 Mg Tab, 650 MG PO Q4H PRN for PAIN, (Reported) Albuterol Sulfate (Ventolin Hfa) 108 Mcg/Act Aer, 2 PUFFS INH Q4H PRN for SHORTNESS OF BREATH, (Reported) Guaifenesin (Mucus ER) 600 Mg Tab.er.12h, 600 MG PO BID PRN for CONGESTION, (Reported) Hydrocortisone (Proctosol-Hc) 2.5 % Cre, 1 APPLIC [place] QID PRN for HEMORRHOIDS, (Reported) APPLY AFTER EACH BOWEL MOVEMENT Ipratropium/Albuterol Sulfate (Iprat-Albut 0.5-3(2.5) mg/3 ml) 1 Anne Anne, 1 NEB INH QID PRN for SHORTNESS OF BREATH, (Reported) Allergies Coded Allergies: Qhrcxma-Ucs-Xow Reductase Inhibitor (Verified Adverse Reaction, Intermediate, upset stomach, 03/25/19) varenicline (Verified Adverse Reaction, Intermediate, hallucinations, 03/25/19) Quinolones (Verified Adverse Reaction, Mild, palpitations, 10/29/19) patient tolerated levaquin in oct 2019 admission. MARI TAVERAS DO Nov 28, 2019 13:58
== END 2019-11-28 13:30 | disposition home or self-care (01) | DRG 291 ==
LOC: M ED 16:17 → M ED INP 16:18 → ENRESERVDT 22:05 → ENRESERVTM 22:05 → M MSPAV 22:50 → OBSVTOIN 11-25 09:16
PROVIDERS: ADMIT Internal Medicine; ATTEND Internal Medicine
DX: I13.0 Hypertensive heart and chronic kidney disease with heart failure and stage 1 through stage 4 chronic kidney disease, or unspecified chronic kidney disease (principal); J18.9 Pneumonia, unspecified organism; I50.33 Acute on chronic diastolic (congestive) heart failure; N17.9 Acute kidney failure, unspecified; I48.91 Unspecified atrial fibrillation; I25.10 Atherosclerotic heart disease of native coronary artery without angina pectoris; J44.9 Chronic obstructive pulmonary disease, unspecified; Z99.81 Dependence on supplemental oxygen; Z79.899 Other long term (current) drug therapy; Z88.8 Allergy status to other drugs, medicaments and biological substances; I25.2 Old myocardial infarction; Z95.1 Presence of aortocoronary bypass graft; K64.9 Unspecified hemorrhoids; N18.9 Chronic kidney disease, unspecified; Z79.01 Long term (current) use of anticoagulants

== ENCOUNTER 2020-06-13 12:39 | Inpatient (IN) | payer MEDICARE ==
[~2020-06-13] VITALS: Ht 154.9 cm; Wt 48.6 kg
[~2020-06-13 12:39] MED LIST changes: -AMIO200T PO; +AMIO200T3 PO; +FERR325T16 PO; +NIFE15CA PO; -NIFE1TAB62 PO; +VITA-243 PO; -VITA500T PO
[2020-06-13] MEDS ORDERED: FURO40TA2 PO (13:20)
[2020-06-13 14:52] LABS: BASO % 0.4 % (0.0-1.0); EOS % 0.4 % (0.0-3.0); HEMATOCRIT 54.1 % (36.0-47.0); HEMOGLOBIN 17.7 g/dl (12.0-15.5); LYMPH # 0.5 10^3/uL (1.5-5.0); LYMPH % 5.9 % (24.0-44.0); MEAN CORPUSCULAR HEMOGLOBIN 32.8 pg (27.0-33.0); MEAN CORPUSCULAR HGB CONC 32.7 g/dl (32.0-36.5); MEAN CORPUSCULAR VOLUME 100.2 fl (80.0-96.0); MONO # 0.3 10^3/uL (0.0-0.8); MONO % 3.1 % (0.0-5.0); NEUTROPHILS # 7.3 10^3/uL (1.5-8.5); NEUTROPHILS % 89.8 % (36.0-66.0); PLATELET COUNT, AUTOMATED 216 10^3/uL (150-450); WHITE BLOOD COUNT 8.1 10^3/uL (4.0-10.0)
[2020-06-13 15:27] LABS: ALBUMIN 2.6 GM/DL (3.2-5.2); BILIRUBIN,DIRECT 0.5 MG/DL (0.0-0.2); BILIRUBIN,TOTAL 0.9 MG/DL (0.2-1.0); CALCIUM LEVEL 9.1 MG/DL (8.8-10.2); CK-MB VALUE MASS 2.9 NG/ML (<3.6); CREATININE FOR GFR 2.38 MG/DL (0.55-1.30); MB/CK RELATIVE INDEX 6.44 (< OR =4); POTASSIUM SERUM 4.4 MEQ/L (3.5-5.1); THYROID STIMULATING HORMONE 8.14 uIU/ML (0.358-3.740); TOTAL PROTEIN 6.5 GM/DL (6.4-8.2); TROPONIN I 0.03 NG/ML (< 0.10)
[2020-06-13 16:28] LABS: ABG BASE EXCESS 0.1 (-2.0-2.0); ABG HCO3 24.7 MEQ/L (22.0-26.0); ABG O2 SATURATION 92.5 % (95.0-99.0); ABG PARTIAL PRESSURE CO2 40.1 mmHg (35.0-45.0); ABG PARTIAL PRESSURE O2 64.7 mmHg (75.0-100.0); ABG STANDARD HCO3 24.4 MEQ/L (22.0-26.0); ABG TOTAL CO2 25.9 MEQ/L (23.0-31.0); ABG pH (ARTERIAL) 7.407 UNITS (7.350-7.450)
[2020-06-13] MEDS ORDERED: ANOR1AER INH (16:56)
--- NOTE | 2020-06-13 17:33 | REPVR ---
PROCEDURE INFORMATION: Exam: XR Chest, 2 Views Exam date and time: 06/13/2020 5:19 PM Age: 75 years old Clinical indication: Shortness of breath; Additional info: SOB TECHNIQUE: Imaging protocol: XR of the chest Views: 2 views. COMPARISON: [place] PORTABLE CHEST X-RAY 11/23/2019 4:41 PM FINDINGS: Lungs: Well inflated lungs consistent with COPD. Increased interstitial markings. Pleural space: Bilateral pleural effusions. Heart/Mediastinum: Unremarkable. No cardiomegaly. Bones/joints: The spine demonstrates moderate degenerative changes. IMPRESSION: 1. Well inflated lungs consistent with COPD. 2. Bilateral pleural effusions. Electronically signed by: Michoacano Curry On 06/13/2020 17:33:00 PM
--- NOTE | 2020-06-13 17:35 | REPVR ---
PROCEDURE INFORMATION: Exam: US Duplex Lower Extremity Veins, Bilateral Exam date and time: 06/13/2020 5:27 PM Age: 75 years old Clinical indication: Edema, localized; Lower extremity, bilateral; Additional info: Edema R/O dvt TECHNIQUE: Imaging protocol: Real-time duplex ultrasound of the extremities with 2-D palacios scale, color Doppler flow and spectral waveform analysis with image documentation. Complete exam focused on the bilateral lower extremity veins. COMPARISON: US Duplex, Ext,LOWER veins,unilat LEFT 08/13/2018 9:15 AM FINDINGS: Right deep veins: Unremarkable. The common femoral, femoral, proximal profunda femoral and popliteal veins are patent without thrombus. Normal Doppler waveforms. Normal compressibility and/or augmentation response. Right superficial veins: Saphenofemoral junction is patent without thrombus. Left deep veins: Unremarkable. The common femoral, femoral, proximal profunda femoral and popliteal veins are patent without thrombus. Normal Doppler waveforms. Normal compressibility and/or augmentation response. Left superficial veins: Saphenofemoral junction is patent without thrombus. Soft tissues: Bilateral lower leg edema. IMPRESSION: Bilateral lower leg edema. No DVT. Electronically signed by: Michoacano Curry On 06/13/2020 17:34:56 PM
[2020-06-13] MEDS ORDERED: ACETAMINOPHEN 325 MG TAB PO PRN (17:45)
[2020-06-13] MEDS ORDERED: LEVALBUTEROL 1.25 MG/0.5 ML CONCENTRATE NEB NEB PRN (17:45)
[2020-06-13] MEDS ORDERED: ANUSOL HC CREAM 30GM PR PRN (17:45)
[2020-06-13] MEDS ORDERED: FUROSEMIDE 40MG/4ML VIAL (J1940) IV ONE (17:45)
--- NOTE | 2020-06-13 18:23 | HPEPDOC ---
[facility] Medical History & Physical Date of Admission Jun 13, 2020 Date of Service: Jun 13, 2020 Attending Physician: MEE SAMUEL MD History and Physical 75-year-old W with chronic atrial fibrillation, diastolic CHF, asthma, COPD (oxygen dependent, 3L NC), coronary artery disease, [place], status post cardiac stent, CKD 3 (baseline Cr 1.5) who came in for acute worsening SOB over a few days with associated worsening lower extremity edema with worsening hypoxemia now requiring 5L NC. Patient denies any worsening in her chronic productive cough but has had worsening dyspnea, has not been mobile at home for the past few days due to the significant dyspnea that is worse with exertion and noted LE edema. She has no additional complaints, denies any fever, chills, sick contacts, travel, chest pain, nausea, vomiting, abdominal pain or diarrhea. In the ED, she was hypoxemic at her baseline 3L and eventually was saturating well on 5L NC. WBC was 8.1, hgb 17.7, ABG showed t.4/40/65, na 135, K 4.4, elevated BUN and Cr at 76 and 2.38 respectively while proBNP was elevated to 62 531 and respiratory PCR was positive for Rhinovirus/Enterovirus. She was given 40 lasix IV once and is now being admitted for a CHF exacerbation as well as supportive care for Rhinovirus. 10 point review of system is negative except for above PAST MEDICAL HISTORY: 1. Atrial fibrillation. 2. Coronary artery disease. 3. COPD. 4. GA. 5. Diastolic congestive heart failure. 6. Hypertension 7. Asthma PAST SURGICAL HISTORY: 1. Coronary stent placement. 2. Carotid endarterectomy. SOCIAL HISTORY: Smoking 1.5 packs per day for 50 years Denies alcohol use. Denies drug use FAMILY HISTORY: Family history positive for heart disease ALLERGIES: Please see below. HOME MEDICATIONS: Please see below. PHYSICAL EXAMINATION: VITAL SIGNS: Please see below. GENERAL: Frail HEENT: Normocephalic, atraumatic, moist mucous membranes NECK: Supple CARDIOVASCULAR EXAMINATION: RRR, S1, S2, no murmurs RESPIRATORY EXAMINATION: Distant breath sounds, diminished bases, scattered rhonchi, no humberto wheezing and no crackles ABDOMINAL EXAMINATION: Soft, nontender, nondistended, positive bowel sounds EXTREMITIES: Bilateral lower extremity pitting edema, 2+ to knees SKIN: No rash NEUROLOGICAL EXAMINATION: Alert and oriented 3, no focal deficits PSYCHIATRIC EXAMINATION: Calm and cooperative LABORATORY DATA: See below. IMAGING: CXR: Well inflated lungs consistent with COPD. Increased interstitial markings. Pleural space: Bilateral pleural effusions. Heart/Mediastinum: Unremarkable. No cardiomegaly. Bones/joints: The spine demonstrates moderate degenerative changes. Bilateral LE doppler venous US: No DVTs. Edema MICROBIOLOGY: Please see below. ASSESSMENT: 74-year-old W a history of atrial fibrillation, diastolic CHF, asthma, COPD (oxygen dependent, 3L NC), coronary artery disease, [place], status post cardiac stent, CKD 3 (baseline Cr 1.5) who came in for acute worsening SOB over a few days with associated worsening lower extremity edema with worsening hypoxemia now requiring 5L NC and found to have Rhinovirus URI and CHF exacerbation PLAN: Acute on chronic HFpEF: -will diurese, thus far s/p 40 IV lasix x 1 -Will give 40 IV lasix TID, goal net negative 2L/24h -daily weights -daily BMP -strict I/Os -fluid restriction to 2L/24h -has a history of hypotension, will plan to continue her midodrine to support her hemodynamically for diuresis 1. 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 -Daily BMPs Atrial fibrillation. continue Eliquis, 2.5 mg twice a day. -Continue amiodarone 5. Coronary artery disease. History of [place], status post coronary stent, continue Zetia and beta lexi. 6. COPD at risk for exacerbation in the setting of Rhinovirus URI. supplemental oxygen as needed to maintain O2 sats between 88-92%. -duonebs q4h -xopenex nebs q6hp -May have to add steroids, will watch if diuresis is sufficient at this time DVT prophylaxis: on Eliquis Dispo: PCU Vital Signs Vital Signs Date Time Temp Pulse Resp B/P (MAP) Pulse Ox O2 Delivery O2 Flow Rate FiO2 06/13/20 13:21 Nasal Cannula 5.0 06/13/20 13:14 98.7 06/13/20 12:51 94 24 116/66 90 Laboratory Data Labs 24H Laboratory Tests 2 06/13/20 14:27: Immature Granulocyte % (Auto) 0.4, Neutrophils (%) (Auto) 89.8H, Lymphocytes (%) (Auto) 5.9L, Monocytes (%) (Auto) 3.1, Eosinophils (%) (Auto) 0.4, Basophils (%) (Auto) 0.4, Neutrophils # (Auto) 7.3, Lymphocytes # (Auto) 0.5L, Monocytes # (Auto) 0.3, Eosinophils # (Auto) 0.0, Basophils # (Auto) 0.0, Nucleated Red Blood Cells % (auto) 0.0, Anion Gap 9, Glomerular Filtration Rate 21.0L, Calcium Level 9.1, Total Bilirubin 0.9, Direct Bilirubin 0.5H, Aspartate Amino Transf (AST/SGOT) 38H, Alanine Aminotransferase (ALT/SGPT) 23, Alkaline Phosphatase 447H, Total Creatine Kinase 45, Creatine Kinase MB 2.9, Creatine Kinase MB Relative Index 6.44H, Troponin I 0.03, QF-Deg-L-Type Natriuretic Peptide 39341W, Total Protein 6.5, Albumin 2.6L, Albumin/Globulin Ratio 0.7L, Thyroid Stimulating Hormone (TSH) 8.140H 06/13/20 16:19: Blood Gas Bicarbonate Standard 24.4, Arterial Blood pH 7.407, Arterial Blood Partial Pressure CO2 40.1, Arterial Blood Partial Pressure O2 64.7L, Arterial Blood Total CO2 25.9, Arterial Blood HCO3 24.7, Arterial Blood Base Excess 0.1, Arterial Blood Oxygen Saturation 92.5L CBC/BMP Laboratory Tests 06/13/20 14:27 Microbiology Microbiology 06/13/20 Respiratory Virus Panel (PCR) ([facility]) - Final, Complete Human Rhinovirus/Enterovirus Home Medications Scheduled Apixaban (Eliquis) 2.5 Mg Tablet, 2.5 MG PO BID Bisoprolol Fumarate (Bisoprolol Fumarate) 5 Mg Tablet, 2.5 MG PO DAILY Docusate Sodium (Docusate Sodium) 100 Mg Cap, 100 MG PO DAILY Ferrous Gluconate (Ferrous Gluconate) 324 Mg Tablet, 324 MG PO DAILY Furosemide (Furosemide) 40 Mg Tablet, 40 MG PO DAILY Midodrine HCl (Midodrine HCl) 10 Mg Tablet, 10 MG PO BID Salmeterol/Fluticasone (Advair 500-50 Diskus) 28 Puff/Inhaler Aerp, 1 PUFF INH BID Umeclidinium Brm/Vilanterol Tr (Anoro Ellipta 62.5-25 Mcg INH) 1 Each Blst.w.dev, 1 PUFF INH DAILY Scheduled PRN Acetaminophen (Acetaminophen) 325 Mg Tab, 650 MG PO Q4H PRN for PAIN Albuterol Sulfate (Ventolin Hfa) 108 Mcg/Act Aer, 2 PUFFS INH Q4H PRN for SHORTNESS OF BREATH Hydrocortisone (Proctosol-Hc) 2.5 % Cre, 1 APLCT [place] QID PRN for HEMORRHOIDS Ipratropium/Albuterol Sulfate (Iprat-Albut 0.5-3(2.5) mg/3 ml) 1 Anne Anne, 1 NEB INH QID PRN for SHORTNESS OF BREATH Allergies Coded Allergies: Lqxybox-Akm-Fts Reductase Inhibitor (Verified Adverse Reaction, Intermediate, upset stomach, 03/25/19) Quinolones (Verified Adverse Reaction, Mild, palpitations, 10/29/19) patient tolerated levaquin in oct 2019 admission. ezetimibe (Verified Adverse Reaction, Unknown, UPSET STOMACH, 06/13/20) A-FIB/CHADSVASC A-FIB History Current/History of A-Fib/PAF?: No Current PO Anticoag Therapy: No Age/Risk Factor Scoring CHADSVASC: CHADSVASC Response (Comments) Value Age Risk Factor Age >/= 75 years old 2 Gender Risk Factor Female 1 Hx of CHF Yes 1 Hx of HTN No 0 Hx of Stroke/TIA/or VTE No 0 Hx of Diabetes No 0 Hx of Vascular Disease Yes 1 Total 5 Treatment Treatment ordered: NONE Reason Anticoagulant not given: Not indicated/[id number] MEE SAMUEL MD Jun 13, 2020 18:09
[2020-06-13] MEDS ORDERED: PILL CUTTER 1 EACH XX ONE (19:08)
[2020-06-13] MEDS: bisoproloL fumarate 5 MG TAB PO SCH (19:15)
[2020-06-13] MEDS: IPRATROPIUM 0.5MG/ALBUTEROL 2.5MG INH SOL UD 3ML (DUONEB) NEB SCH ×2 (19:21→23:23)
[2020-06-13 20:01] VITALS: BP 98/58
[2020-06-13 20:35] VITALS: BP 102/62
[2020-06-13] MEDS: ADVAIR HFA 230/21MCG INHALER INH SCH (21:00)
[2020-06-13] MEDS ORDERED: FUROSEMIDE 40MG/4ML VIAL (J1940) IV SCH (21:00)
[2020-06-13] MEDS: APIXABAN 2.5 MG TAB (ELIQUIS) PO SCH (21:04)
[2020-06-14] MEDS ORDERED: FUROSEMIDE 40MG/4ML VIAL (J1940) IV SCH
[2020-06-14 00:15] VITALS: BP 88/60
[2020-06-14] MEDS ORDERED: MIDODRINE 5 MG TAB PO ONE (01:00)
[2020-06-14] MEDS ORDERED: NS 500 ML IV ONE (02:45)
[2020-06-14 04:00] VITALS: BP 94/58
[2020-06-14 04:32] LABS: HEMATOCRIT 52.4 % (36.0-47.0); HEMOGLOBIN 16.9 g/dl (12.0-15.5); MEAN CORPUSCULAR HEMOGLOBIN 32.1 pg (27.0-33.0); MEAN CORPUSCULAR HGB CONC 32.3 g/dl (32.0-36.5); MEAN CORPUSCULAR VOLUME 99.4 fl (80.0-96.0); PLATELET COUNT, AUTOMATED 219 10^3/uL (150-450); RED BLOOD COUNT 5.27 10^6/uL (4.00-5.40); WHITE BLOOD COUNT 4.7 10^3/uL (4.0-10.0)
[2020-06-14 05:01] LABS: CREATININE FOR GFR 2.6 MG/DL (0.55-1.30); MAGNESIUM LEVEL 2.5 MG/DL (1.8-2.4); POTASSIUM SERUM 4.4 MEQ/L (3.5-5.1)
[2020-06-14] MEDS: NYSTATIN 500,000 U/5 ML SUSP UDC SS SCH ×3 (05:41→18:56)
[2020-06-14 08:00] VITALS: BP 112/59
[2020-06-14] MEDS: IPRATROPIUM 0.5MG/ALBUTEROL 2.5MG INH SOL UD 3ML (DUONEB) NEB SCH ×5 (08:00→20:00)
[2020-06-14] MEDS ORDERED: FUROSEMIDE 100MG/10ML VIAL (J1940) IV SCH (08:00)
[2020-06-14] MEDS: ADVAIR HFA 230/21MCG INHALER INH SCH ×2 (08:45→20:11)
[2020-06-14] MEDS ORDERED: MIDODRINE 5 MG TAB PO SCH (09:00)
[2020-06-14] MEDS: DOCUSATE SODIUM 100 MG CAP PO SCH (09:00)
[2020-06-14] MEDS: APIXABAN 2.5 MG TAB (ELIQUIS) PO SCH ×2 (09:00→20:14)
[2020-06-14] MEDS ORDERED: FLUBLOK(EGG FREE)(QUAD)INFLUENZA VACC 0.5ML SYRINGE 18YRS & OLDER IM ONE (09:00)
[2020-06-14] MEDS: FERROUS GLUCONATE 324 MG TAB PO SCH (09:00)
[2020-06-14] MEDS ORDERED: PNEUMOCOCCAL VACCINE 0.5ML SYRINGE (PNEUMOVAX 23) IM ONE (09:00)
[2020-06-14] MEDS: bisoproloL fumarate 5 MG TAB PO SCH (09:00)
--- NOTE | 2020-06-14 11:35 | IPNPDOC ---
Text Note Date of Service The patient was seen on 06/14/20. NOTE SUBJECTIVE: -Noted to have oral thrush, was started on nystatin suspension -Oliguric despite 40 lasix IV Q8H, only made 75cc overnight PHYSICAL EXAMINATION: VITAL SIGNS: Please see below. on 5L NC GENERAL: Frail, thin HEENT: Normocephalic, atraumatic, moist mucous membranes CARDIOVASCULAR EXAMINATION: RRR, S1, S2, no murmurs RESPIRATORY EXAMINATION: Diminished breath sounds, scattered rhonchi, bibasilar crackles ABDOMINAL EXAMINATION: Soft, nontender, nondistended, positive bowel sounds EXTREMITIES: Bilateral lower extremity pitting edema, 2+ to knees SKIN: No rash NEUROLOGICAL EXAMINATION: Alert and oriented 3, no focal deficits PSYCHIATRIC EXAMINATION: Calm and cooperative LABORATORY DATA: WBC 4.7 Hgb 16.9 platelets 219 na 136 k 4.4 Cr uptrended to 2.6 mag 2.5 IMAGING: CXR: Well inflated lungs consistent with COPD. Increased interstitial markings. Pleural space: Bilateral pleural effusions. Heart/Mediastinum: Unremarkable. No cardiomegaly. Bones/joints: The spine demonstrates moderate degenerative changes. Bilateral LE doppler venous US: No DVTs. Edema MICROBIOLOGY: Please see below. ASSESSMENT: 74-year-old W a history of atrial fibrillation, diastolic CHF, asthma, COPD (oxygen dependent, 3L NC), coronary artery disease, [place], status post cardiac stent, CKD 3 (baseline Cr 1.5) who came in for acute worsening SOB over a few days with associated worsening lower extremity edema with worsening hypoxemia now requiring 5L NC and found to have Rhinovirus URI and CHF exacerbation, with course c/b worsening oliguric NIKO despite diuretics. PLAN: Acute on chronic HFpEF: -Hold 40 IV lasix at this time, will consult nephrology given oliguria despite IV diuretics TID -daily weights -daily BMP -strict I/Os -fluid restriction to 2L/24h -has a history of hypotension, will plan to continue her midodrine to support her hemodynamically for diuresis 1. Acute kidney injury on CKD: Initially presumed to be 2/2 congestive nephropathy, but thus far not responsive to diuretic, will expand workup -Daily BMPs -urine sodium and urea for FeUrea -Renal US -Nephrology consult for worsening oliguric NIKO despite lasix 40 TID IV (at home takes 40 PO QD) Atrial fibrillation. continue Eliquis, 2.5 mg twice a day. -continue home bisoprolol 5. Coronary artery disease. History of [place], status post coronary stent, continue Zetia and beta lexi. 6. COPD at risk for exacerbation in the setting of Rhinovirus URI. supplemental oxygen as needed to maintain O2 sats between 88-92%. -duonebs q4h -xopenex nebs q6hp -will add prednisone 40mg daily DVT prophylaxis: on Eliquis Dispo: PCU VS,Fishbone, I+O VS, Fishbone, I+O Laboratory Tests 06/13/20 14:27 06/14/20 04:15 Vital Signs Date Time Temp Pulse Resp B/P (MAP) Pulse Ox O2 Delivery O2 Flow Rate FiO2 06/14/20 04:23 4.0 06/14/20 04:00 97.3 69 18 94/58 (70) 90 Nasal Cannula I&O- Last 24 Hours up to 6 AM 06/14/20 06:00 Intake Total 455 ml Output Total 75 ml Balance 380 ml MEE SAMUEL MD Jun 14, 2020 07:49
[2020-06-14] MEDS: predniSONE 20 MG TAB PO SCH (11:45)
[2020-06-14 11:53] VITALS: BP 101/57
[2020-06-14 16:00] VITALS: BP 103/60
[2020-06-14] MEDS: MIDODRINE 5 MG TAB PO SCH (16:38)
[2020-06-14] MEDS: FUROSEMIDE 100MG/10ML VIAL (J1940) IV SCH (18:56)
[2020-06-14 20:00] VITALS: BP 119/71
[2020-06-15] VITALS (7 sets, daily range): BP systolic 92–120; BP diastolic 54–67
[2020-06-15] MEDS: NYSTATIN 500,000 U/5 ML SUSP UDC SS SCH ×4 (00:02→18:13)
[2020-06-15] MEDS: FUROSEMIDE 100MG/10ML VIAL (J1940) IV SCH ×3 (03:41→18:13)
[2020-06-15] MEDS: IPRATROPIUM 0.5MG/ALBUTEROL 2.5MG INH SOL UD 3ML (DUONEB) NEB SCH ×8 (03:46→23:43)
[2020-06-15 04:42] LABS: HEMATOCRIT 50.6 % (36.0-47.0); HEMOGLOBIN 16.5 g/dl (12.0-15.5); MEAN CORPUSCULAR HEMOGLOBIN 32.6 pg (27.0-33.0); MEAN CORPUSCULAR HGB CONC 32.6 g/dl (32.0-36.5); PLATELET COUNT, AUTOMATED 211 10^3/uL (150-450); RED BLOOD COUNT 5.06 10^6/uL (4.00-5.40); WHITE BLOOD COUNT 9.1 10^3/uL (4.0-10.0)
[2020-06-15 05:06] LABS: CALCIUM LEVEL 9.1 MG/DL (8.8-10.2); CREATININE FOR GFR 2.42 MG/DL (0.55-1.30); GLOMERULAR FILTRATION RATE 20.6 (>39)
[2020-06-15 07:33] LABS: SODIUM,RANDOM URINE 55 MEQ/L; UREA NITROGEN RANDOM URINE 385 MG/DL
[2020-06-15] MEDS: ADVAIR HFA 230/21MCG INHALER INH SCH ×3 (07:39→20:30)
[2020-06-15] MEDS: bisoproloL fumarate 5 MG TAB PO SCH (09:00)
[2020-06-15] MEDS: FERROUS GLUCONATE 324 MG TAB PO SCH (09:14)
[2020-06-15] MEDS: MIDODRINE 5 MG TAB PO SCH ×3 (09:14→16:14)
[2020-06-15] MEDS: predniSONE 20 MG TAB PO SCH (09:14)
[2020-06-15] MEDS: DOCUSATE SODIUM 100 MG CAP PO SCH (09:14)
[2020-06-15] MEDS: APIXABAN 2.5 MG TAB (ELIQUIS) PO SCH ×2 (09:14→20:48)
--- NOTE | 2020-06-15 11:37 | IPNPDOC ---
Text Note Date of Service The patient was seen on 06/15/20. NOTE SUBJECTIVE: -No acute events PHYSICAL EXAMINATION: VITAL SIGNS: Please see below. on 4L NC GENERAL: Frail, thin HEENT: Normocephalic, atraumatic, moist mucous membranes CARDIOVASCULAR EXAMINATION: RRR, S1, S2, no murmurs RESPIRATORY EXAMINATION: Diminished breath sounds, scattered rhonchi, bibasilar crackles ABDOMINAL EXAMINATION: Soft, nontender, nondistended, positive bowel sounds EXTREMITIES: Bilateral lower extremity pitting edema, 2+ to knees SKIN: No rash NEUROLOGICAL EXAMINATION: Alert and oriented 3, no focal deficits PSYCHIATRIC EXAMINATION: Calm and cooperative LABORATORY DATA: WBC 9.1 Hgb 16.5 platelets 211 na 135 k 4.0 Cr 2.42 IMAGING: CXR: Well inflated lungs consistent with COPD. Increased interstitial markings. Pleural space: Bilateral pleural effusions. Heart/Mediastinum: Unremarkable. No cardiomegaly. Bones/joints: The spine demonstrates moderate degenerative changes. Bilateral LE doppler venous US: No DVTs. Edema MICROBIOLOGY: Please see below. ASSESSMENT: 74-year-old W a history of atrial fibrillation, diastolic CHF, asthma, COPD (oxygen dependent, 3L NC), coronary artery disease, [place], status post cardiac stent, CKD 3 (baseline Cr 1.5) who came in for acute worsening SOB over a few days with associated worsening lower extremity edema with worsening hypoxemia now requiring 5L NC and found to have Rhinovirus URI and CHF exa cerbation, with course c/b worsening oliguric NIKO with nephrology now consulted, escalating diuretics. PLAN: Acute on chronic HFpEF: -Currently on 80 IV lasix Q8H, finally improving UOP -daily weights -daily BMP -strict I/Os -fluid restriction to 2L/24h -has a history of hypotension, will plan to continue her midodrine to support her hemodynamically for diuresis -nephrology consulted, appreciate recs 1. Acute kidney injury on CKD: Initially presumed to be 2/2 congestive nephropathy, but thus far not responsive to diuretic, will expand workup -Daily BMPs -Renal US, pending read -Nephrology consult for worsening oliguric NIKO, currently on lasix 80 TID IV (at home takes 40 PO QD) with improving UOP Atrial fibrillation. continue Eliquis, 2.5 mg twice a day. -continue home bisoprolol 5. Coronary artery disease. History of [place], status post coronary stent, continue Zetia and beta lexi. 6. Acute COPD exacerbation in the setting of Rhinovirus URI. supplemental oxygen as needed to maintain O2 sats between 88-92%. -duonebs q4h -xopenex nebs q6hp -prednisone 40mg daily, day 2 DVT prophylaxis: on Eliquis Dispo: PCU VS,Fishbone, I+O VS, Fishbone, I+O Laboratory Tests 06/15/20 04:14 Vital Signs Date Time Temp Pulse Resp B/P (MAP) Pulse Ox O2 Delivery O2 Flow Rate FiO2 06/15/20 04:07 4.0 06/15/20 04:06 98.2 72 20 120/60 (80) 95 Nasal Cannula I&O- Last 24 Hours up to 6 AM 06/15/20 06:00 Intake Total 935 ml Output Total 450 ml Balance 485 ml MEE SAMUEL MD Jun 15, 2020 08:18
--- NOTE | 2020-06-15 18:36 | CR ---
NEPHROLOGY CONSULTATION DATE OF CONSULTATION: 06/14/2020 CONSULTATION REQUESTED BY: Dr. Randle. REASON FOR CONSULTATION: Acute renal failure superimposed on chronic kidney disease. HISTORY OF PRESENT ILLNESS: Christine is a 75-year-old, chronically ill-appearing elderly female, with history of chronic atrial fibrillation, diastolic congestive heart failure, COPD on home oxygen, coronary artery disease with prior MT, status post angioplasty and stents, and baseline CKD 3. She presented to the Emergency Room with shortness of breath and was admitted. The hospitalist service has tried to diurese her without much success. Nephrology consultation was requested as patient has significant acute renal failure superimposed on chronic kidney disease and not responding to diuretics. PAST MEDICAL HISTORY: Significant for: 1. Atrial fibrillation. 2. Coronary artery disease with prior MT, angioplasties and stents. 3. History of COPD. 4. History of diastolic congestive heart failure. 5. Hypertension. 6. History of chronic kidney disease. PAST SURGICAL HISTORY: Significant for: 1. Coronary angioplasty with stents. 2. Carotid endarterectomy. FAMILY HISTORY: Positive for heart disease. PERSONAL AND SOCIAL HISTORY: History of smoking about 1.5 packs per day for 50 years. Denies any alcohol or drug use. ALLERGIES: She has allergy to Quinolones and statins. MEDICATIONS: Her home medications include: 1. Eliquis 2.5 mg b.i.d. 2. Bisoprolol 2.5 mg daily. 3. Ferrous Gluconate 324 mg daily. 4. Furosemide 40 mg daily. 5. Midodrine 10 mg b.i.d. 6. Advair Diskus 50/500 b.i.d. 7. Anoro Ellipta inhaler once a day. 8. Albuterol inhaler as needed. 9. DuoNeb as needed. REVIEW OF SYSTEMS: Patient is quite short of breath and volume overloaded. She denies any fever or chills. She is using oxygen via nasal cannula. Ears, nose and throat are unremarkable. Cardiovascular system is significant for shortness of breath and generalized edema. She denies any chest pain. Respiratory system is significant for COPD with worsening shortness of breath. She is using oxygen 3 liters. GI system is negative for vomiting or diarrhea. system is significant for decreased urine output and acute renal failure. She denies any dysuria. Endocrine system is negative for diabetes or thyroid problems. Hematological system is significant for chronic anticoagulation due to atrial fibrillation. Skin is negative for rash or ulcers. Musculoskeletal system is significant for degenerative arthritis and leg edema. Neurological system is negative for seizures or strokes. PHYSICAL EXAMINATION: Temperature 97.3 degrees Fahrenheit, heart rate 68 per minute, respiratory rate 18 per minute, blood pressure 101/57 mmHg and oxygen saturation 93% on 4 liters of oxygen. Head is atraumatic. Pupils equal and reactive to light. Sclera is anicteric. Neck is supple and JVD is mildly elevated about 12 cm above sternal angle. She has no oral thrush or ulcers. Heart sounds are irregular in rhythm. There is no pericardial friction rub. Lungs have diminished breath sounds and bilateral rales. Abdomen is soft and nontender, bowel sounds are normal. Extremities without any cyanosis or clubbing. She has generalized edema on her lower half of the body. Neurologically, she is awake, alert, and able to answer questions. LABORATORY DATA: WBC 4.7, hemoglobin 16.9, hematocrit 52.4, platelets 219,000. Sodium 136, potassium 4.4, chloride 97, CO2 32, BUN 84, creatinine 2.6, glucose 194 and calcium 9.0. BNP level 62,531. IMAGING STUDIES: Chest x-ray done in the Emergency Room was consistent with COPD and bilateral pleural effusions. PROBLEMS: 1. Acute renal failure superimposed on chronic kidney disease: Patient is in oliguric acute renal failure. She is not responding very well to current dose of diuretic. She already had renal ultrasound done and report is still pending. Will try to diurese her with intravenous Lasix and I am going to increase the dose to 80 mg every 8 hours. Depending upon her response to next dose of diuretic, will make further decisions. 2. Congestive heart failure: Her volume status significantly decompensated and we will try to diurese her aggressively. If she does not respond, then we can add another diuretic like Metolazone later in the day. 3. Hypotension: Her blood pressure is borderline low and likely to get worse even with diuresis. I am increasing her Midodrine dose to 10 mg t.i.d. Thank you for involving me in the care of Ms. Evans. I will follow her along with you. MTDD
[2020-06-16] VITALS: BP 120/60
[2020-06-16] MEDS: NYSTATIN 500,000 U/5 ML SUSP UDC SS SCH ×4 (00:13→18:41)
[2020-06-16] MEDS: FUROSEMIDE 100MG/10ML VIAL (J1940) IV SCH ×3 (02:55→18:41)
[2020-06-16] MEDS: IPRATROPIUM 0.5MG/ALBUTEROL 2.5MG INH SOL UD 3ML (DUONEB) NEB SCH ×5 (03:47→19:44)
[2020-06-16 04:00] VITALS: BP 118/70
[2020-06-16 06:16] LABS: HEMATOCRIT 50.4 % (36.0-47.0); HEMOGLOBIN 16.4 g/dl (12.0-15.5); MEAN CORPUSCULAR HEMOGLOBIN 32.3 pg (27.0-33.0); MEAN CORPUSCULAR HGB CONC 32.5 g/dl (32.0-36.5); MEAN CORPUSCULAR VOLUME 99.4 fl (80.0-96.0); PLATELET COUNT, AUTOMATED 195 10^3/uL (150-450); RED BLOOD COUNT 5.07 10^6/uL (4.00-5.40)
[2020-06-16 06:42] LABS: CALCIUM LEVEL 8.8 MG/DL (8.8-10.2); CREATININE FOR GFR 2.47 MG/DL (0.55-1.30); GLOMERULAR FILTRATION RATE 20.2 (>39)
[2020-06-16] MEDS: ADVAIR HFA 230/21MCG INHALER INH SCH ×3 (07:42→20:00)
[2020-06-16 08:00] VITALS: BP 126/69
[2020-06-16] MEDS: MIDODRINE 5 MG TAB PO SCH ×3 (08:46→15:31)
[2020-06-16] MEDS: bisoproloL fumarate 5 MG TAB PO SCH (09:00)
[2020-06-16] MEDS: predniSONE 20 MG TAB PO SCH (10:02)
[2020-06-16] MEDS: FERROUS GLUCONATE 324 MG TAB PO SCH (10:03)
[2020-06-16] MEDS: DOCUSATE SODIUM 100 MG CAP PO SCH (10:03)
[2020-06-16] MEDS: APIXABAN 2.5 MG TAB (ELIQUIS) PO SCH ×2 (10:03→20:44)
[2020-06-16 12:00] VITALS: BP 118/60
--- NOTE | 2020-06-16 15:21 | IPNPDOC ---
Text Note Date of Service The patient was seen on 06/16/20. NOTE Subjective: No any acute events overnight. Patient denies fever, chills, chest pain, palpitations, nausea, vomiting, diarrhea PHYSICAL EXAMINATION: VITAL SIGNS: Please see below. on 4L NC GENERAL: Frail, thin HEENT: Normocephalic, atraumatic, moist mucous membranes CARDIOVASCULAR EXAMINATION: RRR, S1, S2, no murmurs RESPIRATORY EXAMINATION: Diminished breath sounds, scattered rhonchi, bibasilar crackles ABDOMINAL EXAMINATION: Soft, nontender, nondistended, positive bowel sounds EXTREMITIES: Bilateral lower extremity pitting edema, 2+ to knees SKIN: No rash NEUROLOGICAL EXAMINATION: Alert and oriented 3, no focal deficits PSYCHIATRIC EXAMINATION: Calm and cooperative ASSESSMENT: 74-year-old W a history of atrial fibrillation, diastolic CHF, asthma, COPD (oxygen dependent, 3L NC), coronary artery disease, [place], status post cardiac stent, CKD 3 (baseline Cr 1.5) who came in for acute worsening SOB over a few days with associated worsening lower extremity edema with worsening hypoxemia now requiring 5L NC and found to have Rhinovirus URI and CHF exacerbation, with course c/b worsening oliguric NIKO with nephrology now consulted, escalating diuretics. Acute on chronic HFpEF: Continue Lasix IV Significantly elevated BNP -daily weights -daily BMP -strict I/Os -fluid restriction to 2L/24h -continue her midodrine 10 TID to support her hemodynamically for diuresis -nephrology team on board Acute renal failure superimposed on chronic kidney disease: Initially presumed to be 2/2 congestive nephropathy Daily BMP Renal US, pending read currently on Lasix 80 TID IV (at home takes 40 PO QD) with improving UOP Atrial fibrillation. continue Eliquis, 2.5 mg twice a day. continue home bisoprolol Coronary artery disease. History of [place], status post coronary stent, continue Zetia and beta lexi. Acute COPD exacerbation in the setting of Rhinovirus URI. supplemental oxygen as needed to maintain O2 sats between 88-92%. -duonebs q4h -xopenex nebs q6hp -prednisone 40mg daily, day 2 VS,Fishbone, I+O VS, Fishbone, I+O Laboratory Tests 06/16/20 06:03 Vital Signs Date Time Temp Pulse Resp B/P (MAP) Pulse Ox O2 Delivery O2 Flow Rate FiO2 06/16/20 12:00 97.5 81 18 118/60 (79) 96 Nasal Cannula 5.0 I&O- Last 24 Hours up to 6 AM 06/16/20 06:00 Intake Total 120 ml Output Total 950 ml Balance -830 ml TRAVON HERMOSILLO DO Jun 16, 2020 15:21
[2020-06-16 16:00] VITALS: BP 141/79
[2020-06-16 20:00] VITALS: BP 114/63
[2020-06-17] VITALS: BP 126/70
[2020-06-17] MEDS: NYSTATIN 500,000 U/5 ML SUSP UDC SS SCH ×4 (00:03→17:21)
[2020-06-17] MEDS: IPRATROPIUM 0.5MG/ALBUTEROL 2.5MG INH SOL UD 3ML (DUONEB) NEB SCH ×4 (01:20→15:12)
[2020-06-17] MEDS: FUROSEMIDE 100MG/10ML VIAL (J1940) IV SCH ×3 (03:23→18:02)
[2020-06-17 04:00] VITALS: BP 124/63
[2020-06-17 06:19] LABS: HEMATOCRIT 50.1 % (36.0-47.0); HEMOGLOBIN 16.5 g/dl (12.0-15.5); MEAN CORPUSCULAR HEMOGLOBIN 32.4 pg (27.0-33.0); MEAN CORPUSCULAR HGB CONC 32.9 g/dl (32.0-36.5); MEAN CORPUSCULAR VOLUME 98.4 fl (80.0-96.0); PLATELET COUNT, AUTOMATED 177 10^3/uL (150-450); RED BLOOD COUNT 5.09 10^6/uL (4.00-5.40); WHITE BLOOD COUNT 7.3 10^3/uL (4.0-10.0)
[2020-06-17 06:50] LABS: CALCIUM LEVEL 9.2 MG/DL (8.8-10.2); CREATININE FOR GFR 2.34 MG/DL (0.55-1.30); GLOMERULAR FILTRATION RATE 21.5 (>39); POTASSIUM SERUM 4.2 MEQ/L (3.5-5.1)
[2020-06-17 07:25] VITALS: BP 124/68
[2020-06-17] MEDS: ADVAIR HFA 230/21MCG INHALER INH SCH (07:36)
[2020-06-17] MEDS: MIDODRINE 5 MG TAB PO SCH ×3 (07:52→15:41)
[2020-06-17] MEDS: DOCUSATE SODIUM 100 MG CAP PO SCH (08:00)
[2020-06-17] MEDS: FERROUS GLUCONATE 324 MG TAB PO SCH (08:00)
[2020-06-17] MEDS: APIXABAN 2.5 MG TAB (ELIQUIS) PO SCH (08:00)
[2020-06-17] MEDS: predniSONE 20 MG TAB PO SCH (08:00)
[2020-06-17 08:02] VITALS: BP 125/65
[2020-06-17] MEDS: bisoproloL fumarate 5 MG TAB PO SCH (08:02)
--- NOTE | 2020-06-17 10:41 | IPNPDOC ---
Text Note Date of Service The patient was seen on 06/17/20. NOTE SUBJECTIVE: Patient was seen and examined this morning at bedside. She states she is feeling some improvement. Bethea catheter is in place and continues to drain dark brownish urine. OBJECTIVE: PHYSICAL EXAMINATION: VITAL SIGNS: Please see below. GENERAL: Alert, sitting up comfortably in a chair, in no acute distress HEENT: NC, AT, moist mucous membranes, mildly elevated JVD CARDIOVASCULAR: Regular rate and rhythm, normal S1 and S2 RESPIRATORY: Breath sounds diminished bilaterally, no wheezing, rhonchi, or rales ABDOMINAL: Soft, nontender, mildly distended EXTREMITIES: 2+ pitting edema in bilateral lower extremities ASSESSMENT/PLAN: 75 year old female presented with acute renal failure on CKD and decompensated CHF. 1. Acute renal failure superimposed on chronic kidney disease. Continues to diurese on lasix. Cr stable at 2.34. UA revealed amorphous sediment and hematuria. She continues to have good urine output. 2. Congestive heart failure. Continues to diurese with lasix IV 80 q8h. She still has some lower extremity edema and requires further diuresis. 3. Hypotension. Blood pressure stable. Continue midodrine 10mg TID while she is being diuresed. Thank you for the consultation on this patient, we will continue to follow along. VS,Thaie, I+O VS, Fishbone, I+O Laboratory Tests 06/17/20 06:10 Vital Signs Date Time Temp Pulse Resp B/P (MAP) Pulse Ox O2 Delivery O2 Flow Rate FiO2 06/17/20 08:02 72 125/65 06/17/20 08:00 6.0 06/17/20 07:25 96.8 16 93 Nasal Cannula l I&O- Last 24 Hours up to 6 AM 06/17/20 06:00 Intake Total 400 ml Output Total 1350 ml Balance -950 ml DANNA VARGAS D.O. Jun 17, 2020 10:41
[2020-06-17] MEDS ORDERED: SLF 3 ML SYR IV PRN (11:15)
[2020-06-17 12:00] VITALS: BP 113/66
--- NOTE | 2020-06-17 12:12 | IPN ---
DATE: 06/15/2020 SUBJECTIVE: Mrs. De La Vega is seen this morning at her bedside. She is not feeling good today and has difficulty getting up to use the bathroom. She denies any nausea or vomiting. She is still short of breath and weak. PHYSICAL EXAMINATION: VITAL SIGNS: Temperature is 97.8 degrees Fahrenheit, heart rate 80 per minute, and respiratory rate 20 per minute, blood pressure is 92/54 mmHg and oxygen saturation is 89% on 5 liters of oxygen. HEENT: Some facial edema is noticed. NECK: Her neck veins are about 9 cm above sternal angle. HEART: Regular. LUNGS: Diminished breath sounds and bilateral rales. ABDOMEN: Soft and nontender. Bowel sounds are normal. EXTREMITIES: Without any cyanosis or clubbing. Lower extremity edema is at least 2+. NEUROLOGIC: She is awake, alert and at her baseline mentation. LABS: Todays labs shows a WBC count of 9.1, hemoglobin 16.5 and hematocrit 50.6. Sodium 135, potassium 4.0, CO2 31, BUN 83 and creatinine 2.42. PROBLEMS: 1. Acute kidney injury superimposed on chronic kidney disease. Kidney function is essentially unchanged. She did have a renal ultrasound done yesterday and so far we do not have the results. We will continue to wait for radiology report. At this point she is responding to diuretics and we will continue to diurese her. No change in renal function is noticed. 2. Acute on chronic congestive heart failure. Her volume status remains decompensated. She is responding to diuretics and we will continue with Lasix 80 mg every 8 hours. Patient has requested a Bethea catheter placement and will go ahead and get a Bethea catheter placed as the patient is very uncomfortable to get up with short intervals. [facility]
--- NOTE | 2020-06-17 12:15 | IPN ---
DATE: 06/16/2020 Ms. Evans seen this morning at her bedside. She was eating breakfast at the time of my visit. She is still short of breath but improved with the diuresis. She denies any nausea or vomiting. On physical exam, temperature 97.4 degrees Fahrenheit, heart rate is 75 per minute and respiratory rate 18 per minute. Blood pressure 126/69 mmHg and oxygen saturation 91% on 5 liters of oxygen. Her neck veins are still markedly distended. Heart sounds are regular, and lungs with bilateral rhonchi and diminished breath sounds at the bases. Abdomen soft and nontender. Extremities without any cyanosis or clubbing. Thigh edema is still 2+ bilaterally. Neurologically, she is awake and at her baseline mentation. Today's labs show WBC count 6.0, hemoglobin 16.4 and hematocrit 50.4. Sodium 136, potassium 4.0, CO2 of 30, BUN 86 and creatinine 2.47. Glucose 139 and calcium 8.8. PROBLEMS: 1. Acute kidney injury superimposed on chronic kidney disease. The patient had a Bethea catheter placed yesterday and her urine looks a dark, muddy brown. She possibly has acute tubular necrosis. Kidney function is slightly worse compared with yesterday. She does not have any uremic symptoms and there is no emergent indication for dialysis. 2. Congestive heart failure. Her volume status is still decompensated but she is responding to diuretics. She did have mild negative fluid balance yesterday. We will continue with Lasix 80 mg every eight hours and see how she does for the next 24 hours. It is likely that she will require temporary dialysis if her kidney function does not improve over the next few days. All other issues are being addressed by the hospitalist service. VALERIO
--- NOTE | 2020-06-17 12:23 | IPNPDOC ---
Text Note Date of Service The patient was seen on 06/17/20. NOTE Subjective: No any acute events overnight. Patient stated that her breathing improved today Patient denies fever, chest pain, palpitation, chills, nausea, vomiting, diarrhea PHYSICAL EXAMINATION: VITAL SIGNS: Please see below. on 4L NC GENERAL: Frail, thin HEENT: Normocephalic, atraumatic, moist mucous membranes CARDIOVASCULAR EXAMINATION: RRR, S1, S2, no murmurs RESPIRATORY EXAMINATION: Diminished breath sounds, scattered rhonchi, bibasilar crackles ABDOMINAL EXAMINATION: Soft, nontender, nondistended, positive bowel sounds EXTREMITIES: Bilateral lower extremity pitting edema, 2+ to knees SKIN: No rash NEUROLOGICAL EXAMINATION: Alert and oriented 3, no focal deficits PSYCHIATRIC EXAMINATION: Calm and cooperative ASSESSMENT: 74-year-old W a history of atrial fibrillation, diastolic CHF, asthma, COPD (oxygen dependent, 3L NC), coronary artery disease, [place], status post cardiac stent, CKD 3 (baseline Cr 1.5) who came in for acute worsening SOB over a few days with associated worsening lower extremity edema with worsening hypoxemia now requiring 5L NC and found to have Rhinovirus URI and CHF exacerbation, with course c/b worsening oliguric NIKO with nephrology now consulted, escalating diuretics. Acute on chronic HFpEF: Continue Lasix IV Significantly elevated BNP -daily weights -daily BMP -strict I/Os -fluid restriction to 2L/24h -continue her midodrine 10 TID to support her hemodynamically for diuresis -nephrology team on board Acute renal failure superimposed on chronic kidney disease: Initially presumed to be 2/2 congestive nephropathy Daily BMP Renal US, pending read currently on Lasix 80 TID IV (at home takes 40 PO QD) with improving UOP Urine culture positive for Enterobacter aragenes, however patient does not have suprapubic tenderness. Most likely asymptomatic bacteriuria. Atrial fibrillation. continue Eliquis, 2.5 mg twice a day. continue home bisoprolol Coronary artery disease. History of [place], status post coronary stent, continue Zetia and beta lexi. Acute COPD exacerbation in the setting of Rhinovirus URI. supplemental oxygen as needed to maintain O2 sats between 88-92%. -duonebs q4h -xopenex nebs q6hp -prednisone 40mg daily, day 2 Acute hypoxemic respiratory failure Patient developed increased oxygen requirements Currently she is on 6 L oxygen, RR 30 VS,Fishbone, I+O VS, Fishbone, I+O Laboratory Tests 06/17/20 06:10 Vital Signs Date Time Temp Pulse Resp B/P (MAP) Pulse Ox O2 Delivery O2 Flow Rate FiO2 06/17/20 08:02 72 125/65 06/17/20 08:00 6.0 06/17/20 07:25 96.8 16 93 Nasal Cannula I&O- Last 24 Hours up to 6 AM 06/17/20 06:00 Intake Total 400 ml Output Total 1350 ml Balance -950 ml TRAVON HERMOSILLO DO Jun 17, 2020 12:23
[2020-06-17] MEDS ORDERED: SLF 3 ML SYR IV SCH (14:00)
[2020-06-17 16:00] VITALS: BP 124/73
[2020-06-17] MEDS ORDERED: NOREPINEPHRINE 4 MG/4 ML AMP As Ordered ONE (20:25)
[2020-06-17 20:29] LABS: HEMATOCRIT 50.8 % (36.0-47.0); HEMOGLOBIN 15.8 g/dl (12.0-15.5); MEAN CORPUSCULAR HEMOGLOBIN 32.6 pg (27.0-33.0); MEAN CORPUSCULAR HGB CONC 31.1 g/dl (32.0-36.5); MEAN CORPUSCULAR VOLUME 104.7 fl (80.0-96.0); PLATELET COUNT, AUTOMATED 182 10^3/uL (150-450); RED BLOOD COUNT 4.85 10^6/uL (4.00-5.40); WHITE BLOOD COUNT 9.2 10^3/uL (4.0-10.0)
--- NOTE | 2020-06-17 20:32 | REPVR ---
PROCEDURE INFORMATION: Exam: XR Chest, 1 View Exam date and time: 06/17/2020 8:20 PM Age: 75 years old Clinical indication: Other: Full code; Additional info: Agonal breaeths TECHNIQUE: Imaging protocol: XR of the chest Views: 1 view. COMPARISON: CR Chest, 2 view PA, Lat 06/13/2020 5:09 PM FINDINGS: Tubes, catheters and devices: Distal tip of the endotracheal tube projects approximately 3.1 cm above the boogie External monitoring devices present. Lungs: Diffuse increase in interstitial markings with hyperinflation in both lungs Pleural space: Minimal blunting of the costophrenic angles bilaterally. Heart/Mediastinum: The cardiac silhouette is moderately enlarged. Vasculature: Arteriosclerosis of the thoracic aorta Bones/joints: Degenerative changes of the thoracic spine. IMPRESSION: Diffuse increase in interstitial markings not significantly changed from previous and small bilateral pleural effusion/pleural thickening 2. Increase in size of cardiac silhouette may be accentuated by portable nature of the examination. Follow-up recommended. Electronically signed by: Antonieta Bhardwaj On 06/17/2020 20:32:00 PM
[2020-06-17 20:43] LABS: INR 1.49; PROTHROMBIN TIME 18.3 SECONDS (11.8-14.0)
[2020-06-17 20:44] LABS: PARTIAL THROMBOPLASTIN TIME 29.4 SECONDS (25.0-38.4)
[2020-06-17 20:52] LABS: CENTRAL VEN BASE EXCESS -11.5
[2020-06-17] MEDS ORDERED: EPINEPHrine INJ 1 MG/ML 1ML AMP As Ordered ONE (20:54)
[2020-06-17] MEDS ORDERED: ATROPINE SULF 1MG/10ML SYRINGE (J0461) ONE (21:12)
[2020-06-17] MEDS ORDERED: SODIUM BICARBONATE 8.4% INJ 50MEQ 50 ML VIAL ONE (21:12)
[2020-06-17] MEDS ORDERED: EPINEPHrine 1MG/10ML SYRINGE 1.5IN ONE (21:12)
[2020-06-17 21:35] LABS: ALBUMIN 2.7 GM/DL (3.2-5.2); BILIRUBIN,TOTAL 0.8 MG/DL (0.2-1.0); CALCIUM LEVEL 9.1 MG/DL (8.8-10.2); CREATININE FOR GFR 2.52 MG/DL (0.55-1.30); GLOMERULAR FILTRATION RATE 19.7 (>39); POTASSIUM SERUM 4.4 MEQ/L (3.5-5.1); TOTAL PROTEIN 6.5 GM/DL (6.4-8.2)
--- NOTE | 2020-06-17 21:56 | REPVR ---
PROCEDURE INFORMATION: Exam: XR Chest, 1 View Exam date and time: 06/17/2020 8:53 PM Age: 75 years old Clinical indication: Other: Line placement; Additional info: Central line TECHNIQUE: Imaging protocol: XR of the chest Views: 1 view. COMPARISON: CR PORTABLE CHEST X-RAY 06/17/2020 8:04 PM FINDINGS: Tubes, catheters and devices: External monitoring devices are present. There is no evidence of a central line. Lungs: There is an abnormal increase in interstitial markings diffusely in both lungs Pleural space: No pneumothorax. Blunting of the right lateral costophrenic angle. Heart/Mediastinum: Cardiac silhouette is mildly enlarged. Bones/joints: Generalized decrease in bone density Soft tissues: Calcification noted within the soft tissues adjacent to the right humeral head laterally Surgical clips project in the soft tissues of the left and right side of the neck Other findings: Liz is not well seen. The patient is rotated to the left. IMPRESSION: 1. There is no central line evident on the radiograph. No pneumothorax. 2. Diffuse interstitial lung disease without change from previous. This could represent interstitial edema or pneumonia Electronically signed by: Antonieta Bhardwaj On 06/17/2020 21:55:46 PM
--- NOTE | 2020-06-17 23:37 | IPNPDOC ---
Text Note NOTE done in error. TABITHA FRANCO DO Jun 17, 2020 23:37
--- NOTE | 2020-06-18 00:19 | IPNPDOC ---
Date Seen The patient was seen on 06/18/20. 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 Upon arrival patient was unresponsive to loud verbal and painful stimuli. HR low 40's with thready pulse. Atropine x1 given and patient was transferred to ICU. HR low again in ICU, given second dose of atropine with small increse in HR, patient had pulse present. Her BP was low, no pulse was found. CPR started and patient was started on dopamine gtt given epinephrine. She was intubated successfully, CXR showed some pulmonary congestion, possible PNA but no pneumothorax, pleural effusion. STAT echocardiogram was ordered due to suspicion of cardiogenic shock. Another 1 g epinephrine was given and ROSC was achieved. During this time, pulse was strong and femoral line was placed in right groin by Dr. Staley. Reoccurence of PEA at 20:22 and epinephrine, CPR given/started. Pulse was found again at 20:23 with HR 160-170's rapid atrial fib. At 20:43 patient lost a pulse but had PEA. CPR restarted, levophed gtt and epinephrine started/given. At this time, there was a brown, fecal fluid that was coming from mouth, NG tube was placed. Upon review, patient had no had BM since admission and ABXR was ordered to r/o bowel obstruction. CPR continued from that time to 20:54, she received an additional 3 mg IV epi during the remainder of the code. The patient's son, Jovon, was called and updated on critical status with no improvement with CPR. Decision was made to stop all CPR. Time of was 20:54. VS, I&O, 24H, [facility] Vital Signs/I&O Vital Signs Date Time Temp Pulse Resp B/P (MAP) Pulse Ox O2 Delivery O2 Flow Rate FiO2 06/17/20 16:00 98.1 84 18 124/73 (90) 91 Nasal Cannula 6.0 I&O- Last 24 Hours up to 6 AM 06/18/20 06:00 Intake Total 420 ml Output Total 620 ml Balance -200 ml Laboratory Data 24H LABS Laboratory Tests 2 06/17/20 06:10: Nucleated Red Blood Cells % (auto) 0.0, Anion Gap 7L, Glomerular Filtration Rate 21.5L, Calcium Level 9.2 06/17/20 20:19: Nucleated Red Blood Cells % (auto) 0.3H, Anion Gap 12, Glomerular Filtration Rate 19.7L, Calcium Level 9.1, Prothrombin Time 18.3H, Prothromb Time International Ratio 1.49, Activated Partial Thromboplast Time 29.4, Lactic Acid Level 6.7*H, Total Bilirubin 0.8, Aspartate Amino Transf (AST/SGOT) 115H, Alanine Aminotransferase (ALT/SGPT) 76, Alkaline Phosphatase 421H, Total Protein 6.5, Albumin 2.7L, Albumin/Globulin Ratio 0.7L 06/17/20 20:30: Central Line Venous O2 Saturation 73.0 CBC/BMP Laboratory Tests 06/17/20 06:10 06/17/20 20:19 Microbiology Microbiology 06/16/20 Urine Culture, Received Pending 06/13/20 Respiratory Virus Panel (PCR) ([facility]) - Final, Complete Human Rhinovirus/Enterovirus Nusrat Nogueira MD Jun 18, 2020 00:19
--- NOTE | 2020-06-18 03:56 | ROOPDOC ---
[facility] Report Of Operation Report of Operation DATE OF PROCEDURE: 06/17/20 PREPROCEDURE DIAGNOSES: Hypotension POSTPROCEDURE DIAGNOSES: Hypotension. PROCEDURE: R-Femoral central line PROCEDURE COCKTAIL SERVER: Tabitha Staley DO ATTENDING PHYSICIAN: Nusrat Nogueira MD was in attendance INDICATION: Hypotension CONSENT: Done emergently during a code. PROCEDURE SUMMARY: My hands were washed immediately prior to the procedure. I wore a surgical cap, mask with protective eyewear, sterile gown and sterile gloves throughout the procedure. The RIGHT inguinal region was prepped using chlorhexidine scrub. The femoral pulse was identified. Palpating the femoral pulse throughout the procedure, the introducer needle was inserted medial to the femoral artery, inferior to the inguinal crease and into the femoral vein. Venous blood was withdrawn. The syringe was removed and a guidewire was advanced into the introducer needle. A small incision was made at the skin surface with a scalpel and the introducer needle was exchanged for a dilator over the guidewire. After appropriate dilation was obtained, the dilator was exchanged over the wire for a central venous catheter. The wire was removed and the catheter was sutured in place. A sterile sorbaview shield was placed over the catheter at the insertion site. At time of procedure completion, all ports aspirated and flushed properly. ESTIMATED BLOOD LOSS: Approximately 15 mL. GME ATTESTATION GME ATTESTATION My faculty preceptor for this patient encounter was physically present during the encounter and was fully available. All aspects of the patient interview, examination, medical decision making process, and medical care plan development were reviewed and approved by the faculty preceptor. The faculty preceptor is aware and concurs with the plan as stated in the body of this note and will att est to such by his/her cosignature. ATTENDING NOTE I, Nusrat Nogueira, have independently examined this patient and performed my own physical exam, as well as reviewed the documentation and edited where necessary. I have discussed in detail with the resident / student the findings and plan of treatment as documented by the resident / student and edited their note. I agree with their findings, treatment plan and procedure technique and have edited their documentation. TABITHA STALEY DO Jun 18, 2020 03:56 Nusrat Nogueira MD Jun 20, 2020 00:58
--- NOTE | 2020-06-18 13:40 | DS.PDOC ---
Discharge Summary General Date of Admission Jun 13, 2020 at 17:45 Date of Discharge 06/17/20 Discharge Summary PROCEDURES PERFORMED DURING STAY: [None]. ADMITTING DIAGNOSES: Acute on chronic HFpEF Acute renal failure superimposed on chronic kidney disease Atrial fibrillation Coronary artery disease Acute COPD exacerbation in the setting of Rhinovirus URI DISCHARGE DIAGNOSES: Acute on chronic HFpEF Acute renal failure superimposed on chronic kidney disease Atrial fibrillation Coronary artery disease Acute COPD exacerbation in the setting of Rhinovirus URI Acute hypoxemic respiratory failure COMPLICATIONS/CHIEF COMPLAINT: Bilateral Pleural Effusion. HISTORY OF PRESENT ILLNESS: 74-year-old W a history of atrial fibrillation, diastolic CHF, asthma, COPD (oxygen dependent, 3L NC), coronary artery disease, PR, status post cardiac stent, CKD 3 (baseline Cr 1.5) who came in for acute worsening SOB over a few days with associated worsening lower extremity edema with worsening hypoxemia now requiring 5L NC and found to have Rhinovirus URI and CHF exacerbation, with course c/b worsening oliguric NIKO with nephrology now consulted, escalating diuretics. HOSPITAL COURSE: During hospital stay patient received treatment for acute CHF superimposed with acute renal failure. On 06/17 patient developed PEA , CPR was done.CPR continued from that time to 20:54, she received an additional 3 mg IV epi during the remainder of the code. The patient's son, Jovon, was called and updated on critical status with no improvement with CPR. Decision was made to stop all CPR. Time of was 20:54. DISCHARGE MEDICATIONS: Please see below. ALLERGIES: Please see below. PHYSICAL EXAMINATION ON DISCHARGE: VITAL SIGNS: Please see below. GENERAL: HEENT: NECK: CARDIOVASCULAR EXAMINATION: RESPIRATORY EXAMINATION: ABDOMINAL EXAMINATION: EXTREMITIES: SKIN: NEUROLOGICAL EXAMINATION: PSYCHIATRIC EXAMINATION: LABORATORY DATA: Please see below. IMAGING: PROGNOSIS: ACTIVITY: [As tolerated]. DIET: DISCHARGE PLAN: DISPOSITION: 20 . DISCHARGE INSTRUCTIONS: 1. . ITEMS TO FOLLOWUP ON ON OUTPATIENT: 1. . DISCHARGE CONDITION: [Stable]. TIME SPENT ON DISCHARGE: Greater than minutes. Vital Signs/I&Os Vital Signs Date Time Temp Pulse Resp B/P (MAP) Pulse Ox O2 Delivery O2 Flow Rate FiO2 06/17/20 16:00 98.1 84 18 124/73 (90) 91 Nasal Cannula 6.0 I&O- Last 24 Hours up to 6 AM 06/18/20 06:00 Intake Total 420 ml Output Total 620 ml Balance -200 ml Laboratory Data Labs 24H Laboratory Tests 2 06/17/20 20:19: Nucleated Red Blood Cells % (auto) 0.3H, Prothrombin Time 18.3H, Prothromb Time International Ratio 1.49, Activated Partial Thromboplast Time 29.4, Anion Gap 12, Glomerular Filtration Rate 19.7L, Lactic Acid Level 6.7*H, Calcium Level 9.1, Total Bilirubin 0.8, Aspartate Amino Transf (AST/SGOT) 115H, Alanine Aminotransferase (ALT/SGPT) 76, Alkaline Phosphatase 421H, Total Protein 6.5, Albumin 2.7L, Albumin/Globulin Ratio 0.7L 06/17/20 20:30: Central Line Venous O2 Saturation 73.0 CBC/BMP Laboratory Tests 06/17/20 20:19 Microbiology Microbiology 06/16/20 Urine Culture - Final, Complete Enterobacter Aerogenes 06/13/20 Respiratory Virus Panel (PCR) ([facility]) - Final, Complete Human Rhinovirus/Enterovirus Discharge Medications Scheduled Apixaban (Eliquis) 2.5 Mg Tablet, 2.5 MG PO BID, (Reported) Bisoprolol Fumarate (Bisoprolol Fumarate) 5 Mg Tablet, 2.5 MG PO DAILY, (Reported) Docusate Sodium (Docusate Sodium) 100 Mg Cap, 100 MG PO DAILY, (Reported) Ferrous Gluconate (Ferrous Gluconate) 324 Mg Tablet, 324 MG PO DAILY, (Reported) Furosemide (Furosemide) 40 Mg Tablet, 40 MG PO DAILY, (Reported) Midodrine HCl (Midodrine HCl) 10 Mg Tablet, 10 MG PO BID, (Reported) Salmeterol/Fluticasone (Advair 500-50 Diskus) 28 Puff/Inhaler Aerp, 1 PUFF INH BID, (Reported) Umeclidinium Brm/Vilanterol Tr (Anoro Ellipta 62.5-25 Mcg INH) 1 Each Blst.w.dev, 1 PUFF INH DAILY, (Reported) Scheduled PRN Acetaminophen (Acetaminophen) 325 Mg Tab, 650 MG PO Q4H PRN for PAIN, (Reported) Albuterol Sulfate (Ventolin Hfa) 108 Mcg/Act Aer, 2 PUFFS INH Q4H PRN for SHORTNESS OF BREATH, (Reported) Hydrocortisone (Proctosol-Hc) 2.5 % Cre, 1 APLCT [place] QID PRN for HEMORRHOIDS, (Reported) Ipratropium/Albuterol Sulfate (Iprat-Albut 0.5-3(2.5) mg/3 ml) 1 Anne Anne, 1 NEB INH QID PRN for SHORTNESS OF BREATH, (Reported) Allergies Coded Allergies: Dieeiwj-Ori-Szb Reductase Inhibitor (Verified Adverse Reaction, Intermediate, upset stomach, 03/25/19) Quinolones (Verified Adverse Reaction, Mild, palpitations, 10/29/19) patient tolerated levaquin in oct 2019 admission. ezetimibe (Verified Adverse Reaction, Unknown, UPSET STOMACH, 06/13/20) TRAVON HERMOSILLO DO Jun 18, 2020 13:40
--- NOTE | 2020-06-20 11:50 | ECGEPIP ---
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
--- NOTE | 2020-07-04 16:26 | REP ---
RENAL ULTRASOUND CLINICAL: Chronic renal disease with worsening acute renal insufficiency. TECHNIQUE: Real-time palacios scale ultrasound examination using curved array transducer. COMPARISON: 10/23/2019. FINDINGS: The bilateral kidneys appear atrophic with cortical thinning and increased central sinus fat consistent with chronic renal disease. There is no evidence for hydronephrosis, nephrolithiasis, cystic or renal mass lesion. Right kidney measures 8.7 x 3.7 x 3.9 cm. Left kidney measures 7.9 x 4.3 x 4.6 cm. The bladder is collapsed. IMPRESSION: Atrophic appearance to the bilateral kidneys consistent with chronic renal disease. No hydronephrosis. MTDD
== END 2020-06-17 21:13 | disposition expired | DRG 291 ==
LOC: M ED 12:39 → M ED INP 17:45 → M PCU 19:55 → M ICU 06-17 20:00
PROVIDERS: ADMIT Internal Medicine; ATTEND Internal Medicine
DX: I13.0 Hypertensive heart and chronic kidney disease with heart failure and stage 1 through stage 4 chronic kidney disease, or unspecified chronic kidney disease (principal); I50.33 Acute on chronic diastolic (congestive) heart failure; N17.0 Acute kidney failure with tubular necrosis; J96.01 Acute respiratory failure with hypoxia; N17.9 Acute kidney failure, unspecified; B37.0 Candidal stomatitis; J44.1 Chronic obstructive pulmonary disease with (acute) exacerbation; N18.3 Chronic kidney disease, stage 3 (moderate); B97.89 Other viral agents as the cause of diseases classified elsewhere; I48.91 Unspecified atrial fibrillation; I25.10 Atherosclerotic heart disease of native coronary artery without angina pectoris; Z99.81 Dependence on supplemental oxygen; I25.2 Old myocardial infarction; Z95.2 Presence of prosthetic heart valve; Z79.899 Other long term (current) drug therapy; Z88.8 Allergy status to other drugs, medicaments and biological substances; F17.200 Nicotine dependence, unspecified, uncomplicated; I95.9 Hypotension, unspecified